=== PATIENT | male | born 1940 | race Caucasian/White ===

== ENCOUNTER 2024-08-04 09:22 | Inpatient (IN) | payer OTHER, MEDICARE, SELFPAY ==
[2024-08-04] VITALS (8 sets, daily range): BP systolic 97–171; BP diastolic 48–106; BMI 22.5; BMI 21.8
[2024-08-04 03:24] LABS: % Basophils 0.7 % (0-2); % Eosinophils 0.3 % (0-6); % Immature Granulocytes 0.3 % (0-0.5); % Monocytes 7.3 % (1.7-9.3); % Neutrophils 73.4 % (42.2-75.2); Absolute Basophils 0.1 10^3/uL (0-0.2); Absolute Lymphocytes 1.3 10^3/uL (1.2-3.4); Absolute Monocytes 0.5 10^3/uL (0.1-0.6); Absolute Neutrophils 5.4 10^3/uL (1.4-6.5); Hematocrit 37.1 % (39.0-52.0); Hemoglobin 12.9 g/dL (13.0-18.0); Mean Corp Hgb Conc. 34.8 g/dL (33.0-37.0); Mean Corpuscular Hgb 31.9 pg (27.0-31.0); Mean Corpuscular Volume 91.6 fL (80.0-94.0); Mean Platelet Volume 11.4 fL (7.4-10.4); Nucleated Red Blood Cells % 0 % (-); Platelet Count 133 10^3/uL (130-400); Red Blood Cell Count 4.05 10^6/uL (4.70-6.10); Red Cell Dist. Width 13.3 % (11.5-14.5); White Blood Cell Count 7.4 10^3/uL (4.8-10.8)
[2024-08-04 03:43] LABS: ALT (SGPT) 26 U/L (0-50); AST (SGOT) 33 U/L (17-59); Albumin 4.5 g/dl (3.5-5.0); Alkaline Phosphatase 100 U/L (38-126); Blood Urea Nitrogen 31 mg/dl (9-20); Calcium 10.2 mg/dl (8.4-10.2); Carbon Dioxide 21 mmol/L (22-30); Chloride 109 mmol/L (98-107); Estimated Creatinine Clearance 66 ml/min; Glucose 162 mg/dl (70-99); Lipase 97 U/L (23-300); Potassium 3.9 mmol/L (3.5-5.1); Sodium 139 mmol/L (135-145); Total Bilirubin 0.9 mg/dl (0.2-1.3); Total Protein 6.8 g/dl (6.3-8.2); eGFR > 60.00
--- NOTE | 2024-08-04 04:22 | ED.GENMED ---
History of Present Illness
General
Chief Complaint: Abdominal Pain
Source: patient
Exam Limitations: none
Time Seen by Provider: 08/04/24 04:22
Nursing documentation reviewed up to this point in time: agreed with
History of Present Illness
History of Present Illness:
83-year-old male with past medical history of COPD, ulcerative colitis, small bowel obstruction presents emergency department today with sudden onset of diffuse abdominal pain, nausea and vomiting after eating dinner this evening. Patient reports
that this feels like exactly when he had a small bowel obstruction in the past. Patient reports that he had a partial colectomy multiple years ago for his ulcerative colitis at [place]. Patient denies any diarrhea. Patient states that he had
a bowel movement few hours ago. He denies any chest pain or shortness of breath. He denies any fevers or chills. He denies any sick contacts.
Past History
Past History
ED Past Medical History: COPD and Other (Ulcerative colitis, arthritis)
ED Past Surgical History: Bowel resection and Orthopedic (Bilateral knee replacements. Left shoulder replacement. Waiting to see [facility] about his right shoulder.)
Social History
Tobacco: Former smoker
Personal:
Living: with family
Employment: Retired
Review of Systems
Review of Systems
All Other Systems: ROS reviewed and negative except as documented in HPI and ROS
Phy Exam
Physical Exam
Physical Exam:
General: Patient is well appearing and in no acute distress; non-toxic
Skin: Warm and dry, no rashes or lesions
Head: Normocephalic, atraumatic
Eyes: Sclera non-icteric. EOMs intact.
Cardiac: Regular rate and rhythm, no murmurs
Pulm: Normal respiratory effort
Abdomen: Abdomen is distended, diffuse abdominal tenderness to palpation, decreased bowel sounds
Neuro: CN II-XII intact, no focal neurologic deficits.
Psychiatric: Appropriate mood and affect.
Course
Orders/Labs/Results
Orders:
Orders
08/04/24 03:08
Complete Blood Count/With Diff Urgent
Comprehensive Metabolic Panel Urgent
Lipase Urgent
08/04/24 04:18
Morphine Sulfate 2 mg IV NOW STA
Ondansetron Injectable [Zofran] 4 mg IV NOW STA
08/04/24 04:19
CT Abd/Pel (IV only)-DH only Urgent
Comment:
Reason For Exam: diffuse abdominal pain, sbo hx
08/04/24 06:01
Morphine Sulfate 4 mg IV NOW STA
Ondansetron Injectable [Zofran] 4 mg IV NOW STA
08/04/24 07:00
Flush (0.9% Sodium Chloride) [Flush (Nss)] See Dose Instructions IV PER PROTOCOL
Abnormal Lab Results
08/04/24
03:08
RBC 4.05 L 10^6/uL
(4.70-6.10)
Hgb 12.9 L g/dL
(13.0-18.0)
Hct 37.1 L %
(39.0-52.0)
MCH 31.9 H pg
(27.0-31.0)
MPV 11.4 H fL
(7.4-10.4)
Lymphocytes % 18.0 L %
(20.5-51.1)
Chloride 109 H mmol/L
(98-107)
Carbon Dioxide 21 L mmol/L
(22-30)
BUN 31 H mg/dl
(9-20)
Glucose 162 H mg/dl
(70-99)
08/04/24 03:08
08/04/24 03:08
Vital Signs
Initial and Last Documented VS:
Initial Vital Signs
Temp Pulse Resp BP Pulse Ox
97.9 F 63 22 151/106 99
08/04/24 02:54 08/04/24 02:54 08/04/24 02:54 08/04/24 02:54 08/04/24 02:54
Last Documented Vital Signs
Temp Pulse Resp BP Pulse Ox
97.9 F 63 22 165/73 97
08/04/24 02:54 08/04/24 02:54 08/04/24 02:54 08/04/24 06:00 08/04/24 06:00
MDM/Problems Addressed
Differential Diagnosis Includes:
SBO, gastritis, LBO, diverticulitis
MDM/Problems Addressed:
83-year-old male presents Emergency Department today with concerns of sudden onset severe abdominal pain, nausea and vomiting. He is found to have small bowel obstruction. No indication for NG tube at this time. General surgery made aware.
Patient referred to hospitalist for admission.
*Critical Care Note
Total Time (30-74mins, 75-104mins- exclusive of procedures): Not Applicable
ED Attending Note
-
Portions of this chart may have been created with voice recognition software.� Occasional wrong word or��sound alike� substitutions may have occurred due to the inherent limitations of voice recognition software.
Discharge Plan
Departure
Patient Disposition: Admit
Date of Disposition: 08/04/24
Time of Disposition: 06:25
Admit to: Med/Surg
Presentation/result/management discussed w/ accepting MD/DO: Hospitalist
Patient with high blood pressure during this ER visit?: Yes
Condition: Fair
Discharge Problem:
Small bowel obstruction
Prescriptions:
No Action
oxycodone-acetaminophen 5 MG/325 MG tablet
1 tab PO .Q4-6HPRN PRN (Reason: pain) Qty: 20 0RF
finasteride 5 MG tablet
5 mg PO DAILY
silodosin [Rapaflo] 8 MG capsule
8 mg PO DAILY
hydroxychloroquine 200 MG tablet
1 tab PO DAILY
pantoprazole 40 MG tablet,delayed release (DR/EC)
40 mg PO DAILY
hydrocodone-acetaminophen 1 TABLET tablet
1 tab PO Q4HPRN PRN (Reason: pain) Qty: 12 0RF
diazepam 5 MG tablet
5 mg PO TIDPRN PRN (Reason: Pain, spasm) Qty: 12 0RF
Referrals:
Bernardo Cazares MD [Family Provider, Internal Medicine]
Interventions
Interventions:
*Risk Screen - Suicide Last Done: 08/04/24 02:54
*General Assessment Last Done: 08/04/24 02:54
*Neglect/Abuse Screening Last Done: 08/04/24 02:54
*ED- Fall Risk Assessment Last Done: 08/04/24 03:16
*ED COVID-19 Vaccine History Last Done: 08/04/24 03:16
KX-Cqkrgt-Vxkyrgvqox Assessment Last Done: 08/04/24 03:16
Discharge Date and Time
Print Language: FRISIAN
[2024-08-04] MEDS: MORPHINE SULFATE 2 MG IV (04:34)
[2024-08-04] MEDS: ZOFRAN 4 MG IV ×4 (04:34→21:25)
[2024-08-04] MEDS: MORPHINE SULFATE 4 MG IV (06:24)
[2024-08-04] MEDS: TORADOL 30 MG IV (08:16)
--- NOTE | 2024-08-04 08:57 | CM ---
Patient seen at bedside in ED 14 with physicians. Patient stated that he lives in a single family home with 3 stories but stays on 2 floors. Patient stated that he has a cane at home but does not use it. 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 Patient PCP is Dr. Eugene and he uses the [facility] in [place]. 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 Patient plan is to return home
with no needs when medically appropriate. CM will continue to follow for discharge planning needs.
Plan; home with no needs.
--- NOTE | 2024-08-04 10:04 | CON.GS ---
Consultation
-
Date/Time Consultation Performed: 08/04/2024 10:04 AM
Reason for Consultation: Small bowel obstruction
Medical History
-
Chief Complaint: Abdominal pain, nausea vomiting
History of Present Illness:
Patient is an 83-year-old male who presented to the emergency department secondary to the acute onset of abdominal pain.
Past medical history pertinent for ulcerative colitis having undergone a total abdominal colectomy with subsequent ileal J-pouch creation in 2009. He has also had prior inguinal herniorrhaphy. Single prior episode of small bowel obstruction about
10 years ago while vacationing in [place] which resolved with conservative management but did require NG tube decompression.
Patient's son is at bedside while he is evaluated in the emergency department. They state that over the past week he began developing headaches, anorexia mild nausea which was attributed to a recent tick bite that occurred last week. After
follow-up with his primary care the plan was for Lyme testing after 1 week of symptoms. He had been tolerating regular diet otherwise with his typical GI function which is 8-10 bowel movements a day. Yesterday he had a boa bun which is not typical
food for him and then in the evening began developing crampy abdominal pain. He tried to walk it off but it did not alleviate his symptoms. The diffuse abdominal pain increased in severity and he had an episode of nausea vomiting at 2 AM prompting
emergency department evaluation. He vomited again shortly after evaluation in the emergency department and prior to CT imaging.
Last bowel movement was yesterday evening. No flatus or bowel movement since. At this time he denies nausea and no further vomiting. He continues with centralized abdominal pain but also rather diffuse. Also abdominal bloating and distention.
Past Medical History
Past Medical History: Other (Ulcerative colitis, COPD, prior history of small bowel obstruction, osteoarthritis)
Past Surgical History: Other (Total abdominal colectomy with ileal pouch anal anastomosis. Inguinal hernia repair. Bilateral knee replacements. Left shoulder replacement.)
Social History
Tobacco: Former Smoker
Living: With Family
Family History
Family History: Reviewed & Not Pertinent
Allergies / Home Medications
Allergy/AdvReac Type Severity Reaction Status Date / Time
lactose Allergy bowel Verified 08/04/24 02:59
issues
lactose
intolerant
polyethylene glycol Allergy Rash Verified 08/04/24 02:59
environmental Allergy nasal Uncoded 08/04/24 02:59
congestion
�Medication �Instructions �Recorded �Confirmed �Type
finasteride 5 mg tablet 5 mg PO DAILY BPH 07/16/13 08/04/24 History
hydroxychloroquine 200 mg tablet 200 mg PO DAILY Autoimmune Disorder 07/16/13 08/04/24 History
silodosin 8 mg capsule (Rapaflo) 8 mg PO DAILY BPH 07/16/13 08/04/24 History
albuterol sulfate 90 mcg/actuation 2 puff inhalation R DAILY 08/04/24 08/04/24 History
aerosol inhaler Lung/Breathing Issues
cholecalciferol (vitamin D3) 25 25 mcg PO DAILY Supplement 08/04/24 08/04/24 History
mcg (1,000 unit) tablet (Vitamin
D3)
cholestyramine 4 gram oral powder 4 g PO QPM 08/04/24 08/04/24 History
coQ10 (ubiquinol) 100 mg capsule 100 mg PO DAILY Supplement 08/04/24 08/04/24 History
cyanocobalamin (vitamin B-12) 1,000 mcg PO DAILY Supplement 08/04/24 08/04/24 History
1,000 mcg tablet
cyclosporine 0.05 % eye drops in a 1 drp BOTH EYES Q12H Eye Condition 08/04/24 08/04/24 History
dropperette (Restasis)
montelukast 10 mg tablet 10 mg PO QPM Allergies 08/04/24 08/04/24 History
(Singulair)
uqyvslra-dcijewez-rls C 250 1 tab PO DAILY Supplement 08/04/24 08/04/24 History
mg-herbal no.124 8.875 mg
chewable tablet (Airborne
(ascorbic acid))
rosuvastatin 20 mg tablet (Crestor) 20 mg PO QPM High Cholesterol 08/04/24 08/04/24 History
vit C 250 mg-vit E 90 mg-zinc 40 1 tab PO DAILY Supplement 08/04/24 08/04/24 History
mg-copper 1 zh-yohqcd-jpvuhi
capsule (PreserVision AREDS-2)
Review of Systems
-
History Source: Patient and Family
All other systems: Negative unless noted
A 10 point review of systems was completed, and was negative except as per HPI.
Physical Exam
Vital Signs
Temp Pulse Resp BP Pulse Ox
97.7 F 46 16 171/48 97
08/04/24 08:30 08/04/24 08:30 08/04/24 08:30 08/04/24 08:30 08/04/24 06:00
08/03/24 08/04/24 08/05/24
06:59 06:59 06:59
Actual Weight 67.1 kg
Body Mass Index (BMI) 22.5
Lab Results
08/04/24 03:08
08/04/24 03:08
WBC 7.4 10^3/uL (4.8-10.8) 08/04/24 03:08
Hgb 12.9 g/dL (13.0-18.0) L 08/04/24 03:08
Hct 37.1 % (39.0-52.0) L 08/04/24 03:08
Plt Count 133 10^3/uL (130-400) 08/04/24 03:08
Abs Immat Gran (auto) 0.0 10^3/uL (0-0.05) 08/04/24 03:08
Neutrophils % 73.4 % (42.2-75.2) 08/04/24 03:08
Physical Exam
General: Well Developed, Well Nourished and No Apparent Distress (But uncomfortable appearing)
HEENT: Normocephalic and Anicteric
Respiratory: Non Labored Respirations
Cardiac: Regular Rhythm
GI: Soft, Tender (Diffuse abdominal tenderness but greatest in the periumbilical region. No rebound or rigidity. Slight guarding.) and Distended (Tympany on percussion throughout. No percussion tenderness.)
Neuro: AO x 3
Psych: Calm
Data Reviewed
-
CT Scan: Image Personally Visualized and interpreted, Report Reviewed by me, Discussed with Patient and Discussed with Family
Labs: Labs Reviewed by me
Assessment / Plan
-
Assessment: 83-year-old male presenting with small bowel obstruction in the setting of previous history of total abdominal colectomy and ileal pouch anal anastomosis.
CT imaging personally reviewed as well as radiologist report. Rather diffusely distended small bowel loops with out clear transition point. Few relatively decompressed small bowel loops in the right lower quadrant. No radiographic evidence
suggestive of internal hernia/volvulus or closed-loop obstruction. No pneumatosis, no free air, no bowel wall thickening or edema. Some residual stool and air within the ileal pouch.
Reviewed with patient and his son at bedside history and imaging studies as outlined above. Given clinical stability and no immediate signs of bowel compromise/threat recommended initial medical management.
Plan: Bowel rest; discussed placement of NG tube if patient's nausea/vomiting returns or if there is worsening abdominal distention and pain. Patient advises that he would be agreeable to placement later on but wishes to hold on NG tube placement
for now.
IV fluid hydration
Supportive care with analgesics and antiemetics as needed
Will follow
[2024-08-04] MEDS: DILAUDID 0.25 MG IV (10:12)
[2024-08-04] MEDS: RESTASIS 0.05% OPHTHALMIC EMULSION 1 DROPS BOTH EYES ×2 (10:15→21:25)
[2024-08-04] MEDS: D5LR 1000 IV ×2 (10:15→20:11)
[2024-08-04 10:35] LABS: Lactic Acid 0.8 mmol/L (0.7-2.0)
--- NOTE | 2024-08-04 10:47 | HPS.HSE ---
Addendum entered and electronically signed by Apolonia Thomson MD 08/04/24 18:46:
I personally performed a history and physical exam of the patient and discussed management with the resident. I reviewed the resident's note and agree with the documented findings and plan of care HPI/CC.
GENERAL: well developed, well nourished, male in no apparent distress
HEENT: NC/AT
HEART: regular rate and rhythm, +S1, +S2
LUNGS : clear to auscultation bilaterally
ABDOM: soft, tender without guarding or rebound, nondistended, + bowel sounds
EXT: no cyanosis, clubbing, or edema
NEUROLOGIC: grossly intact
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
control--surgery eval
Chronic Asthmatic Bronchitis- Continue Home Meds (INH)
UC- Hold PO Meds for now
BPH- Hold PO Meds for now
HLD - Hold PO Meds for now
History of Tick Bite- Lyme Serologies in AM
DVT proph-- lovenox
Code Status---Full Code
Original Note:
Family Physician
-
Family Physician: Bernardo Cazares MD
Chief Complaint
-
Abdominal Pain
History of Present Illness
Mr. Bello is an 83M with past medical history of ulcerative colitis (dx in 1999), chronic asthmatic bronchitis, total abdominal colectomy with subsequent ileal J-pouch creation in 2009, and inguinal herniorrhaphy who presented to the emergency
department with abdominal pain. Patient notes being in his usual state of health until around 8pm the night prior when he began feeling sharp and stabbing diffuse abdominal pain that was constant and progressively worsened. Patient tried to drink
water and sleep it off but awoke around 0200 this morning and called his neighbor to bring him to the emergency room. Patient notes one previous episode of similar abdominal pain approx. 10 years ago that was diagnosed as SBO and managed
conservatively with NG tube decompression and IVF. Patient states that this episode is worse. Associated symptoms include bloating, nausea and vomiting x2 (NBNB). Vomitus is described as digested food and water. Patient also believes that he had not
passed any gas since waking up at 0200. Patient denies fevers, chills, chest pain, SOB, or trouble urinating.
In ED, patient was given morphine which he states only minimally helped the pain.
Additional history includes one week of headache and fatigue which the patient attributes a tick bite that was to be tested for Lyme after 1 week of symptoms (today).
Medical History
Past Medical History
Past Medical History: Reports Other
Additional Past Medical History:
Ulcerative Colitis, Osteoarthritis, Chronic Asthmatic Bronchitis
Past Surgical History: Reports Other
Additional Past Surgical History:
total abdominal colectomy with subsequent ileal J-pouch creation
inguinal herniorrhaphy
bilateral TKR
Social History
Tobacco: Other (occasional cigar use; has never smoked )
Alcohol: Other (Quit drinking in 1999)
Drug: None
Personal:
Living: With Family
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
Family History
Family History: Not pertinent
Allergies / Home Medications
Allergies reflects when Allergies were last updated in [employer].
Home Medications with original date entered in [employer]
Allergy/Medication List:
Polypropylene glycol�rash, GI upset
Review of Systems
-
A 12 point ROS was completed and negative except as noted: Yes
Physical Exam
Vital Signs
Vital Signs
Temp Pulse Resp BP Pulse Ox
97.7 F 46 16 171/48 97
08/04/24 08:30 08/04/24 08:30 08/04/24 08:30 08/04/24 08:30 08/04/24 06:00
Physical Exam
General: Well Developed, Well Nourished and Pain; No Fever or Chills
HEENT: NormoCephalic, Anicteric, Moist mucous membranes and Other (Sclera anicteric)
Respiratory: Clear and Non Labored Respirations; No Wheezes, Rales, Rhonchi or Crackles
Cardiac: S1/S2 and Regular Rhythm
GI: Non Distended, Normal Bowel Sounds, Tender (Diffusely tender, particularly in periumbilical area) and Other (Patient is a little guarded, no rebound tenderness or peritoneal signs)
Musculoskeletal: No Clubbing, No Cyanosis and No Edema
Skin: Warm and Dry
Neuro: Awake, Alert, Oriented and Nonfocal/grossly intact
Psych: Calm
Laboratory Results
-
08/04/24 03:08
08/04/24 03:08
Laboratory Results
Lactic Acid 0.8 mmol/L (0.7-2.0) 08/04/24 10:10
Total Bilirubin 0.9 mg/dl (0.2-1.3) 08/04/24 03:08
AST 33 U/L (17-59) 08/04/24 03:08
ALT 26 U/L (0-50) 08/04/24 03:08
Alkaline Phosphatase 100 U/L (38-126) 08/04/24 03:08
Lipase 97 U/L (23-300) 08/04/24 03:08
CT abdomen pelvis:IMPRESSION:
1. Suspect distal small bowel obstruction.
2. Bilateral enhancing renal masses (two in each kidney), suspicious for neoplasm (either multiple primary renal neoplasms or metastases).
Data Reviewed
-
CT Scan: Image Personally Visualized and interpreted, Report Reviewed by me and Discussed with Patient
Lab Data: Labs Reviewed by me and Discussed with Patient
Impression/Plan
-
1. Small Bowel Obstruction
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
- Previous previous history of abdominal hernia repair
- Bowel rest (NPO);
- IVF D5LR@100 ml/hr
- Ice chip sporadically for dry mouth
- IV Zofran for antiemesis; if patient continues, consider gastric decompression
- IV Dilaudid 0.25mg for moderate pain, 0.5mg for severe pain
- Surgery consultation
- Serum Lactate
2. Chronic Asthmatic Bronchitis
- Continue Home Meds (INH)
3. UC
- Hold PO Meds for now
4. BPH
- Hold PO Meds for now
5. HLD
- Hold PO Meds for now
6. History of Tick Bite
- Lyme Serologies in AM
Code Status: Full Code
Diet: NPO
Dispo:
--- NOTE | 2024-08-04 13:25 | PTCARENOTE ---
pt had one episode of moderate emesis. rigo admin. aware. no new orders.
[2024-08-04] MEDS: DILAUDID 0.5 MG IV ×3 (13:48→21:13)
[2024-08-04] MEDS: LOVENOX 40 MG SC (16:14)
[2024-08-04] MEDS: D5LR IV (16:24)
--- NOTE | 2024-08-04 17:13 | PTCARENOTE ---
Pt NPO cont with no c/o nausea.
[2024-08-05] VITALS (15 sets, daily range): BP systolic 70–164; BP diastolic 49–138
[2024-08-05] MEDS: DILAUDID 0.5 MG IV ×5 (01:23→17:23)
[2024-08-05] MEDS: D5LR 1000 IV ×2 (04:44→13:33)
[2024-08-05] MEDS: ZOFRAN 4 MG IV ×3 (04:48→16:07)
[2024-08-05] MEDS: RESTASIS 0.05% OPHTHALMIC EMULSION 1 DROPS BOTH EYES (07:55)
[2024-08-05] MEDS: ProAIR HFA INHALER 2 PUFF INH (07:56)
[2024-08-05 08:10] LABS: Hematocrit 39.7 % (39.0-52.0); Hemoglobin 13.4 g/dL (13.0-18.0); Mean Corp Hgb Conc. 33.8 g/dL (33.0-37.0); Mean Corpuscular Hgb 31.5 pg (27.0-31.0); Mean Corpuscular Volume 93.2 fL (80.0-94.0); Platelet Count 115 10^3/uL (130-400); Red Blood Cell Count 4.26 10^6/uL (4.70-6.10); Red Cell Dist. Width 14.3 % (11.5-14.5); White Blood Cell Count 3.5 10^3/uL (4.8-10.8)
--- NOTE | 2024-08-05 08:46 | W.PN.GS2 ---
Addendum entered and electronically signed by Jose Rosas MD 08/05/24 15:25:
I saw and examined the patient.
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
Comment: Denies pain. Not passing flatus that he is aware of. Reports emesis this am, small volume. Remains distended but nontender on exam. Will cont current mgmt. Glycerin suppository may help empty the pouch.
Original Note:
Today's Communication / Plan
-
Suppository x1
NPO for bowel rest
NGT if vomiting continues
Assessment / Plan
-
83 yo male with a h/o ulcerative colitis having undergone a total abdominal colectomy with subsequent ileal J-pouch creation in 2009 presenting with SBO
CT imaging demonstrated rather diffusely distended small bowel loops with out clear transition point. Few relatively decompressed small bowel loops in the right lower quadrant. Some residual stool and air within the ileal pouch.
AFVSS
Pain improved but with episode of vomiting this am
Not yet passing flatus/stools, distention persists
--Plan glycerin supp x1 given retained stool in pouch
--If vomiting recurs, would recommend NGT
--Keep NPO for bowel rest
--Analgesics/antiemetics prn
--IVF as per primary team
--On Lovenox sq for VTE ppx
Subjective Data
-
Date of Service: August 05, 2024
Patient seen and examined at bedside with Dr. Rosas. Nasuea earlier this am and then Vomited but denies active nausea currently. Pain improving. Required analgesics overnight which were effective. Not yet passing flatus/stools.
Objective Data
-
Intake and Output
08/04/24 08/05/24 08/06/24
06:59 06:59 06:59
Intake Total 480 / 480
Output Total 240 / 240
Balance 240 / 240
Intake:
IV fluids (Total) 480 / 480
Output:
Urine, Voided 240 / 240
Other:
Number of approximated MODERATE 2
amounts of urine
Vital Signs
Temp Pulse Resp BP Pulse Ox
98.4 F 62 17 111/58 92
08/05/24 08:05 08/05/24 08:05 08/05/24 08:05 08/05/24 08:05 08/05/24 07:59
Lab Results
08/05/24 06:37
Calcium 10.2 mg/dl (8.4-10.2) 08/04/24 03:08
Total Bilirubin 0.9 mg/dl (0.2-1.3) 08/04/24 03:08
AST 33 U/L (17-59) 08/04/24 03:08
ALT 26 U/L (0-50) 08/04/24 03:08
Alkaline Phosphatase 100 U/L (38-126) 08/04/24 03:08
Total Protein 6.8 g/dl (6.3-8.2) 08/04/24 03:08
Albumin 4.5 g/dl (3.5-5.0) 08/04/24 03:08
Physical Exam
-
NAD
ABD soft, distended, mild tenderness, pepper cutter
[2024-08-05 09:02] LABS: ALT (SGPT) 22 U/L (0-50); AST (SGOT) 27 U/L (17-59); Albumin 3.8 g/dl (3.5-5.0); Alkaline Phosphatase 56 U/L (38-126); Blood Urea Nitrogen 52 mg/dl (9-20); Calcium 8.9 mg/dl (8.4-10.2); Carbon Dioxide 27 mmol/L (22-30); Chloride 106 mmol/L (98-107); Estimated Creatinine Clearance 40 ml/min; Glucose 153 mg/dl (70-99); Potassium 4.3 mmol/L (3.5-5.1); Sodium 142 mmol/L (135-145); Total Bilirubin 0.7 mg/dl (0.2-1.3); Total Protein 5.9 g/dl (6.3-8.2); eGFR 54.51
[2024-08-05] MEDS: GLYCERIN SUPPOSITORY ADULT 1 SUPP RECTAL (09:53)
--- NOTE | 2024-08-05 12:21 | PN.CDI ---
CDI
- -
CDI:
Physician Documentation Request
Admit Date: 08/04/24 09:22
Dear QI De Paz,
Please review the following and provide your response in the progress notes.
Clinical Indicators:
PN, 08/05
#...h/o ulcerative colitis having undergone a total abdominal colectomy
#...with subsequent ileal J-pouch creation in 2009 presenting with SBO
#CT imaging demonstrated rather diffusely distended small bowel loops
#...with out clear transition point.
#Few relatively decompressed small bowel loops in the right lower quadrant.
#Not yet passing flatus/stools, distention persists
Based on the above and your clinical assessment, please clarify the specificity of the bowel obstruction, if known:
Partial bowel obstruction with intestinal adhesions
Completer bowel obstruction with intestinal adhesions
Other (please specify)
Use of terms such as suspected, likely, concern for, or probable (associated with a specific diagnosis that is being evaluated, monitored, or treated as if it exists) are acceptable and can be coded in the inpatient setting, when documented at the
time of discharge.
Thank you,
Apolonia Kapadia RN BSN CCDS
CDI Specialist
Please contact via tiger text
Please use your independent medical judgment in providing your response.
--- NOTE | 2024-08-05 13:26 | W.PN.HOSP.TC ---
Addendum entered and electronically signed by Apolonia Thomson MD 08/05/24 18:17:
I personally performed a history and physical exam of the patient and discussed management with the resident. I reviewed the resident's note and agree with the documented findings and plan of care HPI/CC.
GENERAL: well developed, well nourished, male in no apparent distress
HEENT: NC/AT
HEART: regular rate and rhythm, +S1, +S2
LUNGS : clear to auscultation bilaterally
ABDOM: soft, tender without guarding or rebound fredy midepigastric, nondistended, + bowel sounds
EXT: no cyanosis, clubbing, or edema
NEUROLOGIC: grossly intact
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
control--surgery eval--glycerin suppository to empty pouch
Chronic Asthmatic Bronchitis- Continue Home Meds (INH)
UC- Hold PO Meds for now
BPH- Hold PO Meds for now
HLD - Hold PO Meds for now
History of Tick Bite- Lyme Serologies in AM
DVT proph-- lovenox
Code Status---Full Code
Original Note:
Today's Communication/Plan
-
.
Assessment / Plan
Assessment / Plan
- 1. Small Bowel Obstruction
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
- Previous previous history of abdominal hernia repair
- Continue Bowel rest (NPO);
- Continue IVF D5LR@100 ml/hr
- Serum lactate, WBC, WNL
- Ice chip sporadically for dry mouth
- Continue PRN IV Zofran for antiemesis;
- Patient had one episode of vomiting this morning, discussed potential of NG tube but patient would like to avoid that if possible. Patient notes a history of NG tube during previous episode of SBO as well as multiple NG in that past during
non-abdominal surgical procedures
- IV Dilaudid 0.25mg for moderate pain, 0.5mg for severe pain
- Patient did not respond to IV Toradol or IV morphine this admission.
- Appreciate General Surgery Input
- Conservative management for now
- NG if vomiting
- Glycerin rectal suppository 1x (stool in rectal pouch on CT)
2. Chronic Asthmatic Bronchitis
- Continue Home Meds (INH)
3. UC
- Hold PO Meds for now
4. BPH
- Hold PO Meds for now
5. HLD
- Hold PO Meds for now
6. History of Tick Bite
- Follow up Lyme Serologies
Code Status: Full Code
Diet: NPO
Dispo:
Anticipated Discharge: 24 - 48 hours
Subjective/Interval History
-
Date of Service: August 05, 2024
Patient seen and examined this AM, states that he slept well, had residual nausea and belching, but denied vomiting. Stated that his nausea was well controlled on medication, and that pain was well controlled on medication. Patient then proceeded to
vomit approximately 100-150 cc of yellowish liquidy emesis. Patient states he has not yet had a BM, but does endorse having passed flatus over night.
On revisiting patient, patient's friend who is at bedside was asking about nonnarcotic pain medications, however, patient has already been trialed on IV Toradol, and it did not control pain.
Objective Data
-
Labs:
Laboratory Results
08/05/24
06:37
WBC 3.5 L
Hgb 13.4
Hct 39.7
Plt Count 115 L
Sodium 142
Potassium 4.3
Chloride 106
Carbon Dioxide 27
BUN 52 H
Creatinine 1.3
Glucose 153 H
Calcium 8.9
Total Bilirubin 0.7
AST 27
ALT 22
Alkaline Phosphatase 56
Vital Signs:
Vital Signs
Temp Pulse Resp BP Pulse Ox
98.4 F 62 17 111/58 98
08/05/24 08:05 08/05/24 08:05 08/05/24 08:05 08/05/24 08:05 08/05/24 08:00
I&O
08/04/24 08/05/24 08/06/24
06:59 06:59 06:59
Intake Total 480 / 480
Output Total 240 / 240
Balance 240 / 240
Review of Systems
-
History Source: Patient
Constitutional: Denies Fever or Chills
EENT: Reports Other (endorses dry mouth); Denies Sore Throat
Respiratory: Denies Cough or Trouble Breathing
Cardiac: Denies Chest Pain
Abdomen/GI: Reports Abdominal Pain, Nausea and Vomiting; Denies Diarrhea or GERD
Neuro: Reports No Symptoms
Physical Exam
-
General: Well Developed, Well Nourished, No Apparent Distress and Pain (mild, controlled on PRN pain medication)
HEENT: Normocephalic and Atraumatic
Respiratory: Clear to Auscultation; Negative Wheezes, Rales or Rhonchi
Cardiac: Regular Rhythm and S1/S2
GI: Soft, Normal Bowel Sounds and Tender (mildly TTP diffusely, more so in the periumbilical area)
Musculoskeletal: No Clubbing, No Cyanosis and No Edema
Skin: Warm and Dry
Neuro: Awake, Alert, Oriented and Nonfocal/Grossly Intact
Psych: Calm
Data Reviewed
-
CT Scan: Image personally visualized and interpreted, Report Reviewed by me, Discussed with Physician (Dr. Rosas ([facility] and Discussed with Patient
Labs: Labs Reviewed by me and Discussed with Patient
--- NOTE | 2024-08-05 16:03 | CM ---
Patient seen at bedside with friend also present. Patient plan is to return home with family supports when medically appropriate. CM will continue to follow for discharge planning needs.'
PLan; home with no needs vs home with VN pending medical assessment
--- NOTE | 2024-08-05 17:00 | PTCARENOTE ---
Talked with Dr. Thomson about pt not wanting a NG tube. She had stated that his SBO is not getting any better and that we cannot go against his wishes of not having an NG tube.
Pt had vomited two times today into the emesis bag, and still refused the NG tube when explained that it would help him. Pt explained that he had a terrible experience with an NG tube in 2014.
[2024-08-05] MEDS: LOVENOX 40 MG SC (17:18)
--- NOTE | 2024-08-05 19:43 | PTCARENOTE ---
Post shift report, patient rang call saha stating he felt SOB and congested, requesting an inhaler. Upon ausculation, lungs sounds coarse. Patient with frequent, productive cough--per patient, sputum de la torre in color. SpO2 in the 70s, on RA. Patient
placed on 5 L. TRAFFIC I MANAGER notified. IV fluids discontinued. x 1 dose IV lasix ordered. RT notified to come and administer duoneb breathing treatment. Overnight, refrigeration operator TRAFFIC I MANAGER to come to the bedside.
[2024-08-05] MEDS: LASIX 40 MG IV (19:47)
[2024-08-05] MEDS: DUONEB 3 ML INH (19:48)
--- NOTE | 2024-08-05 20:08 | PTCARENOTE ---
NG tube ordered to be placed. BMP and BNP ordered. Patient placed on 12 L midflow. STAT bedside CXR now
[2024-08-05 20:31] LABS: HCO3 30.6 mmol/L (21-28); O2 Saturation % 86.7 % (94-98); PCO2 43 mmHg (35-48); pH 7.46 (7.35-7.45)
[2024-08-05 20:33] LABS: PO2 53 mmHg (83-108)
--- NOTE | 2024-08-05 20:35 | PTCARENOTE ---
Addendum entered by Maricel Levine RN 08/05/24 21:45:
patient transferred to ICU bed 3365. Report given to Davidson, at the bedside.
Original Note:
Patient being transferred to IMU, bed 3349. PO2 resulted at 52. Failed attempt to place NG tube, patient continues to decompensate as evidenced by Sp02, most recent SpO2 82%. on 12 L midflow.
[2024-08-05 20:44] LABS: Blood Urea Nitrogen 74 mg/dl (9-20); Calcium 9.3 mg/dl (8.4-10.2); Carbon Dioxide 33 mmol/L (22-30); Chloride 99 mmol/L (98-107); Estimated Creatinine Clearance 25 ml/min; Glucose 161 mg/dl (70-99); Potassium 4.1 mmol/L (3.5-5.1); Sodium 144 mmol/L (135-145); eGFR 30.66
[2024-08-05 20:53] LABS: NT-proBNP 1360 pg/ml
[2024-08-05 21:34] LABS: Hematocrit 44.1 % (39.0-52.0); Hemoglobin 14.7 g/dL (13.0-18.0); Mean Corp Hgb Conc. 33.3 g/dL (33.0-37.0); Mean Corpuscular Hgb 31.7 pg (27.0-31.0); Red Blood Cell Count 4.64 10^6/uL (4.70-6.10); Red Cell Dist. Width 14.5 % (11.5-14.5); White Blood Cell Count 3.2 10^3/uL (4.8-10.8)
--- NOTE | 2024-08-05 21:40 | PTCARENOTE ---
Pt. transferred from floor for hypotension/desaturation increasing 02 demands.
Placed on HHF w. NRB.
NG tube placed 2.5L output after initial placement.
ICU ROSA bedside.
--- NOTE | 2024-08-05 21:40 | W.PN.UPDATE ---
Update Note
Progress Note Update
~1925 RN reached out stating that pt felt SOB and more congested. Requesting a breathing treatment. SPO2 at this time was in the 70s on RA. RN placed on 5L NC and pt reached 82-88%. On assessment pts lungs were coarse and rhonchorous throughout with
a moist productive cough producing grayish sputum. BP 134/65 HR 91.Temp 98.6F. Denies chills. Orders placed for BMP, BNP, ABG, CXR, 40mg IV Lasix, DuoNeb, and d/c IV fluids till CXR returns.�The respiratory therapist was at bedside and placed the pt
on 12L midflow and he was saturating 90%. Resps in the 20s. RT then suctioned the pt with a yankuer and he began vomiting- up to 4x since change of shift. Orders placed for NGT- RN attempted x1 without success. Plan to transfer to IMU. Upon
assessment of vitals prior to transfer pts bp dropped to 70/49 with the automatic cuff and rechecked with a manual- also reading 70s/40s. HR in the 90s. CXR: read no acute cardiopulmonary disease. Bolus ordered and transfer initiated.�
~2100 Tx to ICU for possible pressor support. Primary contact Jelani Burciaga made aware of transfer- pt states [place] and is unable�to be reached at this time. Dr. Perdomo made aware of transfer.�
[2024-08-05 21:42] LABS: INR 1.14
[2024-08-05 21:43] LABS: APTT 23.7 Sec (23.4-35.0)
[2024-08-05 21:47] LABS: Lactic Acid 4.7 mmol/L (0.7-2.0)
[2024-08-05] MEDS: RESTASIS 0.05% OPHTHALMIC EMULSION BOTH EYES (21:47)
[2024-08-05] MEDS: NSS 250 IV (21:47)
[2024-08-05 21:48] LABS: Mean Platelet Volume 12.3 fL (7.4-10.4); Platelet Count 139 10^3/uL (130-400)
--- NOTE | 2024-08-05 22:00 | W.PN.UPDATE ---
Addendum entered and electronically signed by QI Pennington 08/05/24 23:08:
Empiric Zoysn for Aspiration
Original Note:
Update Note
Progress Note Update
Patient was transferred to the ICU for concern of increased shortness of breath. Admitted for small bowel obstruction. Patient has been vomiting prior to the event so high concern for aspiration. Ng tube placed in ICU. (Currently 2.5 liters of
liquid out). Patient currently on high flow oxygen. Patient improved in oxygenation with ngt and nasal suction.
Plan overnight
1) Maintain NGTube
2) Empiric for Zosyn
3) Continue Hiflow (Intubate with failure)
4) Iv resusitation
--- NOTE | 2024-08-05 22:29 | PTCARENOTE ---
sp02 improving to low 90s.
NRB removed.
[2024-08-05] MEDS: ZOSYN 50 IV (23:23)
[2024-08-05] MEDS: LR 1000 IV (23:24)
--- NOTE | 2024-08-05 23:29 | PTCARENOTE ---
Addendum entered by Davidson Rodriguez RN 08/06/24 00:03:
Repeat LA downtrending however remains elevated, Another 1L bolus ordered. Started of Pip tazo.
Original Note:
1L bolus given. Remains normotensive w.o vasopressor support.
NRB remains off, Repeat ABG completed. Appears more comfortable, no signs of visual resp. distress noted upon assessment.
[2024-08-05 23:30] LABS: B.E. 7.6 mmol/L; HCO3 33.7 mmol/L (21-28); O2 Saturation % 96.8 % (94-98); PCO2 52 mmHg (35-48); PO2 74 mmHg (83-108); pH 7.42 (7.35-7.45)
[2024-08-05 23:48] LABS: Lactic Acid 4.2 mmol/L (0.7-2.0)
[2024-08-05] MEDS: NSS 1000 IV (23:59)
[2024-08-06] VITALS (48 sets, daily range): BP systolic 77–129; BP diastolic 55–85; BMI 22.1
--- NOTE | 2024-08-06 02:58 | PTCARENOTE ---
Addendum entered by Davidson Rodriguez RN 08/06/24 05:25:
ECG completed due to tachycardia suspicion for atach/afib. Bladder scanned again for less than 120.
Lytes rplted per orders.
Addendum entered by Davidson Rodriguez RN 08/06/24 03:29:
ICU ROSA notified of tachycardia, RR in 30s, decreased urine op.
Original Note:
Pt. very restless, attempted to get OOB.
Redirected back to bed, explained situation to patient.
Remains tachypneic, sp02 92 on HHF, NRB remains off, No vasopressor support at this time.
Total NG OP so far 3L.
[2024-08-06] MEDS: DILAUDID 0.5 MG IV (03:17)
[2024-08-06 04:45] LABS: Hematocrit 37.6 % (39.0-52.0); Hemoglobin 12.9 g/dL (13.0-18.0); Lactic Acid 2.6 mmol/L (0.7-2.0); Mean Corp Hgb Conc. 34.3 g/dL (33.0-37.0); Mean Corpuscular Volume 93.3 fL (80.0-94.0); Mean Platelet Volume 12.3 fL (7.4-10.4); Platelet Count 99 10^3/uL (130-400); Red Blood Cell Count 4.03 10^6/uL (4.70-6.10); Red Cell Dist. Width 14.2 % (11.5-14.5); White Blood Cell Count 1.2 10^3/uL (4.8-10.8)
[2024-08-06 05:02] LABS: ALT (SGPT) 21 U/L (0-50); AST (SGOT) 36 U/L (17-59); Albumin 3.2 g/dl (3.5-5.0); Alkaline Phosphatase 48 U/L (38-126); Blood Urea Nitrogen 78 mg/dl (9-20); Calcium 7.8 mg/dl (8.4-10.2); Carbon Dioxide 29 mmol/L (22-30); Chloride 105 mmol/L (98-107); Estimated Creatinine Clearance 25 ml/min; Glucose 115 mg/dl (70-99); Magnesium 1.9 mg/dl (1.6-2.3); Potassium 3.8 mmol/L (3.5-5.1); Sodium 143 mmol/L (135-145); Total Bilirubin 0.9 mg/dl (0.2-1.3); Total Protein 5.2 g/dl (6.3-8.2); eGFR 30.66
[2024-08-06] MEDS: ZOSYN 50 IV ×3 (05:20→18:08)
[2024-08-06] MEDS: MAGNESIUM SULFATE 100 IV (05:20)
[2024-08-06] MEDS: KCL 160 MEQ IV (05:50)
--- NOTE | 2024-08-06 07:10 | CON.INTV ---
Consultation
Consultation Request
Date/Time Consultation Requested: 08/05/2024
Date/Time Consultation Performed: 08/06/2024
Requesting Provider: Aliza Vega
Performing Provider: Ck Meier
Reason for Consultation: Respiratory distress
Medical History
-
Chief Complaint: Abdominal pain
History of Present Illness:
Patient is 83-year-old gentleman with history of ulcerative colitis s/p total abdominal colectomy with subsequent ileal J-pouch creation. Also prior history of inguinal hernia repair. He presented to the hospital with abdominal pain and nausea.
Workup was suggestive of possible small bowel obstruction, he was evaluated by general surgery service and patient was managed conservatively on the floor. Patient was reluctant to have NG placed. Overnight, patient developed increased abdominal
discomfort, shortness of breath after vomiting. He was started on supplemental oxygen quickly uptitrated also given a dose of diuretics and breathing treatment. But is worsening respiratory status prompted transfer to the ICU. Patient was noted
to have significant abdominal distention and was struggling along with elevated lactate. An NG tube was placed with close to 3 L of fecal effluent aspirated. This led to patient's clinical improvement. He was also aggressively hydrated, lactate
started to trend down. However his oxygen requirement has continued to be high and is currently on 100% FiO2 high flow nasal cannula.
Travel Registered Nurse Nicu consultation was requested for further input.
Past Medical History
Past Medical History: Other (Ulcerative colitis, COPD, prior history of small bowel obstruction, osteoarthritis)
Past Surgical History: Other (Total abdominal colectomy with ileal pouch anal anastomosis. Inguinal hernia repair. Bilateral knee replacements. Left shoulder replacement.)
Social History
Tobacco: Former Smoker
Living: With Family
Family History
Family History: Reviewed & Not Pertinent
Allergies / Home Medications
Allergies
Allergy/AdvReac Type Severity Reaction Status Date / Time
lactose Allergy bowel Verified 08/04/24 02:59
issues
lactose
intolerant
polyethylene glycol Allergy Rash Verified 08/04/24 02:59
environmental Allergy nasal Uncoded 08/04/24 02:59
congestion
Home Medications
�Medication �Instructions �Recorded �Confirmed �Last Taken �Type
finasteride 5 mg tablet 5 mg PO DAILY BPH 07/16/13 08/04/24 Unknown History
hydroxychloroquine 200 mg tablet 200 mg PO DAILY Autoimmune Disorder 07/16/13 08/04/24 Unknown History
silodosin 8 mg capsule (Rapaflo) 8 mg PO DAILY BPH 07/16/13 08/04/24 Unknown History
albuterol sulfate 90 mcg/actuation 2 puff inhalation R DAILY 08/04/24 08/04/24 Unknown History
aerosol inhaler Lung/Breathing Issues
cholecalciferol (vitamin D3) 25 25 mcg PO DAILY Supplement 08/04/24 08/04/24 Unknown History
mcg (1,000 unit) tablet (Vitamin
D3)
cholestyramine 4 gram oral powder 4 g PO QPM Gastrointestinal Issue 08/04/24 08/04/24 Unknown History
coQ10 (ubiquinol) 100 mg capsule 100 mg PO DAILY Supplement 08/04/24 08/04/24 Unknown History
cyanocobalamin (vitamin B-12) 1,000 mcg PO DAILY Supplement 08/04/24 08/04/24 Unknown History
1,000 mcg tablet
cyclosporine 0.05 % eye drops in a 1 drp BOTH EYES Q12H Eye Condition 08/04/24 08/04/24 Unknown History
dropperette (Restasis)
montelukast 10 mg tablet 10 mg PO QPM Allergies 08/04/24 08/04/24 Unknown History
(Singulair)
ewlpxhfk-[id number] C 250 1 tab PO DAILY Supplement 08/04/24 08/04/24 Unknown History
mg-herbal no.124 8.875 mg
chewable tablet (Airborne
(ascorbic acid))
rosuvastatin 20 mg tablet (Crestor) 20 mg PO QPM High Cholesterol 08/04/24 08/04/24 Unknown History
vit C 250 mg-vit E 90 mg-zinc 40 1 tab PO DAILY Supplement 08/04/24 08/04/24 Unknown History
mg-copper 1 [id number]
capsule (PreserVision AREDS-2)
Review of Systems
-
Hematologic/Lymphatic: Other (Dry mouth, shortness of breath, abdominal discomfort, nausea.)
Vitals / Labs / Diagnostic Testing
Vital Signs
Temp Pulse Resp BP Pulse Ox
98.7 F 128 28 102/71 89
08/06/24 06:00 08/06/24 06:00 08/06/24 06:00 08/06/24 06:00 08/06/24 06:00
Lab Data
08/06/24 04:14
08/06/24 04:14
Laboratory Results
08/05/24 08/05/24 08/05/24
20:14 21:20 23:16
PT 15.0 H
INR 1.14
APTT 23.7
pH 7.46 H 7.42
pCO2 43 52 H
pO2 53 L* 74 L
HCO3 30.6 H 33.7 H
O2 Delivery Level
Diagnostic Testing:
Physical Exam
-
HEENT: Normocephalic and Other (Dry oral mucosa)
Cardiovascular: Peripheral Edema (No pedal edema) and Other (Tachycardic)
Respiratory: Rales, Rhonchi and Other (Increased work of breathing)
GI: Distended
Neurology: Awake and Alert
Skin: Warm and Dry
Assessment
-
#1. Acute hypoxic respiratory failure with respiratory distress
- Suspect aspiration in the setting of vomiting due to small bowel obstruction
- Patient has diffusely coarse breath sounds, very rhonchorous on exam, currently on high flow nasal cannula on 100% FiO2 and saturations hanging between 89 to 90%
- Continue strict n.p.o., supplemental O2, patient at risk of requiring intubation and mechanical ventilation
- Check nasal MRSA screen. Continue IV Zosyn
- ABG 7.42, 52, 74, on high flow nasal cannula. Wide [place].
- Check nasal MRSA, start IV Zosyn
#2. Small bowel obstruction
- Prior history of abdominal colectomy and ileal pouch anal anastomosis with history of ulcerative colitis. Also prior history of abdominal hernia repair.
- NG tube placed, close to 3 Ltr feculent effluent aspirated, continue low intermittent suction
- Serial lactate improving, continue IV fluid resuscitation, most recent 2.6
- General Surgery service on case
- IV PPI daily
#3. Acute kidney injury
- Suspect prerenal etiology
- Continue aggressive IV fluid resuscitation
- Patient still appears dry on exam, very dry mouth, no pedal edema
- Will give another liter of Ringer lactate bolus followed by continuous infusion at 125 mL/h, serial labs, monitor urine output closely
- No further diuresis for now
#4. History of asthmatic bronchitis
- Start DuoNeb 4 times daily scheduled
- Give Solu-Medrol 40 mg IV daily
- Continue albuterol on an as-needed basis in addition
#5. Enhancing renal mass on CT
- ? Concern for renal neoplasm versus metastasis
DVT prophylaxis: Discontinue Lovenox, initiate subcu heparin in view of acute kidney injury
Other medical diagnoses:
- BPH
- History of ulcerative colitis
- Hyperlipidemia
- History of tick bite
Critical Care time 65 mins -- The patient is admitted for acute critical illness for the treatment of vital organ failure and/or prevention of further life-threatening conditions. Total care includes time spent in review of history, physical exam,
medications, hemodynamic/ventilator parameters, laboratory data, imaging and discussion with house staff, pharmacy, respiratory therapy, fire alarm installer, and nursing.
Data:
CT Abd-Pelvis 07/2024: . Suspect distal small bowel obstruction.
2. Bilateral enhancing renal masses (two in each kidney), suspicious for neoplasm (either multiple primary renal neoplasms or metastases).
CXR 07/2024: No acute change
[2024-08-06] MEDS: DUONEB 3 ML INH ×4 (07:32→19:39)
--- NOTE | 2024-08-06 08:00 | PTCARENOTE ---
Assumed care of pt at 0715 following shift report. Pt awake and resting in bed in High Fowlers position. Respirations mildly distressed w/ audible coarse rhonci. Cough productive of grande sputum. Pt on Hiflow 55L/90%. POx 90-92% RR mid 20's. Pt
remains NPO per order w/ few ice chips and frequent oral care. L nare NGT to LIWS w/ brown drainage. Pt voiding small amounts ajith urine using urinal. Pt denies c/o pain. Physical assessment completed as documented. Call yifan w/in pt reach and safe
environment maintained.
--- NOTE | 2024-08-06 08:36 | W.PN.HOSP.TC ---
Today's Communication/Plan
-
portable CXR
wean O2 if able
cont NPO/IVF
apprec surg/pesticide applicator
cont zosyn
Assessment / Plan
Assessment / Plan
pt is an 83 year old male
sepsis with acute hypoxemic resp failure and leukopenia--from aspiration from SBO and vomiting--transferred to ICU--on HI FARRUKH--apprec pesticide applicator--on zosyn--cont IVF--low threshold for intubation if worsens--check CXR
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
removed--placed after vomiting and aspiration--apprec surg--glycerin suppository to empty pouch was ineffective
Chronic Asthmatic Bronchitis- Continue Home Meds (INH)
UC- Hold PO Meds for now
BPH- Hold PO Meds for now
HLD - Hold PO Meds for now
History of Tick Bite- Lyme Serologies pending
DVT proph-- lovenox
Code Status---Full Code
spoke with friend at bedside
Total Critical Care Time 35 minutes. I was immediately available to the patient and staff. I personally examined, reviewed labs, diagnostic images/reports, interpretations, treatment plans, discussed patient care with other providers and family
or caregivers (if patient is unable to make decisions), entered orders as appropriate and documented the medical record.
Anticipated Discharge: > 48 hours
Subjective/Interval History
-
Date of Service: August 06, 2024
pt events of last night noted--presumed aspiration, hypoxic, NGT placed
Objective Data
-
Labs:
Laboratory Results
08/05/24 08/05/24 08/05/24
20:10 21:20 23:16
WBC 3.2 L
Hgb 14.7
Hct 44.1
Plt Count 139 D
PT 15.0 H
INR 1.14
APTT 23.7
HCO3 33.7 H
Sodium 144
Potassium 4.1
Chloride 99
Carbon Dioxide 33 H
BUN 74 H
Creatinine 2.1 H
Glucose 161 H
Calcium 9.3
Total Bilirubin
AST
ALT
Alkaline Phosphatase
08/06/24
04:14
WBC 1.2 L*
Hgb 12.9 L
Hct 37.6 L
Plt Count 99 L D
PT
INR
APTT
HCO3
Sodium 143
Potassium 3.8
Chloride 105
Carbon Dioxide 29
BUN 78 H
Creatinine 2.1 H
Glucose 115 H
Calcium 7.8 L D
Total Bilirubin 0.9
AST 36
ALT 21
Alkaline Phosphatase 48
Vital Signs:
max temp for 24 hours
08/06/24
04:00
Temp 99 F
Vital Signs
Temp Pulse Resp BP Pulse Ox
98.7 F 105 24 102/71 92
08/06/24 06:00 08/06/24 07:39 08/06/24 07:39 08/06/24 06:00 08/06/24 07:39
I&O
08/05/24 08/06/24 08/07/24
06:59 06:59 06:59
Intake Total 480 / 480 2150 / 2150
Output Total 240 / 240 2975 / 2975
Balance 240 / 240 -825 / -825
Review of Systems
-
All other systems: Reviewed and negative
Respiratory: Reports Trouble Breathing
Abdomen/GI: Denies Abdominal Pain, Nausea or Vomiting
Physical Exam
-
General: Well Developed, Well Nourished and No Apparent Distress
HEENT: Normocephalic, Atraumatic, Oxygen (HI FARRUKH) and Other (NGT)
Respiratory: Rhonchi
Cardiac: Regular Rhythm, S1/S2 and Tachycardic
GI: Soft, Nontender and Nondistended; Negative Normal Bowel Sounds (hypoactive)
Musculoskeletal: No Clubbing, No Cyanosis and No Edema
Skin: Warm
Neuro: Awake and Alert
[2024-08-06] MEDS: LR 1000 IV ×2 (09:14→18:04)
[2024-08-06] MEDS: NSS (PRESERVATIVE FREE) 10 ML IV (09:17)
[2024-08-06] MEDS: SOLU-MEDROL PF 40 MG IV (09:17)
[2024-08-06] MEDS: PROTONIX IV 40 MG IV (09:17)
[2024-08-06] MEDS: RESTASIS 0.05% OPHTHALMIC EMULSION 1 DROPS BOTH EYES ×2 (09:18→20:40)
[2024-08-06] MEDS: HEPARIN 5000 UNITS SC ×2 (09:18→20:39)
[2024-08-06] MEDS: OMNIPAQUE 50 ML PO (12:30)
--- NOTE | 2024-08-06 12:30 | PTCARENOTE ---
Pt remains on Hiflow- per Dr Orta, pt trialed lying w/ HOB flat to see if able to tolerate for ordered CT scan. Pt tolerated well w/ POx remaining >90%. Per Dr Orta. Pt's friend 'Gael' at bedside- updated as requested on pt's condition/plan of
care. Oral contrast administered via NGT and clamped. No additional changes from previous assessment findings.
--- NOTE | 2024-08-06 12:56 | W.PN.GS2 ---
Today's Communication / Plan
-
--Rpt CT with PO contrast when pulm status allows
--NPO/NGT
Assessment / Plan
-
83 yo male with a h/o ulcerative colitis having undergone a total abdominal colectomy with subsequent ileal J-pouch creation in 2009 presenting with [address]BO
CT imaging demonstrated rather diffusely distended small bowel loops with out clear transition point. Few relatively decompressed small bowel loops in the right lower quadrant. Some residual stool and air within the ileal pouch.
AFVSS
Emesis multiple bouts 6/ evening, desat, step-up to ICU and HFNC
Reports passing small flatus
--NPO/NGT/IVF
--Plan for rpt CT with PO contrast when pulm status allows, would delay until O2 support can be weaned and he can tolerate laying flat
--Consider empiric abx given concern for possible aspiration
--Analgesics/antiemetics prn
--IVF as per primary team
--On Lovenox sq for VTE ppx
Subjective Data
-
Date of Service: August 06, 2024
Emesis last night with desat leading to escalation to ICU care, now on HFNC. Denies abd pain. Reports small flatus. NGT now to suction, denies nausea
Objective Data
-
Intake and Output
08/05/24 08/06/24 08/07/24
06:59 06:59 06:59
Intake Total 480 / 480 2149 / 2149
Output Total 240 / 240 2975 / 2975 400 / 400
Balance 240 / 240 -825 / -825 -400 / -400
Intake:
Oral fluids 0 / 0
IV fluids (Total) 480 / 480
IV piggybacks 2149 / 2149
Output:
Gastrointestinal tube output ( 2800 / 2800
Total)
[employer] Sump 2800 / 2800
Urine, Voided 240 / 240 175 / 175 400 / 400
Other:
Number of approximated MODERATE 2
amounts of urine
Number of immeasurable emeses? 2
Vital Signs
Temp Pulse Resp BP Pulse Ox
98.5 F 131 28 102/71 94
08/06/24 11:55 08/06/24 11:22 08/06/24 11:22 08/06/24 06:00 08/06/24 11:22
Lab Results
08/06/24 04:14
08/06/24 04:14
Calcium 7.8 mg/dl (8.4-10.2) L D 08/06/24 04:14
Magnesium 1.9 mg/dl (1.6-2.3) 08/06/24 04:14
Total Bilirubin 0.9 mg/dl (0.2-1.3) 08/06/24 04:14
AST 36 U/L (17-59) 08/06/24 04:14
ALT 21 U/L (0-50) 08/06/24 04:14
Alkaline Phosphatase 48 U/L (38-126) 08/06/24 04:14
Total Protein 5.2 g/dl (6.3-8.2) L 08/06/24 04:14
Albumin 3.2 g/dl (3.5-5.0) L 08/06/24 04:14
Physical Exam
-
Gen: NAD
Abd: softly distended, nt, NGT feculent thin fluid
--- NOTE | 2024-08-06 16:00 | PTCARENOTE ---
Pt transported w/ this RN for ordered CT scan at 1445 w/ midflow O2 @ 15 l/min and 100% NRB. POx remained >90% during transport and test. Pt returned to room w/o complication or complaint. Comfort care provided. NGT returned to [place] w/ carroll/sivan
drainage. Pt remains NPO. Continues to use urinal to void small amounts ajith urine. Pt's friend going home for the evening, states he is working on getting pt's home, [place] was [place].
[2024-08-06 18:03] LABS: Blood Urea Nitrogen 72 mg/dl (9-20); Calcium 8.1 mg/dl (8.4-10.2); Carbon Dioxide 28 mmol/L (22-30); Chloride 104 mmol/L (98-107); Estimated Creatinine Clearance 31 ml/min; Glucose 106 mg/dl (70-99); Potassium 3.7 mmol/L (3.5-5.1); Sodium 143 mmol/L (135-145); eGFR 39.51
--- NOTE | 2024-08-06 21:13 | PTCARENOTE ---
assumed care of pt. approx 1900.
Remains on HHF, tolerating well. RT down titrating.
NG in place adequate op.
All questions answered.
[2024-08-06 22:37] LABS: Lactic Acid 3.2 mmol/L (0.7-2.0)
[2024-08-07] VITALS (49 sets, daily range): BP systolic 78–146; BP diastolic 54–83; BMI 22.2
[2024-08-07] MEDS: ZOSYN 50 IV ×5 (00:55→23:36)
[2024-08-07] MEDS: LR 1000 IV ×3 (00:56→17:01)
--- NOTE | 2024-08-07 01:14 | PTCARENOTE ---
No change in assessment.
--- NOTE | 2024-08-07 03:43 | PTCARENOTE ---
Pt. requested to use the bathroom, has sensation to have BM. Upon turning to place on bedpan pt. desaturated to low 80s, NRB briefly placed on patient, pt. recovered NRB removed. pt. unable to have BM.
--- NOTE | 2024-08-07 03:56 | PTCARENOTE ---
Addendum entered by Davidson Rodriguez RN 08/07/24 05:16:
Serum LA uptrending, STAT ABG ordered.
Original Note:
Desaturation in mid to high 80s.
RT notified HFNC already maxxed. NRB placed on pt. ICU ROSA notified.
[2024-08-07 04:41] LABS: Hematocrit 33.4 % (39.0-52.0); Hemoglobin 11.3 g/dL (13.0-18.0); Mean Corp Hgb Conc. 33.8 g/dL (33.0-37.0); Mean Corpuscular Hgb 31.6 pg (27.0-31.0); Mean Corpuscular Volume 93.3 fL (80.0-94.0); Mean Platelet Volume 12.4 fL (7.4-10.4); Platelet Count 86 10^3/uL (130-400); Red Blood Cell Count 3.58 10^6/uL (4.70-6.10); Red Cell Dist. Width 14.4 % (11.5-14.5); White Blood Cell Count 5.1 10^3/uL (4.8-10.8)
[2024-08-07 04:48] LABS: Lactic Acid 5.6 mmol/L (0.7-2.0)
[2024-08-07 04:57] LABS: ALT (SGPT) 20 U/L (0-50); AST (SGOT) 33 U/L (17-59); Albumin 2.4 g/dl (3.5-5.0); Alkaline Phosphatase 44 U/L (38-126); Blood Urea Nitrogen 61 mg/dl (9-20); Calcium 7.6 mg/dl (8.4-10.2); Carbon Dioxide 27 mmol/L (22-30); Chloride 105 mmol/L (98-107); Estimated Creatinine Clearance 44 ml/min; Glucose 86 mg/dl (70-99); Magnesium 1.9 mg/dl (1.6-2.3); Potassium 3.8 mmol/L (3.5-5.1); Sodium 141 mmol/L (135-145); Total Bilirubin 1.2 mg/dl (0.2-1.3); Total Protein 4.3 g/dl (6.3-8.2); eGFR > 60.00
[2024-08-07 05:15] LABS: B.E. 15.8 mmol/L; O2 Saturation % 96.2 % (94-98); PCO2 46 mmHg (35-48); PO2 69 mmHg (83-108); pH 7.55 (7.35-7.45)
[2024-08-07 05:16] LABS: HCO3 40.2 mmol/L (21-28)
[2024-08-07] MEDS: LR 500 IV (07:29)
[2024-08-07] MEDS: DUONEB 3 ML INH ×3 (07:38→19:32)
[2024-08-07] MEDS: LEVOPHED 250 IV (07:38)
--- NOTE | 2024-08-07 07:55 | OR.RPT ---
Operative Report
Operative Report
Rapid Sequence Intubation
Indication: Worsening hypoxic respiratory failure, on both high flow nasal cannula as well as nonrebreather
Consent: Obtained from the patient. Also discussed with patient's friend who talked to his who also approved to proceed with intubation.
Preoxygenation: High flow nasal cannula and nonrebreather continued. Bag valve mask ventilation utilized prior to intubating
Premedication: None
Procedure: Patient was placed in supine position. High flow nasal cannula and nonrebreather were continued. Preintubation saturation was around 93%. Induction agent etomidate 20 mg IV push was given, followed by 60 mg of paralytic agent
rocuronium. Once patient became apneic, BVM was utilized and patient was bagged to achieve a saturation around 95%. Blade size #3, was utilized and glide scope was used to get grade 1 view of vocal cords. ET tube, size 8.0, was inserted without
difficulty and stylette was removed. Colorimetric testing was performed to confirm color change and subsequently ET tube was connected to ventilator. Lowest oxygen saturation encountered during intubation was 89%. Patient stayed hemodynamically
stable throughout the procedure.
Complications: None, chest x-ray showed appropriate positioning
Time spent: 25 minutes
Date of procedure: 08/07/2024
--- NOTE | 2024-08-07 08:01 | W.PN.INTV ---
Today's Communication / Plan
Recommendations
- Patient intubated, mechanically ventilated now
- Continue volume assist-control
- Serial ABG and lactate, continue volume resuscitation
- KUB stat, await general surgery recommendations
Assessment
-
08/07 over review. Patient saturating 91% on maxed out high flow nasal cannula as well as nonrebreather, respiratory rate low to mid 30s. Unable to complete sentence and get short of breath talking. MAP around 79, heart rate 99.
Rapid sequence intubation performed, patient started on mechanical ventilation.
#1. Acute hypoxic respiratory failure with respiratory distress, bilateral lower lobe aspiration pneumonia
- Suspect aspiration in the setting of vomiting due to small bowel obstruction
- Patient has diffusely coarse breath sounds, very rhonchorous on exam, had been on high flow nasal cannula on 08/06, overnight required nonrebreather in addition. Intubated on 08/07
- Check nasal MRSA screen. Continue IV Zosyn
- Continue IV Solu-Medrol in view of severity of pneumonia
- Follow-up chest x-ray and ABG postintubation and will make changes accordingly
#2. Small bowel obstruction
- Prior history of abdominal colectomy and ileal pouch anal anastomosis with history of ulcerative colitis. Also prior history of abdominal hernia repair.
- NG tube placed 08/06, close to 3 Ltr feculent effluent aspirated, continue low intermittent suction
- Follow-up CT scan on 08/06 also showed persistent obstruction. After initial drop in level of lactate, started to rise again. 08/07, we contacted general surgery for further recommendations.
- General Surgery service on case
- IV PPI daily
#3. Acute kidney injury
- Suspect prerenal etiology, responding to IVF
- Continue aggressive IV fluid resuscitation
- No further diuresis for now
#4. History of asthmatic bronchitis
- Continue DuoNeb 4 times daily scheduled
- Give Solu-Medrol 40 mg IV daily
- Continue albuterol on an as-needed basis in addition
#5. Enhancing renal mass on CT
- ? Concern for renal neoplasm versus metastasis
DVT prophylaxis: Subcu heparin in view of acute kidney injury
Other medical diagnoses:
- BPH
- History of ulcerative colitis
- Hyperlipidemia
- History of tick bite
Critical Care time 65 mins -- The patient is admitted for acute critical illness for the treatment of vital organ failure and/or prevention of further life-threatening conditions. Total care includes time spent in review of history, physical exam,
medications, hemodynamic/ventilator parameters, laboratory data, imaging and discussion with house staff, pharmacy, respiratory therapy, room clerk, and nursing.
Data:
CT Abd-Pelvis 07/2024: . Suspect distal small bowel obstruction.
2. Bilateral enhancing renal masses (two in each kidney), suspicious for neoplasm (either multiple primary renal neoplasms or metastases).
CXR 07/2024: No acute change
Subjective Dataa
Subjective Data
Date of Service:
Date of Service: August 07, 2024
Subjective:
Increase shortness of breath, increasing oxygen requirement through the night, rising lactate
Review of Systems
Genitourinary: Other (Increase shortness of breath denies abdominal pain)
Objective Data
Data Reviewed
Vital Signs / I&O / Oxygen:
Vital Signs
Temp Pulse Resp BP Pulse Ox
98 F 96 28 126/67 93
08/07/24 00:00 08/07/24 05:00 08/07/24 05:00 08/07/24 05:00 08/07/24 05:00
Intake and Output
08/05/24 08/06/24 08/07/24
06:59 06:59 06:59
Intake Total 480 / 480 2150 / 3150 4900 / 4900
Output Total 240 / 240 2975 / 2975 2950 / 2950
Balance 240 / 240 -825 / 175 1950 / 1950
SaO2 93
Nasal Cannula flow liters per 50
minute
Physical Exam
General: Respiratory Distress
HEENT: Normocephalic and Moist Mucous Membranes
Cardiovascular: S1-S2
Respiratory: Rhonchi and Accessory Resp Muscle Use
GI: Soft
Neurology: Awake, Alert and Oriented
Skin: Warm
Labs/Micro/Reports
Lab Data
08/07/24 04:14
08/07/24 04:14
Laboratory Results
08/07/24
05:06
pH 7.55 H
pCO2 46
pO2 69 L
HCO3 40.2 H*
O2 Delivery Level
[2024-08-07] MEDS: HEPARIN 5000 UNITS SC ×2 (08:05→20:45)
[2024-08-07] MEDS: SOLU-MEDROL PF 40 MG IV (08:05)
[2024-08-07] MEDS: PROTONIX IV 40 MG IV (08:05)
[2024-08-07] MEDS: NSS (PRESERVATIVE FREE) 10 ML IV (08:05)
[2024-08-07] MEDS: RESTASIS 0.05% OPHTHALMIC EMULSION 1 DROPS BOTH EYES ×2 (08:06→20:46)
[2024-08-07 08:14] LABS: B.E. 14.4 mmol/L; HCO3 37.4 mmol/L (21-28); O2 Saturation % 96.9 % (94-98); PCO2 39 mmHg (35-48); PO2 68 mmHg (83-108); pH 7.59 (7.35-7.45)
--- NOTE | 2024-08-07 08:51 | W.PN.HOSP.TC ---
Today's Communication/Plan
-
intubation
IVF
OR now
cont abx
Assessment / Plan
Assessment / Plan
pt is an 83 year old male
septic shock with acute hypoxemic resp failure/leukopenia and now lactic acidosis--from aspiration from SBO and vomiting--failed HI FARRUKH and now intubated, lactates rising (suspect from abdominal source rather than pulmonary)--apprec
insurance assistant/surgery--going to OR now----cont zosyn--cont IVF/pressors (levophed started)
Small Bowel Obstruction--likely adhesions-- Previous history of total abdominal colectomy and ileal pouch anal anastomosis from UC/Previous previous history of abdominal hernia repair--NPO/IVF--cont NGT (placed with 3-4L of feculent material
removed--placed after vomiting and aspiration)--apprec surg--going to OR
Chronic Asthmatic Bronchitis- Continue Home Meds (INH)
UC- Hold PO Meds for now
BPH- Hold PO Meds for now
HLD - Hold PO Meds for now
History of Tick Bite- Lyme Serologies pending
DVT proph-- lovenox
Code Status---Full Code
Total Critical Care Time 32 minutes. I was immediately available to the patient and staff. I personally examined, reviewed labs, diagnostic images/reports, interpretations, treatment plans, discussed patient care with other providers and family
or caregivers (if patient is unable to make decisions), entered orders as appropriate and documented the medical record.
Anticipated Discharge: > 48 hours
Subjective/Interval History
-
Date of Service: August 07, 2024
pt worsened overnight, required intubation at change of shift--lactates rising
likely going to surgery
Objective Data
-
Labs:
Laboratory Results
08/07/24 08/07/24 08/07/24
04:14 05:06 08:04
WBC 5.1
Hgb 11.3 L
Hct 33.4 L
Plt Count 86 L
HCO3 40.2 H* 37.4 H
Sodium 141
Potassium 3.8
Chloride 105
Carbon Dioxide 27
BUN 61 H
Creatinine 1.2
Glucose 86
Calcium 7.6 L
Total Bilirubin 1.2
AST 33
ALT 20
Alkaline Phosphatase 44
Vital Signs:
max temp for 24 hours
08/06/24
22:00
Temp 98.8 F
Vital Signs
Temp Pulse Resp BP Pulse Ox
98.4 F 92 27 133/67 94
08/07/24 07:56 08/07/24 08:30 08/07/24 08:30 08/07/24 08:30 08/07/24 08:46
I&O
08/06/24 08/07/24 08/08/24
06:59 06:59 06:59
Intake Total 2150 / 3150 4900 / 5025 263.4 / 263.4
Output Total 2975 / 2975 2950 / 2950 250 / 250
Balance -825 / 175 1949 / 2074 13.4 / 13.4
Review of Systems
-
Unable to obtain full review of systems at this time due to: Patient Intubation
Physical Exam
-
General: Well Developed, Well Nourished, No Apparent Distress and Intubated
HEENT: Normocephalic, Atraumatic and Other (NGT draining feculant material)
Respiratory: Rhonchi (minimal, much improved from yesterday)
Cardiac: Regular Rhythm and S1/S2; Negative Murmur or Tachycardic
GI: Soft, Nontender and Nondistended; Negative Normal Bowel Sounds (hypoactive)
Genito-urinary: Laura
Musculoskeletal: No Clubbing, No Cyanosis and No Edema
Skin: Warm
Neuro: Sedated
Psych: Calm
[2024-08-07 09:18] LABS: Lactic Acid 2.9 mmol/L (0.7-2.0)
[2024-08-07 09:27] LABS: Triglycerides 112 mg/dl (10-149)
[2024-08-07 10:07] LABS: B.E. 14.4 mmol/L; HCO3 38.5 mmol/L (21-28); O2 Saturation % 96.6 % (94-98); PCO2 44 mmHg (35-48); PO2 69 mmHg (83-108); pH 7.55 (7.35-7.45)
[2024-08-07] MEDS: SUBLIMAZE 50 MCG IV ×5 (10:14→21:15)
--- NOTE | 2024-08-07 10:16 | W.PN.UPDATE ---
Update Note
Progress Note Update
Pt seen and evaluated at bedside. Pulmonary insufficiency o/n and now intubated and sedated. 2mcg levo infusing. Belly soft, more distended than yesterday. CT and f/u KUB unfortunately are inconclusive as to the presence of a true bowel obstruction.
Given the clinical uncertainty and patient decline, recommend exploratory laparotomy to rule out surgical intra-abdominal source. Discussed with by phone, she is out of the country but on her way back. We discussed risks, benefits,
complications and alternatives. Continued expectant mgmt, in the event there is a surgical intra-abdominal event, will likely lead to further decline. Surgery entails risks including but not limited to pain, bleeding, infection, need for further
operations, bowel resection and associated anastomotic complications, need for ostomy, stroke, IL, . We also discussed the possibility that no intra-abdominal source can be found. His plts are <100K, we will transfuse plts to reduce risk of
bleeding.
--- NOTE | 2024-08-07 10:44 | PTCARENOTE ---
Updated status notes. Patient was intubated this am. Updates with critical care team at bedside. Clinic Nurse intubated patient this am. Follow up post abg, post intubation protocols, chest xrays, kub as per surgery, quintero, and medication titration.
Bedside update with Hospitalist team. Surgery also return to bedside. Updates with OR team. Platelets up prior to transport/[place] follow up transfusion sheets with OR team. Respiratory cares team n and out form bedside for abg trends, ventilator
changes and trends in assessment ongoing. Update with family (, niece and friend). Family in route form out of town. Continue to coordinate care with critical cares team, updates with family ongoing. Patient presently to OR. Await follow up
recovery plan of cares.
[2024-08-07] MEDS: DUONEB INH (11:15)
[2024-08-07] MEDS: ZOSYN IV (11:50)
--- NOTE | 2024-08-07 12:50 | W.IMMPOSTOP ---
Surgical Immed Post Op Note
-
Primary Surgeon: Ralph
Assisting: Rose FERNANDEZ
Pre-op Diagnosis: Small bowel obstruction
Post-op Diagnosis: Same
Procedure Performed: Exploratory laparotomy, lysis of adhesions (60 min), small bowel resection
Anesthesia Type: GETA
Specimen / Cultures: Small bowel
Estimated Blood Loss: 10cc
Complications: None immediate
Operative Findings: Dense adhesions everywhere: small bowel to abdominal wall, interloop, and small bowel to mesentery. Painstaking lysis in areas of concern but total lysis not attempted. Dilated proximal small bowel and right upper and lower
quadrant decompressed small bowel. All bowel viable. Transition point identified in right upper quadrant. Segment liberated and area looked viable with small patch of dark purple ([id number]) at the transition point. This area did not appear it would
do well and was resected (approx 5cm segment). Side-side stapled anastomosis, mesentery taken with clamps and ties, corners dunked, crotch stitch placed. Ng palpated in stomach. Sepra film placed.
[2024-08-07] MEDS: DIPRIVAN 100 IV ×2 (13:00→21:18)
--- NOTE | 2024-08-07 14:00 | PTCARENOTE ---
Rec'd pt at 1310 as a direct back from the OR-Report received from Anesthesia. Rec'd pt on Diprivan at 25 mcg with a RASS of -5. Unresponsive to verbal or tactile stimuli. No cough or gag. Pupils sluggish at 2mm. Currently weaned diprivan to 15 mcg
and will continue to wean to assess neuro status. Pt did receive Rocuronium earlier for surgery around 1030. Skin is pale pink wm and dry. Temp 97.3 core temp. Respirs are intact on the vent. Settings Fio2 100%, Ac 22, tv 450,/peep 5. Currently not
adding rate or volume. #8 ETT at the 25 cm hermann R side of the mouth. BS are sl decreased and coarse throughout with some posterior exp wheezing. No secretions. Monitor SR. + pulses. No edema. VS as documented. L radial a line in place- site wnl.
Good CMS check. Zeroed and recalibrated- running about 15 mm/hg higher than cuff BP. Waveform as documented. Abd is soft with rare hypoactive BS. L nare Omro NG to low intermittent suction- draining greenish/brown secretions. Midline abd incision
is D+I. Thermistor quintero intact for ajith/yellow urine. Pt now with RIJ TLC that Diprivan and LR infusing. LR infusing at 125 ml/hr. Capped ints intact L forearm and R AC. Turned and repositioned. Skin and mouth care given. Wrist restraints on for
pt safety.
--- NOTE | 2024-08-07 14:10 | PTCARENOTE ---
Assessment is unchanged. Labs sent as ordered including an ABG. Diprivan currently at 15 mcg. Weaning down to try to better assess neuro status. Pts property investor in to see pt and updated as he is in contact with the family
[2024-08-07 14:26] LABS: B.E. 9.7 mmol/L; HCO3 35.3 mmol/L (21-28); O2 Saturation % 93.6 % (94-98); PCO2 52 mmHg (35-48); PO2 61 mmHg (83-108); pH 7.44 (7.35-7.45)
[2024-08-07 14:41] LABS: Hematocrit 35.3 % (39.0-52.0); Hemoglobin 11.9 g/dL (13.0-18.0); Mean Corp Hgb Conc. 33.7 g/dL (33.0-37.0); Mean Corpuscular Hgb 31.6 pg (27.0-31.0); Mean Corpuscular Volume 93.6 fL (80.0-94.0); Mean Platelet Volume 11.7 fL (7.4-10.4); Platelet Count 98 10^3/uL (130-400); Red Blood Cell Count 3.77 10^6/uL (4.70-6.10); Red Cell Dist. Width 14.3 % (11.5-14.5); White Blood Cell Count 5.2 10^3/uL (4.8-10.8)
[2024-08-07 15:01] LABS: Carbon Dioxide 30 mmol/L (22-30)
--- NOTE | 2024-08-07 15:15 | PTCARENOTE ---
Dr. Meier in and peep increased on Vent to 12. Pt still unresponsive. Diprivan turned off to see if pt becomes more wakeful. Very minimally moved his mouth but following no other commands.
[2024-08-07 15:22] LABS: ALT (SGPT) 22 U/L (0-50); AST (SGOT) 32 U/L (17-59); Albumin 2.6 g/dl (3.5-5.0); Alkaline Phosphatase 60 U/L (38-126); Blood Urea Nitrogen 67 mg/dl (9-20); Calcium 7.7 mg/dl (8.4-10.2); Chloride 104 mmol/L (98-107); Estimated Creatinine Clearance 35 ml/min; Glucose 117 mg/dl (70-99); Magnesium 2.5 mg/dl (1.6-2.3); Potassium 3.4 mmol/L (3.5-5.1); Sodium 144 mmol/L (135-145); Total Bilirubin 1.9 mg/dl (0.2-1.3); Total Protein 4.6 g/dl (6.3-8.2); eGFR 45.91
[2024-08-07 15:23] LABS: % Immature Granulocytes 0.4 % (0-0.5); % Lymphocytes 2.9 % (20.5-51.1); % Neutrophils 86.7 % (42.2-75.2); Absolute Lymphocytes 0.2 10^3/uL (1.2-3.4); Absolute Monocytes 0.5 10^3/uL (0.1-0.6); Absolute Neutrophils 4.5 10^3/uL (1.4-6.5); Nucleated Red Blood Cells % 0 % (-)
--- NOTE | 2024-08-07 16:30 | SUR.OPER ---
Pt starting to wake up. Was able to open his eyes and nod his head for me. Did nod that he had pain. Medcated at 1625 with Fentanyl 50 mcg. Tolerating the Peep increase to 12. Sats have been 97%. ETT repositioned in the center of the mouth - ETT
more at the 24 cm hermann. RR controlled at 22. VS as documented. HR which had been in the 70-80's once stimulated has been up in the 115-119 range. Bp's as documented. Abd dressing is D+I. Urine output 20-30 ml/hr. Surgery in to see pt and updated.
Dr. Meier in and wants to keep pt sedated as O2 on ABG has been in the 60's. As such Diprivan restarted at 10 mcg and will titrate as needed. Turned and repositioned. Mouth care given. Updates given to visitor at bedside. Awaiting niece from
[place] who is POA. Soft wrist restraints are intact
[2024-08-07 18:30] LABS: HCO3 35.5 mmol/L (21-28); O2 Saturation % 99.1 % (94-98); PCO2 56 mmHg (35-48); PO2 98 mmHg (83-108); pH 7.41 (7.35-7.45)
--- NOTE | 2024-08-07 18:30 | PTCARENOTE ---
Lightly dozing. RASS is a -1. Denies pain but BP when awakened is elevated into the 150's . Medicated with Fentanyl 50 mcg IV. Nodding and following basic commands. HR for about 45 min earlier was in the 118-125 range but has been back in the 90-105
range since 1729. VS as documented. Mostly staying controlled at 22 on the vent. With stimulation will occasionally go to 23 or 24 respirs. NG and UO as documented. ABG sent as ordered. Pts andra and ARGENTINA Connelly in to see pt and updated.
--- NOTE | 2024-08-07 23:28 | PTCARENOTE ---
Pt received at 19:00. Pt restless and follows simple commands and nods y/n appropriately. Propofol increased d/t RASS = + 2, PRN fentanyl bolus doses given as ordered--see APR. SR with 1st degree AVB, sinus tach at times, up to 120. Temp 100.5, PRN
ofirmev ordered and given. L radial minnie, zeroed/transduced, and correlating with cuff pressure. #8 ETT, 24cm at the lip. AC 22/450/90%/+12, RT titrated FiO2 from 100% to 90%, tolerating--sat 94-95%. Breath sounds coarse t/o. L nare NGT w/
brown/green output. Bowel sounds absent. Laura in place, approx 20ml/hr of ajith urine. Midline abdominal incision with dressing CDI. Safe environment maintained, repositioned q2h, niece at bedside.
[2024-08-07] MEDS: OFIRMEV 100 IV (23:35)
[2024-08-08] MEDS: LEVOPHED 250 IV (00:15)
[2024-08-08] MEDS: LR 1000 IV ×3 (01:08→17:20)
[2024-08-08] MEDS: SUBLIMAZE 50 MCG IV ×4 (02:15→11:18)
[2024-08-08 04:00] VITALS: BP 94/61
[2024-08-08 04:01] LABS: B.E. 9.3 mmol/L; HCO3 35.2 mmol/L (21-28); O2 Saturation % 98.8 % (94-98); PCO2 53 mmHg (35-48); PO2 105 mmHg (83-108); pH 7.43 (7.35-7.45)
[2024-08-08 04:16] LABS: Lactic Acid 1.6 mmol/L (0.7-2.0)
[2024-08-08 04:32] LABS: Hematocrit 34.9 % (39.0-52.0); Hemoglobin 11.4 g/dL (13.0-18.0); Mean Corp Hgb Conc. 32.7 g/dL (33.0-37.0); Mean Corpuscular Hgb 30.7 pg (27.0-31.0); Mean Corpuscular Volume 94.1 fL (80.0-94.0); Mean Platelet Volume 12.3 fL (7.4-10.4); Platelet Count 90 10^3/uL (130-400); Red Blood Cell Count 3.71 10^6/uL (4.70-6.10); Red Cell Dist. Width 14.6 % (11.5-14.5); White Blood Cell Count 11.2 10^3/uL (4.8-10.8)
[2024-08-08 04:33] LABS: ALT (SGPT) 20 U/L (0-50); AST (SGOT) 24 U/L (17-59); Albumin 2.5 g/dl (3.5-5.0); Alkaline Phosphatase 64 U/L (38-126); Blood Urea Nitrogen 73 mg/dl (9-20); Calcium 7.6 mg/dl (8.4-10.2); Carbon Dioxide 30 mmol/L (22-30); Chloride 104 mmol/L (98-107); Estimated Creatinine Clearance 22 ml/min; Glucose 131 mg/dl (70-99); Magnesium 2.7 mg/dl (1.6-2.3); Potassium 3.6 mmol/L (3.5-5.1); Sodium 143 mmol/L (135-145); Total Bilirubin 2.1 mg/dl (0.2-1.3); Total Protein 4.6 g/dl (6.3-8.2); eGFR 26.12
[2024-08-08] MEDS: ZOSYN 50 IV ×4 (05:03→23:53)
[2024-08-08 05:06] LABS: Absolute Neutrophils -Man Diff 9.7 10^3/uL (1.4-6.5); Band Neutrophils 5 % (0-3); Lymphocytes 2 % (20-51); Segmented Neutrophils 82 % (42-75)
[2024-08-08 05:07] LABS: Anisocytosis 1+; Metamyelocytes 4 % (-); Myelocytes 7 % (-); Normal RBC Morphology No; Platelets Checked Yes; Total Cells Counted 100
[2024-08-08 06:00] VITALS: BMI 23.2
--- NOTE | 2024-08-08 06:46 | PTCARENOTE ---
Pt restless when care provided, PRN IVP fentanyl and propofol gtt as ordered--see MAR/titration flowsheet. FiO2 titrated to 80%, AC 22/450/80%/+12. Safe environment maintained. Niece at bedside.
[2024-08-08] MEDS: DIPRIVAN 100 IV (07:02)
[2024-08-08] MEDS: DUONEB 3 ML INH ×4 (07:22→20:17)
--- NOTE | 2024-08-08 07:45 | PTCARENOTE ---
Received pt @ change of shift. Pt. drowsy, awakens to verbal stimuli; nods head 'yes' and 'no' approp; follows simple commands approp; NORMAN, generalized weakness. RASS (-1/-2) and CPOT 0. Pupils 2mm sluggish b/l. SR w 1st degree AVB on monitor.
Trace hand edema; +1 L FA around old infiltrate; arm elevated. SpO2 96% on vent settings AC22/450/.80/+12. Scant amt of secretions from ett; mod amt of oral secretions; mouth care per protocol. Auscultated dim breath sounds @ bases. L nare NGT
secured @ 75cm to LIS w scant brown output. Thermistor quintero in place draining adequate amt of yellow urine. Midline abd incision c/d/i. R TL w LR @ 125mL/hr; levo gtt; prop gtt- see flow sheets. L rad A-line transduced, calibrated, and
monitored; all ports patent and secured. Pt. repositioned per protocol. Family @ bedside. Safe environment maintained.
[2024-08-08] MEDS: PROTONIX IV 40 MG IV (07:47)
[2024-08-08] MEDS: HEPARIN 5000 UNITS SC ×3 (07:47→23:49)
[2024-08-08] MEDS: NSS (PRESERVATIVE FREE) 10 ML IV (07:47)
[2024-08-08] MEDS: RESTASIS 0.05% OPHTHALMIC EMULSION 1 DROPS BOTH EYES ×2 (07:48→20:41)
[2024-08-08] MEDS: SOLU-MEDROL PF 40 MG IV (07:48)
--- NOTE | 2024-08-08 08:17 | W.PN.INTV ---
Today's Communication / Plan
Recommendations
Continue volume-cycled mechanical ventilation
Plan for SAT/SBT tomorrow morning
Keep NGT to LIWS
Pain control
Cautiously continue volume resuscitation but given his worsening KYLAH, lower IVF rate from 125cc/hr to 100 cc/hr
Continue antibiotics
Renally adjust all medications/antibiotics
Follow up infectious workup
General surgery recommendations appreciated -no plans to being patient back to the OR
Continue ICU level of care for this critically ill
Assessment
-
#1. Acute hypoxic respiratory failure with respiratory distress, bilateral lower lobe aspiration pneumonia
- Suspect aspiration in the setting of vomiting due to small bowel obstruction
- Patient has diffusely coarse breath sounds, very rhonchorous on exam, had been on high flow nasal cannula on 08/06, overnight required nonrebreather in addition. Intubated on 08/07
- MRSA screen negative, respiratory culture (collected 08/07) growing E. coli --> follow-up sensitivities and continue IV Zosyn
- Continue IV Solu-Medrol in view of severity of pneumonia
- Continue with mechanical ventilation with daily SAT/SBT if clinically appropriate
- Maintain plateau pressure <30 and titrate FiO2 + PEEP to keep SpO2 >90-94%
- Continue aspiration precautions; keep HOB >30-45�
- prn nebulized bronchodilators - not currently bronchospastic
- Oropharyngeal + deep ETT suctioning with subglottic as needed
- Daily CXR + blood gas
- Daily vent adjustments as needed based on blood gas and SaO2
- Low level of sedation with goal RASS as 0 to -2
#2. Small bowel obstruction
- Prior history of abdominal colectomy and ileal pouch anal anastomosis with history of ulcerative colitis. Also prior history of abdominal hernia repair.
- NG tube placed 08/06, close to 3 Ltr feculent effluent aspirated, continue low intermittent suction
- Follow-up CT scan on 08/06 also showed persistent obstruction. After initial drop in level of lactate, started to rise again. 08/07, we contacted general surgery for further recommendations. Of note, lactate has now been <2 since 08/08
- General Surgery service on case
- IV PPI daily
#3. Acute kidney injury
- Suspect prerenal etiology in setting of sepsis from pneumonia and possibly transient bacteremia in setting of recent intra-abdominal OR - -> responded to IVF
- Continue aggressive IV fluid resuscitation
- No further diuresis for now, however need to closely monitor for development of volume overload; lower IV fluids from 125 cc/hr to 100 cc/h
#4. History of asthmatic bronchitis
- Continue DuoNeb 4 times daily scheduled
- Continue Solu-Medrol 40 mg IV daily
- Continue albuterol on an as-needed basis in addition
#5. Enhancing renal mass on CT A/P from 08/04/2024
- ? Concern for renal neoplasm versus metastasis --> should be further evaluated as an outpatient. Recommend him to see nephrology vs his PCP
DVT prophylaxis: HSQ
Other medical diagnoses:
- BPH
- History of ulcerative colitis
- Hyperlipidemia
- History of tick bite
Critical care statement: A total of 38 minutes of critical care time was provided for this patient today. This includes management of unstable vital signs, evaluation of the patient at bedside, reviewing the patient's pertinent medical records
including radiographs, microbiology, laboratory evaluations, and discussion with primary team, consultants, pharmacy, nutrition, physical therapy, case management, charge nurse, critical care nursing, and respiratory therapy.
Data:
CT Abd-Pelvis 07/2024: . Suspect distal small bowel obstruction.
2. Bilateral enhancing renal masses (two in each kidney), suspicious for neoplasm (either multiple primary renal neoplasms or metastases).
CXR 07/2024: No acute change
Subjective Dataa
Subjective Data
Date of Service:
Date of Service: August 08, 2024
Chief Complaint: Gold Charmer Follow Up
Subjective:
Patient was seen and evaluated this morning. Remains intubated on AC/CMV at 450/22/40%/5, VTe 499mL, PIP [id number] and breathing at 21 breaths/min. No events reported overnight. NG tube output 0 overnight, remains on LIWS. Patient is awake,
following commands. Heart rate 87, BP via A-line 124/52 and saturating 94%. Respiratory culture from yesterday growing E. coli. Minimal ETT secretions. Remains on LR at 125 cc/hr. Creatinine worse today. UOP is 20/30 cc/h via Laura catheter.
Review of Systems
General: Other (Unobtainable due to patient's intubated status)
Objective Data
Data Reviewed
Vital Signs / I&O / Oxygen:
Vital Signs
Temp Pulse Resp BP Pulse Ox
99.7 F 94 23 94/61 93
08/08/24 08:21 08/08/24 08:00 08/08/24 08:00 08/08/24 04:00 08/08/24 08:21
Intake and Output
08/07/24 08/08/24 08/09/24
06:59 06:59 06:59
Intake Total 4900 / 5025 3556.2 / 3728.6 304.9 / 304.9
Output Total 2950 / 2950 1450 / 1470 60 / 60
Balance 1949 / 2074 2106.2 / 2258.6 244.9 / 244.9
SaO2 [A/C] 93
SaO2 93
Nasal Cannula flow liters per 50
minute
Physical Exam
General: Respiratory Distress (negative), Comfortable, Chills (negative) and Sweats (negative)
HEENT: Normocephalic, Anicteric, Moist Mucous Membranes and Other (ETT in place)
Cardiovascular: S1-S2 and Peripheral Edema (negative)
Respiratory: Wheeze (negative), Crackles (negative), Rhonchi (negative), Accessory Resp Muscle Use (negative) and ET Tube (Mechanical breath sounds heard bilaterally)
GI: Soft, Non Distended, Non Tender and Normal Bowel Sounds
Neurology: Awake, Alert, Tremors (negative) and Other (Following all commands; moving all 4 extremities to command)
Skin: Warm, Dry, Cyanosis (negative) and Jaundice (negative)
Labs/Micro/Reports
Lab Data
08/08/24 03:52
08/08/24 03:52
Laboratory Results
08/07/24 08/07/24 08/07/24
09:59 14:09 18:23
pH 7.55 H 7.44 7.41
pCO2 44 52 H 56 H
pO2 69 L 61 L 98
HCO3 38.5 H 35.3 H 35.5 H
O2 Delivery Level Not Reportable
08/08/24
03:52
pH 7.43
pCO2 53 H
pO2 105
HCO3 35.2 H
O2 Delivery Level
Microbiology
08/07/24 09:21 Tracheal Aspirate Gram Stain - Preliminary
08/06/24 14:28 Nose MRSA Screen - Final
No Methicillin Resistant Staphylococcus aureus isolated.
--- NOTE | 2024-08-08 10:09 | W.PN.ANS.POP ---
Anesthesia Post Operative
- Anesthesia Post Op Note
Vital Signs Stable-See Nursing Note: Yes
Unplanned Admission: No
Post Op Hydration Adequate: Yes
- -
Pt remains intubated and sedated at time of post op visit. VSS, resting with family at bedside.
--- NOTE | 2024-08-08 10:22 | W.PN.HOSP.TC ---
Addendum entered and electronically signed by Rick Jiménez MD 08/08/24 15:24:
I saw and evaluated the patient. I reviewed the resident�s note and agree with findings and plan as documented in the resident�s note.
septic shock with acute hypoxemic resp failure/vent dependent respiratory failure--from aspiration from SBO and vomiting--failed HI FARRUKH and inubated (suspect from abdominal source rather than pulmonary)--apprec rn ambulatory/surgery---cont zosyn--cont
IVF/pressors (levophed started) --patient still being weaned off of PEEP/FiO2 and rn ambulatory managing
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 There was 2 mm
segment of small bowel which looked necrotic and was resected with a total 5 cm of small bowel segment. A [id number] into anastomosis made --no bowel function recovery yet --maintain n.p.o. and IV fluid.
KYLAH -- UA clear/no eosinophil . Had contrast exposure for CT scan. Patient initiated shock which is actually resolved at this stage. Laura catheter in place as well. No other nephrotoxic medication besides Zosyn. Check repeat creatinine and
will involve nephrology if renal function continued to get worsening
Acute thrombocytopenia -from sepsis presumably, stable around 100 K. monitor.
Chronic Asthmatic Bronchitis- Continue Home Meds (INH)
UC- Hold PO Meds for now
BPH- Hold PO Meds for now
HLD - Hold PO Meds for now
History of Tick Bite- Lyme Serologies pending
DVT proph-- lovenox
Code Status---Full Code
Care plan discussed with rn ambulatory
Total Critical Care Time 39 minutes. I was immediately available to the patient and staff. I personally examined, reviewed labs, diagnostic images/reports, interpretations, treatment plans, discussed patient care with other providers and family
or caregivers (if patient is unable to make decisions), entered orders as appropriate and documented the medical record.
Original Note:
Today's Communication/Plan
-
.
Assessment / Plan
Assessment / Plan
83M PMHx s/p total abdominal colectomy w/ J-pouch creation and hernia repairs. Admitted for SBO.
- 1. Small Bowel Obstruction
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
- Previous previous history of abdominal hernia repair
- Appreciate General Surgery Input
- s/p Ex-lap (08/08) for extensive lysis of adhesions (total lysis not attempted) and SB resection with anastomosis of transition point. POD #1
- Per surgery, expect prolonged post-op ileus. Start TPN today.
- Continue NG tube to low intermittent suction; output improving
- initial removal of 3-4 L feculent material, placed after vomiting and aspiration
- PPI Prophylaxis
2. Ventilator Dependent Respiratory Failure 2/2 bilateral lower lobe aspiration pneumonia
- Ventilator Management as per rn ambulatory
- Continue IV Zosyn
- Continue IV steroid
3. Septic Shock 2/2 bilateral lower lobe aspiration pneumonia
- Continue IV Zosyn
- Pressors off this morning
- Lactate downtrending
4. Acute Kidney Injury
- Pre-renal vs. CONCHIS vs. AIN 2/2 Zosyn
- Cr 2.4, 0.8 baseline
- Urinalysis, Urine Eosinophils, Repeat BMP at 1600
5. . UC
- Hold PO Meds for now
6 BPH
- Hold PO Meds for now
7. HLD
- Hold PO Meds for now
8. History of Tick Bite
- Follow up Lyme Serologies
9. Renal Mass on CT
- ?? Concern for renal neoplasm versus metastasis
Anticipated Discharge: > 48 hours
Subjective/Interval History
-
Date of Service: August 08, 2024
Patient seen and examined while resting in bed, currently on sedation holiday. When asked how he is doing, gives a thumbs up. Answers yes no questions, and writes Q/As on paper. Per nursing, NG output is slowing.
Objective Data
-
Labs:
Laboratory Results
08/08/24 08/08/24
03:52 16:00
WBC 11.2 H
Hgb 11.4 L
Hct 34.9 L
Plt Count 90 L
HCO3 35.2 H
Sodium 143 Pending
Potassium 3.6 Pending
Chloride 104 Pending
Carbon Dioxide 30 Pending
BUN 73 H Pending
Creatinine 2.4 H Pending
Glucose 131 H Pending
Calcium 7.6 L Pending
Total Bilirubin 2.1 H
AST 24
ALT 20
Alkaline Phosphatase 64
Vital Signs:
Vital Signs
Temp Pulse Resp BP Pulse Ox
99.7 F 94 23 94/61 93
08/08/24 08:21 08/08/24 08:00 08/08/24 08:00 08/08/24 04:00 08/08/24 08:21
I&O
08/07/24 08/08/24 08/09/24
06:59 06:59 06:59
Intake Total 4900 / 5025 3556.2 / 3728.6 429.9 / 429.9
Output Total 2950 / 2950 1450 / 1470 60 / 60
Balance 1949 / 2074 2106.2 / 2258.6 369.9 / 369.9
Review of Systems
-
Unable to obtain full review of systems at this time due to: Patient Intubation
Physical Exam
-
General: No Apparent Distress, Intubated and Other (answering yes/no questions and following commands)
HEENT: Normocephalic and Atraumatic
Respiratory: Non Labored Respirations (on vent)
Cardiac: Regular Rhythm and S1/S2
GI: Soft and Other (hypoactive bowel sounds; midline incision with dressing c/d/i)
Musculoskeletal: No Clubbing, No Cyanosis and No Edema
Skin: Warm
Neuro: Awake
Psych: Calm
--- NOTE | 2024-08-08 10:34 | W.PN.GS2 ---
Addendum entered and electronically signed by Chuck Martins MD 08/08/24 12:27:
I saw and examined the patient independently.
The Farm Consultant's note was reviewed and I agree with the note, assessment and plan except where noted below.
Comment: This is an 83-year-old male with a history of ulcerative colitis status post TAC/J-pouch in 2009 presenting with a complete small bowel obstruction, and then developed aspiration pneumonia with clinical decompensation now postoperative day
1 status post exploratory laparotomy, lysis of adhesions and small bowel resection. Critically ill but slowly improving in the ICU.
Wean off vent
Expect prolonged postoperative ileus, as his last p.o. intake was last Thursday will start TPN now.
Continue NG tube to low intermittent wall suction.
Maintain Quintero for now.
DVT prophylaxis, PPI prophylaxis.
General surgery will continue to follow.
Original Note:
Today's Communication / Plan
-
NPO/NGT/TPN
Assessment / Plan
-
83 yo male with a h/o ulcerative colitis having undergone a total abdominal colectomy with subsequent ileal J-pouch creation in 2009 presenting with SBO
AFVSS
Emesis multiple bouts 6/6 evening, desat, step-up to ICU and HFNC then subsequently intubated
POD #1 ex lap for LETY and SBR
VDRF
Pressor weaned off, VSS, low grade temp of 100.5
KYLAH present
Mild leukocytosis, previously with leukopenia
Thrombocytopenia present s/p PLT transfusion in OR
Plan:
--NPO/NGT
--Anticipate prolonged NPO, will initiate TPN, d/w brand communications manager
--IV ABX as per primary team for Asp PNA
--Analgesics/antiemetics prn
--IVF as per primary team
--On Lovenox sq/SCD's for VTE ppx
Subjective Data
-
Date of Service: August 08, 2024
Patient seen and examined at bedside. On sedation holiday and answering yes and no questions appropriately by nodding. Denies pain. Not yet passing gas. Denies nausea.
Objective Data
-
Intake and Output
08/07/24 08/08/24 08/09/24
06:59 06:59 06:59
Intake Total 4900 / 5025 3556.2 / 3728.6 429.9 / 429.9
Output Total 2950 / 2950 1450 / 1470 60 / 60
Balance 1949 / 2074 2106.2 / 2258.6 369.9 / 369.9
Intake:
Oral fluids 0 / 0 0 / 0
IV fluids (Total) 2750 / 2875 2976.2 / 3118.6 399.9 / 399.9
Diprivan 162.4 / 172.3 9.9 / 9.9
Levophed 63.8 / 71.3 15.0 / 15.0
Lr 1,000 ml @ 125 mls/hr IV . 2750 / 2875 2750 / 2875 375 / 375
Q8H ERI Rx#:[id number]
IV piggybacks 1150 / 1150 550 / 550
Amount instilled into GI Tube ( 1000 / 1000 30 / 60 30 / 30
Total)
[place] Sump 1000 / 1000 30 / 60 30 / 30
Output:
Gastrointestinal tube output ( 925 / 925 400 / 400
Total)
[place] Sump 925 / 925 400 / 400
Urine, Quintero 1050 / 1070 60 / 60
Urine, Voided 2024
Other:
How many times incontinent 1
MODERATE amount urine
Vital Signs
Temp Pulse Resp BP Pulse Ox
99.7 F 94 23 94/61 93
08/08/24 08:21 08/08/24 08:00 08/08/24 08:00 08/08/24 04:00 08/08/24 08:21
Lab Results
08/08/24 03:52
Calcium 7.6 mg/dl (8.4-10.2) L 08/08/24 03:52
Magnesium 2.7 mg/dl (1.6-2.3) H 08/08/24 03:52
Total Bilirubin 2.1 mg/dl (0.2-1.3) H 08/08/24 03:52
AST 24 U/L (17-59) 08/08/24 03:52
ALT 20 U/L (0-50) 08/08/24 03:52
Alkaline Phosphatase 64 U/L (38-126) 08/08/24 03:52
Total Protein 4.6 g/dl (6.3-8.2) L 08/08/24 03:52
Albumin 2.5 g/dl (3.5-5.0) L 08/08/24 03:52
Physical Exam
-
NAD
VDRF
ABD softly distended, mild tenderness, infection control manager
Midline incision with intact dressing
Patient has a quintero catheter: Yes
Patient has a central line: Yes
[2024-08-08] MEDS: THIAMINE INJECTION 100 MG IV (11:18)
[2024-08-08 11:25] LABS: Phosphorus 5.4 mg/dl (2.5-4.5)
[2024-08-08 11:28] LABS: Urine Albumin 2+ (Neg - Trace); Urine Bilirubin Negative (Negative); Urine Character Cloudy (Clear); Urine Color Yellow; Urine Glucose Negative (Negative); Urine Ketone Negative (Negative); Urine Leukocyte Negative (Negative); Urine Nitrite Negative (Negative); Urine Occult Blood 4+ (Negative); Urine Specific Gravity 1.015 (<1.030); Urine Urobilinogen Negative (Neg - 1+)
--- NOTE | 2024-08-08 12:00 | PTCARENOTE ---
SAT initiated @ 0815- propofol gtt off- see flow sheet. RASS- 0 s/p SAT; CPOT 0; pt. remains able to follow simple commands/ nod head 'yes'/ 'no' approp. RT weaned vent settings per orders AC22/450/.40/+8; tolerating wean. Plan to keep pt
intubated today w/ minimal sedation and attempt wean off vent tomorrow. Pt. and family @ bedside updated on plan of care.
[2024-08-08 12:02] LABS: Glucose - Point of Care 116 mg/dl (70-99)
[2024-08-08 12:06] LABS: Urine Squamous Cell 0-2 /LPF (Few)
[2024-08-08 12:07] LABS: Urine Amorphous Seen
[2024-08-08 12:09] LABS: Urine Granular Cast >15 /LPF (0)
[2024-08-08 12:14] LABS: Urine Bacteria Few (Negative)
[2024-08-08 12:22] LABS: Body Fluid for Eosinophils No Eosinophils seen
[2024-08-08 13:57] LABS: Lyme Antibody Screen, EIA Negative (Negative)
[2024-08-08] MEDS: THORAZINE 51 MG IV (14:53)
--- NOTE | 2024-08-08 15:50 | CM ---
IV/Fentanyl, IV/Steroids, IV/Levophed, IV/ Zosyn, IV/Propofol. Wean off vent. TPN. NGT. Discharge POC: TBD based on medical progression.
[2024-08-08 16:52] LABS: Blood Urea Nitrogen 75 mg/dl (9-20); Calcium 7.9 mg/dl (8.4-10.2); Carbon Dioxide 33 mmol/L (22-30); Chloride 106 mmol/L (98-107); Estimated Creatinine Clearance 27 ml/min; Glucose 124 mg/dl (70-99); Potassium 3.1 mmol/L (3.5-5.1); Sodium 144 mmol/L (135-145); eGFR 32.51
[2024-08-08] MEDS: NOVOLOG FLEXPEN-LOW RESISTANCE SC ×2 (17:20→23:51)
[2024-08-08] MEDS: KCL 100 IV (17:20)
[2024-08-08 17:27] LABS: Glucose - Point of Care 131 mg/dl (70-99)
[2024-08-08] MEDS: OFIRMEV 100 IV ×2 (17:39→23:50)
[2024-08-08] MEDS: Parenteral Nutrition, Central 970 IV (20:41)
[2024-08-08 23:33] LABS: Glucose - Point of Care 147 mg/dl (70-99)
--- NOTE | 2024-08-09 03:09 | PTCARENOTE ---
Pt received at 19:00, intubated, calm and cooperative on the vent, niece at bedside. Ox3, nods y/n, writes, able to make needs known. Tmax 101.0, PRN ofirmev given. SR, weak but palpable DP pulses. L radial a-line, zeroed and transduced. #8 ETT 24cm
@ the lip, ETT gomes changed and tube repositioned from L to R. AC 22/450/40%/+8. Breath sounds coarse, diminished at the bases. L nare NGT to LIWS, minimal green/brown output. Laura in place, yellow urine, 50-75ml/hr. Midline abdomen incision,
mepolix remains CDI. TPN infusing as ordered. Safe environment maintained,
[2024-08-09 04:28] LABS: HCO3 33.3 mmol/L (21-28); Ionized Calcium 1.18 mMOL/L (1.15-1.33); O2 Saturation % 96.9 % (94-98); PCO2 39 mmHg (35-48); PO2 75 mmHg (83-108); Potassium 3.7 mMOL/L (3.5-5.1); Sodium 144 mMOL/L (136-145); pH 7.54 (7.35-7.45)
[2024-08-09 04:44] LABS: Blood Urea Nitrogen 75 mg/dl (9-20); Calcium 8.3 mg/dl (8.4-10.2); Carbon Dioxide 34 mmol/L (22-30); Chloride 110 mmol/L (98-107); Estimated Creatinine Clearance 30 ml/min; Glucose 186 mg/dl (70-99); Phosphorus 2.9 mg/dl (2.5-4.5); Potassium 3.4 mmol/L (3.5-5.1); Sodium 147 mmol/L (135-145); eGFR 36.89
[2024-08-09 04:55] LABS: Hematocrit 28.4 % (39.0-52.0); Mean Corp Hgb Conc. 35.2 g/dL (33.0-37.0); Mean Corpuscular Hgb 31.8 pg (27.0-31.0); Mean Corpuscular Volume 90.4 fL (80.0-94.0); Mean Platelet Volume 12.8 fL (7.4-10.4); Platelet Count 61 10^3/uL (130-400); Red Blood Cell Count 3.14 10^6/uL (4.70-6.10); Red Cell Dist. Width 14.3 % (11.5-14.5); White Blood Cell Count 9.2 10^3/uL (4.8-10.8)
[2024-08-09 05:30] LABS: Glucose - Point of Care 178 mg/dl (70-99)
[2024-08-09] MEDS: SUBLIMAZE 50 MCG IV (05:31)
[2024-08-09] MEDS: ZOSYN 50 IV ×4 (05:49→23:30)
[2024-08-09] MEDS: KCL 50 IV (05:50)
[2024-08-09 05:57] VITALS: BMI 23.7
--- NOTE | 2024-08-09 07:13 | W.PN.GS2 ---
Addendum entered and electronically signed by Jose Rosas MD 08/09/24 10:22:
I saw and examined the patient.
The resident's note was reviewed and I agree with the note.
Comment: Awake and alert, responsive to questions, belly soft, approp ttp, dressing cdi, remains vented, off pressors. Cont TPN, abx. Consider adding antifungal coverage.
Original Note:
Today's Communication / Plan
-
Trend platelet count
Trend BMPs
Continue IV antibiotics
Trend temperatures
Optimize pain management
Continue TPN
Assessment / Plan
-
Patient is an 83 yo male with a h/o ulcerative colitis with history of total abdominal colectomy with subsequent ileal J-pouch creation in 2009, who presented with complete small bowel obstruction, complicated by aspiration pneumonia with
decompensation, s/p exploratory laparotomy, lysis of adhesions and small bowel resection. Postop day 2. Critically ill with low blood pressure, fevers, on mechanical ventilation in ICU
Continue NG tube with low intermittent wall suction
Maintain Quintero's for now
POD # 2 lysis of adhesions and small bowel resection
Running fevers
Tracheal aspirate consistent with E. coli
Blood cultures showing no growth in last 24 hours
KYLAH present-creatinine trending down, now 1.8
Leukocytosis resolved
Thrombocytopenia present s/p PLT transfusion in OR-trending down
Hypokalemia
Mild hypernatremia
Plan:
--NPO/NGT
-- Started TPN
--On IV Zosyn
--Analgesics/antiemetics prn
--IVF as per primary team
--On Lovenox sq/SCD's for VTE ppx
-- Continue to trend BMPs and manage electrolyte derangements as needed
--Monitor platelet count and transfuse as needed
--Wean off trial from ventilator as per the spring tester
--Surgery will continue to follow
Subjective Data
-
Date of Service: August 09, 2024
Febrile last night with a temperature of 101 �F, febrile today morning at 3 AM
Experiencing pain, rates it 6/10 after pain meds
Objective Data
-
Intake and Output
08/08/24 08/09/24 08/10/24
06:59 06:59 06:59
Intake Total 3556.2 / 3728.6 2944.9 / 2944.9
Output Total 1450 / 1470 1565 / 1565
Balance 2106.2 / 2258.6 1379.9 / 1379.9
Intake:
Oral fluids 0 / 0
IV fluids (Total) 2976.2 / 3118.6 2024.9 / 2023.9
Diprivan 162.4 / 172.3 9.9 / 9.9
Levophed 63.8 / 71.3 45.0 / 45.0
Lr 1,000 ml @ 40 mls/hr IV . 2750 / 2875 1970 / 1970
Q24H ERI Rx#:[id number]
IV piggybacks 550 / 550 450 / 450
TPN/PPN 320 / 320
Amount instilled into GI Tube ( 30 / 60 150 / 150
Total)
[place] Sump 30 / 60 150 / 150
Output:
Gastrointestinal tube output ( 400 / 400
Total)
[place] Sump 400 / 400
Urine, Quintero 1050 / 1070 1565 / 1565
Vital Signs
Temp Pulse Resp BP Pulse Ox
100.5 F H 85 22 94/61 95
08/09/24 03:03 08/08/24 23:30 08/08/24 23:30 08/08/24 04:00 08/09/24 04:53
Lab Results
08/09/24 04:20
08/09/24 04:20
Calcium 8.3 mg/dl (8.4-10.2) L 08/09/24 04:20
Phosphorus 2.9 mg/dl (2.5-4.5) 08/09/24 04:20
Magnesium 3.0 mg/dl (1.6-2.3) H 08/09/24 04:20
Total Bilirubin 2.1 mg/dl (0.2-1.3) H 08/08/24 03:52
AST 24 U/L (17-59) 08/08/24 03:52
ALT 20 U/L (0-50) 08/08/24 03:52
Alkaline Phosphatase 64 U/L (38-126) 08/08/24 03:52
Total Protein 4.6 g/dl (6.3-8.2) L 08/08/24 03:52
Albumin 2.5 g/dl (3.5-5.0) L 08/08/24 03:52
Physical Exam
-
No apparent distress, ET tube in place, NG tube with low intermittent suction in place
On mechanical ventilation, vent settings AC 22/450/40%/+8
Tidal volume 450 midline incision with intact dry dressing
Appears chronically ill
Patient has a quintero catheter: Yes
Patient has a central line: Yes
[2024-08-09] MEDS: DUONEB 3 ML INH ×5 (07:30→20:19)
--- NOTE | 2024-08-09 08:00 | PTCARENOTE ---
Received pt @ change of shift. Pt. drowsy, awakens to verbal stimuli; nods head 'yes' and 'no' approp; follows simple commands approp; NORMAN, generalized weakness. RASS -1 and CPOT 0. Remains off sedation. PERRLA 3mm/brisk. SR w 1st degree AVB on
monitor. Trace hand edema; +1 L FA around old infiltrate; arm elevated. SpO2 96% on vent settings AC22/450/.40/+5. Scant amt of secretions from ett; mod/alrge amt of oral secretions; mouth care per protocol. Auscultated dim/crackles breath
sounds @ bases. L nare NGT secured @ 75cm to LIS w scant green output. Thermistor quintero in place draining adequate amt of yellow urine. Midline abd incision c/d/i. R TL w LR @ 40mL/hr and 40mL/hr. L rad A-line transduced, calibrated, and
monitored; all ports patent and secured. Pt. repositioned per protocol. Family @ bedside. Safe environment maintained.
--- NOTE | 2024-08-09 08:11 | W.PN.INTV ---
Today's Communication / Plan
Recommendations
Plan to extubate today
Keep NGT to LIWS
Bowel rest until instructed otherwise by surgery
Pain control
CXR shows signs of volume overload � stop IVF now and give dose of Lasix; recheck CXR again tomorrow and BNP
Continue antibiotics
Renally adjust all medications/antibiotics
Follow up infectious workup (E. coli and blood + respiratory culture from 08/07); check a set of surveillance blood cultures today
General surgery recommendations appreciated -no plans to being patient back to the OR
Continue ICU level of care for this critically ill
Assessment
-
#1. Acute hypoxic respiratory failure with respiratory distress, bilateral lower lobe aspiration pneumonia
- Suspect aspiration in the setting of vomiting due to small bowel obstruction
- Patient has diffusely coarse breath sounds, very rhonchorous on exam, had been on high flow nasal cannula on 08/06, overnight required nonrebreather in addition. Intubated on 08/07
- MRSA screen negative, respiratory culture (collected 08/07) growing E. coli --> follow-up sensitivities and continue IV Zosyn
- Continue IV Solu-Medrol in view of severity of pneumonia
- Continue with antibiotics (Zosyn - started 08/05); blood cultures + respiratory cultures growing E. coli (pansensitive); check a set of surveillance blood cultures today
- Continue with mechanical ventilation with daily SAT/SBT if clinically appropriate --> plan to extubate today; he is tolerating PS 5 and PEEP of 0, and he was given a dose of lasix this AM
- Maintain plateau pressure <30 and titrate FiO2 + PEEP to keep SpO2 >90-94%
- Continue aspiration precautions; keep HOB >30-45�
- prn nebulized bronchodilators - not currently bronchospastic
- Oropharyngeal + deep ETT suctioning with subglottic as needed
- Daily CXR + blood gas
- Daily vent adjustments as needed based on blood gas and SaO2
- Low level of sedation with goal RASS as 0 to -2
#2. Small bowel obstruction
- Prior history of abdominal colectomy and ileal pouch anal anastomosis with history of ulcerative colitis. Also prior history of abdominal hernia repair.
- NG tube placed 08/06, close to 3 Ltr feculent effluent aspirated, continue low intermittent suction
- Follow-up CT scan on 08/06 also showed persistent obstruction. After initial drop in level of lactate, started to rise again. 08/07, we contacted general surgery for further recommendations. Of note, lactate has now been <2 since 08/08
- General Surgery service on case
- IV PPI daily
- Bowel rest per surgery
#3. Acute kidney injury
- Suspect prerenal etiology in setting of sepsis from pneumonia and possibly transient bacteremia in setting of recent intra-abdominal OR - -> responded to IVF
- CXR shows signs of developing pulmonary edema no stop fluids and give a dose of IV Lasix today. Continue trending serum creatinine with strict I/O going forward
#4. History of asthmatic bronchitis
- Continue DuoNeb 4 times daily scheduled
- Continue Solu-Medrol 40 mg IV daily
- Continue albuterol on an as-needed basis in addition
#5. Enhancing renal mass on CT A/P from 08/04/2024
- ? Concern for renal neoplasm versus metastasis --> should be further evaluated as an outpatient. Recommend him to see nephrology vs his PCP
Maintain BG 140�180; continue with sliding scale and will consider starting scheduled aspart q6hr if blood sugars continue to rise today
DVT prophylaxis: HSQ
Other medical diagnoses:
- BPH
- History of ulcerative colitis
- Hyperlipidemia
- History of tick bite
Critical care statement: A total of 42 minutes of critical care time was provided for this patient today. This includes management of unstable vital signs, evaluation of the patient at bedside, reviewing the patient's pertinent medical records
including radiographs, microbiology, laboratory evaluations, and discussion with primary team, consultants, pharmacy, nutrition, physical therapy, case management, charge nurse, critical care nursing, and respiratory therapy.
Data:
CT Abd-Pelvis 07/2024: . Suspect distal small bowel obstruction.
2. Bilateral enhancing renal masses (two in each kidney), suspicious for neoplasm (either multiple primary renal neoplasms or metastases).
CXR 07/2024: No acute change
Subjective Dataa
Subjective Data
Date of Service:
Date of Service: August 09, 2024
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
Subjective:
Patient seen and evaluated this morning. Tolerating pressure support trial on 07/04 at 40% FiO2 with PIP 11 cmH2O, VTe 420 cc and breathing at 25 breaths/min. Current heart rate 55 bpm, saturating 94% and BP via A-line 139/53. He is awake and
alert, following all commands. Has some secretions noticed by the RN at the back of the throat. Been off pressors since yesterday afternoon at 4 PM.
Review of Systems
General: Other (Unobtainable as patient is intubated)
Objective Data
Data Reviewed
Vital Signs / I&O / Oxygen:
Vital Signs
Temp Pulse Resp BP Pulse Ox
99.7 F 67 22 94/61 94
08/09/24 08:05 08/09/24 07:35 08/09/24 07:35 08/08/24 04:00 08/09/24 09:34
Intake and Output
08/08/24 08/09/24 08/10/24
06:59 06:59 06:59
Intake Total 3556.2 / 3728.6 2944.9 / 3024.9 270 / 270
Output Total 1450 / 1470 1565 / 1665 400 / 400
Balance 2106.2 / 2258.6 1379.9 / 1359.9 -130 / -130
SaO2 [A/C] 94
SaO2 94
Nasal Cannula flow liters per 50
minute
Physical Exam
General: Respiratory Distress (negative), Comfortable, Chills (negative) and Sweats (negative)
HEENT: Normocephalic, Anicteric, Moist Mucous Membranes and Other (ETT in place)
Cardiovascular: S1-S2 and Peripheral Edema (negative)
Respiratory: Wheeze (negative), Crackles (Right anterior hemithorax), Rhonchi (negative), Accessory Resp Muscle Use (negative) and ET Tube (Mechanical breath sounds heard bilaterally)
GI: Soft, Non Distended, Non Tender and Normal Bowel Sounds
Neurology: Awake, Alert, Tremors (negative) and Other (Following all commands; moving all 4 extremities to command)
Skin: Warm, Dry, Cyanosis (negative) and Jaundice (negative)
Labs/Micro/Reports
Lab Data
08/09/24 04:20
08/09/24 04:20
Laboratory Results
08/09/24
04:20
pH 7.54 H
pCO2 39
pO2 75 L
HCO3 33.3 H
O2 Delivery Level
Microbiology
08/07/24 09:21 Blood/Venous Blood Culture - Preliminary
Positive culture in progress
08/07/24 09:21 Blood/Venous Gram Stain - Preliminary
08/07/24 09:21 Tracheal Aspirate Respiratory Culture - Final
Escherichia coli
08/07/24 09:21 Tracheal Aspirate Gram Stain - Final
08/06/24 14:28 Nose MRSA Screen - Final
No Methicillin Resistant Staphylococcus aureus isolated.
[2024-08-09] MEDS: NSS (PRESERVATIVE FREE) 10 ML IV (08:45)
[2024-08-09] MEDS: THIAMINE INJECTION 100 MG IV (08:45)
[2024-08-09] MEDS: SOLU-MEDROL PF 40 MG IV (08:45)
[2024-08-09] MEDS: PROTONIX IV 40 MG IV (08:45)
[2024-08-09] MEDS: RESTASIS 0.05% OPHTHALMIC EMULSION 1 DROPS BOTH EYES ×2 (08:46→19:43)
[2024-08-09] MEDS: HEPARIN 5000 UNITS SC ×2 (08:46→15:52)
[2024-08-09 08:47] LABS: Glycohemoglobin (HgbA1c) 5.7 % (4.0-5.6)
[2024-08-09 09:00] VITALS: BP_SYST 139
[2024-08-09] MEDS: NOVOLOG FLEXPEN-LOW RESISTANCE 1 UNITS SC (09:01)
--- NOTE | 2024-08-09 10:29 | W.PN.HOSP.TC ---
Addendum entered and electronically signed by Rick Jiménez MD 08/09/24 14:37:
I saw and evaluated the patient. I reviewed the resident�s note and agree with findings and plan as documented in the resident�s note.
septic shock with acute hypoxemic resp failure/vent dependent respiratory failure--from aspiration from SBO and vomiting--failed HI FARRUKH and inubated (suspect from abdominal source rather than pulmonary)--apprec manager cosmetics/surgery---cont
zosyn--vasopressors has been removed--patient still being weaned off of PEEP/FiO2 and manager cosmetics managing
Septic shock -patient is off the pressors. Continued spiking fever despite being on Zosyn. Discussed with surgeon and less concern of intra-abdominal infection source. Possible pneumonia versus other source. Respiratory culture growing E. coli
which is pansensitive antibiotic. Patient A-line and central line and should be removed if continue to spike fever. Basye Will be more feasible to be discontinued as patient out of shock. Central line is needed for patient TPN requirement.
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 There was 2 mm
segment of small bowel which looked necrotic and was resected with a total 5 cm of small bowel segment. A [id number] into anastomosis made --no bowel function recovery yet --patient started on TPN
KYLAH -- improving -- UA clear/no eosinophil . Had contrast exposure for CT scan. Patient initiated shock which is actually resolved at this stage. Laura catheter in place as well. No other nephrotoxic medication besides Zosyn. Cr is improving.
Acute thrombocytopenia -from sepsis presumably, fluctuating between 50-100 K at this range. No bleeding diathesis. Continue monitor
Chronic Asthmatic Bronchitis- Continue Home Meds (INH)
UC- Hold PO Meds for now
BPH- Hold PO Meds for now
HLD - Hold PO Meds for now
History of Tick Bite- Lyme Serologies pending
DVT proph-- lovenox
Code Status---Full Code
Care plan discussed with manager cosmetics
Total Critical Care Time 43 minutes. I was immediately available to the patient and staff. I personally examined, reviewed labs, diagnostic images/reports, interpretations, treatment plans, discussed patient care with other providers and family
or caregivers (if patient is unable to make decisions), entered orders as appropriate and documented the medical record.
Original Note:
Today's Communication/Plan
-
.
Assessment / Plan
Assessment / Plan
83M PMHx UC s/p total abdominal colectomy w/ J-pouch creation and hernia repairs. Admitted for SBO.
- 1. Small Bowel Obstruction
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
- Appreciate General Surgery Input
- s/p Ex-lap (08/08) for extensive lysis of adhesions (total lysis not attempted) and SB resection with anastomosis of transition point. POD #2
- Per surgery, expect prolonged post-op ileus. TPN started (08/09)
- Continue to monitor serum electrolytes, TPN modifications per surgery
- Continue NG tube to low intermittent suction; output improving
- initial removal of 3-4 L feculent material, placed after vomiting and aspiration
- PPI Prophylaxis
2. Ventilator Dependent Respiratory Failure 2/2 bilateral lower lobe aspiration pneumonia
- Ventilator Management as per manager cosmetics
- SBT Trial today
- Continue IV Zosyn
- Spiked a fever last night, now resolved.
- Consider ESBL vs fungal etiologies of pneumonia
- Pansensitive E. Coli on cultures
- Consider anti-fungals/ID if fevers return
- Continue IV steroid
- Daily CBC
3. Septic Shock 2/2 bilateral lower lobe aspiration pneumonia (resolved)
- Continue IV Zosyn
- Pressors off this morning
- Lactate downtrended
4. Acute Kidney Injury
- BMP downtrending, continue to monitor
- UA unremarkable, eosinophils negative; rules out AIN 2/2 abx
- Consider pre-renal 2/2 sepsis vs. CONCHIS
- Cr 1.8, 0.8 baseline
5. . UC
- Hold PO Meds for now
6 BPH
- Hold PO Meds for now
7. HLD
- Hold PO Meds for now
8. History of Tick Bite
- Follow up Lyme Serologies
9. Renal Mass on CT
- ?? Concern for renal neoplasm versus metastasis
Anticipated Discharge: > 48 hours
Subjective/Interval History
-
Date of Service: August 09, 2024
Patient seen and examined while in ICU bed, continues to be ventilated. Patient currently on sedation holiday and able to answer simple yes and no questions with nods/shakes of heads. Patient with fever overnight to Tmax 101. Otherwise pressors have
been off, and manager cosmetics team will trial SBT today.
Objective Data
-
Labs:
Laboratory Results
08/09/24
04:20
WBC 9.2
Hgb 10.0 L
Hct 28.4 L
Plt Count 61 L D
HCO3 33.3 H
Sodium 147 H
Potassium 3.4 L
Chloride 110 H
Carbon Dioxide 34 H
BUN 75 H
Creatinine 1.8 H
Glucose 186 H
Calcium 8.3 L
Vital Signs:
Vital Signs
Temp Pulse Resp BP Pulse Ox
99.7 F 67 22 94/61 94
08/09/24 08:05 08/09/24 07:35 08/09/24 07:35 08/08/24 04:00 08/09/24 09:34
I&O
08/08/24 08/09/24 08/10/24
06:59 06:59 06:59
Intake Total 3556.2 / 3728.6 2944.9 / 3024.9 270 / 270
Output Total 1450 / 1470 1565 / 1665 400 / 400
Balance 2106.2 / 2258.6 1379.9 / 1359.9 -130 / -130
Review of Systems
-
Unable to obtain full review of systems at this time due to: Patient Intubation
Physical Exam
-
General: Intubated and Other (responsive to questions)
HEENT: Normocephalic, Atraumatic and Oxygen (ET tube in place)
Respiratory: Non Labored Respirations
Cardiac: Regular Rhythm and S1/S2
GI: Soft and Other (mildly tender ttp)
Musculoskeletal: No Clubbing, No Cyanosis and No Edema
Skin: Warm
Neuro: Awake and Alert
Psych: Calm
Data Reviewed
-
Diagnostic Radiology: Image personally visualized and interpreted, Report Reviewed by me and Discussed with Patient
Labs: Labs Reviewed by me and Discussed with Patient
[2024-08-09 11:45] LABS: Glucose - Point of Care 174 mg/dl (70-99)
[2024-08-09 11:45] LABS: B.E. 7.8 mmol/L; HCO3 30.9 mmol/L (21-28); O2 Saturation % 95.1 % (94-98); PCO2 37 mmHg (35-48); PO2 63 mmHg (83-108); pH 7.53 (7.35-7.45)
[2024-08-09] MEDS: LASIX 40 MG IV (11:45)
[2024-08-09] MEDS: KCL 100 IV (11:45)
[2024-08-09] MEDS: NOVOLOG FLEXPEN-MODERATE RESISTANCE 1 UNITS SC (11:46)
--- NOTE | 2024-08-09 13:26 | PTCARENOTE ---
Pt. placed on CPAP wean 07/04/.40 @ approx 0900; tolerated wean/VSS. S/P 2H into wean ABG drawn and sent to lab. Results reviewed and pt. assessed @ bedside by Dr. Hendrix. Pt. extubated @ 1300 per orders to 10LMF, SpO2 94%. Pt. assisted into
chair position. Educated on coughing/deep breathing exercises/incentive spirometer; demonstrates understanding. Instructed on how to report care concerns and call saha placed w/in reach. Family remains @ bedside.
[2024-08-09] MEDS: DILAUDID 0.5 MG IV ×2 (14:51→22:32)
--- NOTE | 2024-08-09 15:12 | CM ---
POD #2 s/p exploratory laparotomy, lysis of adhesions and small bowel resection. intubated. Discharge Plan of Care: TBD based on medical progression.
[2024-08-09 16:27] LABS: Blood Urea Nitrogen 76 mg/dl (9-20); Calcium 8.5 mg/dl (8.4-10.2); Carbon Dioxide 31 mmol/L (22-30); Chloride 112 mmol/L (98-107); Estimated Creatinine Clearance 34 ml/min; Glucose 213 mg/dl (70-99); Magnesium 2.7 mg/dl (1.6-2.3); Sodium 146 mmol/L (135-145); eGFR 42.49
[2024-08-09] MEDS: OFIRMEV 100 IV (17:13)
[2024-08-09] MEDS: NOVOLOG FLEXPEN-MODERATE RESISTANCE 3 UNITS SC (17:19)
[2024-08-09 17:29] LABS: Glucose - Point of Care 218 mg/dl (70-99)
[2024-08-09] MEDS: SODIUM PHOSPHATE 255 MEQ IV (18:05)
[2024-08-09] MEDS: NOVOLOG FLEXPEN 3 UNITS SC (18:05)
[2024-08-09 18:27] LABS: NT-proBNP 2070 pg/ml
--- NOTE | 2024-08-09 18:39 | PTCARENOTE ---
O2 weaned to 4LNC, pt. tolerating and SpO2 maintaining 94%. Pt. actively repositioning self in bed. Sitting upright encouraged. Pt. frequently performing coughing/deep breathing exercises. Assisted w frequent oral care. Uses anchor for oral
secretions. TPN remains infusing @ 40mL/hr; Phos repletion via R TL IJ- see MAR. remains @ bedside. Call yifan w in reach.
[2024-08-09 19:35] VITALS: BP 111/64
[2024-08-09 20:00] VITALS: BP 111/64; BP 119/67
--- NOTE | 2024-08-09 20:00 | PTCARENOTE ---
Rec'd pt resting in bed, cooperative, follows commands, sinus mariia, Left rad minnie dc'd,(dampened freq, inaccurate to cuff), bp stable, weak distal pulses, skin warm/dry, O2 4 liters nc, sat 91, to keep sat > 90, lungs w/ fine I/E wheezes, crackles
in bases, resp rx given by therapist, + cough for yellow secretions, enc to use IS- reaches 750ml, hypo bowel sounds, no bm, abd soft, tender at incis, incis dsg intact, left nares [place] to low inter suction draining green liquid- irrigated q4h w/
30ml tap h20, thermister quintero draining yellow urine; RIJ dsg changed- biopatch applied
[2024-08-09] MEDS: Parenteral Nutrition, Central 960 IV (20:28)
[2024-08-09 22:23] VITALS: BP 115/57
--- NOTE | 2024-08-09 22:33 | PTCARENOTE ---
dilaudid 0.5mg iv given for pain
[2024-08-09 23:00] VITALS: BP 131/56
[2024-08-09 23:37] LABS: Glucose - Point of Care 167 mg/dl (70-99)
[2024-08-10] VITALS (28 sets, daily range): BP systolic 114–160; BP diastolic 53–98; PULSE 60; O2SAT 94; BMI 23.1
[2024-08-10] MEDS: HEPARIN 5000 UNITS SC ×4 (00:02→23:09)
[2024-08-10] MEDS: OFIRMEV 100 IV ×4 (00:03→18:58)
[2024-08-10] MEDS: NOVOLOG FLEXPEN-MODERATE RESISTANCE 1 UNITS SC ×4 (00:04→23:13)
[2024-08-10] MEDS: NOVOLOG FLEXPEN 3 UNITS SC ×5 (00:04→23:13)
--- NOTE | 2024-08-10 00:10 | PTCARENOTE ---
sys reviewed, changes noted, ofirmev 1 gm iv given for back pain, CHG bath done, linens changed, lungs w/ few insp wheezes, crackles in bases
--- NOTE | 2024-08-10 01:10 | PTCARENOTE ---
run of slow Vtach, BP 142/57, Pt states his breathing is more labored, O2 incr to 6 liters,, resp rx given, Rose Cruz NP in to see, labs sent, cxr to be obtained, pt instructed on using acapella by resp therapist
[2024-08-10] MEDS: VENTOLIN NEBULES 2.5 MG INH (01:25)
[2024-08-10 01:38] LABS: Hemoglobin 10.7 g/dL (13.0-18.0); Mean Corp Hgb Conc. 33.4 g/dL (33.0-37.0); Mean Corpuscular Hgb 31.3 pg (27.0-31.0); Mean Corpuscular Volume 93.6 fL (80.0-94.0); Platelet Count 62 10^3/uL (130-400); Red Blood Cell Count 3.42 10^6/uL (4.70-6.10); Red Cell Dist. Width 14.9 % (11.5-14.5); White Blood Cell Count 13.2 10^3/uL (4.8-10.8)
[2024-08-10 01:50] LABS: Blood Urea Nitrogen 77 mg/dl (9-20); Calcium 8.8 mg/dl (8.4-10.2); Carbon Dioxide 34 mmol/L (22-30); Chloride 112 mmol/L (98-107); Estimated Creatinine Clearance 36 ml/min; Glucose 160 mg/dl (70-99); Magnesium 2.6 mg/dl (1.6-2.3); Phosphorus 3.2 mg/dl (2.5-4.5); Potassium 3.9 mmol/L (3.5-5.1); Sodium 152 mmol/L (135-145); Triglycerides 170 mg/dl (10-149); eGFR 45.91
--- NOTE | 2024-08-10 02:04 | PTCARENOTE ---
CXR done, changed to Hi flow 55 liters/ 60% fio2
--- NOTE | 2024-08-10 02:17 | W.PN.UPDATE ---
Update Note
Progress Note Update
08/10/2024
0130- Patient felt like he had some difficulty clearing his airway, cough, and phelgm stuck in the back of his throat. Noted on telemetry slow rate wide complex rhythm, appeared multiple PVCs vs wide slow complex multiple beats together. Patient
had large output of urine after lasix, will check electrolytes urgently. Nebulizer treatment given, acapella and incentive spirometry ordered. Patient transitioned to high flow nasal cannula for humidification and small amount of peep to help with
tachypnea and shortness of breath. Chest xray obtained. Patient felt improvement after interventions and work of breathing slowed and he was able to rest.
--- NOTE | 2024-08-10 04:00 | PTCARENOTE ---
sys reviewed, breathing much easier, cont to cough up thick secretions, lungs coarse, decr in bases,unable to sleep-' I sleep in a chair at home', PT to see pt in am
[2024-08-10] MEDS: ZOSYN 50 IV ×2 (05:24→12:20)
[2024-08-10 05:46] LABS: Glucose - Point of Care 151 mg/dl (70-99)
--- NOTE | 2024-08-10 06:14 | PTCARENOTE ---
ofirmev 1gm iv given for back ache
--- NOTE | 2024-08-10 08:00 | PTCARENOTE ---
Received patient A&Ox4, on HFNC 55L 60%, strong productive cough, thick secretions, SB between high 40s to low 50s, BP stable, RIJ central line infusing TPN @40mL/hr, NGT in left nare @77cm to LIS draining dark green color, NPO, FC in place draining
ajith urine.
[2024-08-10] MEDS: DUONEB 3 ML INH ×2 (08:07→19:14)
--- NOTE | 2024-08-10 08:18 | W.PN.INTV ---
Today's Communication / Plan
Recommendations
Extubated yesterday, now on midflow nasal cannula and breathing comfortably
Continue weaning down supplemental O2 flow rate while keeping SpO2 >90-94%
Start budesonide + continue DuoNebs BID
Keep NGT to LIWS
Bowel rest until instructed otherwise by surgery
Pain control
Given a dose of lasix yesterday due to volume overload; CXR today (08/10) shows improved aeration at left costophrenic angle - - hold off on additional lasix for now
Trend BNP
Continue antibiotics - narrow today from Zosyn to Unasyn
Renally adjust all medications/antibiotics
Follow up set of surveillance blood cultures (drawn 08/09)
General surgery recommendations appreciated -no plans to being patient back to the OR
Patient is stable for downgrade out of ICU to telemetry. Given that he is wheezing today and had difficulty expectorating phlegm overnight and remains on 10 L/min via midflow nasal cannula, Pulmonary service will continue to follow along.
Assessment
-
#1. Acute hypoxic respiratory failure with respiratory distress, bilateral lower lobe aspiration pneumonia
- Suspect aspiration in the setting of vomiting due to small bowel obstruction
- Patient has diffusely coarse breath sounds, very rhonchorous on exam, had been on high flow nasal cannula on 08/06, overnight required nonrebreather in addition. Intubated on 08/07
- MRSA screen negative, respiratory culture (collected 08/07) growing E. coli --> follow-up sensitivities and continue IV Zosyn
- Continue IV Solu-Medrol in view of severity of pneumonia --> wean down to 20mg IV daily x another 3 days then stop
- Continue with antibiotics (Zosyn - started 08/05) --> ok to change to Unasyn today (08/10) given that the E. coli seen on blood + respiratory cultures are both pansensitive; set of surveillance blood cultures checked on 08/09
- Patient was extubated yesterday and is currently saturating well on 10 L/min mid flow nasal cannula
-Keep SpO2 >90-94%
- Continue aspiration precautions; keep HOB >30-45�
- prn nebulized bronchodilators + DuoNebs BID
#2. Small bowel obstruction
- Prior history of abdominal colectomy and ileal pouch anal anastomosis with history of ulcerative colitis. Also prior history of abdominal hernia repair.
- NG tube placed 08/06, close to 3 Ltr feculent effluent aspirated, continue low intermittent suction
- Follow-up CT scan on 08/06 also showed persistent obstruction. After initial drop in level of lactate, started to rise again. 08/07, we contacted general surgery for further recommendations. Of note, lactate has now been <2 since 08/08
- General Surgery service on case
- IV PPI daily
- Bowel rest per surgery
#3. Acute kidney injury
- Suspect prerenal etiology in setting of sepsis from pneumonia and possibly transient bacteremia in setting of recent intra-abdominal OR - -> responded to IVF
- CXR from 08/09 showed signs of developing pulmonary edema, so IVF stopped and was given a dose of Lasix. Hold additional dose of Lasix today as he has thick phlegm at times and CXR shows improvement in aeration of left base on 08/10
- Trend serum creatinine with strict I/O
#4. History of asthmatic bronchitis
- Continue DuoNebs and lower to BID today (08/10)
- Continue Solu-Medrol 40 mg IV daily --> lower to 20mg IV daily for another 3 days then stop
- Continue prn DuoNebs as well
#5. Enhancing renal mass on CT A/P from 08/04/2024
- ? Concern for renal neoplasm versus metastasis --> should be further evaluated as an outpatient. Recommend him to see nephrology vs his PCP
Maintain BG 140�180; continue with sliding scale with 3 units aspart q6hr
DVT prophylaxis: HSQ
Other medical diagnoses:
- BPH
- History of ulcerative colitis
- Hyperlipidemia
- History of tick bite
Patient is stable for downgrade out of ICU to telemetry. Given that he is wheezing today and had difficulty expectorating overnight and remains on 10 L/min via midflow nasal cannula, Pulmonary service will continue to follow along.
Data:
CT Abd-Pelvis 07/2024: . Suspect distal small bowel obstruction.
2. Bilateral enhancing renal masses (two in each kidney), suspicious for neoplasm (either multiple primary renal neoplasms or metastases).
CXR 07/2024: No acute change
Total time spent today was 58 minutes for this encounter. Time includes reviewing laboratory test/imaging results, reviewing pertinent medical records, obtaining and reviewing medical history, performing an appropriate exam, ordering medications,
tests and procedures. Time also includes documentation of this encounter, coordinating patient care and communicating with other healthcare professionals. Total time does not include separately billed tests performed on this date of service.
Subjective Dataa
Subjective Data
Date of Service:
Date of Service: August 10, 2024
Chief Complaint: [employer] Manager Follow Up
Subjective:
Patient seen and evaluated this morning. Extubated yesterday. He did require high flow nasal cannula overnight 50% FiO2, now on midflow nasal cannula. Has a productive cough with issues overnight with getting out his phlegm. Patient's heart rate
currently is 55, saturating 93% on 10L/min he says he had a tough time sleeping as he normally sleeps in recliner at home. He currently denies shortness of breath or having any issues currently getting out his phlegm.
Review of Systems
General: Other (Negative unless mentioned above)
Objective Data
Data Reviewed
Vital Signs / I&O / Oxygen:
Vital Signs
Temp Pulse Resp BP Pulse Ox
98.2 F 63 16 133/66 94
08/10/24 08:00 08/10/24 09:00 08/10/24 09:00 08/10/24 09:00 08/10/24 09:00
Intake and Output
08/09/24 08/10/24 08/11/24
06:59 06:59 06:59
Intake Total 2944.9 / 3024.9 1780 / 1820 120 / 120
Output Total 1565 / 1665 3545 / 3645 250 / 250
Balance 1379.9 / 1359.9 -1765 / -1825 -130 / -130
SaO2 [A/C] 95
SaO2 94
Nasal Cannula flow liters per 15
minute
Physical Exam
General: Respiratory Distress (negative), Comfortable, Chills (negative) and Sweats (negative)
HEENT: Normocephalic, Anicteric and Moist Mucous Membranes
Cardiovascular: S1-S2 and Peripheral Edema (negative)
Respiratory: Wheeze (Rapides upon expiration bilateral), Crackles (Bilaterally (R >L)), Rhonchi (negative) and Accessory Resp Muscle Use (negative)
GI: Soft, Non Distended, Non Tender and Normal Bowel Sounds
Neurology: Awake, Alert, AO x 3 and Tremors (negative)
Skin: Warm, Dry, Cyanosis (negative) and Jaundice (negative)
Labs/Micro/Reports
Lab Data
08/10/24 01:19
08/10/24 01:19
Laboratory Results
08/09/24
11:25
pH 7.53 H
pCO2 37
pO2 63 L
HCO3 30.9 H
O2 Delivery Level
Microbiology
08/07/24 09:21 Blood/Venous Blood Culture - Preliminary
Escherichia coli
08/07/24 09:21 Blood/Venous Gram Stain - Preliminary
08/07/24 09:21 Tracheal Aspirate Respiratory Culture - Final
Escherichia coli
08/07/24 09:21 Tracheal Aspirate Gram Stain - Final
08/06/24 14:28 Nose MRSA Screen - Final
No Methicillin Resistant Staphylococcus aureus isolated.
[2024-08-10] MEDS: THIAMINE INJECTION 100 MG IV (08:34)
[2024-08-10] MEDS: PROTONIX IV 40 MG IV (08:34)
[2024-08-10] MEDS: NSS (PRESERVATIVE FREE) 10 ML IV (08:34)
[2024-08-10] MEDS: SOLU-MEDROL PF 40 MG IV (08:35)
[2024-08-10] MEDS: RESTASIS 0.05% OPHTHALMIC EMULSION 1 DROPS BOTH EYES (08:37)
--- NOTE | 2024-08-10 09:13 | W.PN.GS2 ---
Today's Communication / Plan
-
TPN
NGT
IV abx
IS / nebs
PT/OT
Assessment / Plan
-
Patient is an 83 yo male with a h/o ulcerative colitis with history of total abdominal colectomy with subsequent ileal J-pouch creation in 2009, who presented with complete small bowel obstruction, complicated by aspiration pneumonia with
decompensation, s/p exploratory laparotomy, lysis of adhesions and small bowel resection. Postop day 2. Critically ill with low blood pressure, fevers, on mechanical ventilation in ICU
Continue NG tube with low intermittent wall suction
Maintain Quintero's for now
POD # 3 lysis of adhesions and small bowel resection
Running fevers - suspect pulmonary source
Tracheal aspirate consistent with E. coli rachel sensitive
Blood cultures also e. coli
KYLAH present-creatinine trending down steadily for past 2 days
Leukocytosis, recurrent
Thrombocytopenia present s/p PLT transfusion in OR-trending up today
Hypokalemia
Hyper Na, Hyper Cl, Hyper Mg, high TGs
Plan:
--NPO/NGT
--Cont TPN - nutrition consult for adjustments today now that he is off vent
--On IV Zosyn, consider adding antifungal coverage in light of fevers
--Analgesics/antiemetics prn
--IVF as per primary team
--On Lovenox sq/SCD's for VTE ppx
--Continue to trend BMPs and manage electrolyte derangements as needed
--Monitor platelet count and transfuse as needed
--Aggressive pulm toileting and nebs
-- PT/OT
--Surgery will continue to follow
Subjective Data
-
Date of Service: August 10, 2024
HFNC req overnight, now back to [facility], endorses abd pain, controlled, denies n/v with ngt to suction
Objective Data
-
Intake and Output
08/09/24 08/10/24 08/11/24
06:59 06:59 06:59
Intake Total 2944.9 / 3024.9 1780 / 1780
Output Total 1565 / 1665 3545 / 3545
Balance 1379.9 / 1359.9 -1765 / -1765
Intake:
IV fluids (Total) 2024.9 / 2064.9 410 / 410
Diprivan 9.9 / 9.9
Levophed 45.0 / 45.0
Lr 1,000 ml @ 40 mls/hr IV . 1969 160 / 160
Q24H ERI Rx#:[id number]
na phos 250 / 250
IV piggybacks 450 / 450 300 / 300
TPN/PPN 320 / 360 920 / 920
Amount instilled into GI Tube ( 150 / 150 150 / 150
Total)
Speed Sump 150 / 150 150 / 150
Output:
Gastrointestinal tube output ( 200 / 200
Total)
Speed Sump 200 / 200
Urine, Quintero 1565 / 1665 3345 / 3345
Vital Signs
Temp Pulse Resp BP Pulse Ox
99.7 F 56 16 141/64 93
08/10/24 03:36 08/10/24 08:30 08/10/24 08:30 08/10/24 07:00 08/10/24 08:38
Lab Results
08/10/24 01:19
08/10/24 01:19
Calcium 8.8 mg/dl (8.4-10.2) 08/10/24 01:19
Phosphorus 3.2 mg/dl (2.5-4.5) 08/10/24 01:19
Magnesium 2.6 mg/dl (1.6-2.3) H 08/10/24 01:19
Total Bilirubin 2.1 mg/dl (0.2-1.3) H 08/08/24 03:52
AST 24 U/L (17-59) 08/08/24 03:52
ALT 20 U/L (0-50) 08/08/24 03:52
Alkaline Phosphatase 64 U/L (38-126) 08/08/24 03:52
Total Protein 4.6 g/dl (6.3-8.2) L 08/08/24 03:52
Albumin 2.5 g/dl (3.5-5.0) L 08/08/24 03:52
Physical Exam
-
Gen: NAD
Abd: soft, minimal ttp, minimal distention, incision cdi with cindy, ngt clear green
Patient has a quintero catheter: Yes
Patient has a central line: Yes
[2024-08-10] MEDS: D5W 1000 IV ×2 (10:09→23:07)
--- NOTE | 2024-08-10 10:10 | W.PN.HOSP.TC ---
Today's Communication/Plan
-
.
Assessment / Plan
Assessment / Plan
83M PMHx UC s/p total abdominal colectomy w/ J-pouch creation and hernia repairs. Admitted for SBO.
- 1. Small Bowel Obstruction
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
- Appreciate General Surgery Input
- s/p Ex-lap (08/08) for extensive lysis of adhesions (total lysis not attempted) and SB resection with anastomosis of transition point. POD #3
- Per surgery, expect prolonged post-op ileus. TPN started (08/09)
- Continue to monitor serum electrolytes, TPN modifications per surgery
- Sodium 152; free water flush discussed with pharmacist
- Continue NG tube to low intermittent suction; output improving, clear green today
- initial removal of 3-4 L feculent material, placed after vomiting and aspiration
- PPI Prophylaxis
- Maintain Laura for now
2. Ventilator Dependent Respiratory Failure 2/2 bilateral lower lobe aspiration pneumonia (extubated 08/09)
- Continue IV Zosyn
- Temps stable, white counts wavering around ULN
- Pansensitive E. Coli on cultures
- Consider anti-fungals/ID if fevers return
- Consolidate abx to Unasyn today
- Daily CBC
- Currently on 15 L mid flow, wean O2 as tolerated
3. Septic Shock 2/2 bilateral lower lobe aspiration pneumonia (resolved)
- Antibiotics transitioned to Unasyn
- Pressors off since 08/08
- Lactate downtrended
4. Acute Kidney Injury
- BMP downtrending, continue to monitor
- UA unremarkable, eosinophils negative; rules out AIN 2/2 abx
- Consider pre-renal 2/2 sepsis vs. CONCHIS
- Cr 1.5, 0.8 baseline
5. . UC
- Hold PO Meds for now
6 BPH
- Hold PO Meds for now
7. HLD
- Hold PO Meds for now
8. History of Tick Bite
- Follow up Lyme Serologies
9. Renal Mass on CT
- ?? Concern for renal neoplasm versus metastasis
Anticipated Discharge: > 48 hours
Subjective/Interval History
-
Date of Service: August 10, 2024
Patient seen and examined, resting in bed. Patient's and niece at the bedside. Patient with overnight event of difficulty clearing secretion and cough. Wide complex rhythm noted on telemetry at that time. Patient was treated on nebs, incentive
spirometry, and Hi-Duglas with low PEEP, which improved his symptoms.
Patient states that he is feeling better this morning. Patient is off of vent, extubated, and off of pressors. Patient endorses some crampy abdominal pain but this is residual and an improvement. Notes that he is not passing flatus yet, but feels as
if he can. Thinks that if gets up and out of bed he would be able to have a BM. His main current concern today is wanting to get out of bed since he has been sleeping in a chair for many years secondary to back pain.
Objective Data
-
Labs:
Laboratory Results
08/10/24
01:19
WBC 13.2 H
Hgb 10.7 L
Hct 32.0 L
Plt Count 62 L
Sodium 152 H
Potassium 3.9
Chloride 112 H
Carbon Dioxide 34 H
BUN 77 H
Creatinine 1.5 H
Glucose 160 H
Calcium 8.8
Vital Signs:
Vital Signs
Temp Pulse Resp BP Pulse Ox
98.2 F 63 16 133/66 94
08/10/24 08:00 08/10/24 09:00 08/10/24 09:00 08/10/24 09:00 08/10/24 09:52
I&O
08/09/24 08/10/24 08/11/24
06:59 06:59 06:59
Intake Total 2944.9 / 3024.9 1780 / 1820 120 / 120
Output Total 1565 / 1665 3545 / 3645 250 / 250
Balance 1379.9 / 1359.9 -1765 / -1825 -130 / -130
Review of Systems
-
History Source: Patient
Constitutional: Reports No Symptoms
Respiratory: Reports Trouble Breathing
Abdomen/GI: Reports Abdominal Pain; Denies Nausea or Vomiting
Neuro: Reports No Symptoms
Physical Exam
-
General: No Apparent Distress and Other (extubated, NGT in place with small amount of clear green liquid collected)
HEENT: Normocephalic and Atraumatic
Respiratory: Non Labored Respirations
GI: Soft, Nontender and Other (midline dressing in place, some bowel sounds appreciated)
Musculoskeletal: No Clubbing, No Cyanosis and No Edema
Skin: Warm and Dry
Neuro: Awake, Alert and Oriented
Psych: Calm
Data Reviewed
-
Diagnostic Radiology: Image personally visualized and interpreted, Report Reviewed by me and Discussed with Patient
Labs: Labs Reviewed by me and Discussed with Patient
[2024-08-10 11:54] LABS: Glucose - Point of Care 138 mg/dl (70-99)
--- NOTE | 2024-08-10 12:00 | PTCARENOTE ---
Reassessed the patient, OOB to chair, pain was intervened, on [id number], no other changes.
[2024-08-10] MEDS: NOVOLOG FLEXPEN-MODERATE RESISTANCE SC (12:02)
[2024-08-10] MEDS: DILAUDID 0.25 MG IV ×2 (13:03→20:03)
--- NOTE | 2024-08-10 14:27 | CM ---
Extubated, TPN, NGT, IV/AB, IV/Steroids. Therapy recommendation for SNF. Spoke with patient and . prefers HH and patient prefers Outpatient. This CM explained that patient will have additional evaluations and the recommendation may change
but at this juncture therapy feels patient is better suited for SNF. We have agreed to not forward any referrals at this time until patient is closer to discharging.
[2024-08-10] MEDS: UNASYN IV ×2 (14:29→19:37)
--- NOTE | 2024-08-10 16:00 | PTCARENOTE ---
Reassessed the patient, A&Ox4, ambulated in the room w/ walker, back to recliner, weaned Midflow to 6L, discontinued Laura, applied condom cath.
[2024-08-10 17:53] LABS: Glucose - Point of Care 177 mg/dl (70-99)
[2024-08-10] MEDS: PULMICORT 0.5 MG INH (19:14)
--- NOTE | 2024-08-10 19:20 | PTCARENOTE ---
1920 Pt is aaox4, he is OOB in chair self suctioning. pt is on midlfow 6L at 95%. RIJ central line infusing TPN @40mL/hr, NGT in left nare to low intermittent suction w/ green drainage. pt remains npo, condom cath in place. Abdominal dressing
c/d/i. see MAR regarding pain management and nausea.
2099 TPN replaced and rate adjusted.
[2024-08-10] MEDS: RESTASIS 0.05% OPHTHALMIC EMULSION 2 DROPS BOTH EYES (19:38)
[2024-08-10] MEDS: ZOFRAN 4 MG IV (19:38)
[2024-08-10] MEDS: Parenteral Nutrition, Central 1730 IV (20:53)
[2024-08-10 21:48] LABS: Blood Urea Nitrogen 68 mg/dl (9-20); Calcium 8.9 mg/dl (8.4-10.2); Carbon Dioxide 31 mmol/L (22-30); Chloride 113 mmol/L (98-107); Estimated Creatinine Clearance 45 ml/min; Glucose 185 mg/dl (70-99); Sodium 147 mmol/L (135-145); eGFR > 60.00
[2024-08-10 23:23] LABS: Glucose - Point of Care 192 mg/dl (70-99)
[2024-08-11] VITALS (22 sets, daily range): BP systolic 125–169; BP diastolic 57–86; PULSE 51; O2SAT 84–96; BMI 23.0
[2024-08-11] MEDS: UNASYN IV ×4 (01:37→20:33)
--- NOTE | 2024-08-11 03:53 | PTCARENOTE ---
walked a few feet forward then back to bed -pt has multiple lines. Pt destated to 84% on 6L midflow in bed SpO2=94-96%. pt stated he felt fine.
[2024-08-11] MEDS: DILAUDID 0.25 MG IV ×2 (03:59→06:41)
[2024-08-11 04:53] LABS: Mean Corp Hgb Conc. 34.4 g/dL (33.0-37.0); Mean Corpuscular Hgb 32.4 pg (27.0-31.0); Mean Corpuscular Volume 94.1 fL (80.0-94.0); Mean Platelet Volume 13.4 fL (7.4-10.4); Platelet Count 65 10^3/uL (130-400); Red Cell Dist. Width 15.1 % (11.5-14.5); White Blood Cell Count 13.1 10^3/uL (4.8-10.8)
[2024-08-11 04:59] LABS: ALT (SGPT) 25 U/L (0-50); AST (SGOT) 29 U/L (17-59); Albumin 2.5 g/dl (3.5-5.0); Alkaline Phosphatase 82 U/L (38-126); Blood Urea Nitrogen 62 mg/dl (9-20); Calcium 8.9 mg/dl (8.4-10.2); Carbon Dioxide 36 mmol/L (22-30); Chloride 113 mmol/L (98-107); Estimated Creatinine Clearance 54 ml/min; Glucose 164 mg/dl (70-99); Magnesium 2.1 mg/dl (1.6-2.3); Phosphorus 2.8 mg/dl (2.5-4.5); Potassium 3.9 mmol/L (3.5-5.1); Sodium 151 mmol/L (135-145); Total Bilirubin 1.6 mg/dl (0.2-1.3); Total Protein 4.9 g/dl (6.3-8.2); eGFR > 60.00
[2024-08-11 05:03] LABS: NT-proBNP 2730 pg/ml
[2024-08-11] MEDS: NOVOLOG FLEXPEN-MODERATE RESISTANCE 1 UNITS SC ×2 (05:18→18:04)
[2024-08-11] MEDS: NOVOLOG FLEXPEN 3 UNITS SC ×3 (05:19→18:04)
[2024-08-11 05:28] LABS: Glucose - Point of Care 160 mg/dl (70-99)
[2024-08-11] MEDS: RESTASIS 0.05% OPHTHALMIC EMULSION 2 DROPS BOTH EYES ×2 (06:46→20:32)
[2024-08-11] MEDS: PROTONIX IV 40 MG IV (07:26)
[2024-08-11] MEDS: NSS (PRESERVATIVE FREE) 10 ML IV (07:27)
--- NOTE | 2024-08-11 07:27 | W.PN.GS2 ---
Addendum entered and electronically signed by Carmine Dumont MD 08/11/24 11:07:
Patient seen and examined with surgery resident. Family at bedside.
Patient sitting up out of bed in chair finishing nebulizer treatment.
States that abdominal pain was experiencing earlier this a.m. significantly improved.
Attributes previous abdominal pain to being gas cramps.
Incisional pain mild.
Feels urge to pass flatus and had bowel movement but has not yet
Tolerating NG tube, no nausea or vomiting.
AFVSS
NAD AAO x [address] with some bilious output in canister but output modest
Abdomen: Softly protuberant but not tense or overly distended. Minimal incisional tenderness. No rebound rigidity or guarding. Midline incision with cindy. No erythema, no drainage, no open wounds.
Assessment/plan: 83-year-old male POD #4 status post ex lap LETY SBR
Hypernatremia�Free water deficit calculated 2.2 L
Overall clinical improvement with postoperative recovery; okay for transfer to IMU level care.
Renew TPN with similar electrolyte composition as yesterday; discussed with hospitalist, reduce D5W IVF down to 50 mL an hour
Maintain NG tube for now until more robust signs of GI recovery
Okay for some ice chips around the NG tube
Unasyn for E. coli pneumonia
Original Note:
Today's Communication / Plan
-
Correct fluid deficit by adjusting TPN and free fluid
Monitor BMPs for hourly
Downgrade to IMU
Assessment / Plan
-
Impression
Patient is an 83 yo male with a h/o ulcerative colitis s/p total abdominal colectomy with subsequent ileal J-pouch creation in 2009, who presented with complete small bowel obstruction, complicated by aspiration pneumonia with decompensation, s/p
exploratory laparotomy, lysis of adhesions and small bowel resection. Postop day 4.
Reports abdominal cramping
Urge to pass flatus/stool
Abdomen mildly tender with decreased bowel sounds
POD #4 lysis of adhesions and small bowel resection
Afebrile over last 24 hours
Off vasopressors
Fluid deficit 2.2 L, on maintenance fluid dextrose 5 at 50 mL/h
Continue TPN with adjustments as noted
On lab review
Leukocytosis
Hemoglobin stable around 11
Platelet count stable at 65
No acidosis on ABGs/BMP
Mild hypernatremia
Mild hyperchloremia
KYLAH resolved
Liver enzymes improving
Plan:
--Keep n.p.o., continue to monitor NGT output
--Continue TPN with adjustments for hypernatremia
--Zosyn held, continue Unasyn
--Analgesics/antiemetics prn
--IVF as per primary team
--On Lovenox sq/SCD's for VTE ppx
--Continue to trend BMPs and manage electrolyte derangements as needed
--Monitor platelet count and transfuse as needed
--Aggressive pulm toileting and nebs
-- PT/OT
--Surgery will continue to follow
-- Will hold off for any further imaging for now based on clinical assessment
Subjective Data
-
Date of Service: August 11, 2024
Patient seen at bedside, sitting on chair
Niece at bedside
Patient is off vent, off vasopressor, feels that if he gets to a toilet seat he may be able to pass flatus/stool
Complaining of abdominal cramping, rates the pain 10/10, urged to go to the bathroom but not passing flatus or stool
Afebrile over last 24 hours
Objective Data
-
Intake and Output
08/10/24 08/11/24 08/12/24
06:59 06:59 06:59
Intake Total 1780 / 1820 3325 / 3325
Output Total 3545 / 3645 2355 / 2355
Balance -1765 / -1825 970 / 970
Intake:
IV fluids (Total) 410 / 410 1285 / 1285
D5w 1,000 ml @ 75 mls/hr IV . 1285 / 1285
[id number] ERI Rx#:[id number]
Lr 1,000 ml @ 40 mls/hr IV . 160 / 160
Q24H ERI Rx#:[id number]
na phos 250 / 250
IV piggybacks 300 / 300 660 / 660
TPN/PPN 920 / 960 1200 / 1200
Amount instilled into GI Tube ( 150 / 150 180 / 180
Total)
[place] Sump 150 / 150 180 / 180
Output:
Gastrointestinal tube output ( 200 / 200 240 / 240
Total)
[place] Sump 200 / 200 240 / 240
Urine, Quintero 3345 / 3445 890 / 890
Urine, Voided 1225 / 1225
Other:
How many times incontinent 1
SATURATED amount urine
Vital Signs
Temp Pulse Resp BP Pulse Ox
98.6 F 70 22 148/86 93
08/11/24 03:02 08/11/24 06:00 08/11/24 06:00 08/11/24 06:00 08/11/24 06:00
Lab Results
08/11/24 04:05
Calcium 8.9 mg/dl (8.4-10.2) 08/11/24 04:05
Phosphorus 2.8 mg/dl (2.5-4.5) 08/11/24 04:05
Magnesium 2.1 mg/dl (1.6-2.3) 08/11/24 04:05
Total Bilirubin 1.6 mg/dl (0.2-1.3) H 08/11/24 04:05
Direct Bilirubin 1.0 mg/dl (0.0-0.4) H 08/11/24 04:05
AST 29 U/L (17-59) 08/11/24 04:05
ALT 25 U/L (0-50) 08/11/24 04:05
Alkaline Phosphatase 82 U/L (38-126) 08/11/24 04:05
Total Protein 4.9 g/dl (6.3-8.2) L 08/11/24 04:05
Albumin 2.5 g/dl (3.5-5.0) L 08/11/24 04:05
Physical Exam
-
No apparent distress, NG tube in place with 240 mL of bilious output
Abdomen soft, mildly tender, midline dry intact dressing, stitches fine with no leakage, decreased bowel sounds
Chest bilaterally clear to auscultation
Skin warm and dry
No pedal edema
Patient has a quintero catheter: No
Patient has a central line: Yes
[2024-08-11] MEDS: SOLU-MEDROL PF 20 MG IV (07:28)
[2024-08-11] MEDS: THIAMINE INJECTION 100 MG IV (07:29)
[2024-08-11] MEDS: HEPARIN 5000 UNITS SC ×2 (07:31→15:10)
[2024-08-11] MEDS: PULMICORT 0.5 MG INH ×2 (08:11→20:41)
[2024-08-11] MEDS: DUONEB 3 ML INH ×2 (08:11→20:41)
--- NOTE | 2024-08-11 09:39 | W.PN.HOSP.TC ---
Today's Communication/Plan
-
.
Assessment / Plan
Assessment / Plan
83M PMHx UC s/p total abdominal colectomy w/ J-pouch creation and hernia repairs. Admitted for SBO.
- 1. Small Bowel Obstruction
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
- Appreciate General Surgery Input
- s/p Ex-lap (08/08) for extensive lysis of adhesions (total lysis not attempted) and SB resection with anastomosis of transition point. POD #3
- Per surgery, expect prolonged post-op ileus. TPN started (08/09)
- Continue to monitor serum electrolytes, TPN modifications per surgery
- Sodium 149; free water deficit 2.2 L
- 12: patient with BM in the afternoon, NG tube removed
- initial removal of 3-4 L feculent material, placed after vomiting and aspiration
- PPI Prophylaxis
- Maintain Laura for now
2. Ventilator Dependent Respiratory Failure 2/2 bilateral lower lobe aspiration pneumonia (extubated 08/09)
- Zosyn transitioned to Unasyn
- Temps stable, white counts wavering around ULN
- Pansensitive E. Coli on cultures
- Consider anti-fungals/ID if fevers return
- Daily CBC
- Currently on 6 L mid flow, wean O2 as tolerated. PT/OT.
3. Septic Shock 2/2 bilateral lower lobe aspiration pneumonia (resolved)
- Antibiotics transitioned to Unasyn
- Pressors off since 08/08
- Lactate downtrended
4. Acute Kidney Injury
- BMP downtrending, continue to monitor
- UA unremarkable, eosinophils negative; rules out AIN 2/2 abx
- Consider pre-renal 2/2 sepsis vs. CONCHIS
- Cr 0.9, 0.8 baseline
5. . UC
- Hold PO Meds for now
6 BPH
- Hold PO Meds for now
7. HLD
- Hold PO Meds for now
8. History of Tick Bite
- Follow up Lyme Serologies
9. Renal Mass on CT
- ?? Concern for renal neoplasm versus metastasis
10. Trouble Sleeping
- Melatonin
- family brining chair from home that he sleeps in
Transfer to Med/Surg
Anticipated Discharge: > 48 hours
Subjective/Interval History
-
Date of Service: August 11, 2024
Patient seen and examined, out of bed and into chair this morning. Notes improved abdominal pain; no flatus yet but states that he feels that he can. No BM as of this morning. Tolerating NG, without nausea or vomiting. Denies SOB, currently on 6L
NC. In middle of night was moving in between chair and bed, and decided to walk a little further to test himself, and desat to 80s, but immediate return to 90s once he got back into bed.
Update 3:00pm: patient had small BM, NG tube removed.
Objective Data
-
Labs:
Laboratory Results
08/10/24 08/11/24 08/11/24
21:05 04:05 08:49
WBC 13.1 H
Hgb 11.0 L
Hct 32.0 L
Plt Count 65 L
Sodium 147 H 151 H Pending
Potassium 4.0 3.9 Pending
Chloride 113 H 113 H Pending
Carbon Dioxide 31 H 36 H Pending
BUN 68 H 62 H Pending
Creatinine 1.2 1.0 Pending
Glucose 185 H 164 H Pending
Calcium 8.9 8.9 Pending
Total Bilirubin 1.6 H
AST 29
ALT 25
Alkaline Phosphatase 82
Vital Signs:
Vital Signs
Temp Pulse Resp BP Pulse Ox
98.1 F 63 13 148/86 93
08/11/24 07:00 08/11/24 08:15 06/12/25 08:15 08/11/24 06:00 08/11/24 08:15
I&O
08/10/24 08/11/24 08/12/24
06:59 06:59 06:59
Intake Total 1780 / 1820 3325 / 3472 471 / 471
Output Total 3545 / 3645 2355 / 2355 155 / 155
Balance -1765 / -1825 970 / 1117 316 / 316
Review of Systems
-
Constitutional: Reports No Symptoms
Respiratory: Reports Other (on 6L midflow)
Cardiac: Reports No Symptoms
Abdomen/GI: Reports Abdominal Pain (mild; mild incisional pain); Denies Nausea, Vomiting or Diarrhea
Neuro: Reports No Symptoms
Physical Exam
-
General: No Apparent Distress and Conversant; Negative Respiratory Distress
HEENT: Normocephalic, Atraumatic and Anicteric
Respiratory: Non Labored Respirations and Other (on 6L midflow)
Cardiac: Regular Rhythm and S1/S2
GI: Soft and Other (occasional bowel sound auscultated, mildly TTP; midline incision dressing intact)
Musculoskeletal: No Clubbing, No Cyanosis and No Edema
Skin: Warm and Dry
Neuro: Awake and Alert
Psych: Calm
Data Reviewed
-
Labs: Labs Reviewed by me and Discussed with Patient
[2024-08-11 09:40] LABS: Blood Urea Nitrogen 57 mg/dl (9-20); Calcium 9.1 mg/dl (8.4-10.2); Carbon Dioxide 33 mmol/L (22-30); Chloride 111 mmol/L (98-107); Estimated Creatinine Clearance 60 ml/min; Glucose 169 mg/dl (70-99); Sodium 149 mmol/L (135-145); eGFR > 60.00
--- NOTE | 2024-08-11 10:50 | W.PN.PUL3 ---
Today's Communication / Plan
-
Up OOB as tolerated
Encourage IS use 10x per hour for at least 4 hours a day
Family brought in the patient's recliner from home and now he is much more comfortable
Pain control
Defer diet to general surgery - now allowed ice chips, which has made the pt happy
Patient still not passing gas
Maintain SaO2 >90-94%, weaning down supplemental O2 flow rate via midflow nasal cannula as tolerated
Check home O2 assessment prior to discharge unless resting SaO2 is 96% or greater on room air
Continue DuoNebs + budesonide
Patient was downgraded to IMU yesterday. No additional wheezing heard today. Oxygen requirements also improving. I will arrange for outpatient pulmonary office follow-up. No additional recommendations at this time. Pulmonary service will now
sign off. Please reconsult if there are any additional questions/concerns, or if patient's respiratory status deteriorates.
Assessment
-
#1. Acute hypoxic respiratory failure with respiratory distress, bilateral lower lobe aspiration pneumonia
- Suspect aspiration in the setting of vomiting due to small bowel obstruction
- Patient has diffusely coarse breath sounds, very rhonchorous on exam, had been on high flow nasal cannula on 08/06,overnight required NRB in addition. Intubated on 08/07-extubated 08/09
- MRSA screen negative, respiratory culture (collected 08/07) growing E. coli --> follow-up sensitivities and continue IV Zosyn
- Continue IV Solu-Medrol in view of severity of pneumonia --> wean down to 20mg IV daily x another 3 days then stop
- Continue with antibiotics (Zosyn - started 08/05) --> narrowed to Unasyn on 08/10 given that the E. coli seen on blood + respiratory cultures are both pansensitive; set of surveillance blood cultures checked on 08/09
- Patient was extubated on 08/09 and is currently saturating 92% on 6L/min (was on 10 L/min on 08/10); continue midflow nasal cannula and wean down flow rate as tolerated
- Keep SpO2 >90-94%
- Continue aspiration precautions; keep HOB >30-45�
- prn nebulized bronchodilators + DuoNebs BID
#2. Small bowel obstruction
- Prior history of abdominal colectomy and ileal pouch anal anastomosis with history of ulcerative colitis. Also prior history of abdominal hernia repair.
- NG tube placed 08/06, close to 3 Ltr feculent effluent aspirated, continue low continuous wall suction
- Follow-up CT scan on 08/06 also showed persistent obstruction. After initial drop in level of lactate, started to rise again. 08/07, we contacted general surgery for further recommendations. Of note, lactate has now been <2 since 08/08
- General Surgery service on case
- IV PPI daily
- Bowel rest per surgery; okay for some ice chips per surgery from today
#3. Acute kidney injury
- Suspect prerenal etiology in setting of sepsis from pneumonia and possibly transient bacteremia in setting of recent intra-abdominal OR - -> responded to IVF
- CXR from 08/09 showed signs of developing pulmonary edema, so IVF stopped and was given a dose of Lasix. Hold additional dose of Lasix today as he has thick phlegm at times and CXR shows improvement in aeration of left base on 08/10
- Trend serum creatinine with strict I/O
#4. History of asthmatic bronchitis
- Prior PFT in 09/20/2009 personally reviewed, showing a complete reversal of a mild prebronchodilator obstructive lung defect with no evidence of air trapping, hyperinflation, and no restriction, with normal gas exchange capacity which increased by
32% predicted when accounting for alveolar volume involving gas exchange, typical for asthmatics.
- Continue DuoNebs + budesonide BID
- Continue Solu-Medrol 40 mg IV daily --> on 08/10 I lowered to 20mg IV daily for another 3 days then stop
- Continue prn DuoNebs as well
#5. Enhancing renal mass on CT A/P from 08/04/2024
- ? Concern for renal neoplasm versus metastasis --> should be further evaluated as an outpatient. Recommend him to see nephrology vs his PCP
Maintain BG 140�180; continue with sliding scale with 3 units aspart q6hr
Continue D5W in addition to TPN and continue to monitor serum Na which is 146 today (peaked at 152 on 08/10/2024)
DVT prophylaxis: HSQ
Other medical diagnoses:
- BPH
- History of ulcerative colitis
- Hyperlipidemia
- History of tick bite
Patient was downgraded to IMU yesterday. No additional wheezing heard today. Oxygen requirements also improving. Perform a home O2 assessment prior to discharge. Continue with DuoNebs + budesonide as stated above. I will arrange for outpatient
pulmonary office follow-up. No additional recommendations at this time. Pulmonary service will now sign off. Thank you for allowing us to be involved in the care of this patient. Please reconsult if there are any additional questions/concerns,
or if patient's respiratory status deteriorates.
Data:
CT Abd-Pelvis 07/2024: . Suspect distal small bowel obstruction.
2. Bilateral enhancing renal masses (two in each kidney), suspicious for neoplasm (either multiple primary renal neoplasms or metastases).
CXR 07/2024: No acute change
Total time spent today was 58 minutes for this encounter. Time includes reviewing laboratory test/imaging results, reviewing pertinent medical records, obtaining and reviewing medical history, performing an appropriate exam, ordering medications,
tests and procedures. Time also includes documentation of this encounter, coordinating patient care and communicating with other healthcare professionals. Total time does not include separately billed tests performed on this date of service.t
Subjective Data
-
Date of Service:
Date of Service: August 11, 2024
Chief Complaint: Pulmonary Follow Up
Subjective:
Patient was seen this morning. Family brought in his recliner from home and he is feeling much better and is able to finally get some rest. Currently on 6 L/min nasal cannula, saturating 92% with heart rate 60 and BP 154/83. Has some cramping in
his abdomen surrounding his bellybutton. Still not passing gas. He currently denies chest pain, SOB, nausea, fevers or chills. He really just wants to have something to drink although he is tolerating ice chips.
Review of Systems
General: Other (Negative unless mentioned above)
Objective Data
Data Reviewed
Vital Signs / I&O / Oxygen:
Vital Signs
Temp Pulse Resp BP Pulse Ox
98.1 F 63 13 148/86 93
08/11/24 07:00 08/11/24 08:15 08/11/24 08:15 08/11/24 06:00 08/11/24 08:15
Intake and Output
08/10/24 08/11/24 08/12/24
06:59 06:59 06:59
Intake Total 1780 / 1820 3325 / 3472 471 / 471
Output Total 3545 / 3645 2355 / 2355 155 / 155
Balance -1765 / -1825 970 / 1117 316 / 316
SaO2 [A/C] 95
SaO2 93
Nasal Cannula flow liters per 6
minute
Physical Exam
General: Respiratory Distress (negative), Comfortable, Chills (negative) and Sweats (negative)
HEENT: Normocephalic and Anicteric
Cardiovascular: S1-S2, Rub (negative) and Other (Bradycardic)
Respiratory: Wheeze (negative), Crackles (Bibasilar (L >R)), Rhonchi (negative), Non-Labored Respirations and Stridor (negative)
GI: Soft, Non Distended, Tender (Periumbilical region where recent incision was made), NG Tube (on low continuous wall suction) and Other (hypoactive bowel sounds)
Neurology: AO x 3 and Tremors (negative)
Skin: Warm, Dry, Cyanosis (negative) and Jaundice (negative)
Labs/Micro/Reports
Lab Data
08/11/24 04:05
08/11/24 08:49
Microbiology
08/07/24 09:21 Blood/Venous Blood Culture - Preliminary
Escherichia coli
08/07/24 09:21 Blood/Venous Gram Stain - Preliminary
08/09/24 18:18 Blood/Venous Blood Culture - Preliminary
No Growth in 24 hours- Final report to follow
08/07/24 09:21 Tracheal Aspirate Respiratory Culture - Final
Escherichia coli
08/07/24 09:21 Tracheal Aspirate Gram Stain - Final
[2024-08-11 11:22] LABS: Glucose - Point of Care 209 mg/dl (70-99)
[2024-08-11] MEDS: NOVOLOG FLEXPEN-MODERATE RESISTANCE 3 UNITS SC (11:50)
[2024-08-11] MEDS: TORADOL 15 MG IV (12:13)
--- NOTE | 2024-08-11 13:51 | PTCARENOTE ---
Pt assisted OOB to chair. Family brought in own chair from home for comfort. SaO2 94% on 6L NC. Incentive spirometer witnessed for 500ml. Deep breathing and continued use of incentive spirometer encouraged. Intermittent 5/10 cramping pain. New order
for PRN Toradol 15mg IV X1 administered. NGT with minimal clear green output. 20ml over instillation. PT assisted to bedside commode. (+) small loose brown stool. Dr. Dumont notified. Order to remove NGT. Diet advanced to allow ice chips and sips
of clears.
--- NOTE | 2024-08-11 13:54 | CM ---
Continues with NGT, TPN, IV/AB and Steroids. Discharge POC: Therapy recommendation for SNF. Patient and prefer HH or outpatient. Will await further therapy evals and medical progression.
[2024-08-11 14:47] LABS: Blood Urea Nitrogen 54 mg/dl (9-20); Carbon Dioxide 33 mmol/L (22-30); Chloride 109 mmol/L (98-107); Estimated Creatinine Clearance 68 ml/min; Glucose 180 mg/dl (70-99); Potassium 3.9 mmol/L (3.5-5.1); Sodium 146 mmol/L (135-145); eGFR > 60.00
[2024-08-11] MEDS: D5W 1000 IV (17:52)
[2024-08-11 18:13] LABS: Glucose - Point of Care 154 mg/dl (70-99)
[2024-08-11] MEDS: Parenteral Nutrition, Central 1730 IV (20:33)
[2024-08-11] MEDS: VENTOLIN NEBULES 2.5 MG INH (23:06)
[2024-08-12] VITALS (16 sets, daily range): BP systolic 131–172; BP diastolic 57–76; PULSE 63; O2SAT 92; BMI 24.1
--- NOTE | 2024-08-12 00:30 | PTCARENOTE ---
Pt OOB to chair with at bedside, no c/o pain. NORMAN. Afebrile. NSR/SB on monitor. BP stable. Right IJ TLC. TPN as ordered. Pulses palpable, no edema. 93% on 6L nasal cannula. Pt with junky productive cough. Using yankeur independently. Breathing
treatments as requested. Robitussin added to regimen. NPO with sips of clears, only currently wanting ice chips. Abdomen incision [employer] approximated. Voiding in urinal.
[2024-08-12] MEDS: NOVOLOG FLEXPEN-MODERATE RESISTANCE 3 UNITS SC ×2 (00:57→06:10)
[2024-08-12] MEDS: NOVOLOG FLEXPEN 3 UNITS SC ×3 (00:57→13:14)
[2024-08-12 01:06] LABS: Glucose - Point of Care 215 mg/dl (70-99)
[2024-08-12] MEDS: HEPARIN 5000 UNITS SC ×4 (01:29→23:58)
[2024-08-12] MEDS: UNASYN IV ×4 (01:29→21:33)
[2024-08-12] MEDS: ROBITUSSIN 100 MG PO ×2 (01:29→06:08)
[2024-08-12] MEDS: D5W 1000 IV (02:45)
[2024-08-12] MEDS: TORADOL 10 MG IV ×2 (02:45→19:28)
[2024-08-12 06:20] LABS: Glucose - Point of Care 210 mg/dl (70-99)
--- NOTE | 2024-08-12 07:43 | W.PN.GS2 ---
Addendum entered and electronically signed by Carmine Dumont MD 08/12/24 16:42:
Patient seen and examined this afternoon in follow-up with surgery resident. Agree with progress note as documented below with additions noted here.
Patient sitting up in chair at bedside. Family at bedside as well.
From a abdominal standpoint states that cramping is improving.
Has passed occasional flatus. Small loose bowel movement yesterday. None today.
No worsening abdominal distention, no nausea.
He appears a bit more dyspneic today and short of breath while speaking.
AFVSS
NAD AAO x 3
ABD: Softly protuberant but not tensely distended. Some tympany on percussion. No significant tenderness on palpation. Midline incision healing well with cindy.
A/P: 83-year-old male POD #5 status post ex lap LETY/SBR
Hold on ice chips until improving signs of GI function
Reached out to hospitalist regarding patient's dyspnea
TPN renewed with electrolyte adjustment
Original Note:
Today's Communication / Plan
-
Follow BMP
Downgrade to IMU
Remove NGT
Assessment / Plan
-
Impression
Patient is an 83 yo male with a h/o ulcerative colitis s/p total abdominal colectomy with subsequent ileal J-pouch creation in 2009, who presented with complete small bowel obstruction, complicated by aspiration pneumonia with decompensation, s/p
exploratory laparotomy, lysis of adhesions and small bowel resection. Postop day5.
Had a bowel movement yesterday
Decreased intensity of pain/abdominal cramping, rates 6/10
Eating ice chips
Sodium level improving
POD #5 lysis of adhesions and small bowel resection
Afebrile over last 24 hours
Off vasopressors
on TPN at 50 mL/h
On lab review
Leukocytosis
Hemoglobin stable around 11
Platelet count improved to 102
No acidosis on ABGs/BMP
Sodium and chloride levels pending
KYLAH resolved
Liver enzymes improving
Plan:
--Keep n.p.o., can remove the NG tube
--Continue TPN with adjustments for hypernatremia
-- Continue Unasyn for E. coli aspiration pneumonia
--Analgesics/antiemetics prn
--IVF as per primary team
--On Lovenox sq/SCD's for VTE ppx
--Continue to trend BMPs and manage electrolyte derangements as needed
--Monitor platelet count and transfuse as needed
--Aggressive pulm toileting and nebs
-- PT/OT
--Surgery will continue to follow
-- Will hold off for any further imaging for now based on clinical assessment
Subjective Data
-
Date of Service: August 12, 2024
Patient seen on bedside, lying comfortably on his home recliner which is making him feel more comfortable
Patient did not sleep well overnight, feels like the hospital atmosphere is interfering with his sleep
Had a bowel movement yesterday
On ice chips since yesterday
Reports abdominal cramping, pain is much improved with intensity of pain 08/09 as compared to 12/09 yesterday
Objective Data
-
Intake and Output
08/11/24 08/12/24 08/13/24
06:59 06:59 06:59
Intake Total 3325 / 3472 3088 / 3088
Output Total 2355 / 2355 1405 / 1405
Balance 970 / 1117 1683 / 1683
Intake:
IV fluids (Total) 1285 / 1360 1300 / 1300
D5w 1,000 ml @ 50 mls/hr IV . 1000 / 1000
Q20H ERI Rx#:[id number]
D5w 1,000 ml @ 75 mls/hr IV . 1285 / 1360 300 / 300
[id number] ERI Rx#:[id number]
IV piggybacks 660 / 732 648 / 648
TPN/PPN 1200 / 1200 1080 / 1080
Amount instilled into GI Tube ( 180 / 180 60 / 60
Total)
[place] Sump 180 / 180 60 / 60
Output:
Gastrointestinal tube output ( 240 / 240 80 / 80
Total)
[place] Sump 240 / 240 80 / 80
Urine, Quintero 890 / 890
Urine, Voided 1225 / 1225 1325 / 1325
Other:
Number of approximated MODERATE 1
amounts of urine
How many times incontinent 1
SATURATED amount urine
Vital Signs
Temp Pulse Resp BP Pulse Ox
98.6 F 75 19 172/66 93
08/12/24 04:02 08/12/24 07:00 08/12/24 07:00 08/12/24 07:00 08/12/24 07:00
Calcium 9.0 mg/dl (8.4-10.2) 08/11/24 14:14
Phosphorus 2.8 mg/dl (2.5-4.5) 08/11/24 04:05
Magnesium 2.1 mg/dl (1.6-2.3) 08/11/24 04:05
Total Bilirubin 1.6 mg/dl (0.2-1.3) H 08/11/24 04:05
Direct Bilirubin 1.0 mg/dl (0.0-0.4) H 08/11/24 04:05
AST 29 U/L (17-59) 08/11/24 04:05
ALT 25 U/L (0-50) 08/11/24 04:05
Alkaline Phosphatase 82 U/L (38-126) 08/11/24 04:05
Total Protein 4.9 g/dl (6.3-8.2) L 08/11/24 04:05
Albumin 2.5 g/dl (3.5-5.0) L 08/11/24 04:05
Physical Exam
-
No apparent distress
Breathing on 6 L of oxygen, chest bilaterally clear to auscultation
Abdomen soft, incision looks dry with no erythema, induration or discharge, mildly tender, tympanic percussion note
NG tube in place, 80 mL output over last 24 hours
Patient has a quintero catheter: No
Patient has a central line: No
[2024-08-12] MEDS: PULMICORT 0.5 MG INH ×2 (07:51→17:37)
[2024-08-12] MEDS: DUONEB 3 ML INH ×2 (07:51→17:37)
[2024-08-12] MEDS: PROTONIX IV 40 MG IV (08:06)
[2024-08-12] MEDS: NSS (PRESERVATIVE FREE) 10 ML IV (08:06)
[2024-08-12] MEDS: SOLU-MEDROL PF 20 MG IV (08:06)
[2024-08-12] MEDS: RESTASIS 0.05% OPHTHALMIC EMULSION 2 DROPS BOTH EYES ×2 (08:07→21:19)
--- NOTE | 2024-08-12 08:48 | OR.RPT ---
Operative Report
Operative Report
Primary Surgeon: Ralph
Assisting: Rose FERNANDEZ
Pre-op Diagnosis: Small bowel obstruction
Post-op Diagnosis: Same
Procedure Performed: Exploratory laparotomy, lysis of adhesions (60 min), small bowel resection
Anesthesia Type: GETA
Specimen / Cultures: Small bowel
Estimated Blood Loss: 10cc
Complications: None immediate
Operative Findings: Dense adhesions everywhere: small bowel to abdominal wall, interloop, and small bowel to mesentery. Painstaking lysis in areas of concern but total lysis not attempted. Dilated proximal small bowel and right upper and lower
quadrant decompressed small bowel. All bowel viable. Transition point identified in right upper quadrant. Segment liberated and area looked viable with small patch of dark purple ([id number]) at the transition point. This area did not appear it would
do well and was resected (approx 5cm segment). Side-side stapled anastomosis, mesentery taken with clamps and ties, corners dunked, crotch stitch placed. Ng palpated in stomach. Sepra film placed.
Date of Surgery: 08/07/24
Indications: This 83M developed a suspected small bowel obstruction. Imaging was not definitive however he developed aspiration pneumonia and pulmonary insufficiency and was intubated. Exploratory laparotomy was planned to rule out obstruction.
Description of procedure: The patient was placed on the operating table in the supine position. General anesthesia was induced. A time-out was completed verifying correct patient, procedure, site, positioning, and special equipment prior to
beginning this procedure. A midline incision was made with cut cautery using the existing scar. This was carried down to the linea alba with coag cautery. The linea alba was divided and the abdomen entered. Extensive adhesions were identified as
described above. Careful adhesiolysis commenced and the bowel was freed from the abdominal wall without serosal tears or enterotomies. Adhesiolysis continued until an area of tethered, pinched small bowel was identified in the right upper quadrant.
The bowel in this limited area did not appear healthy as described above. All other bowel was viable. The area of the obstruction was then resected with a purple load ARTHUR stapler and a side-side anastomosis was created with 80mm loads with the same
stapler. The segment was liberated from the mesentery with clamps and tied. The corners were dunked with lembert sutures with 2-0 vicryl. A crotch stich was placed with the same suture. The nasogastric tube was palpated in the stomach. The abdomen
was irrigated with two liters warm saline. Sepra film was placed over the bowl and the fascia was closed with #1 PDS stratafix suture. The subcutaneous tissue was irrigated with sterile saline and the skin was closed with cindy. A silver dressing
was applied.
The patient tolerated the procedure well and was taken back to the ICU intubated.
The assistance of Rose FERNANDEZ was required due to the complexity of the procedure. During the procedure she assisted with retraction, resection, and closure of the wound.
[2024-08-12 08:54] LABS: Platelet Count 102 10^3/uL (130-400)
[2024-08-12 08:55] LABS: Hematocrit 32.7 % (39.0-52.0); Hemoglobin 10.9 g/dL (13.0-18.0); Mean Corp Hgb Conc. 33.3 g/dL (33.0-37.0); Mean Corpuscular Hgb 31.2 pg (27.0-31.0); Mean Corpuscular Volume 93.7 fL (80.0-94.0); Mean Platelet Volume 12.9 fL (7.4-10.4); Red Blood Cell Count 3.49 10^6/uL (4.70-6.10); Red Cell Dist. Width 14.8 % (11.5-14.5); White Blood Cell Count 10.8 10^3/uL (4.8-10.8)
--- NOTE | 2024-08-12 09:39 | W.PN.HOSP.TC ---
Addendum entered and electronically signed by Rick Jiménez MD 08/12/24 13:01:
I saw and evaluated the patient. I reviewed the resident�s note and agree with findings and plan as documented in the resident�s note.
septic shock with acute hypoxic resp failure/vent dependent respiratory failure (resolved)--from aspiration from SBO and vomiting--failed HI FARRUKH and intubated (suspect from abdominal source rather than pulmonary)-patient has been extubated this
stage --A-line has been removed --monitor off vasopressors --wean off oxygen as possible
Right-sided pneumonia -from E. coli which is rachel-sensitive --Zosyn changed to Unasyn --repeat chest x-ray reviewed y, some improvement in the left lung, right upper lobe showing some evolving infiltrate -- finish short course of abx
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 There was 2 mm
segment of small bowel which looked necrotic and was resected with a total 5 cm of small bowel segment. A fqog-if-[id number] into anastomosis made --no bowel function recovery yet -- remains on TPN --have small bowel movement, bowel sounds minimally
present today. --NG tube has been removed. --Diet initiation per general surgery
Hypernatremia - corrected, hold on further D5w for now
KYLAH -- resolved -- UA clear/no eosinophil . Had contrast exposure for CT scan. Patient initiated shock which is actually resolved at this stage. Laura catheter in place as well. Renal function recovering slowly.
Acute thrombocytopenia -from sepsis presumably, continue monitoring.
Chronic Asthmatic Bronchitis- Continue Home Meds (INH)
UC- Hold PO Meds for now
BPH- Hold PO Meds for now
HLD - Hold PO Meds for now
History of Tick Bite- Lyme Serologies pending
DVT proph-- lovenox
Code Status---Full Code
Downgrade to telemetry
Original Note:
Today's Communication/Plan
-
.
Assessment / Plan
Assessment / Plan
83M PMHx UC s/p total abdominal colectomy w/ J-pouch creation and hernia repairs. Admitted for SBO.
- 1. Small Bowel Obstruction
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
- Appreciate General Surgery Input
- s/p Ex-lap (08/08) for extensive lysis of adhesions (total lysis not attempted) and SB resection with anastomosis of transition point. POD #4
- Per surgery, expect prolonged post-op ileus. TPN started (08/09)
- Continue to monitor serum electrolytes
- 08/11: patient with BM in the afternoon, NG tube removed
- initial removal of 3-4 L feculent material, placed after vomiting and aspiration
- patient currently tolerating ice chips; advance diet per surgery reccomendations
- PPI Prophylaxis
2. Ventilator Dependent Respiratory Failure 2/2 bilateral lower lobe aspiration pneumonia (extubated 08/09)
- Zosyn transitioned to Unasyn
- Temps stable, white counts wavering around ULN
- Pansensitive E. Coli on cultures
- Consider anti-fungals/ID if fevers return
- Daily CBC
- Currently on 6 L mid flow, wean O2 as tolerated. PT/OT.
- Trial wean to 4L this morning.
3. Septic Shock 2/2 bilateral lower lobe aspiration pneumonia (resolved)
- Antibiotics transitioned to Unasyn
- Pressors off since 08/08
- Lactate downtrended
4. Acute Kidney Injury (resolved)
- UA unremarkable, eosinophils negative; rules out AIN 2/2 abx
- Consider pre-renal 2/2 sepsis vs. CONCHIS
- 0.8 baseline
5. . UC
- Hold PO Meds for now
6 BPH
- Hold PO Meds for now
7. HLD
- Hold PO Meds for now
8. History of Tick Bite
- Follow up Lyme Serologies
9. Renal Mass on CT
- ?? Concern for renal neoplasm versus metastasis
10. Trouble Sleeping (resolved)
- Melatonin
- family bringing chair from home that he sleeps in
11. Sore Throat 2/2 hx of intubation
- Start PRN Cepocol
Transfer to Med/Surg
Dispo Planning: Home O2 Assessment, Patient and Family prefer home to acute rehab
Anticipated Discharge: > 48 hours
Subjective/Interval History
-
Date of Service: August 12, 2024
Patient seend and examined while sitting up comfortably in the chair he brought from home. Patient's neice and are at bedside. Patient states that he is feeling better today, better rest in chair, happy about being able to have ice chips.
Currently on 6L midflow. Endorses sore throat. Patient had one bowel movement yesterday, NG tube removed.
Objective Data
-
Labs:
Laboratory Results
08/12/24
08:26
WBC 10.8
Hgb 10.9 L
Hct 32.7 L
Plt Count 102 L D
Sodium Pending
Potassium Pending
Chloride Pending
Carbon Dioxide Pending
BUN Pending
Creatinine Pending
Glucose Pending
Calcium Pending
Total Bilirubin Pending
AST Pending
ALT Pending
Alkaline Phosphatase Pending
Vital Signs:
Vital Signs
Temp Pulse Resp BP Pulse Ox
99.1 F 61 25 167/63 94
08/12/24 07:51 08/12/24 09:00 08/12/24 09:00 08/12/24 09:00 08/12/24 09:00
I&O
08/11/24 08/12/24 08/13/24
06:59 06:59 06:59
Intake Total 3325 / 3472 3088 / 3088 244 / 244
Output Total 2355 / 2355 1405 / 1405 300 / 300
Balance 970 / 1117 1683 / 1683 -56 / -56
Review of Systems
-
History Source: Patient
Constitutional: Reports No Symptoms
EENT: Reports Sore Throat
Respiratory: Reports No Symptoms
Cardiac: Reports No Symptoms
Abdomen/GI: Reports Abdominal Pain (improving discomfort, mild)
Physical Exam
-
General: No Apparent Distress, Comfortable and Conversant
HEENT: Moist Mucous Membranes and Other (hoarse voice)
Respiratory: Non Labored Respirations
Cardiac: Regular Rhythm and S1/S2
GI: Soft, Nontender and Other (bowel sounds)
Musculoskeletal: No Clubbing, No Cyanosis and No Edema
Skin: Warm and Dry
Neuro: Awake and Alert
Psych: Calm
Data Reviewed
-
Labs: Labs Reviewed by me and Discussed with Patient
[2024-08-12 09:42] LABS: ALT (SGPT) 24 U/L (0-50); AST (SGOT) 23 U/L (17-59); Albumin 2.5 g/dl (3.5-5.0); Alkaline Phosphatase 84 U/L (38-126); Blood Urea Nitrogen 43 mg/dl (9-20); Calcium 9.1 mg/dl (8.4-10.2); Carbon Dioxide 31 mmol/L (22-30); Chloride 108 mmol/L (98-107); Estimated Creatinine Clearance 77 ml/min; Glucose 142 mg/dl (70-99); Magnesium 1.7 mg/dl (1.6-2.3); Potassium 3.4 mmol/L (3.5-5.1); Sodium 142 mmol/L (135-145); Total Bilirubin 1.6 mg/dl (0.2-1.3); eGFR > 60.00
[2024-08-12] MEDS: THIAMINE INJECTION 100 MG IV (10:19)
--- NOTE | 2024-08-12 11:00 | PTCARENOTE ---
Pt received from the ICU via wheelchair. Transport was w/o incident. Pt is AAOx3, HRR, lungs are coarse, left lung smith decreased w/ few scatt. rhonchi, resp. are easy at rest, pulse ox 94%4Lvia nc. Pt's abd with midline incision ASHLEE, Kranthi
intact, well approximated, no drainage noted. VSS, Pt is afebrile. Pt and Pt's family instructed on plan of care, Pt and family verbalized understanding of instructions. Call saha is within reach.
--- NOTE | 2024-08-12 11:03 | PTCARENOTE ---
pt received this am aox4, sb with bbb on monitor. titrated down to 4LNC, pt with productive cough, completing IS and acapella at bedside. pt midline incision parvin cindy intact. pt 1assist oob to chair and wheelchair. report given to Addie NOVA on
2S, with patient for transfer. belongings sent.
--- NOTE | 2024-08-12 11:23 | CM ---
Patient transferred to Room 2112.
[2024-08-12 12:20] LABS: Glucose - Point of Care 198 mg/dl (70-99)
[2024-08-12] MEDS: KCL 160 MEQ IV (13:13)
[2024-08-12] MEDS: NOVOLOG FLEXPEN-MODERATE RESISTANCE 1 UNITS SC (13:13)
--- NOTE | 2024-08-12 13:50 | PTCARENOTE ---
Pt c/o SOB, Lungs are coarse and decreased, not new finding. Pulse ox is 93-94% on 4L 02 via nc. Resp. team notified and breathing tx given as ordered. Pt now resting quietly in chair. Will monitor closely for changes in resp. status. Call saha
within reach, family at bedside.
[2024-08-12] MEDS: ProAIR HFA INHALER 2 PUFF INH (13:56)
[2024-08-12 14:16] LABS: Phosphorus 1.9 mg/dl (2.5-4.5)
[2024-08-12] MEDS: POTASSIUM PHOSPHATE 254.5455 MEQ IV (15:18)
[2024-08-12 16:26] LABS: Glucose - Point of Care 259 mg/dl (70-99)
[2024-08-12] MEDS: NOVOLOG FLEXPEN 5 UNITS SC ×2 (18:37→23:59)
[2024-08-12] MEDS: NOVOLOG FLEXPEN-MODERATE RESISTANCE 5 UNITS SC (18:38)
[2024-08-12] MEDS: Parenteral Nutrition, Central 1730 IV (21:28)
[2024-08-12 23:50] LABS: Glucose - Point of Care 163 mg/dl (70-99)
[2024-08-13] VITALS (7 sets, daily range): BP systolic 128–147; BP diastolic 59–74; PULSE 70; O2SAT 94; BMI 24.1
[2024-08-13] MEDS: VENTOLIN NEBULES 2.5 MG INH (00:14)
[2024-08-13] MEDS: UNASYN IV ×3 (01:49→14:46)
[2024-08-13] MEDS: TORADOL 10 MG IV (03:25)
[2024-08-13 05:04] LABS: Hematocrit 29.7 % (39.0-52.0); Hemoglobin 9.9 g/dL (13.0-18.0); Mean Corp Hgb Conc. 33.3 g/dL (33.0-37.0); Mean Corpuscular Hgb 30.9 pg (27.0-31.0); Mean Corpuscular Volume 92.8 fL (80.0-94.0); Mean Platelet Volume 12.1 fL (7.4-10.4); Platelet Count 132 10^3/uL (130-400); Red Cell Dist. Width 14.6 % (11.5-14.5); White Blood Cell Count 10.1 10^3/uL (4.8-10.8)
[2024-08-13 05:17] LABS: Blood Urea Nitrogen 39 mg/dl (9-20); Calcium 8.6 mg/dl (8.4-10.2); Carbon Dioxide 28 mmol/L (22-30); Chloride 108 mmol/L (98-107); Estimated Creatinine Clearance 77 ml/min; Glucose 179 mg/dl (70-99); Magnesium 1.7 mg/dl (1.6-2.3); Phosphorus 2.6 mg/dl (2.5-4.5); Potassium 3.5 mmol/L (3.5-5.1); Sodium 140 mmol/L (135-145); Triglycerides 126 mg/dl (10-149); eGFR > 60.00
[2024-08-13 06:17] LABS: Glucose - Point of Care 194 mg/dl (70-99)
[2024-08-13] MEDS: NOVOLOG FLEXPEN 5 UNITS SC ×3 (06:22→18:21)
[2024-08-13] MEDS: NOVOLOG FLEXPEN-MODERATE RESISTANCE 1 UNITS SC ×2 (06:23)
[2024-08-13] MEDS: DUONEB 3 ML INH ×2 (08:07→20:32)
[2024-08-13] MEDS: PULMICORT 0.5 MG INH ×2 (08:07→20:32)
[2024-08-13] MEDS: HEPARIN 5000 UNITS SC (08:42)
[2024-08-13] MEDS: NSS (PRESERVATIVE FREE) 10 ML IV (08:42)
[2024-08-13] MEDS: SOLU-MEDROL PF 20 MG IV (08:43)
[2024-08-13] MEDS: PROTONIX IV 40 MG IV (08:43)
[2024-08-13] MEDS: RESTASIS 0.05% OPHTHALMIC EMULSION 2 DROPS BOTH EYES ×2 (08:43→19:33)
--- NOTE | 2024-08-13 09:01 | W.PN.GS2 ---
Addendum entered and electronically signed by Carmine Dumont MD 08/13/24 09:27:
Patient seen and examined. Daughter at bedside.
He is currently getting a nebulizer treatment but breathing certainly appears more comfortable than yesterday when evaluated in the afternoon
Bowel movement this a.m.
No nausea and denies any worsening distention or abdominal tightness
AFVSS
NAD AAO x 3, sitting in chair at bedside
ABD: Softly protuberant but not tensely distended. Midline incision healing well with cindy. No erythema, no drainage. Minimal tenderness on palpation.
A/P: POD #6 status post ex lap LETY/SBR
Start clear liquid diet
Continue TPN but given resolution of hypernatremia will max concentrate again
Original Note:
Today's Communication / Plan
-
TPN
Trial of clears
Assessment / Plan
-
Patient is an 83 yo male with a h/o ulcerative colitis s/p total abdominal colectomy with subsequent ileal J-pouch creation in 2009, who presented with complete small bowel obstruction, complicated by aspiration pneumonia with decompensation
POD #6 ex lap for LETY and SBR
AFVSS
No leukocytosis. Mild acute anemia secondary to expected intraop losses and hemodilution
KYLAH resolved
Transferred out of ICU on 08/12
Remains on 4L O2
Bowel function beginning to return: passed bm/flatus this am
Plan:
--Trial of clears
--C/W TPN until tolerating good PO intake
--CHAIN SAW DRIVER/PT/OT consults placed
--Analgesics with tylenol, toradol, dilaudid prn
--Follow labs
--PPI for GI ppx
--C/W IV abx as per primary team for coverage of asp. PNA
--Lovenox and SCDs for VTE ppx
--Medical management as per primary team
Subjective Data
-
Date of Service: August 13, 2024
Patient seen and examined at bedside with Dr Dumont. Denies n/v. OOB to chair. Less SOB today. Minimal discomfort to abd. Reports his appetite is returning. Passed a formed BM today and some flatus.
Objective Data
-
Intake and Output
08/12/24 08/13/24 08/14/24
06:59 06:59 06:59
Intake Total 3088 / 3088 1972 / 1972
Output Total 1405 / 1405 1750 / 1750
Balance 1683 / 1683 223 / 223
Intake:
IV fluids (Total) 1300 / 1300 100 / 100
D5w 1,000 ml @ 50 mls/hr IV . 1000 / 1000 100 / 100
Q20H ERI Rx#:[id number]
D5w 1,000 ml @ 75 mls/hr IV . 300 / 300
[id number] ERI Rx#:[id number]
IV piggybacks 648 / 648 865 / 865
TPN/PPN 1080 / 1080 1008 / 1008
Amount instilled into GI Tube ( 60 / 60
Total)
[place] Sump 60 / 60
Output:
Gastrointestinal tube output ( 80 / 80
Total)
[place] Sump 80 / 80
Urine, Voided 1325 / 1325 1750 / 1750
Other:
Number of approximated MODERATE 1
amounts of urine
Vital Signs
Temp Pulse Resp BP Pulse Ox
98.3 F 91 18 137/66 97
08/13/24 07:00 08/13/24 08:10 08/13/24 08:10 08/13/24 07:00 08/13/24 08:10
Lab Results
08/13/24 04:39
08/13/24 04:39
Calcium 8.6 mg/dl (8.4-10.2) 08/13/24 04:39
Phosphorus 2.6 mg/dl (2.5-4.5) 08/13/24 04:39
Magnesium 1.7 mg/dl (1.6-2.3) 08/13/24 04:39
Total Bilirubin 1.6 mg/dl (0.2-1.3) H 08/12/24 08:26
Direct Bilirubin 1.0 mg/dl (0.0-0.4) H 08/11/24 04:05
AST 23 U/L (17-59) 08/12/24 08:26
ALT 24 U/L (0-50) 08/12/24 08:26
Alkaline Phosphatase 84 U/L (38-126) 08/12/24 08:26
Total Protein 5.0 g/dl (6.3-8.2) L 08/12/24 08:26
Albumin 2.5 g/dl (3.5-5.0) L 08/12/24 08:26
Physical Exam
-
NAD
Raspy voice, on Neb
Abdomen soft, ND, mild tenderness to incision
Midline incision with intact staple line, blood on gown from heparin injection site
Patient has a quintero catheter: No
Patient has a central line: Yes
[2024-08-13 09:35] LABS: Glucose - Point of Care 144 mg/dl (70-99)
--- NOTE | 2024-08-13 10:17 | PTOTSP ---
Speech therapy
Presentation: Patient was fully oriented and followed commands. Patient's voice was harsh and breathy at baseline. Patient stated this is 'new' ~several days. Patient complained of dry mouth and throat, AIR DIRECTOR reviewed oral care and importance of
liquid washes to improve discomfort.
Swallowing Function: Patient was observed with several presentations of a moistened swab, ice chips, thin via tsp, and thin via cup in which patient appeared to tolerate all trials as he did not exhibit any overt clinical s/sx of aspiration or
difficulty with mastication/ manipulation. Patient denied any difficulty with swallowing. Given patient's recent operation (08/12) and clinical presentation, recommend continuation of clear liquids at this time with advancement as clinically
indicated. Patient and family were in agreement with plan; especially since patient has not eaten anything yet (per RN).
Recommendations:
1) Continuation of clear liquid diet at this time
2) Standard aspiration precautions
3) Medications as tolerated
4) PO only when Sp02> 90% and RR<30
Plan: AIR DIRECTOR will continue to follow to advance diet as clinically indicated; pending hospitalization.
--- NOTE | 2024-08-13 11:44 | CM ---
CM following re: discharge planning.
Reviewed pt's chart, met with pt. pt's spouse nadege and niece Maricel [phone] at bedside. Pt is requested to add his niece Maricel to contact list and niece Maricel stated she has PHD in Neurology and she would like to coordinate pt's discharge plan.
Pt is POD #6 status post ex lap LETY/SBR, continue TPN, continue supportive care.
PT and POT evaluations noted - home PT vs SNF level of care recommended. both pt and his family are aware and they made a strong request to get the pt home at discharge with VN services. A list of VN vendors provided, [facility] is chosen. A referral to
[facility] made.
D/C plan: home with [facility] and family support.
CM will follow with discharge plan updates as hospitalization progresses
[2024-08-13] MEDS: KCL 160 MEQ IV (11:59)
[2024-08-13 12:07] LABS: Glucose - Point of Care 226 mg/dl (70-99)
[2024-08-13] MEDS: NOVOLOG FLEXPEN-MODERATE RESISTANCE 3 UNITS SC ×2 (12:08→18:21)
[2024-08-13] MEDS: LASIX 20 MG IV (13:03)
--- NOTE | 2024-08-13 13:53 | W.PN.HOSP.TC ---
Today's Communication/Plan
-
diet per GS
hold PO home meds one more day
stop abx
pt/ot
Assessment / Plan
Assessment / Plan
Septic shock with acute hypoxic respiratory failure/vent dependent respiratory failure (resolved)-- from aspiration from SBO and vomiting--failed HI FARRUKH and intubated (suspect from abdominal source rather than pulmonary) -- patient has been
extubated this stage on NC -- wean off as possible
Right-sided pneumonia - from E. coli which is rachel-sensitive --Zosyn changed to Unasyn --f/u xrays showing slow improvement -- finished 8 days course of abx at this point,
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 There was 2 mm
segment of small bowel which looked necrotic and was resected with a total 5 cm of small bowel segment. A [id number]-ghns into anastomosis made --no bowel function recovery yet -- remains on TPN -- NGT removed -- started on CL diet trial by GS
Hypernatremia - corrected, hold on further D5w for now
KYLAH -- resolved -- UA clear/no eosinophil . Had contrast exposure for CT scan. Patient initiated shock which is actually resolved at this stage. Laura catheter in place as well. Renal function recovering slowly.
Acute thrombocytopenia -from sepsis presumably, continue monitoring.
Chronic Asthmatic Bronchitis- Continue Home Meds (INH)
UC- Hold PO Meds for now
BPH- Hold PO Meds for now
HLD - Hold PO Meds for now
History of Tick Bite- Lyme Serologies neg
DVT proph-- lovenox
Code Status---Full Code
Malfunction slowly recovering. Continue holding home oral medication for 24 hours more.
Anticipated Discharge: > 48 hours
Subjective/Interval History
-
Date of Service: August 13, 2024
Able to pass some gas
No significant abdominal pain/nausea/vomiting
No other reported problems
Objective Data
-
Labs:
Laboratory Results
08/13/24
04:39
WBC 10.1
Hgb 9.9 L
Hct 29.7 L
Plt Count 132 D
Sodium 140
Potassium 3.5
Chloride 108 H
Carbon Dioxide 28
BUN 39 H
Creatinine 0.7
Glucose 179 H
Calcium 8.6
Vital Signs:
Vital Signs
Temp Pulse Resp BP Pulse Ox
98.5 F 59 16 150/67 96
08/13/24 11:00 08/13/24 13:03 08/13/24 11:00 08/13/24 13:03 08/13/24 11:00
I&O
08/12/24 08/13/24 08/14/24
06:59 06:59 06:59
Intake Total 3088 / 3088 1972 / 1972
Output Total 1405 / 1405 1750 / 1750
Balance 1683 / 1683 223 / 223
Review of Systems
-
Respiratory: Reports No Symptoms
Cardiac: Reports No Symptoms
Abdomen/GI: Denies Abdominal Pain, Nausea or Vomiting
Physical Exam
-
General: No Apparent Distress, Comfortable and Conversant
HEENT: Moist Mucous Membranes and Other (hoarse voice)
Respiratory: Non Labored Respirations
Cardiac: Regular Rhythm and S1/S2
GI: Soft, Nontender and Other (bowel sounds); Negative Normal Bowel Sounds
Neuro: Awake, Alert, Oriented and No Motor Deficits
Psych: Calm
[2024-08-13 18:20] LABS: Glucose - Point of Care 245 mg/dl (70-99)
[2024-08-13] MEDS: LOVENOX 40 MG SC (18:20)
[2024-08-13] MEDS: TYLENOL 1000 MG PO (19:33)
[2024-08-13] MEDS: Parenteral Nutrition, Central 1200 IV (20:57)
[2024-08-13] MEDS: ROBITUSSIN 100 MG PO (22:36)
[2024-08-13 23:28] LABS: Glucose - Point of Care 194 mg/dl (70-99)
[2024-08-14] VITALS (7 sets, daily range): BP systolic 105–145; BP diastolic 52–69; BMI 23.7
[2024-08-14] MEDS: NOVOLOG FLEXPEN 5 UNITS SC ×2 (00:01→06:09)
[2024-08-14] MEDS: NOVOLOG FLEXPEN-MODERATE RESISTANCE 1 UNITS SC ×2 (00:02→06:10)
[2024-08-14 05:45] LABS: Glucose - Point of Care 195 mg/dl (70-99)
[2024-08-14 06:33] LABS: Blood Urea Nitrogen 40 mg/dl (9-20); Calcium 8.5 mg/dl (8.4-10.2); Carbon Dioxide 27 mmol/L (22-30); Chloride 107 mmol/L (98-107); Estimated Creatinine Clearance 68 ml/min; Glucose 189 mg/dl (70-99); Phosphorus 3.4 mg/dl (2.5-4.5); Potassium 3.9 mmol/L (3.5-5.1); Sodium 138 mmol/L (135-145); eGFR > 60.00
[2024-08-14 06:46] LABS: Hematocrit 30.7 % (39.0-52.0); Hemoglobin 10.2 g/dL (13.0-18.0); Mean Corp Hgb Conc. 33.2 g/dL (33.0-37.0); Mean Corpuscular Hgb 30.6 pg (27.0-31.0); Mean Corpuscular Volume 92.2 fL (80.0-94.0); Mean Platelet Volume 12.4 fL (7.4-10.4); Platelet Count 226 10^3/uL (130-400); Red Blood Cell Count 3.33 10^6/uL (4.70-6.10); Red Cell Dist. Width 14.6 % (11.5-14.5); White Blood Cell Count 10.1 10^3/uL (4.8-10.8)
[2024-08-14 07:29] LABS: Glucose - Point of Care 185 mg/dl (70-99)
--- NOTE | 2024-08-14 08:16 | W.PN.GS2 ---
Addendum entered and electronically signed by Carmine Dumont MD 08/14/24 17:06:
Patient seen and examined this a.m. with surgical BRUSH AND BROOM CLIPPER. Agree with documented progress note. This is a delayed entry.
Patient feeling a bit better each day.
Passing more flatus and loose stools.
Tolerating clear liquids without worsening abdominal distention or discomfort. Breathing more comfortably this a.m.
AFVSS
NAD AAO x 3 sitting in chair at hospital bedside
ABD: Soft and slightly protuberant but not tensely distended. Minimal tenderness. Incision open to air with cindy
A/P: POD #7 status post ex lap LETY and SBR
Improving GI function each day
Advance to full liquid diet today with Ensure clear supplements
TPN will be discontinued after this bag as anticipating being able to further advance diet tomorrow
Original Note:
Today's Communication / Plan
-
ADAT, d/c tpn after today's bag completed
Assessment / Plan
-
Patient is an 83 yo male with a h/o ulcerative colitis s/p total abdominal colectomy with subsequent ileal J-pouch creation in 2009, who presented with complete small bowel obstruction, complicated by aspiration pneumonia with decompensation
POD #7 ex lap for LETY and SBR
Transferred out of ICU on 08/12
AFVSS, Remains on 4L O2
Labs stable
Bowel function returning: passed bm/flatus
Plan:
--Advance to FLD with supplements
--Complete current bag of TPN then discontinue
--RADAR SIGNAL PROCESSING ENGINEER/PT/OT following
--Analgesics with tylenol, toradol, oxycodone, dilaudid prn
--Follow labs
--PPI for GI ppx
--ABX as per primary team, currently following off all abx
--Lovenox and SCDs for VTE ppx
--Medical management as per primary team
Subjective Data
-
Date of Service: August 14, 2024
Patient seen and examined at bedside with Dr. Dumont. Denies n/v. OOB to chair. Tolerating clears. Continues to pass flatus and some loose stools. Minimal abd pain.
Objective Data
-
Intake and Output
08/13/24 08/14/24 08/15/24
06:59 06:59 06:59
Intake Total 1972
Output Total 1750 / 1750 2024
Balance 223 / 223 83 / 83
Intake:
Oral fluids 480 / 480
IV fluids (Total) 100 / 100
D5w 1,000 ml @ 50 mls/hr IV . 100 / 100
Q20H ERI Rx#:[id number]
IV piggybacks 865 / 865 120 / 120
TPN/PPN 1008 / 1008 1508 / 1508
Output:
Urine, Voided 1750 / 1750 2024
Other:
Number of unmeasured liquid
stools
Rectum 1
Vital Signs
Temp Pulse Resp BP Pulse Ox
98.6 F 63 18 145/68 95
08/14/24 03:30 08/14/24 03:30 08/14/24 03:30 08/14/24 03:30 08/14/24 03:30
Lab Results
08/14/24 04:18
08/14/24 04:18
Calcium 8.5 mg/dl (8.4-10.2) 08/14/24 04:18
Phosphorus 3.4 mg/dl (2.5-4.5) 08/14/24 04:18
Magnesium 2.0 mg/dl (1.6-2.3) 08/14/24 04:18
Total Bilirubin 1.6 mg/dl (0.2-1.3) H 08/12/24 08:26
Direct Bilirubin 1.0 mg/dl (0.0-0.4) H 08/11/24 04:05
AST 23 U/L (17-59) 08/12/24 08:26
ALT 24 U/L (0-50) 08/12/24 08:26
Alkaline Phosphatase 84 U/L (38-126) 08/12/24 08:26
Total Protein 5.0 g/dl (6.3-8.2) L 08/12/24 08:
Albumin 2.5 g/dl (3.5-5.0) L 08/12/24 08:26
Physical Exam
-
NAD
Raspy voice, dry cough
Abdomen soft, ND, mild tenderness to incision
Midline incision with intact staple line
Patient has a quintero catheter: No
Patient has a central line: Yes
[2024-08-14] MEDS: PULMICORT 0.5 MG INH (08:58)
[2024-08-14] MEDS: DUONEB 3 ML INH ×2 (08:58→17:46)
[2024-08-14] MEDS: NSS (PRESERVATIVE FREE) 10 ML IV (09:21)
[2024-08-14] MEDS: PROTONIX IV 40 MG IV (09:21)
[2024-08-14] MEDS: RESTASIS 0.05% OPHTHALMIC EMULSION 2 DROPS BOTH EYES ×2 (09:21→20:47)
[2024-08-14 11:46] LABS: Glucose - Point of Care 201 mg/dl (70-99)
--- NOTE | 2024-08-14 12:34 | W.PN.HOSP.TC ---
Today's Communication/Plan
-
Last day TPN according to surgery
Diet advancement per surgery
Restart home medication
Assessment / Plan
Assessment / Plan
Septic shock with acute hypoxic respiratory failure/vent dependent respiratory failure (resolved)-- from aspiration from SBO and vomiting--failed HI FARRUKH and intubated (suspect from abdominal source rather than pulmonary) -- patient has been
extubated this stage on NC -- wean off as possible
Right-sided pneumonia - from E. coli which is rachel-sensitive --Zosyn changed to Unasyn earlier in the week - now off abx --f/u xrays showing slow improvement -- finished 8 days course of abx at this point,
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 There was 2 mm
segment of small bowel which looked necrotic and was resected with a total 5 cm of small bowel segment. A [id number] into anastomosis made --no bowel function recovery yet -- remains on TPN -- NGT removed -- started on CL diet trial by GS
Hypernatremia - corrected, hold on further D5w for now
KYLAH -- resolved -- UA clear/no eosinophil . Had contrast exposure for CT scan. Patient initiated shock which is actually resolved at this stage. Laura catheter is out, Gave Lasix 20 mg on Thursday and giving IV 40 today for volume optimization
and help hypoxia. monitor cr.
Acute thrombocytopenia -resolved -- from sepsis presumably
Chronic Asthmatic Bronchitis- Continue Home Meds (INH)
UC- not on meds
BPH-resume finasteride
HLD -resume Crestor
History of Tick Bite- Lyme Serologies neg
DVT proph-- lovenox
Code Status---Full Code
Anticipated Discharge: 24 - 48 hours
Subjective/Interval History
-
Date of Service: August 14, 2024
Complaining of some abdominal pain
No nausea or vomiting
Remains on TPN
afebrile overnight
Objective Data
-
Labs:
Laboratory Results
08/14/24
04:18
WBC 10.1
Hgb 10.2 L
Hct 30.7 L
Plt Count 226 D
Sodium 138
Potassium 3.9
Chloride 107
Carbon Dioxide 27
BUN 40 H
Creatinine 0.8
Glucose 189 H
Calcium 8.5
Vital Signs:
Vital Signs
Temp Pulse Resp BP Pulse Ox
98.5 F 66 18 145/69 95
08/14/24 07:35 08/14/24 09:02 08/14/24 09:02 08/14/24 07:35 08/14/24 09:02
I&O
08/13/24 08/14/24 08/15/24
06:59 06:59 06:59
Intake Total 1972 / 1972 2108 / 2108 420 / 420
Output Total 1750 / 1750 2024
Balance 223 / 223 83 / 83 420 / 420
Review of Systems
-
Respiratory: Reports No Symptoms
Cardiac: Reports No Symptoms
Abdomen/GI: Reports No Symptoms
Physical Exam
-
General: Conversant
HEENT: Other (hoarse voice)
Respiratory: Other
Cardiac: Regular Rhythm and S1/S2; Negative Murmur
GI: Soft, Nontender and Other (bowel sounds); Negative Normal Bowel Sounds
Neuro: Awake, Alert, Oriented and No Motor Deficits
Psych: Calm
[2024-08-14] MEDS: NOVOLOG FLEXPEN-MODERATE RESISTANCE 3 UNITS SC (13:37)
[2024-08-14] MEDS: NOVOLOG FLEXPEN 7 UNITS SC ×2 (13:37→17:57)
[2024-08-14] MEDS: LASIX 40 MG IV (13:42)
[2024-08-14] MEDS: ROBITUSSIN 100 MG PO ×2 (13:42→20:50)
[2024-08-14] MEDS: FLUSH (NSS) 2 FLUSH IV (13:43)
[2024-08-14] MEDS: VENTOLIN NEBULES 2.5 MG INH (14:51)
[2024-08-14 16:38] LABS: Glucose - Point of Care 119 mg/dl (70-99)
[2024-08-14] MEDS: SINGULAIR 10 MG PO (17:56)
[2024-08-14] MEDS: CRESTOR 20 MG PO (17:56)
[2024-08-14] MEDS: LOVENOX 40 MG SC (17:57)
[2024-08-14] MEDS: NOVOLOG FLEXPEN-MODERATE RESISTANCE SC (17:58)
[2024-08-14] MEDS: TYLENOL 1000 MG PO (21:48)
[2024-08-15] VITALS (8 sets, daily range): BP systolic 102–119; BP diastolic 49–57; O2SAT 91; BMI 23.1
[2024-08-15 00:23] LABS: Glucose - Point of Care 115 mg/dl (70-99)
[2024-08-15] MEDS: NOVOLOG FLEXPEN-MODERATE RESISTANCE SC (00:24)
[2024-08-15] MEDS: NOVOLOG FLEXPEN SC ×2 (00:44→08:46)
[2024-08-15 05:44] LABS: ALT (SGPT) 25 U/L (0-50); AST (SGOT) 22 U/L (17-59); Albumin 2.4 g/dl (3.5-5.0); Alkaline Phosphatase 135 U/L (38-126); Blood Urea Nitrogen 40 mg/dl (9-20); Calcium 8.5 mg/dl (8.4-10.2); Carbon Dioxide 29 mmol/L (22-30); Chloride 107 mmol/L (98-107); Estimated Creatinine Clearance 68 ml/min; Glucose 121 mg/dl (70-99); Phosphorus 3.8 mg/dl (2.5-4.5); Sodium 140 mmol/L (135-145); Total Bilirubin 1.3 mg/dl (0.2-1.3); Total Protein 5.1 g/dl (6.3-8.2); Triglycerides 114 mg/dl (10-149); eGFR > 60.00
[2024-08-15 06:37] LABS: Glucose - Point of Care 123 mg/dl (70-99)
--- NOTE | 2024-08-15 07:38 | W.PN.GS2 ---
Addendum entered and electronically signed by Chuck Martins MD 08/15/24 12:07:
I saw and examined the patient independently.
The resident's documentation was reviewed and I agree with the note, assessment and plan except where noted below.
Comment: Will continue with a full liquid diet for now and await more robust return of bowel function.
I-S, work on getting off oxygen.
Out of bed and ambulate.
Original Note:
Today's Communication / Plan
-
Continue full liquid diet for now
PT/OT
Assessment / Plan
-
Impression
Patient is an 83 yo male with a h/o ulcerative colitis s/p total abdominal colectomy with subsequent ileal J-pouch creation in 2009, who presented with complete small bowel obstruction, complicated by aspiration pneumonia with decompensation
prompting exploratory laparotomy, lysis of adhesions and small bowel resection.
POD # 8
S/p exploratory laparotomy, lysis of adhesion and small bowel resection
Alert, oriented, feeling better
Remains on 4 L of oxygen via nasal cannula
Multiple loose stools, passing flatus
Tolerating full liquid diet
TPN discontinued yesterday
Patient not feeling hungry, mildly distended abdomen, feels full-hold off on low residue diet for now
On labs review
No leukocytosis
Hemoglobin stable
Platelet counts normal
Serum electrolytes within normal limits
Plan:
-- Continue full liquid diet
-- PT/OT
--Monitor electrolytes and replete as needed, keep potassium greater than 4 and magnesium greater than 2
-- Optimize pain management
--PPI for GI ppx
--Lovenox and SCDs for VTE ppx
--Medical management as per primary team
Subjective Data
-
Date of Service: August 15, 2024
Patient seen at bedside
Lying comfortably in his recliner chair, overnight had multiple loose stools, had loose stool this morning as well, reports rumbling sounds in his abdomen
Tolerating full liquid diet well
Breathing on 4 L of oxygen via nasal cannula
Reports some mild tenderness but mostly discomfort only
Objective Data
-
Intake and Output
08/14/24 08/15/24 08/16/24
06:59 06:59 06:59
Intake Total 2107 1800 / 1800
Output Total 2024
Balance 83 / 83 -120 / -120
Intake:
Oral fluids 480 / 480 1200 / 1200
IV piggybacks 120 / 120
TPN/PPN 1508 / 1508 600 / 600
Output:
Urine, Voided 2024
Other:
Number of unmeasured liquid
stools
Rectum 1 1
Vital Signs
Temp Pulse Resp BP Pulse Ox
97.7 F 64 20 115/55 96
08/15/24 03:48 08/15/24 03:48 08/15/24 03:48 08/15/24 03:48 08/15/24 03:48
Lab Results
08/14/24 04:18
08/15/24 04:29
Calcium 8.5 mg/dl (8.4-10.2) 08/15/24 04:29
Phosphorus 3.8 mg/dl (2.5-4.5) 08/15/24 04:29
Magnesium 2.0 mg/dl (1.6-2.3) 08/15/24 04:29
Total Bilirubin 1.3 mg/dl (0.2-1.3) 08/15/24 04:29
Direct Bilirubin 1.0 mg/dl (0.0-0.4) H 08/11/24 04:05
AST 22 U/L (17-59) 08/15/24 04:29
ALT 25 U/L (0-50) 08/15/24 04:29
Alkaline Phosphatase 135 U/L (38-126) H 08/15/24 04:29
Total Protein 5.1 g/dl (6.3-8.2) L 08/15/24 04:
Albumin 2.4 g/dl (3.5-5.0) L 08/15/24 04:
Physical Exam
-
Very weak and fragile, breathing on 4 L of oxygen, lying in recliner
Abdomen soft, slightly protuberant, mild tenderness, midline incision healing well without any induration, pus or redness
Chest bilaterally clear to auscultation
Patient has a quintero catheter: No
Patient has a central line: No
[2024-08-15] MEDS: DUONEB 3 ML INH ×2 (07:43→20:29)
[2024-08-15] MEDS: RESTASIS 0.05% OPHTHALMIC EMULSION 2 DROPS BOTH EYES ×2 (08:16→20:56)
[2024-08-15] MEDS: VITAMIN D3 (cholecalciferol) 25 MCG PO (08:16)
[2024-08-15] MEDS: PROSCAR 5 MG PO (08:16)
[2024-08-15] MEDS: FLOMAX 0.4 MG PO (08:16)
[2024-08-15] MEDS: VITAMIN B-12 1000 MCG PO (08:16)
[2024-08-15] MEDS: NSS (PRESERVATIVE FREE) 10 ML IV (08:17)
[2024-08-15] MEDS: PROTONIX IV 40 MG IV (08:17)
[2024-08-15] MEDS: ROBITUSSIN 100 MG PO (12:06)
[2024-08-15 12:16] LABS: Glucose - Point of Care 162 mg/dl (70-99)
--- NOTE | 2024-08-15 14:59 | CM ---
Patient seen at bedside with physicians on . Patient family member present in room. Patient does not want to go to SNF which is recommendation of PT/OT. Patient plan is home with [facility] to follow. Patient currently on full liquid. CM will
continue to follow for discharge planning needs.
Plan; home with [facility]
--- NOTE | 2024-08-15 15:00 | W.PN.HOSP.TC ---
Addendum entered and electronically signed by Apolonia Thomson MD 08/15/24 17:42:
I saw and evaluated the patient independently. I reviewed the resident�s note and agree with findings and plan as documented by Dr. Lackey.
GENERAL: well developed, well nourished, male in no apparent distress
HEENT: NC/AT O2 NC in place
HEART: regular rate and rhythm, +S1, +S2
LUNGS : rhonchi bilaterally
ABDOM: soft, nontender, nondistended, + bowel sounds
EXT: no cyanosis, clubbing, or edema
NEUROLOGIC: grossly intact
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
lysis of adhesions (total lysis not attempted) and SB resection with anastomosis of transition point--apprec gen surgery--slowly advancing diet--meanwhile on TPN which stopped 08/14/24-- PPI Prophylaxis- Start PRN Balmex for rectal pain from diarrhea
Ventilator Dependent Respiratory Failure due to bilateral lower lobe aspiration pneumonia (extubated 08/09)--unasyn--blood cultures/resp cultures positive for E. coli--zosyn downgraded to unasyn--wean O2--rechecking CXR--cont incentive spirometry
Septic Shock due to bilateral lower lobe aspiration pneumonia (resolved)- Antibiotics transitioned to Unasyn- Pressors off since 08/08
Acute Kidney Injury (resolved)- UA unremarkable, eosinophils negative; rules out AIN 2/2 abx- Consider pre-renal 2/2 sepsis vs. CONCHIS- 0.8 baseline
Ulcerative colitis-- oral home meds continued
BPH- oral home meds continued
HLD - oral home meds continued
History of Tick Bite - Lyme screen negative
Renal Mass on CT - ?? Concern for renal neoplasm versus metastasis
Trouble Sleeping (resolved)- Melatonin- family bringing chair from home that he sleeps in
Sore Throat due to hx of intubation- Continue PRN Cepocol
Elevated Alk-Phos- Isolated reading
DVT proph
Code Status-- Full code
Original Note:
Today's Communication/Plan
-
.
Assessment / Plan
Assessment / Plan
83M PMHx UC s/p total abdominal colectomy w/ J-pouch creation and hernia repairs. Admitted for SBO.
- 1. Small Bowel Obstruction
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
- Appreciate General Surgery Input
- s/p Ex-lap (08/08) for extensive lysis of adhesions (total lysis not attempted) and SB resection with anastomosis of transition point. POD #8
- Per surgery, expect prolonged post-op ileus. TPN started (08/09), d/sofy (08/14).
- Continue to monitor serum electrolytes
- 12: NG tube removed
- initial removal of 3-4 L feculent material, placed after vomiting and aspiration
- Continue full liquid diet, advance as tolerated
- Per surgery, hold low-fiber diet for one more day, await more robust return of bowel fcn
- PPI Prophylaxis
- Start PRN Balmex
2. Ventilator Dependent Respiratory Failure 2/2 bilateral lower lobe aspiration pneumonia (extubated 08/09)
- Zosyn transitioned to Unasyn
- Temps stable, white counts wavering around ULN
- Pansensitive E. Coli on cultures
- Consider anti-fungals/ID if fevers return
- Daily CBC
- Currently on 4L NC, wean O2 as tolerated. PT/OT. Incentive Spirometry.
- Trial wean to 3L this morning.
- Repeat CXR (08/15):
3. Septic Shock 2/2 bilateral lower lobe aspiration pneumonia (resolved)
- Antibiotics transitioned to Unasyn
- Pressors off since 08/08
- Lactate downtrended
4. Acute Kidney Injury (resolved)
- UA unremarkable, eosinophils negative; rules out AIN 2/2 abx
- Consider pre-renal 2/2 sepsis vs. CONCHIS
- 0.8 baseline
5. . UC
- oral home meds continued
6 BPH
- oral home meds continued
7. HLD
- oral home meds continued
8. History of Tick Bite
- Lyme screen negative
9. Renal Mass on CT
- ?? Concern for renal neoplasm versus metastasis
10. Trouble Sleeping (resolved)
- Melatonin
- family bringing chair from home that he sleeps in
11. Sore Throat 2/2 hx of intubation
- Continue PRN Cepocol
12. Elevated Alk-Phos
- Isolated reading, possibly 2/2 refeeding. Continue to monitor CMP.
Med/Surg
Dispo Planning: Home O2 Assessment, Patient and Family prefer home to acute rehab
Diet: Full Liquid
Code Status: Full
Anticipated Discharge: > 48 hours
Subjective/Interval History
-
Date of Service: August 15, 2024
Patient seen and examined while resting comfortably in chair. Patient notes frequent bowel movements with flatus. Describes the stools as soft, but not overly watery. States that he feels crampy just prior to having a bowel movement but these cramps
subside after defecation and he has no overt abdominal pain, nausea, or vomiting. Is subjectively worried about his breathing.
Objective Data
-
Labs:
Laboratory Results
08/15/24
04:29
Sodium 140
Potassium 4.0
Chloride 107
Carbon Dioxide 29
BUN 40 H
Creatinine 0.8
Glucose 121 H
Calcium 8.5
Total Bilirubin 1.3
AST 22
ALT 25
Alkaline Phosphatase 135 H
Vital Signs:
Vital Signs
Temp Pulse Resp BP Pulse Ox
98.6 F 74 18 113/52 95
08/15/24 11:15 08/15/24 11:15 08/15/24 11:15 08/15/24 11:15 08/15/24 11:15
I&O
08/14/24 08/15/24 08/16/24
06:59 06:59 06:59
Intake Total 2107 / 2107 1800 / 1800 480 / 480
Output Total 2024 1920 / 192 100 / 100
Balance 83 / 83 -120 / -120 380 / 380
Review of Systems
-
History Source: Patient
Constitutional: Reports No Symptoms
Respiratory: Reports Cough
Cardiac: Reports No Symptoms
Abdomen/GI: Reports Diarrhea; Denies Abdominal Pain, Nausea or Vomiting
Neuro: Reports No Symptoms
Physical Exam
-
General: No Apparent Distress and Conversant
HEENT: Normocephalic, Atraumatic and Anicteric
Respiratory: Other (Coarse)
Cardiac: Regular Rhythm and S1/S2; Negative Murmur or Rub
GI: Soft, Nondistended, Tender (Mild) and Other (Dressing intact)
Musculoskeletal: No Clubbing, No Cyanosis and No Edema
Skin: Warm
Neuro: Awake, Alert and Oriented
Psych: Calm
Data Reviewed
-
Labs: Labs Reviewed by me and Discussed with Patient
[2024-08-15] MEDS: LOVENOX 40 MG SC (17:22)
[2024-08-15] MEDS: CRESTOR 20 MG PO (17:22)
[2024-08-15] MEDS: SINGULAIR 10 MG PO (17:22)
[2024-08-15 17:39] LABS: Glucose - Point of Care 165 mg/dl (70-99)
[2024-08-15 22:42] LABS: Glucose - Point of Care 134 mg/dl (70-99)
[2024-08-16 03:10] VITALS: BP 116/54
[2024-08-16 05:25] LABS: Hematocrit 24.7 % (39.0-52.0); Hemoglobin 8.4 g/dL (13.0-18.0); Mean Corpuscular Hgb 31.3 pg (27.0-31.0); Mean Corpuscular Volume 92.2 fL (80.0-94.0); Mean Platelet Volume 11.5 fL (7.4-10.4); Platelet Count 288 10^3/uL (130-400); Red Blood Cell Count 2.68 10^6/uL (4.70-6.10); Red Cell Dist. Width 14.6 % (11.5-14.5); White Blood Cell Count 10.7 10^3/uL (4.8-10.8)
[2024-08-16 05:27] LABS: Creatine Phosphokinase 43 U/L (55-170); Triglycerides 104 mg/dl (10-149)
[2024-08-16 06:03] VITALS: BMI 22.5
[2024-08-16 07:15] VITALS: BP 109/64
[2024-08-16] MEDS: DUONEB 3 ML INH ×2 (07:21→20:05)
[2024-08-16 07:48] LABS: Glucose - Point of Care 101 mg/dl (70-99)
--- NOTE | 2024-08-16 08:01 | W.PN.GS2 ---
Addendum entered and electronically signed by Uli Fitch MD 08/16/24 11:11:
Patient seen and examined.
No major complaints. Does have some intermittent crampy abdominal pain with eating. Passing flatus and nonbloody stools. No nausea or vomiting. No increased abdominal distention. Voiding. Ambulating. Denies any SOB - has worked well with IS
and ambulation yesterday and is down to 3 L nasal cannula.
Gen: NAD
Abd: soft, minimal tenderness, mild distension, non-peritoneal, midline incision c/d/i - no erythema, ecchymosis or drainage
Patient is an 83 yo male with a PMH of UC s/p TAC with subsequent J-pouch creation in 2009, who presented with complete small bowel obstruction, complicated by aspiration pneumonia with decompensation prompting exploratory laparotomy, lysis of
adhesions and small bowel resection.
POD # 9 s/p exploratory laparotomy, lysis of adhesion and small bowel resection
AVSS, weaning down on supplemental O2 with pulm work
Labs notable for normal WBC, drift in Hb, normal lytes and renal function
Multiple loose stools, passing flatus. Tolerating full liquid diet. TPN discontinued. Plan to advance diet
Plan:
-- LRD
-- Pain control: Tylenol, Toradol, Oxycodone
-- PT/OT, IS and pulm toilet
-- GI: PPI
-- DVT: Lovenox and SCDs
-- Medical management as per primary team
Original Note:
Today's Communication / Plan
-
Low residue diet
Repeat cbc
Assessment / Plan
-
Impression
Patient is an 83 yo male with a h/o ulcerative colitis s/p total abdominal colectomy with subsequent ileal J-pouch creation in 2009, who presented with complete small bowel obstruction, complicated by aspiration pneumonia with decompensation
prompting exploratory laparotomy, lysis of adhesions and small bowel resection.
POD # 9
S/p exploratory laparotomy, lysis of adhesion and small bowel resection
Alert, oriented, feeling better
Now on 3 L of oxygen via nasal cannula
Multiple loose stools, passing flatus
Tolerating full liquid diet
TPN discontinued
Feeling ready to eat food
On labs review
No leukocytosis
Drop in hemoglobin from 10.2 to 8.4-repeat cbc
Platelet counts normal
Serum electrolytes within normal limits
Plan:
-- Start Low residue diet
-- PT/OT
--Monitor electrolytes and replete as needed, keep potassium greater than 4 and magnesium greater than 2
-- Optimize pain management
--PPI for GI ppx
--Lovenox and SCDs for VTE ppx
--Medical management as per primary team
Subjective Data
-
Date of Service: August 16, 2024
Patient seen and examined at bedside
Has some abdominal cramping here and there but overall feels fine
Is tolerating full liquid diet, lactose intolerant, Ensure from outside
Passing gas and loose watery stools
Objective Data
-
Intake and Output
08/15/24 08/16/24 08/17/24
06:59 06:59 06:59
Intake Total 1800 / 1800 480 / 480
Output Total 1920 / 1920 600 / 600
Balance -120 / -120 -120 / -120
Intake:
Oral fluids 1200 / 1200 480 / 480
TPN/PPN 600 / 600
Output:
Urine, Voided 0 / 1920 600 / 600
Other:
Number of approximated SMALL 1
amounts of urine
Number of approximated MODERATE 1
amounts of urine
Number of unmeasured liquid
stools
Rectum 1
Vital Signs
Temp Pulse Resp BP Pulse Ox
98.6 F 72 16 116/54 92
08/16/24 03:10 08/16/24 07:24 08/16/24 07:24 08/16/24 03:10 08/16/24 07:24
Lab Results
08/16/24 04:50
Calcium 8.5 mg/dl (8.4-10.2) 08/15/24 04:29
Phosphorus 3.8 mg/dl (2.5-4.5) 08/15/24 04:29
Magnesium 2.0 mg/dl (1.6-2.3) 08/15/24 04:29
Total Bilirubin 1.3 mg/dl (0.2-1.3) 08/15/24 04:29
Direct Bilirubin 1.0 mg/dl (0.0-0.4) H 08/11/24 04:05
AST 22 U/L (17-59) 08/15/24 04:29
ALT 25 U/L (0-50) 08/15/24 04:29
Alkaline Phosphatase 135 U/L (38-126) H 08/15/24 04:29
Total Protein 5.1 g/dl (6.3-8.2) L 08/15/24 04:29
Albumin 2.4 g/dl (3.5-5.0) L 08/15/24 04:29
Physical Exam
-
Appearing very weak and fragile, breathing on 3 L of oxygen, lying in recliner
Abdomen soft, mild tenderness, midline incision healing well with no signs of infection, normal bowel sounds
Chest bilaterally clear to auscultation without any wheezes rales or rhonchi
Patient has a quintero catheter: No
Patient has a central line: No
[2024-08-16] MEDS: PROSCAR 5 MG PO (08:17)
[2024-08-16] MEDS: PROTONIX 40 MG PO (08:17)
[2024-08-16] MEDS: RESTASIS 0.05% OPHTHALMIC EMULSION 2 DROPS BOTH EYES ×2 (08:17→20:06)
[2024-08-16] MEDS: VITAMIN B-12 1000 MCG PO (08:18)
[2024-08-16] MEDS: VITAMIN D3 (cholecalciferol) 25 MCG PO (08:18)
[2024-08-16] MEDS: FLOMAX 0.4 MG PO (08:18)
--- NOTE | 2024-08-16 08:26 | W.PN.HOSP.TC ---
Addendum entered and electronically signed by Apolonia Thomson MD 08/16/24 15:49:
I saw and evaluated the patient independently. I reviewed the resident�s note and agree with findings and plan as documented by Dr. Lackey.
GENERAL: well developed, well nourished, male in no apparent distress
HEENT: NC/AT O2 NC in place
HEART: regular rate and rhythm, +S1, +S2
LUNGS : rhonchi bilaterally
ABDOM: soft, nontender, nondistended, + bowel sounds
EXT: no cyanosis, clubbing, or edema
NEUROLOGIC: grossly intact
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
lysis of adhesions (total lysis not attempted) and SB resection with anastomosis of transition point--apprec gen surgery--slowly advancing diet--meanwhile on TPN which stopped 08/14/24-- PPI Prophylaxis- PRN Balmex for rectal pain from diarrhea
Ventilator Dependent Respiratory Failure due to bilateral lower lobe aspiration pneumonia (extubated 08/09)--unasyn--blood cultures/resp cultures positive for E. coli--zosyn downgraded to unasyn--wean O2--recheck CXR shows either developing pna vs
loculated effusion--cont incentive spirometry--reviewed updated surgical note 'coughing with eating'--will make NPO and do VSE in AM
Septic Shock due to bilateral lower lobe aspiration pneumonia (resolved)- Antibiotics transitioned to Unasyn- Pressors off since 08/08
Acute Kidney Injury (resolved)- UA unremarkable, eosinophils negative; rules out AIN due to abx- Consider pre-renal due to sepsis vs. CONCHIS- 0.8 baseline
Ulcerative colitis-- oral home meds continued
BPH- oral home meds continued
HLD - oral home meds continued
History of Tick Bite - Lyme screen negative
Renal Mass on CT - ?? Concern for renal neoplasm versus metastasis
Trouble Sleeping (resolved)- Melatonin- family bringing chair from home that he sleeps in
Sore Throat due to hx of intubation- Continue PRN Cepocol
Elevated Alk-Phos- Isolated reading
DVT proph
Code Status-- Full code
Original Note:
Today's Communication/Plan
-
.
Assessment / Plan
Assessment / Plan
83M PMHx UC s/p total abdominal colectomy w/ J-pouch creation and hernia repairs. Admitted for SBO.
- 1. Small Bowel Obstruction s/p Lysis of Adhesions
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
- Appreciate General Surgery Input
- s/p Ex-lap (08/08) for extensive lysis of adhesions (total lysis not attempted) and SB resection with anastomosis of transition point. POD #9
- Per surgery, expect prolonged post-op ileus. TPN started (08/09), d/sofy (08/14).
- Continue to monitor serum electrolytes, refeeding labs
- 12: NG tube removed
- initial removal of 3-4 L feculent material, placed after vomiting and aspiration
- Continue full liquid diet, advance as tolerated
- Diet advanced to LRD by surgery
- Lactose Free
- PPI Prophylaxis
- Continue PRN Balmex
2. Ventilator Dependent Respiratory Failure 2/2 bilateral lower lobe aspiration pneumonia (extubated 08/09)
- Zosyn transitioned to Unasyn
- Temps stable, white counts wavering around ULN
- Pansensitive E. Coli on cultures
- Consider anti-fungals/ID if fevers return
- Daily CBC
- Currently on 4L NC, wean O2 as tolerated. PT/OT. Incentive Spirometry.
- Repeat CXR (08/15): small loculated pleural effusion versus developing lower lobe pneumonia
- Vital Signs, Physical Exam, Labs, ambulatory status improving. Continue to monitor.
3. Septic Shock 2/2 bilateral lower lobe aspiration pneumonia (resolved)
- Antibiotics completed
- Pressors off since 08/08
- Lactate downtrended
4. Acute Kidney Injury (resolved)
- UA unremarkable, eosinophils negative; rules out AIN 2/2 abx
- Consider pre-renal 2/2 sepsis vs. CONCHIS
- 0.8 baseline
5. . UC
- oral home meds continued
6 BPH
- oral home meds continued
7. HLD
- oral home meds continued
8. History of Tick Bite
- Lyme screen negative
9. Renal Mass on CT
- ?? Concern for renal neoplasm versus metastasis
10. Trouble Sleeping (resolved)
- Melatonin
- family bringing chair from home that he sleeps in
11. Sore Throat 2/2 hx of intubation
- Continue PRN Cepocol
12. Elevated Alk-Phos
- Isolated reading, possibly 2/2 refeeding. Continue to monitor CMP.
Med/Surg
Dispo Planning: Home O2 Assessment, Patient and Family prefer home to acute rehab
Diet: LRD
Code Status: Full
Anticipated Discharge: 24 - 48 hours
Subjective/Interval History
-
Date of Service: August 16, 2024
Patient seen and examined while resting in chair. States that he is feeling a little bit better today. States he is able to walk down the riddle and back with PT yesterday. Notes continued diarrhea. States that he has gas pains that resolve with
passing of flatus. Otherwise tolerating diet.
Objective Data
-
Labs:
Laboratory Results
08/16/24 08/16/24
04:50 07:40
WBC 10.7
Hgb 8.4 L
Hct 24.7 L
Plt Count 288 D
Sodium Pending
Potassium Pending
Chloride Pending
Carbon Dioxide Pending
BUN Pending
Creatinine Pending
Glucose Pending
Calcium Pending
Total Bilirubin Pending
AST Pending
ALT Pending
Alkaline Phosphatase Pending
Vital Signs:
Vital Signs
Temp Pulse Resp BP Pulse Ox
97.8 F 72 16 109/64 92
08/16/24 07:15 08/16/24 07:24 08/16/24 07:24 08/16/24 07:15 08/16/24 07:24
I&O
08/15/24 08/16/24 08/17/24
06:59 06:59 06:59
Intake Total 1800 / 1800 480 / 480
Output Total 1920 / 1920 600 / 600
Balance -120 / -120 -120 / -120
Review of Systems
-
History Source: Patient
Abdomen/GI: Reports Abdominal Pain (gas pains) and Diarrhea (brown, nonbloody, nonmucoid); Denies Nausea or Vomiting
Musculoskeletal: Reports No Symptoms
Neuro: Reports No Symptoms
Physical Exam
-
General: No Apparent Distress and Conversant
HEENT: Normocephalic, Atraumatic and Moist Mucous Membranes
Respiratory: Rhonchi (improving) and Non Labored Respirations
Cardiac: Regular Rhythm and S1/S2
GI: Soft, Nontender and Nondistended
Musculoskeletal: No Clubbing, No Cyanosis and No Edema
Skin: Warm
Neuro: Awake and Alert
Psych: Calm
Data Reviewed
-
Diagnostic Radiology: Image personally visualized and interpreted, Report Reviewed by me and Discussed with Patient
Labs: Labs Reviewed by me and Discussed with Patient
[2024-08-16 09:22] LABS: ALT (SGPT) 23 U/L (0-50); AST (SGOT) 19 U/L (17-59); Albumin 2.5 g/dl (3.5-5.0); Alkaline Phosphatase 129 U/L (38-126); Blood Urea Nitrogen 44 mg/dl (9-20); Calcium 8.4 mg/dl (8.4-10.2); Carbon Dioxide 28 mmol/L (22-30); Chloride 108 mmol/L (98-107); Estimated Creatinine Clearance 59 ml/min; Glucose 146 mg/dl (70-99); Phosphorus 3.2 mg/dl (2.5-4.5); Potassium 4.1 mmol/L (3.5-5.1); Sodium 140 mmol/L (135-145); Total Protein 5.2 g/dl (6.3-8.2); eGFR > 60.00
--- NOTE | 2024-08-16 10:55 | VNURNOTE ---
Home Health Liaison met with patient and spouse at bedside to discuss [facility] nurse/therapy, visits, schedule and homebound status. He is familiar with [facility], per pt, he had us in 2009. Patient is agreeable and understands that visits at home will be
2-3 x per week to assess and teach medical management. Patient and spouse are aware that [facility] will contact them for start of care in 1-2 days after discharge from .
[facility] referral completed in [facility].
[2024-08-16 11:00] VITALS: BP 113/55
[2024-08-16 11:05] LABS: Glucose - Point of Care 149 mg/dl (70-99)
[2024-08-16 13:27] VITALS: BP 101/52; PULSE 76; O2SAT 97
--- NOTE | 2024-08-16 15:05 | W.PN.SURGUPD ---
Surgical Update
Surgical Update
Speech reports issues with coughing and potential aspiration with bolus and solid foods. Patient made NPO. Plan for video-assisted swallow tomorrow.
[2024-08-16 15:15] VITALS: BP 109/60
--- NOTE | 2024-08-16 16:14 | VATNOTE ---
order to remove RIJ triple lumen central line. Peripheral IV site established in right arm. Central line removed intact following hospital procedure with bed in trendelenberg position. Direct pressure applied for 10 minutes. Sterile occlusive
dressing applied. Instructed to remain in bed for 1 hour. Primary care RN aware. Dressing dry and intact at time of leaving room.
[2024-08-16 16:50] LABS: Glucose - Point of Care 123 mg/dl (70-99)
--- NOTE | 2024-08-16 17:12 | CM ---
Patient seen at bedside with physicians. Plan continues to be home with VN; [facility] to follow. CM will continue to follow for discharge planning needs.
Plan; home with [facility]
[2024-08-16] MEDS: LOVENOX 40 MG SC (17:36)
[2024-08-16] MEDS: CRESTOR 20 MG PO (17:36)
[2024-08-16] MEDS: SINGULAIR 10 MG PO (17:57)
[2024-08-16 23:25] VITALS: BP 108/53
[2024-08-16 23:25] LABS: Glucose - Point of Care 108 mg/dl (70-99)
[2024-08-17] VITALS (7 sets, daily range): BP systolic 98–132; BP diastolic 53–58; PULSE 71; O2SAT 94; BMI 22.1
--- NOTE | 2024-08-17 04:21 | DOWNTIME ---
Addendum entered by Roshan Sloan RN 08/17/24 14:07:
Correction to downtime 08/17/2024 from 0100 to 08/17/24 at 0415.
Original Note:
There was a [facility] [employer] Downtime on 08/16/2024 from 0100 to 08/17/2024 at 0415. Downtime documentation of patient's care, including medication administrations, has been reconciled in the electronic record per guidelines. Refer to the
patient's paper chart under the miscellaneous tab to see printed paper medication records and downtime forms.
[2024-08-17 05:27] LABS: Glucose - Point of Care 93 mg/dl (70-99)
[2024-08-17 06:30] LABS: Hematocrit 26.7 % (39.0-52.0); Mean Corp Hgb Conc. 33.7 g/dL (33.0-37.0); Mean Corpuscular Hgb 31.5 pg (27.0-31.0); Mean Corpuscular Volume 93.4 fL (80.0-94.0); Mean Platelet Volume 11.5 fL (7.4-10.4); Platelet Count 403 10^3/uL (130-400); Red Blood Cell Count 2.86 10^6/uL (4.70-6.10); Red Cell Dist. Width 14.6 % (11.5-14.5); White Blood Cell Count 8.3 10^3/uL (4.8-10.8)
[2024-08-17 06:49] LABS: Blood Urea Nitrogen 36 mg/dl (9-20); Calcium 8.7 mg/dl (8.4-10.2); Carbon Dioxide 28 mmol/L (22-30); Chloride 110 mmol/L (98-107); Estimated Creatinine Clearance 58 ml/min; Glucose 95 mg/dl (70-99); Potassium 4.3 mmol/L (3.5-5.1); Sodium 142 mmol/L (135-145); eGFR > 60.00
[2024-08-17] MEDS: DUONEB 3 ML INH (07:31)
--- NOTE | 2024-08-17 08:09 | W.PN.HOSP.TC ---
Addendum entered and electronically signed by Apolonia Thomson MD 08/17/24 20:04:
I saw and evaluated the patient independently. I reviewed the resident�s note and agree with findings and plan as documented by Dr. Lackey.
GENERAL: well developed, well nourished, male in no apparent distress
HEENT: NC/AT O2 NC in place
HEART: regular rate and rhythm, +S1, +S2
LUNGS : rhonchi bilaterally
ABDOM: soft, nontender, nondistended, + bowel sounds
EXT: no cyanosis, clubbing, or edema
NEUROLOGIC: grossly intact
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
lysis of adhesions (total lysis not attempted) and SB resection with anastomosis of transition point--apprec gen surgery--slowly advancing diet--meanwhile on TPN which stopped 08/14/24-- PPI Prophylaxis- PRN Balmex for rectal pain from diarrhea
Ventilator Dependent Respiratory Failure due to bilateral lower lobe aspiration pneumonia (intubated on 08/07 and extubated 08/09)--finished unasyn--blood cultures/resp cultures positive for E. coli---unable to wean O2--recheck CXR shows either
developing pna vs loculated effusion--cont incentive spirometry--reviewed updated surgical note 'coughing with eating'--will make NPO and do VSE in AM
failed swallow exam--aspiration of all consistencies--agree with surgery that hope is transient from intubation--hold on TPN, ENT consult and speech re-eval in AM--given this and CXR findings, restarting IVF and ABX
Septic Shock due to bilateral lower lobe aspiration pneumonia (resolved)-- Pressors off since 08/08
Acute Kidney Injury (resolved)- UA unremarkable, eosinophils negative; rules out AIN due to abx- Consider pre-renal due to sepsis vs. CONCHIS- 0.8 baseline
Ulcerative colitis-- oral home meds continued
BPH- oral home meds continued
HLD - oral home meds continued
History of Tick Bite - Lyme screen negative
Renal Mass on CT - ?? Concern for renal neoplasm versus metastasis
Trouble Sleeping (resolved)- Melatonin- family bringing chair from home that he sleeps in
Sore Throat due to hx of intubation- Continue PRN Cepocol
Elevated Alk-Phos- Isolated reading
DVT proph
Code Status-- Full code
Original Note:
Today's Communication/Plan
-
.
Assessment / Plan
Assessment / Plan
83M PMHx UC s/p total abdominal colectomy w/ J-pouch creation and hernia repairs. Admitted for SBO.
- 1. Small Bowel Obstruction s/p Lysis of Adhesions
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
- Appreciate General Surgery Input
- s/p Ex-lap (08/08) for extensive lysis of adhesions (total lysis not attempted) and SB resection with anastomosis of transition point. POD #10
- Per surgery, expect prolonged post-op ileus. TPN started (08/09), d/sofy (08/14).
- Continue to monitor serum electrolytes, refeeding labs
- 12: NG tube removed
- initial removal of 3-4 L feculent material, placed after vomiting and aspiration
- N.p.o.; light hydration today 1 L NS at 75 ml/h
- Diet advanced to LRD by surgery; s/s of aspiration noted, VSE scheduled for today
- See Impaired Swallowing Below
- Lactose Free
- PPI Prophylaxis
- Continue PRN Balmex
- ICS, PT/OT continue to be recommended.
- Home O2 assessment <48 hours prior to discharge.
1a. Impaired swallowing
- VSE (08/16): severe pharyngeal dysphagia and silent aspiration across all consistencies
- Suspect this is secondary to recent intubation, patient also with hoarse voice
- In the setting of failed VSE, low threshold for suspicion of aspiration pneumonia. Started on empiric Zosyn.
- ENT consult in morning
- Speech reeval in morning
2. Ventilator Dependent Respiratory Failure 2/2 bilateral lower lobe aspiration pneumonia (extubated 08/09)
- Zosyn transitioned to Unasyn
- Temps stable, white counts wavering around ULN
- Pansensitive E. Coli on cultures
- Consider anti-fungals/ID if fevers return
- Daily CBC
- Currently on 4L NC, wean O2 as tolerated. PT/OT. Incentive Spirometry.
- Repeat CXR (08/15): small loculated pleural effusion versus developing lower lobe pneumonia
- Vital Signs, Physical Exam, Labs, ambulatory status improving.
- (08/16): Trialed weaned to 3 L by nasal cannula, patient did not tolerate as well saturating around 93%. In the setting of failed VSE, low threshold for suspicion of aspiration pneumonia. Started on empiric Zosyn.
- Consider repeat CXR in a.m.
3. Septic Shock 2/2 bilateral lower lobe aspiration pneumonia (resolved)
- Antibiotics completed
- Pressors off since 08/08
- Lactate downtrended
4. Acute Kidney Injury (resolved)
- UA unremarkable, eosinophils negative; rules out AIN 2/2 abx
- Consider pre-renal 2/2 sepsis vs. CONCHIS
- 0.8 baseline
5. . UC
- oral home meds continued
6 BPH
- oral home meds continued
7. HLD
- oral home meds continued
8. History of Tick Bite
- Lyme screen negative
9. Renal Mass on CT
- ?? Concern for renal neoplasm versus metastasis
10. Trouble Sleeping (resolved)
- Melatonin
- family bringing chair from home that he sleeps in
11. Sore Throat 2/2 hx of intubation
- Continue PRN Cepocol
12. Elevated Alk-Phos
- Isolated reading, possibly 2/2 refeeding. Continue to monitor CMP.
Med/Surg
Dispo Planning: Home O2 Assessment, Patient and Family prefer home to acute rehab
Diet: LRD
Code Status: Full
Anticipated Discharge: 24 - 48 hours
Subjective/Interval History
-
Date of Service: August 17, 2024
Patient seen and examined while sitting up comfortably in chair, reading the newspaper. Feeling well overall, frustrated by setback. Yesterday when advance to low residue diet and eating solid food, patient noticed cough with liquids but not with
solids. After starting solid diet, patient noticed an improvement in diarrhea. Also notes that breathing is a little bit worse today.
Notes residual cough productive of whitish mucus, denies dysphagia, globus sensation, abdominal pain, nausea, vomiting, blood in stool.
Update (p.m.): VSE shows patient with severe pharyngeal dysphagia and silent aspiration across all consistencies. Patient transition to n.p.o.
Objective Data
-
Labs:
Laboratory Results
08/17/24
05:34
WBC 8.3
Hgb 9.0 L
Hct 26.7 L
Plt Count 403 H D
Sodium 142
Potassium 4.3
Chloride 110 H
Carbon Dioxide 28
BUN 36 H
Creatinine 0.9
Glucose 95
Calcium 8.7
Vital Signs:
Vital Signs
Temp Pulse Resp BP Pulse Ox
98.7 F 78 16 108/53 93
08/16/24 23:25 08/17/24 07:34 08/17/24 07:34 08/16/24 23:25 08/17/24 07:34
I&O
08/16/24 08/17/24 08/18/24
06:59 06:59 06:59
Intake Total 480 / 480 960 / 960
Output Total 600 / 600 400 / 400
Balance -120 / -120 560 / 560
Review of Systems
-
History Source: Patient
Constitutional: Reports No Symptoms
Respiratory: Reports Cough and Trouble Breathing (While on 3 L, improved on 4 L by nasal cannula.)
Cardiac: Reports No Symptoms
Abdomen/GI: Reports No Symptoms
Neuro: Reports No Symptoms
Physical Exam
-
General: No Apparent Distress and Conversant
HEENT: Normocephalic, Atraumatic, Moist Mucous Membranes and Anicteric
Respiratory: Crackles (Improvement from past examinations) and Other (Appears slightly short of breath on 3 L of nasal cannula, improved on 4 L nasal cannula.)
Cardiac: Regular Rhythm and S1/S2
GI: Soft, Nontender, Nondistended and Normal Bowel Sounds
Musculoskeletal: No Clubbing, No Cyanosis and No Edema
Skin: Warm
Neuro: Awake, Alert and Nonfocal/Grossly Intact
Psych: Calm
Data Reviewed
-
Medical Tests (Nuc Med, Echo etc): Report Reviewed by me and Discussed with Patient
Labs: Labs Reviewed by me and Discussed with Patient
[2024-08-17] MEDS: VITAMIN D3 (cholecalciferol) 25 MCG PO (08:45)
[2024-08-17] MEDS: RESTASIS 0.05% OPHTHALMIC EMULSION 2 DROPS BOTH EYES ×2 (08:45→21:17)
[2024-08-17] MEDS: PROTONIX 40 MG PO (08:45)
[2024-08-17] MEDS: VITAMIN B-12 1000 MCG PO (08:45)
[2024-08-17] MEDS: FLOMAX 0.4 MG PO (08:45)
[2024-08-17] MEDS: PROSCAR 5 MG PO (08:46)
--- NOTE | 2024-08-17 08:55 | W.PN.GS2 ---
Addendum entered and electronically signed by Chuck Martins MD 08/17/24 16:45:
Patient failed swallow eval but okay for meds and ice chips.
If the thought that his poor swallowing is transient and will resolve shortly reasonable to restart TPN to temporize otherwise if this is thought to be a more prolonged disability recommend PEG placement.
Original Note:
Today's Communication / Plan
-
- Swallow eval today, may need to restart TPN. Please update us with eval results as soon as possible if patient will need to be kept NPO.
Assessment / Plan
-
Impression
Patient is an 83 yo male with a h/o ulcerative colitis s/p total abdominal colectomy with subsequent ileal J-pouch creation in 2009, who presented with complete small bowel obstruction, complicated by aspiration pneumonia with decompensation
prompting exploratory laparotomy, lysis of adhesions and small bowel resection.
POD # 10
S/p exploratory laparotomy, lysis of adhesion and small bowel resection
Alert, oriented, feeling better
Now on 3 L of oxygen via nasal cannula
Multiple loose stools, passing flatus
Plan:
-- Swallow eval today, may need to restart TPN. Please update us with eval results as soon as possible if patient will need to be kept NPO.
-- Wean O2
-- PT/OT
--Monitor electrolytes and replete as needed, keep potassium greater than 4 and magnesium greater than 2
-- Optimize pain management
--PPI for GI ppx
--Lovenox and SCDs for VTE ppx
--Medical management as per primary team
Time Spent
Total Time Spent with Patient (in minutes): 20
Subjective Data
-
Date of Service: August 17, 2024
Interval Events:
No acute events overnight. Slept well. Pain Controlled. Denies Nausea/Vomiting, +bowel function. N.p.o. for swallow study today.
Objective Data
-
Intake and Output
08/16/24 08/17/24 08/18/24
06:59 06:59 06:59
Intake Total 480 / 480 960 / 960
Output Total 600 / 600 400 / 400 200 / 200
Balance -120 / -120 560 / 560 -200 / -200
Intake:
Oral fluids 480 / 480 960 / 960
Output:
Urine, Voided 600 / 600 300 / 300 200 / 200
Urostomy output 100 / 100
Other:
Number of approximated SMALL 1
amounts of urine
Number of approximated MODERATE 1 1
amounts of urine
Vital Signs
Temp Pulse Resp BP Pulse Ox
98.5 F 78 16 128/57 93
08/17/24 07:30 08/17/24 07:34 08/17/24 07:34 08/17/24 07:30 08/17/24 07:34
Lab Results
08/17/24 05:34
08/17/24 05:34
Calcium 8.7 mg/dl (8.4-10.2) 08/17/24 05:34
Phosphorus 3.2 mg/dl (2.5-4.5) 08/16/24 08:26
Magnesium 2.0 mg/dl (1.6-2.3) 08/16/24 08:26
Total Bilirubin 1.0 mg/dl (0.2-1.3) 08/16/24 08:26
Direct Bilirubin 1.0 mg/dl (0.0-0.4) H 08/11/24 04:05
AST 19 U/L (17-59) 08/16/24 08:26
ALT 23 U/L (0-50) 08/16/24 08:26
Alkaline Phosphatase 129 U/L (38-126) H 08/16/24 08:26
Total Protein 5.2 g/dl (6.3-8.2) L 08/16/24 08:26
Albumin 2.5 g/dl (3.5-5.0) L 08/16/24 08:26
Physical Exam
-
GENERAL/NEURO: Awake, Alert, no distress
CHEST: Unlabored breathing on RA
ABDOMEN: Soft, Non-Tender, Non-Distended, incision clean dry intact. Kranthi in place.
Patient has a quintero catheter: No
Patient has a central line: No
[2024-08-17 11:59] LABS: Glucose - Point of Care 105 mg/dl (70-99)
--- NOTE | 2024-08-17 12:15 | PTOTSP ---
Speech Therapy VSE:
Patient presents with mild oral and severe pharyngeal dysphagia. Patient demonstrated silent aspiration with thin liquids, mildly thick liquids, moderately thick liquids, and puree. Etiology of swallowing is felt to be due to recent intubation.
Given ongoing hoarse vocal quality, sore throat, and severe pharyngeal dysphagia, recommend consideration of ENT consult. Please see patient care note for full details of penetration/aspiration and swallowing physiology.
Recommend:
1. Safest diet recommendation would be NPO given absent sensory response to airway invasion, poor airway clearance, increasing pharyngeal residuals, and unsuccessful compensatory strategies.
2. If patient/family opting for oral diet despite risks of aspiration, recommend puree and thin liquids given known negative pulmonary complications with aspiration of thickened liquids and increased pharyngeal residue with thicker viscosities
3. Continue ARHP via sparing ice chips following oral care and with supervision
4. Modifiable risk factors for aspiration pneumonia including encouraging frequent and thorough oral care, pulmonary hygiene measures, and increasing physical mobility as medically feasible
5. BUSINESS SEGMENT MANAGER to follow for education regarding VSE findings and recommendations and training in pharyngeal strengthening exercises. Patient would benefit from repeat instrumental prior to diet initiation due to silent aspiration.
[2024-08-17] MEDS: VENTOLIN NEBULES 2.5 MG INH ×2 (13:40→20:35)
--- NOTE | 2024-08-17 14:36 | PTCARENOTE ---
Pt c/o dizziness upon standing to walk to the bathroom. Pt assisted back to sitting position and admitted to immediate resolution of symptoms. BP sitting 98/55 HR 84. Approx 10 mins later pt re-stood with no c/o of dizziness and ambulated to the
bathroom and back to chair. Repeat BP 132/[address] Thomson notified, care ongoing.
--- NOTE | 2024-08-17 14:56 | PTCARENOTE ---
Per BUNGHOLE BORER pt ok for ice chips intermittently per the aspiration risk hydration protocol. RN clarified and per Dr Martins pt ok for ice chips per protocol. Pt to remain sitting upright while consuming. Care remains ongoing.
--- NOTE | 2024-08-17 17:21 | CM ---
Addendum entered by Kiarra Valerio 08/17/24 17:41:
currently holding on TPN at this time per physicians, will provide script for TPN and discuss provider with patient and family.
Original Note:
Patient seen at bedside with physician and patient on . Patient plan is for discharge home with [facility] and watch for Home O2 needs. Patient is currently on 4 liters of O2, Patient and discussed options and requested referral to
[facility]. CM will continue to follow for discharge planning needs.
Plan; home with VN and watch for home O2
[2024-08-17] MEDS: NSS 1000 IV (17:44)
[2024-08-17] MEDS: ZOSYN 50 IV ×2 (17:46→23:19)
[2024-08-17] MEDS: SINGULAIR 10 MG PO (17:46)
[2024-08-17] MEDS: CRESTOR 20 MG PO (17:46)
[2024-08-17] MEDS: LOVENOX 40 MG SC (17:47)
[2024-08-17 18:02] LABS: Glucose - Point of Care 106 mg/dl (70-99)
[2024-08-17] MEDS: OCEAN, SALINE MIST 2 SPRAYS NASAL (22:06)
[2024-08-17] MEDS: ROXICODONE 5 MG PO (23:24)
[2024-08-17] MEDS: MELATONIN 3 MG PO (23:25)
[2024-08-17 23:50] LABS: Glucose - Point of Care 88 mg/dl (70-99)
[2024-08-18] VITALS (7 sets, daily range): BP systolic 81–153; BP diastolic 52–66; BMI 22.1
[2024-08-18] MEDS: DILAUDID 0.5 MG IV (00:42)
[2024-08-18 03:04] LABS: Glucose - Point of Care 95 mg/dl (70-99)
[2024-08-18] MEDS: ZOSYN 50 IV ×3 (05:32→17:13)
[2024-08-18 06:34] LABS: Glucose - Point of Care 97 mg/dl (70-99)
[2024-08-18 07:15] LABS: Hematocrit 23.7 % (39.0-52.0); Mean Corp Hgb Conc. 33.8 g/dL (33.0-37.0); Mean Corpuscular Hgb 31.6 pg (27.0-31.0); Mean Corpuscular Volume 93.7 fL (80.0-94.0); Mean Platelet Volume 10.8 fL (7.4-10.4); Platelet Count 402 10^3/uL (130-400); Red Blood Cell Count 2.53 10^6/uL (4.70-6.10); Red Cell Dist. Width 14.6 % (11.5-14.5); White Blood Cell Count 10.7 10^3/uL (4.8-10.8)
[2024-08-18 07:47] LABS: ALT (SGPT) 20 U/L (0-50); AST (SGOT) 21 U/L (17-59); Albumin 2.5 g/dl (3.5-5.0); Alkaline Phosphatase 116 U/L (38-126); Blood Urea Nitrogen 32 mg/dl (9-20); Calcium 8.3 mg/dl (8.4-10.2); Carbon Dioxide 25 mmol/L (22-30); Chloride 113 mmol/L (98-107); Estimated Creatinine Clearance 52 ml/min; Glucose 94 mg/dl (70-99); Potassium 4.2 mmol/L (3.5-5.1); Sodium 143 mmol/L (135-145); Total Bilirubin 1.2 mg/dl (0.2-1.3); Total Protein 5.1 g/dl (6.3-8.2); eGFR > 60.00
--- NOTE | 2024-08-18 08:06 | CON.MD ---
Consultation - Medical
-
Consultation performed on 08/18/2024 at 8 AM.
Chief complaint: Dysphagia, aspiration
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 He underwent abdominal surgery to address the
small bowel obstruction. He was intubated for that surgery as well as for his pneumonia. He is now on his 6 postoperative day. A swallow study showed aspiration with all consistencies. The patient has a history of hoarseness and occasional sore
throat for years. I was asked to see the patient and to evaluate him with regard to whether he could take p.o. food or liquids. The patient is otherwise healthy. I have seen him for various issues in the office for years. Although he has had
hoarseness which has been chronic and some throat irritation, difficulty swallowing was not a major complaint.
Past medical history:
Medical problems: Ulcerative colitis, small bowel obstruction, small intestinal gangrene, hypernatremia, postoperative paralytic ileus, intestinal adhesions with complete obstruction, septic shock, lactic acidosis, aspiration pneumonia, leukopenia,
sepsis, thrombocytopenia, leukocytosis, acute kidney injury, benign prostatic hypertrophy, chronic asthmatic bronchitis,
Allergies: Lactose intolerance, polyethylene glycol causes rash, he has seasonal allergies which cause nasal congestion
Home medications, albuterol sulfate 2 puffs as needed 4 times a day., Cholecalciferol 25 mcg p.o. daily, cholestyramine 4 mg p.o. every afternoon, coenzyme every 10 100 mg p.o. daily, cyanocobalamin 1000 mg p.o. daily, cyclosporine 2 drops in both
eyes every 12 hours, finasteride 5 mg p.o. daily, hydroxychloroquine 200 mg p.o. daily, montelukast 10 mg p.o. every afternoon, ascorbic acid 1 tablet p.o. daily, rosuvastatin 20 mg p.o. every afternoon, silodosin 8 mg p.o. daily, PreserVision AREDS
two 1 tablet p.o. daily,
Past surgical history: The patient has had colectomy in the past and, during this admission, underwent exploratory laparotomy for small bowel obstruction,
Hospitalizations: The patient has been hospitalized for the small bowel obstruction and also for total colectomy in the past. He had a U pouch reconstruction.
Family history: Asked and is noncontributory for this problem
Review of systems: Positive for dysphagia, throat irritation, abdominal tenderness, negative for respiratory distress
Physical examination:
Head: Atraumatic and normocephalic
Eyes: Extraocular movements are intact and pupils are equal and reactive to light and accommodation
Ears: Normal
Nose: Some dry mucus but otherwise normal, nasal cannula oxygen in place,
Oral cavity/oropharynx: Some dry mucus posteriorly
Neck: Supple without adenopathy
Cranial nerves: 2 through 12 are intact
Thyroid: Normal
Salivary glands: Normal
Voice: The patient has mild hoarseness and a breathy voice but it is relatively strong.
Procedure: Flexible laryngoscopy, performed at bedside
After viscous lidocaine was applied inside the patient's nose using cotton swabs the nose was noted to contain fairly normal mucosa with some dry mucus probably from his oxygen. No infection or polyps were seen. Nasal airway looks okay although
there is some mucosal swelling consistent with allergies. Vocal cord motion is pretty good but excursion of the vocal cords is a little bit limited. He has mucosal inflammation and swelling with ecchymosis of his posterior vocal cords/arytenoid
area from intubation/endotracheal tube trauma. Airway looks adequate and there is no evidence of pooling of secretions.
Assessment/plan: The patient has evidence of intubation/endotracheal tube trauma and this may be inhibiting his swallowing to a certain extent. 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
indicate more chronic problems. I think it is worth a trial of keeping him n.p.o. until early next week and repeating the swallow study. I spoke with the patient that if at that point he is not improved, he might do best with a feeding tube. That
would help prevent aspiration in the future. If the swallowing studies improved, speech therapy consultation might be dang to determine what sort of diet is safe. I will plan on seeing the patient back as needed.
Consultation
-
Date/Time Consultation Requested: 08/18/24
Date/Time Consultation Performed: 8am
Requesting Provider: Hospitalist service
Performing Provider: Jordy
Reason for Consultation: dysphagia
--- NOTE | 2024-08-18 08:54 | W.PN.HOSP.TC ---
Addendum entered and electronically signed by Apolonia Thomson MD 08/18/24 18:48:
I saw and evaluated the patient independently. I reviewed the resident�s note and agree with findings and plan as documented by Dr. Lackey.
GENERAL: well developed, well nourished, male in no apparent distress
HEENT: NC/AT O2 NC in place
HEART: regular rate and rhythm, +S1, +S2
LUNGS : rhonchi bilaterally
ABDOM: soft, nontender, nondistended, + bowel sounds
EXT: no cyanosis, clubbing, or edema
NEUROLOGIC: grossly intact
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
lysis of adhesions (total lysis not attempted) and SB resection with anastomosis of transition point--apprec gen surgery--was slowly advancing diet, now NPO--meanwhile was on TPN which stopped 08/14/24 and now restarting-- PPI Prophylaxis- PRN
Balmex for rectal pain from diarrhea
Ventilator Dependent Respiratory Failure due to bilateral lower lobe aspiration pneumonia (intubated on 08/07 and extubated 08/09)--finished unasyn--blood cultures/resp cultures positive for E. coli---unable to wean O2--recheck CXR shows either
developing pna vs loculated effusion--cont incentive spirometry--reviewed updated surgical note 'coughing with eating'-failed VSE in AM--restarted ABX given failed VSE--recheck CXR Thursday
failed swallow exam--aspiration of all consistencies--agree with surgery that hope is transient from intubation--apprec ENT--1 week TPN and re-evaluate swallowing--if passes, speech for diet, if not then choice between PEG vs hospice--had discussion
regarding this plan with pt, , friend, and niece (by phone)
Septic Shock due to bilateral lower lobe aspiration pneumonia (resolved)-- Pressors off since 08/08
Acute Kidney Injury (resolved)- UA unremarkable, eosinophils negative; rules out AIN due to abx- Consider pre-renal due to sepsis vs. CONCHIS- 0.8 baseline
Ulcerative colitis-- oral home meds continued
BPH- oral home meds continued
HLD - oral home meds continued
History of Tick Bite - Lyme screen negative
Renal Mass on CT - ?? Concern for renal neoplasm versus metastasis
Trouble Sleeping (resolved)- Melatonin- family bringing chair from home that he sleeps in
Sore Throat due to hx of intubation- Continue PRN Cepocol
Elevated Alk-Phos- Isolated reading
DVT proph
Code Status-- Full code
Original Note:
Today's Communication/Plan
-
.
Assessment / Plan
Assessment / Plan
83M PMHx UC s/p total abdominal colectomy w/ J-pouch creation and hernia repairs. Admitted for SBO.
- 1. Small Bowel Obstruction s/p Lysis of Adhesions
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
- Appreciate General Surgery Input
- s/p Ex-lap (08/08) for extensive lysis of adhesions (total lysis not attempted) and SB resection with anastomosis of transition point. POD #10
- Per surgery, expect prolonged post-op ileus. TPN started (08/09), d/sofy (08/14).
- Continue to monitor serum electrolytes, refeeding labs
- 08/11: NG tube removed
- initial removal of 3-4 L feculent material, placed after vomiting and aspiration
- N.p.o.; light hydration today 1 L NS at 75 ml/h
- Diet initially advanced to LRD by surgery; s/s of aspiration noted, failed VSE (08/17)
- See Impaired Swallowing Below
- Lactose Free
- PPI Prophylaxis
- Continue PRN Balmex
- ICS, PT/OT continue to be recommended.
- Home O2 assessment <48 hours prior to discharge.
1a. Impaired swallowing
- VSE (08/16): severe pharyngeal dysphagia and silent aspiration across all consistencies
- Suspect this is secondary to recent intubation, patient also with hoarse voice
- In the setting of failed VSE, low threshold for suspicion of aspiration pneumonia. Started on empiric Zosyn. Continue for now.
- ENT (08/18): 'The patient has evidence of intubation/endotracheal tube trauma and this may be inhibiting his swallowing to a certain extent. 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
indicate more chronic problems. I think it is worth a trial of keeping him n.p.o. until early next week and repeating the swallow study. I spoke with the patient that if at that point he is not improved, he might do best with a feeding tube. That
would help prevent aspiration in the future. If the swallowing studies improved, speech therapy consultation might be dang to determine what sort of diet is safe.'
- Speech reeval this AM
- PICC Line today, start TPN, repeat swallow eval in one week
2. Ventilator Dependent Respiratory Failure 2/2 bilateral lower lobe aspiration pneumonia (extubated 08/09)
- Zosyn transitioned to Unasyn
- Temps stable, white counts wavering around ULN
- Pansensitive E. Coli on cultures
- Consider anti-fungals/ID if fevers return
- Daily CBC
- Currently on 4L NC, wean O2 as tolerated. PT/OT. Incentive Spirometry.
- Repeat CXR (08/15): small loculated pleural effusion versus developing lower lobe pneumonia
- Vital Signs, Physical Exam, Labs, ambulatory status improving.
- (08/16): Trialed weaned to 3 L by nasal cannula, patient did not tolerate as well saturating around 93%. In the setting of failed VSE, low threshold for suspicion of aspiration pneumonia. Started on empiric Zosyn.
- (08/17): Patient stable and feeling much better on 4L NC. This may be his plateau and marginal improvements will be slower. Discussed possible need for home O2 to be weaned over the course of weeks.
3. Septic Shock 2/2 bilateral lower lobe aspiration pneumonia (resolved)
- Antibiotics completed
- Pressors off since 08/08
- Lactate downtrended
4. Acute Kidney Injury (resolved)
- UA unremarkable, eosinophils negative; rules out AIN 2/2 abx
- Consider pre-renal 2/2 sepsis vs. CONCHIS
- 0.8 baseline
5. . UC
- oral home meds continued
6 BPH
- oral home meds continued
7. HLD
- oral home meds continued
8. History of Tick Bite (resolved)
- Lyme screen negative
9. Renal Mass on CT
- ?? Concern for renal neoplasm versus metastasis
10. Trouble Sleeping (resolved)
- Melatonin
- family bringing chair from home that he sleeps in
11. Sore Throat 2/2 hx of intubation
- Continue PRN Cepocol
12. Elevated Alk-Phos (resolved)
- Isolated reading, possibly 2/2 refeeding.
Med/Surg
Dispo Planning: Home O2 Assessment, Patient and Family prefer home to acute rehab
Diet: LRD
Code Status: Full
Anticipated Discharge: > 48 hours
Subjective/Interval History
-
Date of Service: August 18, 2024
Patient seen and examined while resting comfortably in chair. Patient notes his back pain was acting up yesterday required 1 dose of Dilaudid. This helped his pain. Otherwise no acute complaints. States his breathing is doing better today.
Endorses bowel movements are unchanged, loose stools, nonbloody. Complains of nasal dryness and congestion.
Objective Data
-
Labs:
Laboratory Results
08/18/24
07:04
WBC 10.7
Hgb 8.0 L
Hct 23.7 L
Plt Count 402 H
Sodium 143
Potassium 4.2
Chloride 113 H
Carbon Dioxide 25
BUN 32 H
Creatinine 1.0
Glucose 94
Calcium 8.3 L
Total Bilirubin 1.2
AST 21
ALT 20
Alkaline Phosphatase 116
Vital Signs:
Vital Signs
Temp Pulse Resp BP Pulse Ox
98.7 F 72 20 119/52 98
08/18/24 07:30 08/18/24 07:30 08/18/24 07:30 08/18/24 07:30 08/18/24 07:30
I&O
08/17/24 08/18/24 08/19/24
06:59 06:59 06:59
Intake Total 960 / 960 1000 / 1000
Output Total 400 / 400 775 / 775
Balance 560 / 560 225 / 225
Review of Systems
-
History Source: Patient
Constitutional: Reports No Symptoms
EENT: Reports Other (nasal dryness)
Respiratory: Reports Cough and Other (Improvement in breathing on 4 L)
Cardiac: Reports No Symptoms
Abdomen/GI: Reports No Symptoms and Diarrhea; Denies Abdominal Pain, Nausea or Vomiting
Neuro: Reports No Symptoms
Physical Exam
-
General: No Apparent Distress, Comfortable, Conversant and Other (Hoarse voice)
HEENT: Normocephalic and Atraumatic
Respiratory: Clear to Auscultation, Non Labored Respirations and Other (Patient continues to be able to take deeper breaths); Negative Wheezes, Rales or Rhonchi
Cardiac: Regular Rhythm and S1/S2
GI: Soft and Nontender
Musculoskeletal: No Clubbing, No Cyanosis and No Edema
Skin: Warm
Neuro: Awake and Alert
Psych: Calm
Data Reviewed
-
Labs: Labs Reviewed by me
[2024-08-18] MEDS: NSS 1000 IV (09:37)
[2024-08-18] MEDS: PROTONIX 40 MG PO (09:38)
[2024-08-18] MEDS: PROSCAR 5 MG PO (09:38)
[2024-08-18] MEDS: RESTASIS 0.05% OPHTHALMIC EMULSION 2 DROPS BOTH EYES ×2 (09:38→20:56)
[2024-08-18] MEDS: FLOMAX 0.4 MG PO (09:38)
[2024-08-18] MEDS: VITAMIN D3 (cholecalciferol) 25 MCG PO (09:38)
[2024-08-18] MEDS: VITAMIN B-12 1000 MCG PO (09:38)
[2024-08-18] MEDS: OCEAN, SALINE MIST 2 SPRAYS NASAL ×2 (09:41→21:03)
--- NOTE | 2024-08-18 09:57 | W.PN.GS2 ---
Addendum entered and electronically signed by Carmine Dumont MD 08/18/24 13:16:
Patient seen and examined in follow-up with surgical aides teacher. Agree with documented progress note.
Overall feeling well from a postoperative GI recovery
Bowels are moving on a fairly regular basis, loose as expected given limited dietary intake and history of colectomy with ileal J-pouch
Improving abdominal distention, no pain
Failed video swallow due to aspiration risk now n.p.o.
ENT evaluation reviewed and assistance with care appreciated.
AFVSS
NAD AAO x 3
ABD: Soft, minimally distended, nontender on palpation, incision with cindy healing well.
A/P: Agree with continue supportive care and nutritional support via TPN/PICC and reassessment next week with swallow evaluation.
Original Note:
Today's Communication / Plan
-
PICC line
TPN
Assessment / Plan
-
Impression
Patient is an 83 yo male with a h/o ulcerative colitis s/p total abdominal colectomy with subsequent ileal J-pouch creation in 2009, who presented with complete small bowel obstruction, complicated by aspiration pneumonia with decompensation
prompting exploratory laparotomy, lysis of adhesions and small bowel resection.
POD # 11
S/p exploratory laparotomy, lysis of adhesion and small bowel resection
Incision is healing well, patient is having bowel movements
Recovering well
Patient n.p.o. since yesterday, as he failed his swallowing test
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
Plan:
Keep n.p.o.
PICC line, start TPN
Repeat swallowing study earlier next week-if not able to pass-consider feeding tube
Continue PT/OT
Wean off oxygen as able
Monitor electrolytes and replete as needed, keep potassium greater than 4 and magnesium greater than 2
-- Optimize pain management
--PPI for GI ppx
--Lovenox and SCDs for VTE ppx
--Medical management as per primary team
Subjective Data
-
Date of Service: August 18, 2024
Patient seen and examined at bedside
Overnight, had back pain and had trouble sleeping
Loose stools
Currently n.p.o.
Objective Data
-
Intake and Output
08/17/24 08/18/24 08/19/24
06:59 06:59 06:59
Intake Total 960 / 960 1000 / 1000
Output Total 400 / 400 775 / 775
Balance 560 / 560 225 / 225
Intake:
Oral fluids 960 / 960
IV fluids (Total) 900 / 900
IV piggybacks 100 / 100
Output:
Urine, Voided 300 / 300 775 / 775
Urostomy output 100 / 100
Other:
Number of approximated SMALL 1
amounts of urine
Number of approximated MODERATE 1 1
amounts of urine
Vital Signs
Temp Pulse Resp BP Pulse Ox
98.7 F 72 20 119/52 99
08/18/24 07:30 08/18/24 07:30 08/18/24 07:30 08/18/24 07:30 08/18/24 09:50
Lab Results
08/18/24 07:04
08/18/24 07:04
Calcium 8.3 mg/dl (8.4-10.2) L 08/18/24 07:04
Phosphorus 3.2 mg/dl (2.5-4.5) 08/16/24 08:26
Magnesium 2.0 mg/dl (1.6-2.3) 08/16/24 08:26
Total Bilirubin 1.2 mg/dl (0.2-1.3) 08/18/24 07:04
Direct Bilirubin 1.0 mg/dl (0.0-0.4) H 08/11/24 04:05
AST 21 U/L (17-59) 08/18/24 07:04
ALT 20 U/L (0-50) 08/18/24 07:04
Alkaline Phosphatase 116 U/L (38-126) 08/18/24 07:04
Total Protein 5.1 g/dl (6.3-8.2) L 08/18/24 07:04
Albumin 2.5 g/dl (3.5-5.0) L 08/18/24 07:04
Physical Exam
-
Alert, oriented, no apparent distress
On 4 L of oxygen via nasal cannula
Dry mucous membranes
Abdomen soft, mildly distended, midline incision healing well with no pus induration, erythema or any signs of infection
Chest bilaterally clear to auscultation
Patient has a quintero catheter: No
Patient has a central line: No
[2024-08-18] MEDS: VENTOLIN NEBULES 2.5 MG INH ×2 (10:25→20:15)
[2024-08-18 12:19] LABS: Glucose - Point of Care 98 mg/dl (70-99)
[2024-08-18] MEDS: NOVOLOG FLEXPEN-MODERATE RESISTANCE SC ×2 (12:36→17:55)
--- NOTE | 2024-08-18 12:40 | VATNOTE ---
PICC line ordered for pt to start TPN tonight. This VAT RN started PICC procedure at the bedside. Brachial vein was accessed and wire was advanced 10-15 cm. Upon advancing the guidewire further it felt like the wire was bouncing back. Wire was
retracted, then attempted to take wire out of needle. Unable to remove wire from needle, so the needle was completely removed; however, the wire still was unable to be removed completely from pt's arm. It seemed like the vein was in vasospasm. IR
consulted.
--- NOTE | 2024-08-18 13:49 | CM ---
Addendum entered by Kiarra Valerio 08/18/24 16:30:
Patient niece; Maricel Brito [phone]. Patient requested niece be consulted as someone that gets updates from physician and CM. CM called with physician to niece and updates provided.
Original Note:
Patient seen at bedside with physician on 2 south. Patient also present. Patient requested his niece Veronica be updated. Discussion about POA, patient indicated that patient was his primary decision maker if he was unable to verbalize his
needs. HE also confirmed that he would want his niece to be updated and kept aware as a 'lean process deployment consultant' Patient confirmed that the POA that niece was referring to was a part of his last will and testament and that he would want to speak for him if
he was unable to do so and the niece was to be the spokesperson if both he and were unable to speak. CM and physician to call patient niece with update. Patient for 1 week of TPN per physician discussion and then pending speech
assessment/surgery assessment patient and family with make decisions about next steps. CM will continue to follow for discharge planning needs.
Plan; home with VN pending next speach assessment/video swallow assessment.
--- NOTE | 2024-08-18 16:19 | VATNOTE ---
PICC attempted on the L arm. Brachial vein and basilic vein visualized, brachial vein was larger and less shallow. Brachial vein accessed with no issues, wire advanced with no issues. Introducer that came with the PICC kit was unable to be inserted
all the way. Smaller introducer was used and able to be placed. PICC cut to 44 cm and attempted to advance through introducer. PICC unable to be advanced past 24 cm. Arm manipulated and pt's head turned more, but no success. Other VAT RN attempted
w/ no success. PICC procedure aborted and hospitalist notified.
[2024-08-18] MEDS: CRESTOR 20 MG PO (17:11)
[2024-08-18] MEDS: SINGULAIR 10 MG PO (17:11)
[2024-08-18] MEDS: LOVENOX 40 MG SC (17:12)
[2024-08-18 17:51] LABS: Glucose - Point of Care 96 mg/dl (70-99)
[2024-08-18] MEDS: Parenteral Nutrition, Central 980 IV (20:54)
[2024-08-18] MEDS: NSS IV (20:56)
[2024-08-19 00:21] LABS: Glucose - Point of Care 137 mg/dl (70-99)
[2024-08-19] MEDS: NOVOLOG FLEXPEN-MODERATE RESISTANCE SC ×3 (00:21→17:38)
[2024-08-19] MEDS: ZOSYN 50 IV ×5 (00:21→23:25)
[2024-08-19] MEDS: NOVOLOG FLEXPEN 3 UNITS SC ×4 (00:22→17:39)
[2024-08-19 05:32] LABS: Hemoglobin 7.5 g/dL (13.0-18.0); Mean Corp Hgb Conc. 34.1 g/dL (33.0-37.0); Mean Corpuscular Hgb 31.6 pg (27.0-31.0); Mean Corpuscular Volume 92.8 fL (80.0-94.0); Platelet Count 435 10^3/uL (130-400); Red Blood Cell Count 2.37 10^6/uL (4.70-6.10); Red Cell Dist. Width 14.5 % (11.5-14.5)
[2024-08-19 05:52] LABS: Blood Urea Nitrogen 28 mg/dl (9-20); Calcium 8.4 mg/dl (8.4-10.2); Carbon Dioxide 23 mmol/L (22-30); Chloride 114 mmol/L (98-107); Estimated Creatinine Clearance 58 ml/min; Glucose 140 mg/dl (70-99); Magnesium 2.3 mg/dl (1.6-2.3); Phosphorus 2.7 mg/dl (2.5-4.5); Potassium 3.6 mmol/L (3.5-5.1); Sodium 144 mmol/L (135-145); eGFR > 60.00
[2024-08-19 05:52] LABS: Glucose - Point of Care 141 mg/dl (70-99)
[2024-08-19 06:00] VITALS: BMI 21.7
--- NOTE | 2024-08-19 07:31 | W.PN.GS2 ---
Addendum entered and electronically signed by Uli Fitch MD 08/19/24 08:39:
Patient seen and examined.
Continues to work with swallowing exercises. No reports of aspiration events. Reports some abdominal distention, but continues to pass flatus. No nausea or vomiting. Afebrile.
Gen: NAD
Abd: soft, NT, mild distension (stable), non-peritoneal, incision c/d/i - no erythema, ecchymosis or drainage, cindy in place
Patient is an 83 yo male with a h/o ulcerative colitis s/p total abdominal colectomy with subsequent ileal J-pouch creation in 2009, who presented with complete small bowel obstruction, complicated by aspiration pneumonia with decompensation
prompting exploratory laparotomy, lysis of adhesions and small bowel resection.
POD # 12
S/p exploratory laparotomy, lysis of adhesion and small bowel resection
Recovering well from a surgical perspective, continues to pass flatus, last BM yesterday (decreased BMs not surprising with lack of PO intake), abdomen stable
Issues with aspiration pre- and post-operatively. Currently NPO on TPN. Doing swallowing exercises. 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
of his vocal cords secondary to intubation trauma.
Tentative plan for repeat swallow study next week (1 week since last). If he fails again will need to consider enteral feeding access.
Plan:
-- NPO
-- TPN renewed
-- Repeat swallowing study earlier next week, if not able to pass-consider feeding tube
-- Continue PT/OT
-- Wean off oxygen as able
-- Monitor electrolytes and replete as needed, keep potassium greater than 4 and magnesium greater than 2
-- GI: PPI
-- DVT: Lovenox and SCDs
-- Medical management as per primary team
Original Note:
Today's Communication / Plan
-
Continue TPN
Continue swallowing exercises and incentive spirometry
Assessment / Plan
-
Impression
Patient is an 83 yo male with a h/o ulcerative colitis s/p total abdominal colectomy with subsequent ileal J-pouch creation in 2009, who presented with complete small bowel obstruction, complicated by aspiration pneumonia with decompensation
prompting exploratory laparotomy, lysis of adhesions and small bowel resection.
POD # 12
S/p exploratory laparotomy, lysis of adhesion and small bowel resection
Incision is healing well, patient has normal bowel sounds, passed stool yesterday, passing gas
Recovering well
Patient currently n.p.o., as he failed his swallowing test
Doing swallowing exercises
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
On lab review
No leukocytosis
Hemoglobin stable-received 1 transfusion during his stay
Normal sodium, potassium, renal function, calcium magnesium and phosphorus levels
Normal LFTs
Plan:
Keep n.p.o.
Continue TPN
Repeat swallowing study earlier next week-if not able to pass-consider feeding tube
Continue PT/OT
Wean off oxygen as able
Monitor electrolytes and replete as needed, keep potassium greater than 4 and magnesium greater than 2
-- Optimize pain management
--PPI for GI ppx
--Lovenox and SCDs for VTE ppx
--Medical management as per primary team
Subjective Data
-
Date of Service: August 19, 2024
Patient seen and examined at bedside
Doing swallowing exercises
Patient feels bloated and has had fever bowel movements yesterday
A little bit cramping in the abdomen
Moving around
Objective Data
-
Intake and Output
08/18/24 08/19/24 08/20/24
06:59 06:59 06:59
Intake Total 1000 / 1000 1480 / 1480
Output Total 775 / 775 900 / 900
Balance 225 / 225 580 / 580
Intake:
Oral fluids 120 / 120
IV fluids (Total) 900 / 900 750 / 750
IV piggybacks 100 / 100 200 / 200
TPN/PPN 410 / 410
Output:
Urine, Voided 775 / 775 900 / 900
Other:
Number of approximated SMALL 1
amounts of urine
Number of approximated MODERATE 1 1
amounts of urine
Vital Signs
Temp Pulse Resp BP Pulse Ox
98.6 F 82 18 118/53 96
08/18/24 23:00 08/18/24 23:00 08/18/24 23:00 08/18/24 23:00 08/18/24 23:00
Lab Results
08/19/24 04:55
08/19/24 04:55
Calcium 8.4 mg/dl (8.4-10.2) 08/19/24 04:55
Phosphorus 2.7 mg/dl (2.5-4.5) 08/19/24 04:55
Magnesium 2.3 mg/dl (1.6-2.3) 08/19/24 04:55
Total Bilirubin 1.2 mg/dl (0.2-1.3) 08/18/24 07:04
Direct Bilirubin 1.0 mg/dl (0.0-0.4) H 08/11/24 04:05
AST 21 U/L (17-59) 08/18/24 07:04
ALT 20 U/L (0-50) 08/18/24 07:04
Alkaline Phosphatase 116 U/L (38-126) 08/18/24 07:04
Total Protein 5.1 g/dl (6.3-8.2) L 08/18/24 07:04
Albumin 2.5 g/dl (3.5-5.0) L 08/18/24 07:04
Physical Exam
-
Patient sitting comfortably in his recliner, appears very weak and fragile, chronically ill, hoarse voice, coughing
Abdomen soft, mildly distended, nontender, incisions look clean with no signs of infection, bowel sounds normal
Chest bilaterally clear to auscultation
Patient has a quintero catheter: No
Patient has a central line: No
[2024-08-19 08:23] VITALS: BP 124/63
--- NOTE | 2024-08-19 08:42 | CM ---
patient chart reviewed
PICC placed-started TPN
cont on oxygen
Per previous CM note-patient for 1 week of TPN and then pending speech assessment/surgery assessment patient and family with make decisions about next steps
PLAN: home with VN pending next speach assessment/video swallow assessment
--- NOTE | 2024-08-19 09:12 | W.PN.HOSP.TC ---
Today's Communication/Plan
-
.
Assessment / Plan
Assessment / Plan
83M PMHx UC s/p total abdominal colectomy w/ J-pouch creation and hernia repairs. Admitted for SBO.
- 1. Small Bowel Obstruction s/p Lysis of Adhesions
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
- Appreciate General Surgery Input
- s/p Ex-lap (08/08) for extensive lysis of adhesions (total lysis not attempted) and SB resection with anastomosis of transition point. POD #11
- Per surgery, expect prolonged post-op ileus. TPN started (08/09), d/sofy (08/14).
- Continue to monitor serum electrolytes, refeeding labs
- 08/11: NG tube removed
- initial removal of 3-4 L feculent material, placed after vomiting and aspiration
- N.p.o.;
- Diet initially advanced to LRD by surgery; s/s of aspiration noted, failed VSE (08/17)
- See Impaired Swallowing Below
- Lactose Free
- TPN restarted 08/19
- PPI Prophylaxis
- Continue PRN Balmex
- ICS, PT/OT continue to be recommended.
- Home O2 assessment <48 hours prior to discharge.
1a. Impaired swallowing
- VSE (08/16): severe pharyngeal dysphagia and silent aspiration across all consistencies
- Suspect this is secondary to recent intubation, patient also with hoarse voice
- In the setting of failed VSE, low threshold for suspicion of aspiration pneumonia. Started on empiric Zosyn. Continue for now.
- ENT (08/18): 'The patient has evidence of intubation/endotracheal tube trauma and this may be inhibiting his swallowing to a certain extent. 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
indicate more chronic problems. I think it is worth a trial of keeping him n.p.o. until early next week and repeating the swallow study. I spoke with the patient that if at that point he is not improved, he might do best with a feeding tube. That
would help prevent aspiration in the future. If the swallowing studies improved, speech therapy consultation might be dang to determine what sort of diet is safe.'
- PICC Line RUE (after LUE failure to place), TPN started;
- Will reach out to speech to see if nighttime PO meds are recommended with small sips
2. Ventilator Dependent Respiratory Failure 2/2 bilateral lower lobe aspiration pneumonia (extubated 08/09)
- Zosyn transitioned to Unasyn
- Temps stable, white counts wavering around ULN
- Pansensitive E. Coli on cultures
- Consider anti-fungals/ID if fevers return
- Daily CBC
- Currently on 4L NC, wean O2 as tolerated. PT/OT. Incentive Spirometry.
- Repeat CXR (08/15): small loculated pleural effusion versus developing lower lobe pneumonia
- Vital Signs, Physical Exam, Labs, ambulatory status improving.
- (08/16): Trialed weaned to 3 L by nasal cannula, patient did not tolerate as well saturating around 93%. In the setting of failed VSE, low threshold for suspicion of aspiration pneumonia. Started on empiric Zosyn.
- (08/17): Patient stable and feeling much better on 4L NC. This may be his plateau and marginal improvements will be slower. Discussed possible need for home O2 to be weaned over the course of weeks.
- (08/18): Patient stable and feeling well from respiratory standpoint. Now on 2L NC representing and improvement. Will check to see his oxygen status while with PT/OT/Respiratory.
3. Septic Shock 2/2 bilateral lower lobe aspiration pneumonia (resolved)
- Antibiotics completed
- Pressors off since 08/08
- Lactate downtrended
4. Acute Kidney Injury (resolved)
- UA unremarkable, eosinophils negative; rules out AIN 2/2 abx
- Consider pre-renal 2/2 sepsis vs. CONCHIS
- 0.8 baseline
5. . UC
- oral home meds continued
6 BPH
- oral home meds continued
7. HLD
- oral home meds continued
8. History of Tick Bite (resolved)
- Lyme screen negative
9. Renal Mass on CT
- ?? Concern for renal neoplasm versus metastasis
10. Trouble Sleeping (resolved)
- Melatonin
- family bringing chair from home that he sleeps in
11. Sore Throat 2/2 hx of intubation
- Continue PRN Cepocol
12. Elevated Alk-Phos (resolved)
- Isolated reading, possibly 2/2 refeeding.
13. Anemia
- Hb on admission ~13
- Since extubation, has been below 10 and hovering between 8 and 10.
- 7.5 this AM, however is status/post failed PICC insertion followed by subsequent successful insertion
- Patient is asymptomatic so will hold off on another stick for a PM recheck, but suggest checking CBC in AM
- In light of steadily increasing thrombocytosis will check iron studies in AM as well
- Type/Cross and Transfuse for Hb < 7
Med/Surg
Dispo Planning: Home O2 Assessment, Patient and Family prefer home to acute rehab
Diet: TPN
Code Status: Full
Anticipated Discharge: > 48 hours
Subjective/Interval History
-
Date of Service: August 19, 2024
Patient seen and examined while sitting comfortably in chair. Patient notes that his nose is dry but saline nasal spray has been helping, and would like ice chips. Otherwise patient with no acute complaints, particularly from a respiratory or
gastrointestinal standpoint. Inquired about bleeding given Hb 7.5, denies a history of bleeding, hemoptysis or blood in stool.
Objective Data
-
Labs:
Laboratory Results
08/19/24
04:55
WBC 10.0
Hgb 7.5 L
Hct 22.0 L
Plt Count 435 H
Sodium 144
Potassium 3.6
Chloride 114 H
Carbon Dioxide 23
BUN 28 H
Creatinine 0.9
Glucose 140 H
Calcium 8.4
Vital Signs:
Vital Signs
Temp Pulse Resp BP Pulse Ox
98.5 F 81 20 124/63 96
08/19/24 08:23 08/19/24 08:23 08/19/24 08:23 08/19/24 08:23 08/19/24 08:23
I&O
08/18/24 08/19/24 08/20/24
06:59 06:59 06:59
Intake Total 1000 / 1000 1480 / 1480
Output Total 775 / 775 900 / 900
Balance 225 / 225 580 / 580
Review of Systems
-
History Source: Patient
Constitutional: Reports No Symptoms
Respiratory: Reports No Symptoms; Denies Trouble Breathing (on 2L NC)
Abdomen/GI: Reports No Symptoms
Neuro: Reports No Symptoms
Physical Exam
-
General: No Apparent Distress, Comfortable and Conversant
HEENT: Normocephalic, Atraumatic and Moist Mucous Membranes
Respiratory: Clear to Auscultation and Non Labored Respirations
Cardiac: Regular Rhythm and S1/S2
GI: Soft and Nontender
Musculoskeletal: No Clubbing, No Cyanosis, No Edema and Other (PICC line in LUE; no tenderness to site, no signs of infection at PICC line site or site of failed insertion)
Skin: Warm and Dry
Neuro: Awake and Alert
Psych: Calm
Data Reviewed
-
Labs: Labs Reviewed by me and Discussed with Patient
--- NOTE | 2024-08-19 09:57 | CM ---
Patient seen at bedside with Whitney
S/p exploratory laparotomy, lysis of adhesion and small bowel resection
PICC, NPO, TPN, cont on oxygen
per notes Repeat swallowing study earlier next week, if not able to pass-consider feeding tube
referral in [facility] for [facility] (accepted)
PLAN: home with [facility] pending next speech assessment/video swallow assessment.
[2024-08-19] MEDS: RESTASIS 0.05% OPHTHALMIC EMULSION 2 DROPS BOTH EYES ×2 (10:17→19:52)
[2024-08-19] MEDS: VITAMIN D3 (cholecalciferol) 25 MCG PO (10:18)
[2024-08-19] MEDS: FLOMAX 0.4 MG PO (10:18)
[2024-08-19] MEDS: PROSCAR 5 MG PO (10:18)
[2024-08-19] MEDS: VITAMIN B-12 1000 MCG PO (10:18)
[2024-08-19] MEDS: PROTONIX 40 MG PO (10:18)
[2024-08-19 10:30] VITALS: BP 94/45; PULSE 73; O2SAT 92
[2024-08-19] MEDS: VENTOLIN NEBULES 2.5 MG INH ×2 (11:00→19:59)
[2024-08-19 11:51] LABS: Glucose - Point of Care 161 mg/dl (70-99)
[2024-08-19] MEDS: NOVOLOG FLEXPEN-MODERATE RESISTANCE 1 UNITS SC (13:18)
[2024-08-19 15:58] VITALS: BP 122/58
[2024-08-19 16:03] LABS: Vitamin B1, Whole Blood 180 nmol/L (70-180)
[2024-08-19 16:19] VITALS: BP 122/58; PULSE 76; O2SAT 97
--- NOTE | 2024-08-19 16:41 | PTCARENOTE ---
SOB today with walking. Is taking in a lot of ice chips, at one time also. ST to eval. Chip consumption decreased d/t to increased SOB/TAMAYO. increased O2 to 2l for comfort
[2024-08-19 17:26] LABS: Glucose - Point of Care 126 mg/dl (70-99)
[2024-08-19] MEDS: CRESTOR 20 MG PO (17:39)
[2024-08-19] MEDS: SINGULAIR 10 MG PO (17:39)
[2024-08-19] MEDS: LOVENOX 40 MG SC (17:41)
--- NOTE | 2024-08-19 18:27 | PTCARENOTE ---
TT wit Dr. Lackey regarding use of straws increase need of O2 today and decreasaed ice intake. doctor will stop non essential meds
[2024-08-19] MEDS: Parenteral Nutrition, Central 1180 IV (21:30)
[2024-08-19 23:45] VITALS: BP 105/47
[2024-08-20 00:22] LABS: Glucose - Point of Care 187 mg/dl (70-99)
[2024-08-20] MEDS: NOVOLOG FLEXPEN-MODERATE RESISTANCE 1 UNITS SC ×2 (00:40→06:35)
[2024-08-20] MEDS: NOVOLOG vial 6 UNITS SC ×2 (00:55→06:35)
[2024-08-20 05:16] LABS: Hematocrit 21.8 % (39.0-52.0); Hemoglobin 7.2 g/dL (13.0-18.0); Mean Corpuscular Hgb 31.4 pg (27.0-31.0); Mean Corpuscular Volume 95.2 fL (80.0-94.0); Mean Platelet Volume 10.8 fL (7.4-10.4); Platelet Count 411 10^3/uL (130-400); Red Blood Cell Count 2.29 10^6/uL (4.70-6.10); Red Cell Dist. Width 14.6 % (11.5-14.5); White Blood Cell Count 9.1 10^3/uL (4.8-10.8)
[2024-08-20 05:41] LABS: Blood Urea Nitrogen 30 mg/dl (9-20); Calcium 8.7 mg/dl (8.4-10.2); Carbon Dioxide 27 mmol/L (22-30); Chloride 113 mmol/L (98-107); Estimated Creatinine Clearance 57 ml/min; Glucose 156 mg/dl (70-99); Magnesium 2.4 mg/dl (1.6-2.3); Phosphorus 3.1 mg/dl (2.5-4.5); Potassium 3.3 mmol/L (3.5-5.1); Sodium 144 mmol/L (135-145); eGFR > 60.00
[2024-08-20 05:43] LABS: Iron < 20 ug/dl (49-181)
[2024-08-20 05:50] LABS: Total Iron Binding Capacity 196 ug/dl (261-462)
[2024-08-20 06:22] LABS: Glucose - Point of Care 160 mg/dl (70-99)
[2024-08-20] MEDS: ZOSYN 50 IV ×4 (06:35→23:08)
[2024-08-20 07:13] VITALS: BMI 21.8
[2024-08-20 07:40] VITALS: BP 132/54
[2024-08-20] MEDS: VENTOLIN NEBULES 2.5 MG INH (07:58)
[2024-08-20] MEDS: KCL 160 MEQ IV (08:23)
[2024-08-20] MEDS: RESTASIS 0.05% OPHTHALMIC EMULSION 2 DROPS BOTH EYES ×2 (08:23→19:17)
--- NOTE | 2024-08-20 09:25 | W.PN.GS2 ---
Today's Communication / Plan
-
Out of bed and ambulate, PT OT.
Throat lozenge.
TPN reordered
Assessment / Plan
-
Impression
Patient is an 83 yo male with a h/o ulcerative colitis s/p total abdominal colectomy with subsequent ileal J-pouch creation in 2009, who presented with complete small bowel obstruction, complicated by aspiration pneumonia with decompensation
prompting exploratory laparotomy, lysis of adhesions and small bowel resection.
POD # 13
S/p exploratory laparotomy, lysis of adhesion and small bowel resection
Incision is healing well, patient has normal bowel sounds, passed stool yesterday, passing gas
Recovering well
Patient currently n.p.o., as he failed his swallowing test
Doing swallowing exercises
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
On lab review
No leukocytosis
Hemoglobin stable-received 1 transfusion during his stay
Normal sodium, potassium, renal function, calcium magnesium and phosphorus levels
Normal LFTs
Plan:
Keep n.p.o.
Continue TPN
Repeat swallowing study earlier next week-if not able to pass-consider feeding tube
Continue PT/OT
Wean off oxygen as able
Monitor electrolytes and replete as needed, keep potassium greater than 4 and magnesium greater than 2
--Okay for throat lozenge, can bring from outside.
-- Optimize pain management
--PPI for GI ppx
--Lovenox and SCDs for VTE ppx
--Medical management as per primary team
Time Spent
Total Time Spent with Patient (in minutes): 20
Subjective Data
-
Date of Service: August 20, 2024
Interval Events:
No acute events overnight. Slept well. Pain Controlled. Denies Nausea/Vomiting, -bowel function. Voice is hoarse.
Objective Data
-
Intake and Output
08/19/24 08/20/24 08/21/24
06:59 06:59 06:59
Intake Total 1480 / 1480 642 / 642 622 / 622
Output Total 900 / 900 350 / 350
Balance 580 / 580 292 / 292 622 / 622
Intake:
Oral fluids 120 / 120
IV fluids (Total) 750 / 750 50 / 50
IV piggybacks 200 / 200 100 / 100 50 / 50
TPN/PPN 410 / 410 492 / 492 572 / 572
Output:
Urine, Voided 900 / 900 350 / 350
Other:
Number of approximated MODERATE 1 2
amounts of urine
Vital Signs
Temp Pulse Resp BP Pulse Ox
100.1 F 77 18 132/54 95
08/20/24 07:40 08/20/24 08:00 08/20/24 08:00 08/20/24 07:40 08/20/24 08:00
Lab Results
08/20/24 04:47
08/20/24 04:47
Calcium 8.7 mg/dl (8.4-10.2) 08/20/24 04:47
Phosphorus 3.1 mg/dl (2.5-4.5) 08/20/24 04:47
Magnesium 2.4 mg/dl (1.6-2.3) H 08/20/24 04:47
Total Bilirubin 1.2 mg/dl (0.2-1.3) 08/18/24 07:04
Direct Bilirubin 1.0 mg/dl (0.0-0.4) H 08/11/24 04:05
AST 21 U/L (17-59) 08/18/24 07:04
ALT 20 U/L (0-50) 08/18/24 07:04
Alkaline Phosphatase 116 U/L (38-126) 08/18/24 07:04
Total Protein 5.1 g/dl (6.3-8.2) L 08/18/24 07:04
Albumin 2.5 g/dl (3.5-5.0) L 08/18/24 07:04
Physical Exam
-
GENERAL/NEURO: Awake, Alert, no distress
CHEST: Unlabored breathing on nasal cannula
ABDOMEN: Soft, Non-Tender, Non-Distended, incisions clean dry and intact.
Patient has a quintero catheter: No
Patient has a central line: Yes (Peripherally inserted)
--- NOTE | 2024-08-20 09:45 | W.PN.HOSP.TC ---
Today's Communication/Plan
-
continuing TPN through next week and re check swallow at that time
Assessment / Plan
Assessment / Plan
pt is an 83 year old male
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
lysis of adhesions (total lysis not attempted) and SB resection with anastomotic of transition point--apprec gen surgery--was slowly advancing diet, now NPO--meanwhile was on TPN which stopped 08/14/24 and now restarted due to dysphagia issues
Ventilator Dependent Respiratory Failure due to bilateral lower lobe aspiration pneumonia (intubated on 08/07 and extubated 08/09)--finished unasyn--blood cultures/resp cultures positive for E. coli---unable to wean O2--recheck CXR shows either
developing pna vs loculated effusion--cont incentive spirometry--reviewed updated surgical note 'coughing with eating'-failed VSE in AM--restarted ABX given failed VSE--recheck CXR Thursday
Acute anemia with thrombocytosis--no reported luminal blood loss. Suspected combination of blood loss from surgery plus requiring daily labs-- transfuse for hbg < 7--iron studies low-- ferritin high but is acute phase reactant
failed swallow exam--aspiration of all consistencies--agree with surgery that hope is transient from intubation--appreciate ENT--1 week TPN and re-evaluate swallowing--if passes, speech for diet, if not then choice between PEG vs hospice
Septic Shock due to bilateral lower lobe aspiration pneumonia (resolved)-- Pressor off since 08/08
Acute Kidney Injury (resolved)- UA unremarkable, eosinophils negative; rules out AIN due to abx- Consider pre-renal due to sepsis vs. CONCHIS- 0.8 baseline
Ulcerative colitis-- oral home meds continued
BPH- oral home meds continued
HLD - oral home meds continued
History of Tick Bite - Lyme screen negative
Renal Mass on CT - ?? Concern for renal neoplasm versus metastasis. will need outpatient urology follow up .
Trouble Sleeping (resolved)- Melatonin- family bringing chair from home that he sleeps in
Sore Throat due to hx of intubation- Continue PRN Cepocol
Elevated Alk-Phos- Isolated reading
DVT proph
Code Status-- Full code
Anticipated Discharge: > 48 hours
Subjective/Interval History
-
Date of Service: August 20, 2024
pt without c/o
Objective Data
-
Labs:
Laboratory Results
08/20/24
04:47
WBC 9.1
Hgb 7.2 L
Hct 21.8 L
Plt Count 411 H
Sodium 144
Potassium 3.3 L
Chloride 113 H
Carbon Dioxide 27
BUN 30 H
Creatinine 0.9
Glucose 156 H
Calcium 8.7
Vital Signs:
max temp for 24 hours
08/20/24
07:40
Temp 100.1 F
Vital Signs
Temp Pulse Resp BP Pulse Ox
100.1 F 77 18 132/54 95
08/20/24 07:40 08/20/24 08:00 08/20/24 08:00 08/20/24 07:40 08/20/24 08:00
I&O
08/19/24 08/20/24 08/21/24
06:59 06:59 06:59
Intake Total 1480 / 1480 642 / 642 622 / 622
Output Total 900 / 900 350 / 350
Balance 580 / 580 292 / 292 622 / 622
Review of Systems
-
All other systems: Reviewed and negative
Physical Exam
-
General: Well Developed, Well Nourished and No Apparent Distress
HEENT: Normocephalic, Atraumatic and Oxygen (1.5L)
Respiratory: Clear to Auscultation; Negative Wheezes or Rhonchi
Cardiac: Regular Rhythm and S1/S2; Negative Murmur
GI: Soft, Nontender, Nondistended and Normal Bowel Sounds
Musculoskeletal: No Clubbing, No Cyanosis, No Edema and Other (PICC line--TPN)
Skin: Warm
Neuro: Awake
Psych: Calm
[2024-08-20] MEDS: ANESTHETIC LOZENGE 1 LOZENGE PO (09:57)
[2024-08-20 12:16] LABS: Glucose - Point of Care 139 mg/dl (70-99)
[2024-08-20] MEDS: NOVOLOG FLEXPEN-MODERATE RESISTANCE SC ×2 (12:33→18:16)
[2024-08-20] MEDS: NOVOLOG FLEXPEN 6 UNITS SC ×2 (12:45→18:16)
[2024-08-20] MEDS: NOVOLOG vial SC (12:48)
[2024-08-20 15:45] VITALS: BP 141/62
[2024-08-20] MEDS: LOVENOX 40 MG SC (17:15)
[2024-08-20 18:13] LABS: Glucose - Point of Care 144 mg/dl (70-99)
[2024-08-20] MEDS: Parenteral Nutrition, Central 1180 IV (21:30)
[2024-08-20 23:20] VITALS: BP 150/60
[2024-08-21 00:20] LABS: Glucose - Point of Care 145 mg/dl (70-99)
[2024-08-21] MEDS: NOVOLOG FLEXPEN-MODERATE RESISTANCE SC ×5 (00:28→23:57)
[2024-08-21] MEDS: NOVOLOG FLEXPEN 6 UNITS SC ×4 (00:33→18:16)
[2024-08-21] MEDS: ZOSYN 50 IV ×4 (05:06→23:56)
[2024-08-21 06:08] LABS: Glucose - Point of Care 143 mg/dl (70-99)
[2024-08-21 06:10] LABS: Hemoglobin 7.1 g/dL (13.0-18.0); Mean Corp Hgb Conc. 33.8 g/dL (33.0-37.0); Mean Corpuscular Hgb 31.1 pg (27.0-31.0); Mean Corpuscular Volume 92.1 fL (80.0-94.0); Mean Platelet Volume 10.8 fL (7.4-10.4); Platelet Count 400 10^3/uL (130-400); Red Blood Cell Count 2.28 10^6/uL (4.70-6.10); Red Cell Dist. Width 14.5 % (11.5-14.5); White Blood Cell Count 7.6 10^3/uL (4.8-10.8)
[2024-08-21 06:32] LABS: Blood Urea Nitrogen 27 mg/dl (9-20); Calcium 8.5 mg/dl (8.4-10.2); Carbon Dioxide 24 mmol/L (22-30); Chloride 117 mmol/L (98-107); Estimated Creatinine Clearance 64 ml/min; Glucose 129 mg/dl (70-99); Magnesium 2.3 mg/dl (1.6-2.3); Phosphorus 2.9 mg/dl (2.5-4.5); Potassium 3.5 mmol/L (3.5-5.1); Sodium 145 mmol/L (135-145); eGFR > 60.00
[2024-08-21 07:00] VITALS: BP 150/64
[2024-08-21] MEDS: RESTASIS 0.05% OPHTHALMIC EMULSION 2 DROPS BOTH EYES ×2 (07:39→20:03)
--- NOTE | 2024-08-21 08:54 | W.PN.HOSP.TC ---
Today's Communication/Plan
-
transfuse 1 unit pRBC
cont TPN
no lozenges or Plaquenil oral at this time per speech
Assessment / Plan
Assessment / Plan
pt is an 83 year old male
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
lysis of adhesions (total lysis not attempted) and SB resection with anastomotic of transition point--apprec gen surgery--was slowly advancing diet, now NPO--meanwhile was on TPN which stopped 08/14/24 and now restarted due to dysphagia issues
failed swallow exam/dysphagia--aspiration of all consistencies--agree with surgery that hope is transient from intubation--appreciate ENT--1 week TPN and re-evaluate swallowing--if passes, speech for diet, if not then choice between PEG vs
hospice--spoke with speech 08/21, NOT cleared for lozenges--speech recommending VSE Thursday to see if can take pills BUT waiting until later in the week after TPN trial would give more time for nutrition and exercises
Acute anemia with thrombocytosis--no reported luminal blood loss. Suspected combination of blood loss from surgery plus requiring daily labs-- transfuse for HGB < 7--iron studies low-- ferritin high but is acute phase reactant--transfuse 1 unit
pRBC today (total would be 2 for this admission)
Ventilator Dependent Respiratory Failure due to bilateral lower lobe aspiration pneumonia (intubated on 08/07 and extubated 08/09)--finished unasyn--blood cultures/resp cultures positive for E. coli---unable to wean O2--recheck CXR shows either
developing pna vs loculated effusion--cont incentive spirometry--reviewed updated surgical note 'coughing with eating'-failed VSE in AM--restarted ABX given failed VSE--recheck CXR Thursday
Septic Shock due to bilateral lower lobe aspiration pneumonia (resolved)-- Pressor off since 08/08
Acute Kidney Injury (resolved)- UA unremarkable, eosinophils negative; rules out AIN due to abx- Consider pre-renal due to sepsis vs. CONCHIS- 0.8 baseline
Ulcerative colitis-- oral home meds continued
BPH- oral home meds continued
HLD - oral home meds continued
History of Tick Bite - Lyme screen negative
Renal Mass on CT - ?? Concern for renal neoplasm versus metastasis. will need outpatient urology follow up .
Trouble Sleeping (resolved)- Melatonin- family bringing chair from home that he sleeps in
Sore Throat due to hx of intubation- Continue PRN Cepocol
Elevated Alk-Phos- Isolated reading
DVT proph
Code Status-- Full code
Anticipated Discharge: > 48 hours
Subjective/Interval History
-
Date of Service: August 21, 2024
pt wants to take Plaquenil IF possible
wants speech to clear regarding lozenges (they did not clear)
Objective Data
-
Labs:
Laboratory Results
08/21/24
05:36
WBC 7.6
Hgb 7.1 L
Hct 21.0 L
Plt Count 400
Sodium 145
Potassium 3.5
Chloride 117 H
Carbon Dioxide 24
BUN 27 H
Creatinine 0.8
Glucose 129 H
Calcium 8.5
Vital Signs:
max temp for 24 hours
08/20/24
07:40
Temp 100.1 F
Vital Signs
Temp Pulse Resp BP Pulse Ox
98.8 F 71 22 150/64 94
08/21/24 07:00 08/21/24 07:00 08/21/24 07:00 08/21/24 07:00 08/21/24 07:00
I&O
08/20/24 08/21/24 08/22/24
06:59 06:59 06:59
Intake Total 642 / 642 622 / 622
Output Total 350 / 350 2 / 2
Balance 292 / 292 620 / 620
Review of Systems
-
All other systems: Reviewed and negative
Physical Exam
-
General: Well Developed, Well Nourished, No Apparent Distress and Other (speech/voice seems stronger today)
HEENT: Normocephalic and Atraumatic; Negative Oxygen
Respiratory: Clear to Auscultation; Negative Wheezes or Rhonchi
Cardiac: Regular Rhythm and S1/S2; Negative Murmur
GI: Soft, Nontender, Nondistended and Normal Bowel Sounds
Musculoskeletal: No Clubbing, No Cyanosis and No Edema
Neuro: Awake and Alert
[2024-08-21 09:23] VITALS: BP 148/59
--- NOTE | 2024-08-21 09:42 | W.PN.GS2 ---
Today's Communication / Plan
-
TPN reordered.
Assessment / Plan
-
Impression
Patient is an 83 yo male with a h/o ulcerative colitis s/p total abdominal colectomy with subsequent ileal J-pouch creation in 2009, who presented with complete small bowel obstruction, complicated by aspiration pneumonia with decompensation
prompting exploratory laparotomy, lysis of adhesions and small bowel resection.
POD # 14
S/p exploratory laparotomy, lysis of adhesion and small bowel resection
Incision is healing well, patient has normal bowel sounds, passed stool yesterday, passing gas
Recovering well
Patient currently n.p.o., as he failed his swallowing test
Doing swallowing exercises
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
Hemoglobin continues to drift, 1 unit of blood ordered per primary.
Plan:
Keep n.p.o.
Continue TPN
Repeat swallowing study earlier next week-if not able to pass-consider feeding tube
Continue PT/OT
Wean off oxygen as able
Monitor electrolytes and replete as needed, keep potassium greater than 4 and magnesium greater than 2
Patient to interested in potentially resuming Plaquenil for his osteoarthritis, will defer to primary/ENT.
--Okay for throat lozenge, can bring from outside. Patient would like a speech to weigh in on this
--Optimize pain management
--PPI for GI ppx
--Lovenox and SCDs for VTE ppx
--Medical management as per primary team
Time Spent
Total Time Spent with Patient (in minutes): 20
Subjective Data
-
Date of Service: August 21, 2024
Interval Events:
No acute events overnight. Slept well. Pain Controlled. Denies Nausea/Vomiting, +bowel function. Tolerating diet.
Objective Data
-
Intake and Output
08/20/24 08/21/24 08/22/24
06:59 06:59 06:59
Intake Total 642 / 642 622 / 622 0 / 0
Output Total 350 / 350 2 / 2
Balance 292 / 292 620 / 620 0 / 0
Intake:
IV fluids (Total) 50 / 50
IV piggybacks 100 / 100 50 / 50
TPN/PPN 492 / 492 572 / 572
Blood Product Amount Infused ( 0 / 0
mL)
Packed Rbc Leukoreduced Unit 0 / 0
[id number]
Output:
Liquid stool amount 2 / 2
Rectum 2 / 2
Urine, Voided 350 / 350
Other:
Number of approximated MODERATE 2
amounts of urine
Number of unmeasured liquid
stools
Rectum 5
Vital Signs
Temp Pulse Resp BP Pulse Ox
99.1 F 71 18 148/59 94
08/21/24 09:23 08/21/24 09:23 08/21/24 09:23 08/21/24 09:23 08/21/24 09:23
Lab Results
08/21/24 05:36
08/21/24 05:36
Calcium 8.5 mg/dl (8.4-10.2) 08/21/24 05:36
Phosphorus 2.9 mg/dl (2.5-4.5) 08/21/24 05:36
Magnesium 2.3 mg/dl (1.6-2.3) 08/21/24 05:36
Total Bilirubin 1.2 mg/dl (0.2-1.3) 08/18/24 07:04
Direct Bilirubin 1.0 mg/dl (0.0-0.4) H 08/11/24 04:05
AST 21 U/L (17-59) 08/18/24 07:04
ALT 20 U/L (0-50) 08/18/24 07:04
Alkaline Phosphatase 116 U/L (38-126) 08/18/24 07:04
Total Protein 5.1 g/dl (6.3-8.2) L 08/18/24 07:04
Albumin 2.5 g/dl (3.5-5.0) L 08/18/24 07:04
Physical Exam
-
GENERAL/NEURO: Awake, Alert, no distress
CHEST: Unlabored breathing on RA
ABDOMEN: Soft, Non-Tender, Non-Distended, incisions clean dry and intact. Kranthi in place.
Patient has a quintero catheter: No
Patient has a central line: Yes (PICC)
[2024-08-21 09:46] VITALS: BP 151/64
[2024-08-21 11:21] VITALS: BP 134/59
[2024-08-21 12:08] LABS: Glucose - Point of Care 142 mg/dl (70-99)
[2024-08-21 15:00] VITALS: BP 155/64
[2024-08-21] MEDS: LOVENOX 40 MG SC (17:37)
[2024-08-21 18:09] LABS: Glucose - Point of Care 128 mg/dl (70-99)
[2024-08-21] MEDS: Parenteral Nutrition, Central 1180 IV (21:53)
[2024-08-21 23:15] VITALS: BP 159/58
[2024-08-21 23:51] LABS: Glucose - Point of Care 135 mg/dl (70-99)
[2024-08-22] MEDS: NOVOLOG FLEXPEN 6 UNITS SC ×4 (00:01→18:02)
[2024-08-22] MEDS: ZOSYN 50 IV ×3 (05:05→18:04)
[2024-08-22 05:06] LABS: Glucose - Point of Care 138 mg/dl (70-99)
[2024-08-22] MEDS: NOVOLOG FLEXPEN-MODERATE RESISTANCE SC ×2 (05:10→18:01)
[2024-08-22 05:26] LABS: Hematocrit 23.1 % (39.0-52.0); Hemoglobin 7.8 g/dL (13.0-18.0); Mean Corp Hgb Conc. 33.8 g/dL (33.0-37.0); Mean Corpuscular Volume 91.7 fL (80.0-94.0); Mean Platelet Volume 10.5 fL (7.4-10.4); Platelet Count 354 10^3/uL (130-400); Red Blood Cell Count 2.52 10^6/uL (4.70-6.10); Red Cell Dist. Width 14.6 % (11.5-14.5); White Blood Cell Count 7.2 10^3/uL (4.8-10.8)
[2024-08-22 05:49] LABS: ALT (SGPT) 14 U/L (0-50); AST (SGOT) 17 U/L (17-59); Albumin 2.3 g/dl (3.5-5.0); Alkaline Phosphatase 113 U/L (38-126); Blood Urea Nitrogen 25 mg/dl (9-20); Calcium 8.4 mg/dl (8.4-10.2); Carbon Dioxide 25 mmol/L (22-30); Chloride 116 mmol/L (98-107); Estimated Creatinine Clearance 64 ml/min; Glucose 137 mg/dl (70-99); Magnesium 2.2 mg/dl (1.6-2.3); Phosphorus 3.2 mg/dl (2.5-4.5); Potassium 3.7 mmol/L (3.5-5.1); Sodium 145 mmol/L (135-145); Total Bilirubin 0.8 mg/dl (0.2-1.3); Triglycerides 65 mg/dl (10-149); eGFR > 60.00
[2024-08-22 06:00] VITALS: BMI 21.5
[2024-08-22 07:20] VITALS: BP 143/64
[2024-08-22] MEDS: RESTASIS 0.05% OPHTHALMIC EMULSION 2 DROPS BOTH EYES ×2 (07:53→20:25)
--- NOTE | 2024-08-22 08:53 | PTCARENOTE ---
pt aaox3. anxious at times. oob in chair that he brought from home. states having chronic back pain refused any pain meds at this time. abd lap sites glued parvin c/d/i. tpn running via left picc as ordered.
--- NOTE | 2024-08-22 10:30 | CM ---
Patient seen at bedside with present in room on . Patient with questions about next steps; await speach and physicians for clarification. Patient continues to plan to go home with [facility] and watching for any Feedings at home if patient
physician recommending peg tube. Patient continues to state he will stay in hospital as long as possible to be able to go home eating food. CM will continue to follow for discharge planning needs.
Plan;home with [facility]; watch for diet orders/tube feeding per medical treatment plan
--- NOTE | 2024-08-22 10:34 | W.PN.GS2 ---
Addendum entered and electronically signed by Chuck Martins MD 08/22/24 11:29:
I saw and examined the patient independently.
The resident's documentation was reviewed and I agree with the note, assessment and plan except where noted below.
Comment: 83-year-old male postoperative day 15 status post exploratory laparotomy, lysis of adhesions, small bowel resection with prolonged ileus now with return of bowel function but poor swallow reflex currently n.p.o. on TPN.
Appreciate ENT and swallow eval, recs and management.
Continue n.p.o. with meds and limited ice chips until repeat swallow.
TPN reordered.
We will remove his cindy over the next few days, and certainly prior to discharge.
All questions answered, patient agreeable to plan of care above.
Original Note:
Today's Communication / Plan
-
Renewed TPN
Continue swallowing exercises
Assessment / Plan
-
Impression
Patient is an 83 yo male with a h/o ulcerative colitis s/p total abdominal colectomy with subsequent ileal J-pouch creation in 2009, who presented with complete small bowel obstruction, complicated by aspiration pneumonia with decompensation
prompting exploratory laparotomy, lysis of adhesions and small bowel resection.
POD # 15
S/p exploratory laparotomy, lysis of adhesion and small bowel resection
Incision is healing well, patient has normal bowel sounds, passed stool yesterday, passing gas
Recovering well
Patient currently n.p.o., as he failed his swallowing test
Doing swallowing exercises
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
Received 1 pent of blood on 08/21-hemoglobin increased appropriately
Mild hyperchloremia
On TPN
Plan:
Keep n.p.o.
Continue TPN
Repeat swallowing study earlier next week-if not able to pass-consider feeding tube
Continue PT/OT, speech therapy and swallowing exercises
Wean off oxygen as able
Monitor electrolytes and replete as needed, keep potassium greater than 4 and magnesium greater than 2
Patient to interested in potentially resuming Plaquenil for his osteoarthritis, will defer to primary/ENT.
--Optimize pain management
--PPI for GI ppx
--Lovenox and SCDs for VTE ppx
--Medical management as per primary team
Subjective Data
-
Date of Service: August 22, 2024
Patient seen and examined at bedside
Currently n.p.o. due to swallowing issues
Passing gas and stool
Currently breathing on room air
Objective Data
-
Intake and Output
08/21/24 08/22/24 08/23/24
06:59 06:59 06:59
Intake Total 622 / 622 898 / 898
Output Total 2 / 2 725 / 725
Balance 620 / 620 173 / 173
Intake:
IV fluids (Total) 100 / 100
IV piggybacks 50 / 50
TPN/PPN 572 / 572 548 / 548
Blood Product Amount Infused ( 250 / 250
mL)
Packed Rbc Leukoreduced Unit 250 / 250
[id number]
Output:
Liquid stool amount 2 / 2
Rectum 2 / 2
Urine, Voided 725 / 725
Other:
Number of approximated MODERATE 2
amounts of urine
Number of unmeasured liquid
stools
Rectum 5
Vital Signs
Temp Pulse Resp BP Pulse Ox
99.2 F 65 20 143/64 92
08/22/24 07:20 08/22/24 07:20 08/22/24 07:20 08/22/24 07:20 08/22/24 07:20
Lab Results
08/22/24 05:05
08/22/24 05:05
Calcium 8.4 mg/dl (8.4-10.2) 08/22/24 05:05
Phosphorus 3.2 mg/dl (2.5-4.5) 08/22/24 05:05
Magnesium 2.2 mg/dl (1.6-2.3) 08/22/24 05:05
Total Bilirubin 0.8 mg/dl (0.2-1.3) 08/22/24 05:05
Direct Bilirubin 1.0 mg/dl (0.0-0.4) H 08/11/24 04:05
AST 17 U/L (17-59) 08/22/24 05:05
ALT 14 U/L (0-50) 08/22/24 05:05
Alkaline Phosphatase 113 U/L (38-126) 08/22/24 05:05
Total Protein 5.0 g/dl (6.3-8.2) L 08/22/24 05:05
Albumin 2.3 g/dl (3.5-5.0) L 08/22/24 05:05
Physical Exam
-
No apparent distress, breathing on room air
Abdomen soft, mildly distended, nontender, incision looks clean, no signs of infection, normal bowel sounds
Chest bilaterally clear to auscultation
Judgment/Insight good
Patient has a quintero catheter: No
Patient has a central line: No
[2024-08-22 12:03] LABS: Glucose - Point of Care 160 mg/dl (70-99)
[2024-08-22] MEDS: NOVOLOG FLEXPEN-MODERATE RESISTANCE 1 UNITS SC (12:13)
--- NOTE | 2024-08-22 12:34 | W.PN.HOSP.TC ---
Today's Communication/Plan
-
VSE ordered
repeat ST eval pending
maintain on TPN
CXR reviewed, last dose abx today
Assessment / Plan
Assessment / Plan
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
lysis of adhesions (total lysis not attempted) and SB resection with anastomotic of transition point--apprec gen surgery--was slowly advancing diet, now NPO--meanwhile was on TPN which stopped 08/14/24 and now restarted due to dysphagia issues
failed swallow exam/dysphagia--aspiration of all consistencies--agree with surgery that hope is transient from intubation--appreciate ENT--1 week TPN and re-evaluate swallowing--if passes, speech for diet, if not then choice between PEG vs
hospice--spoke with speech 08/21, NOT cleared for lozenges--repeat speech evaluation pending today, ordered VSE.
Acute anemia with thrombocytosis--no reported luminal blood loss. Suspected combination of blood loss from surgery plus requiring daily labs-- transfuse for HGB < 7--iron studies low-- ferritin high but is acute phase reactant--transfuse 1 unit
pRBC today (total would be 2 for this admission)
Ventilator Dependent Respiratory Failure due to bilateral lower lobe aspiration pneumonia (intubated on 08/07 and extubated 08/09)--finished unasyn--blood cultures/resp cultures positive for E. coli---unable to wean O2--recheck CXR shows either
developing pna vs loculated effusion--cont incentive spirometry--reviewed updated surgical note 'coughing with eating'--restarted ABX given failed VSE--repeat chest x-ray showing nonspecific interstitial markings bilaterally. Minuscule right-sided
pleural effusion. Patient getting day 5 of repeat antibiotic course, will discontinue from tomorrow morning
Septic Shock due to bilateral lower lobe aspiration pneumonia (resolved)-- Pressor off since 08/08
Acute Kidney Injury (resolved)- UA unremarkable, eosinophils negative; rules out AIN due to abx- Consider pre-renal due to sepsis vs. CONCHIS- 0.8 baseline
Ulcerative colitis-- oral home meds continued
BPH- oral home meds continued
HLD - oral home meds continued
History of Tick Bite - Lyme screen negative
Renal Mass on CT - ?? Concern for renal neoplasm versus metastasis. will need outpatient urology follow up .
Trouble Sleeping (resolved)- Melatonin- family bringing chair from home that he sleeps in
Sore Throat due to hx of intubation- Continue PRN Cepocol
Elevated Alk-Phos- Isolated reading
DVT proph
Code Status-- Full code
Anticipated Discharge: > 48 hours
Subjective/Interval History
-
Date of Service: August 22, 2024
Patient anxious to have speech therapy evaluation today
Voice remains hoarse
No reported abdominal issues
Objective Data
-
Labs:
Laboratory Results
08/22/24
05:05
WBC 7.2
Hgb 7.8 L
Hct 23.1 L
Plt Count 354
Sodium 145
Potassium 3.7
Chloride 116 H
Carbon Dioxide 25
BUN 25 H
Creatinine 0.8
Glucose 137 H
Calcium 8.4
Total Bilirubin 0.8
AST 17
ALT 14
Alkaline Phosphatase 113
Vital Signs:
Vital Signs
Temp Pulse Resp BP Pulse Ox
99.2 F 65 20 143/64 92
08/22/24 07:20 08/22/24 07:20 08/22/24 07:20 08/22/24 07:20 08/22/24 07:20
I&O
08/21/24 08/22/24 08/23/24
06:59 06:59 06:59
Intake Total 622 / 622 898 / 898
Output Total 725 / 725
Balance 620 / 620 173 / 173
Review of Systems
-
Respiratory: Reports No Symptoms
Cardiac: Reports No Symptoms
Abdomen/GI: Reports No Symptoms
Physical Exam
-
General: Other (speech/voice seems stronger today)
HEENT: Negative Oxygen
GI: Soft, Nontender and Nondistended
Neuro: Awake and Alert
--- NOTE | 2024-08-22 12:41 | W.PN.UPDATE ---
Update Note
Progress Note Update
Kranthi removed from midline abdominal incision at bedside. Pt tolerated well. Incision healing well, edges well approximated. Steri strips applied. Ok to leave [employer]. Ok to shower
--- NOTE | 2024-08-22 13:25 | PTOTSP ---
Speech Language Pathology
Pt seen for dysphagia tx. Discussed importance of oral care in decreasing risk of PNA. Swallowing exercises completed.
Discussed severity of dysphagia on VSE completed 08/17 and ENT report. Hopeful that dysphagia is acute and related to post intubation trauma, but unable to rule out chronic component, especially given fact that aspiration was silent on VSE. Pt now
on room air. Will allow increased ice chips with monitoring at this time.
Recommend:
1. NPO
2. ARHP following oral care and with supervision. Allow ice chips for completion of exercises. Approximately 1/4 cup each hour at a maximum
3. Modifiable risk factors for aspiration pneumonia including encouraging frequent and thorough oral care, pulmonary hygiene measures, and increasing physical mobility as medically feasible
4. [employer]ING [employer]ENT to follow for training in pharyngeal strengthening exercises
5. Plan repeat instrumental prior to diet initiation due to silent aspiration on 08/24
[2024-08-22 15:30] VITALS: BP 140/66
[2024-08-22] MEDS: LOVENOX 40 MG SC (17:59)
[2024-08-22 18:01] LABS: Glucose - Point of Care 133 mg/dl (70-99)
[2024-08-22] MEDS: VENTOLIN NEBULES 2.5 MG INH (20:35)
[2024-08-22] MEDS: Parenteral Nutrition, Central 1180 IV (21:15)
[2024-08-22 23:15] VITALS: BP 132/51
[2024-08-23 00:10] LABS: Glucose - Point of Care 166 mg/dl (70-99)
[2024-08-23] MEDS: NOVOLOG FLEXPEN 6 UNITS SC ×4 (00:40→18:05)
[2024-08-23] MEDS: NOVOLOG FLEXPEN-MODERATE RESISTANCE 1 UNITS SC ×2 (00:40→06:25)
[2024-08-23 06:00] VITALS: BMI 21.3
[2024-08-23 06:13] LABS: Glucose - Point of Care 169 mg/dl (70-99)
--- NOTE | 2024-08-23 07:03 | W.PN.GS2 ---
Addendum entered and electronically signed by Uli Fitch MD 08/23/24 10:24:
Patient seen and examined.
No new complaints. Denies any abdominal pain or discomfort. Continues to pass flatus.
Abdomen benign
Patient is an 83 yo male with a h/o ulcerative colitis s/p total abdominal colectomy with subsequent ileal J-pouch creation in 2009, who presented with complete small bowel obstruction, complicated by aspiration pneumonia with decompensation
POD # 15 s/p exploratory laparotomy, lysis of adhesion and small bowel resection
Current issues with dysphagia likely multifactorial related to chronic aspiration issues, normal postoperative irritation from ETT and chronic laryngeal dysfunction possibly secondary to arthritis in the neck. ENT following. Previously failed VSE.
Currently undergoing swallowing exercises and PT. Plan for repeat VSE at some point this week.
No issues from a postoperative general surgery standpoint. TPN renewed.
Plan:
-- TPN renewed
-- Swallowing exercises and PT per [employer]
-- Appreciate ENT assistance
-- GI: PPI
-- DVT: Lovenox and SCDs
Original Note:
Today's Communication / Plan
-
Continue incentive spirometry
Continue swallowing exercises
Swallowing study this week
Assessment / Plan
-
Impression
Patient is an 83 yo male with a h/o ulcerative colitis s/p total abdominal colectomy with subsequent ileal J-pouch creation in 2009, who presented with complete small bowel obstruction, complicated by aspiration pneumonia with decompensation
prompting exploratory laparotomy, lysis of adhesions and small bowel resection.
POD # 15
S/p exploratory laparotomy, lysis of adhesion and small bowel resection
Incision is healing well, patient has normal bowel sounds, passed stool yesterday, passing gas
Recovering well
Patient currently n.p.o., as he failed his swallowing test
Doing swallowing exercises
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
Received 1 pent of blood on 08/21-hemoglobin increased appropriately
Mild hyperchloremia
On TPN
Plan:
Keep n.p.o.
Continue TPN
Plan to repeat swallowing study on Thursday?-pending feeding tube decision
Continue PT/OT, speech therapy and swallowing exercises
Continue incentive spirometry
Monitor electrolytes and replete as needed, keep potassium greater than 4 and magnesium greater than 2
Patient to interested in potentially resuming Plaquenil for his osteoarthritis, will defer to primary/ENT.
--Optimize pain management
--PPI for GI ppx
--Lovenox and SCDs for VTE ppx
--Medical management as per primary team
Subjective Data
-
Date of Service: August 23, 2024
Patient seen and examined at bedside
No active issues, overall feels fine
Sitting in his recliner comfortable
Objective Data
-
Intake and Output
08/22/24 08/23/24 08/24/24
06:59 06:59 06:59
Intake Total 898 / 898 1276 / 1276
Output Total 725 / 725 700 / 700
Balance 173 / 173 576 / 576
Intake:
IV fluids (Total) 100 / 100
IV piggybacks 100 / 100
TPN/PPN 548 / 548 1176 / 1176
Blood Product Amount Infused ( 250 / 250
mL)
Packed Rbc Leukoreduced Unit 250 / 250
[id number]
Output:
Urine, Voided 725 / 725 700 / 700
Other:
Number of approximated MODERATE 3
amounts of urine
Vital Signs
Temp Pulse Resp BP Pulse Ox
98.1 F 70 16 132/51 94
08/22/24 23:15 08/22/24 23:15 08/22/24 23:15 08/22/24 23:15 08/22/24 23:15
Lab Results
08/22/24 05:05
08/22/24 05:05
Calcium 8.4 mg/dl (8.4-10.2) 08/22/24 05:05
Phosphorus 3.2 mg/dl (2.5-4.5) 08/22/24 05:05
Magnesium 2.2 mg/dl (1.6-2.3) 08/22/24 05:05
Total Bilirubin 0.8 mg/dl (0.2-1.3) 08/22/24 05:05
Direct Bilirubin 1.0 mg/dl (0.0-0.4) H 08/11/24 04:05
AST 17 U/L (17-59) 08/22/24 05:05
ALT 14 U/L (0-50) 08/22/24 05:05
Alkaline Phosphatase 113 U/L (38-126) 08/22/24 05:05
Total Protein 5.0 g/dl (6.3-8.2) L 08/22/24 05:05
Albumin 2.3 g/dl (3.5-5.0) L 08/22/24 05:05
Physical Exam
-
No apparent distress
Breathing on room air, few scattered wheezes
Abdomen soft, nontender, incision looks clean, cindy removed
Awake and oriented
Patient has a quintero catheter: No
Patient has a central line: No
[2024-08-23 07:20] VITALS: BP 137/59
[2024-08-23] MEDS: RESTASIS 0.05% OPHTHALMIC EMULSION 2 DROPS BOTH EYES ×2 (08:51→21:17)
[2024-08-23 12:08] LABS: Glucose - Point of Care 123 mg/dl (70-99)
[2024-08-23] MEDS: NOVOLOG FLEXPEN-MODERATE RESISTANCE SC ×2 (12:18→18:04)
--- NOTE | 2024-08-23 12:50 | W.PN.HOSP.TC ---
Today's Communication/Plan
-
stopped abx
maintain on TPN
VSE on thursday
Assessment / Plan
Assessment / Plan
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
lysis of adhesions (total lysis not attempted) and SB resection with anastomotic of transition point--apprec gen surgery--was slowly advancing diet, now NPO--meanwhile was on TPN which stopped 08/14/24 and now restarted due to dysphagia issues
failed swallow exam/dysphagia--aspiration of all consistencies--agree with surgery that hope is transient from intubation--appreciate ENT--1 week TPN and re-evaluate swallowing--if passes, speech for diet, if not then choice between PEG vs
hospice--spoke with speech 08/21, NOT cleared for lozenges--patient concerned that he would not pass the swallow evaluation, appropriate to wait few more days. VSE is planned for Thursday at this point
Acute anemia with thrombocytosis--no reported luminal blood loss. Suspected combination of blood loss from surgery plus requiring daily labs-- transfuse for HGB < 7--iron studies low-- ferritin high but is acute phase reactant--transfuse 1 unit
pRBC today (total would be 2 for this admission)
Ventilator Dependent Respiratory Failure due to bilateral lower lobe aspiration pneumonia (intubated on 08/07 and extubated 08/09)--finished unasyn--blood cultures/resp cultures positive for E. coli---unable to wean O2--recheck CXR shows either
developing pna vs loculated effusion--cont incentive spirometry--reviewed updated surgical note 'coughing with eating'--restarted ABX given failed VSE--repeat chest x-ray showing nonspecific interstitial markings bilaterally. Minuscule right-sided
pleural effusion. Patient finished his second round of 5-day antibiotic course.
Septic Shock due to bilateral lower lobe aspiration pneumonia (resolved)-- Pressor off since 08/08
Acute Kidney Injury (resolved)- UA unremarkable, eosinophils negative; rules out AIN due to abx- Consider pre-renal due to sepsis vs. CONCHIS- 0.8 baseline
Ulcerative colitis-- oral home meds continued
BPH- oral home meds continued
HLD - oral home meds continued
History of Tick Bite - Lyme screen negative
Renal Mass on CT - ?? Concern for renal neoplasm versus metastasis. will need outpatient urology follow up .
Trouble Sleeping (resolved)- Melatonin- family bringing chair from home that he sleeps in
Sore Throat due to hx of intubation- Continue PRN Cepocol
Elevated Alk-Phos- Isolated reading
DVT proph
Code Status-- Full code
Anticipated Discharge: > 48 hours
Subjective/Interval History
-
Date of Service: August 23, 2024
Resting comfortably in bed
Denies any abdominal pain nausea vomiting
no other reported problems
Objective Data
-
Vital Signs:
Vital Signs
Temp Pulse Resp BP Pulse Ox
99.1 F 69 20 137/59 94
08/23/24 07:20 08/23/24 07:20 08/23/24 07:20 08/23/24 07:20 08/23/24 07:20
I&O
08/22/24 08/23/24 08/24/24
06:59 06:59 06:59
Intake Total 898 / 898 1276 / 1276
Output Total 725 / 725 700 / 700
Balance 173 / 173 576 / 576
Review of Systems
-
Respiratory: Reports No Symptoms
Cardiac: Reports No Symptoms
Abdomen/GI: Reports No Symptoms
Physical Exam
-
General: Other (speech/voice seems stronger today)
HEENT: Negative Oxygen
GI: Soft, Nontender and Nondistended
Neuro: Awake and Alert
[2024-08-23 15:10] VITALS: BP 140/63
[2024-08-23] MEDS: TORADOL 15 MG IV (18:03)
[2024-08-23] MEDS: LOVENOX 40 MG SC (18:04)
[2024-08-23 18:05] LABS: Glucose - Point of Care 106 mg/dl (70-99)
[2024-08-23] MEDS: Parenteral Nutrition, Central 1180 IV (21:18)
[2024-08-23 23:20] VITALS: BP 128/62
[2024-08-23 23:58] LABS: Glucose - Point of Care 118 mg/dl (70-99)
[2024-08-24] MEDS: NOVOLOG FLEXPEN-MODERATE RESISTANCE SC ×5 (00:04→23:50)
[2024-08-24] MEDS: NOVOLOG FLEXPEN 6 UNITS SC ×5 (00:27→23:50)
[2024-08-24 06:00] VITALS: BMI 21.1
[2024-08-24 06:23] LABS: Glucose - Point of Care 125 mg/dl (70-99)
[2024-08-24 08:01] VITALS: BP 145/59
[2024-08-24] MEDS: RESTASIS 0.05% OPHTHALMIC EMULSION 2 DROPS BOTH EYES ×2 (08:49→21:04)
--- NOTE | 2024-08-24 10:39 | CM ---
Patient seen at bedside in [address] [place] [address]. Patient and niece also present. Patient with questions about next steps, surgery also in to see patient. Patient for testing with video swallow on Thursday. CM will continue to follow for discharge.
Plan; home with VN watch for Tube feeding need pending medical treatment plan
--- NOTE | 2024-08-24 10:50 | W.PN.GS2 ---
Today's Communication / Plan
-
TPN
rpt swallow eval 08/26
Assessment / Plan
-
Impression
Patient is an 83 yo male with a h/o ulcerative colitis s/p total abdominal colectomy with subsequent ileal J-pouch creation in 2009, who presented with complete small bowel obstruction, complicated by aspiration pneumonia with decompensation
prompting exploratory laparotomy, lysis of adhesions and small bowel resection.
POD # 16
S/p exploratory laparotomy, lysis of adhesion and small bowel resection
Incision is healing well, patient has normal bowel sounds, passed stool yesterday, passing gas
Recovering well
Patient currently n.p.o., as he failed his swallowing test
Doing swallowing exercises
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
Received 1 pint of blood on 08/21-hemoglobin increased appropriately
Mild hyperchloremia
On TPN, adjusted today for high Cl, high Mg, high phos, borderline high Na
Plan:
Keep n.p.o.
Continue TPN
Plan to repeat swallowing study 08/26 per [employer]
Continue PT/OT, speech therapy and swallowing exercises
Continue incentive spirometry
Monitor electrolytes and replete as needed, keep potassium greater than 4 and magnesium greater than 2
Patient to interested in potentially resuming Plaquenil for his osteoarthritis, will defer to primary/ENT.
--Optimize pain management
--PPI for GI ppx
--Lovenox and SCDs for VTE ppx
--Medical management as per primary team
Subjective Data
-
Date of Service: August 24, 2024
AFVSS, no complaints, passing BMs and flatus, denies abd pain
Objective Data
-
Intake and Output
08/23/24 08/24/24 08/25/24
06:59 06:59 06:59
Intake Total 1276 / 1276 1356 / 1356
Output Total 700 / 700 300 / 300
Balance 576 / 576 1056 / 1056
Intake:
Oral fluids 180 / 180
IV piggybacks 100 / 100
TPN/PPN 1176 / 1176 1176 / 1176
Output:
Urine, Voided 700 / 700 300 / 300
Other:
Number of approximated SMALL 1
amounts of urine
Number of approximated MODERATE 3 1
amounts of urine
Vital Signs
Temp Pulse Resp BP Pulse Ox
98.6 F 71 16 145/59 96
08/24/24 08:01 08/24/24 08:01 08/24/24 08:01 08/24/24 08:01 08/24/24 08:01
Lab Results
08/22/24 05:05
08/22/24 05:05
Calcium 8.4 mg/dl (8.4-10.2) 08/22/24 05:05
Phosphorus 3.2 mg/dl (2.5-4.5) 08/22/24 05:05
Magnesium 2.2 mg/dl (1.6-2.3) 08/22/24 05:05
Total Bilirubin 0.8 mg/dl (0.2-1.3) 08/22/24 05:05
Direct Bilirubin 1.0 mg/dl (0.0-0.4) H 08/11/24 04:05
AST 17 U/L (17-59) 08/22/24 05:05
ALT 14 U/L (0-50) 08/22/24 05:05
Alkaline Phosphatase 113 U/L (38-126) 08/22/24 05:05
Total Protein 5.0 g/dl (6.3-8.2) L 08/22/24 05:05
Albumin 2.3 g/dl (3.5-5.0) L 08/22/24 05:05
Physical Exam
-
Gen: NAD
Abd: soft, nd, nt, incision healing well
Patient has a quintero catheter: No
Patient has a central line: Yes
[2024-08-24 12:41] LABS: Glucose - Point of Care 146 mg/dl (70-99)
--- NOTE | 2024-08-24 13:20 | W.PN.HOSP.TC ---
Today's Communication/Plan
-
activity as tolerated
VSE on thursday
Assessment / Plan
Assessment / Plan
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
lysis of adhesions (total lysis not attempted) and SB resection with anastomotic of transition point--apprec gen surgery--was slowly advancing diet, now NPO--meanwhile was on TPN which stopped 08/14/24 and now restarted due to dysphagia issues
failed swallow exam/dysphagia--aspiration of all consistencies--agree with surgery that hope is transient from intubation--appreciate ENT--1 week TPN and re-evaluate swallowing--if passes, speech for diet, if not then choice between PEG vs
hospice--spoke with speech 08/21, NOT cleared for lozenges--patient concerned that he would not pass the swallow evaluation, appropriate to wait few more days. VSE is planned for Thursday at this point
Acute anemia with thrombocytosis--no reported luminal blood loss. Suspected combination of blood loss from surgery plus requiring daily labs-- transfuse for HGB < 7--iron studies low-- ferritin high but is acute phase reactant--transfuse 1 unit
pRBC today (total would be 2 for this admission)
Ventilator Dependent Respiratory Failure due to bilateral lower lobe aspiration pneumonia (intubated on 08/07 and extubated 08/09)--finished unasyn--blood cultures/resp cultures positive for E. coli---unable to wean O2--recheck CXR shows either
developing pna vs loculated effusion--cont incentive spirometry--reviewed updated surgical note 'coughing with eating'--restarted ABX given failed VSE--repeat chest x-ray showing nonspecific interstitial markings bilaterally. Minuscule right-sided
pleural effusion. Patient finished his second round of 5-day antibiotic course.
Septic Shock due to bilateral lower lobe aspiration pneumonia (resolved)-- Pressor off since 08/08
Acute Kidney Injury (resolved)- UA unremarkable, eosinophils negative; rules out AIN due to abx- Consider pre-renal due to sepsis vs. CONCHIS- 0.8 baseline
Ulcerative colitis-- oral home meds continued
BPH- oral home meds continued
HLD - oral home meds continued
History of Tick Bite - Lyme screen negative
Renal Mass on CT - ?? Concern for renal neoplasm versus metastasis. will need outpatient urology follow up .
Trouble Sleeping (resolved)- Melatonin- family bringing chair from home that he sleeps in
Sore Throat due to hx of intubation- Continue PRN Cepocol
Elevated Alk-Phos- Isolated reading
DVT proph
Code Status-- Full code
Anticipated Discharge: > 48 hours
Subjective/Interval History
-
Date of Service: August 24, 2024
No issues overnight
No abdominal pain/nausea/vomiting
Objective Data
-
Labs:
Laboratory Results
08/24/24
13:10
Sodium Pending
Potassium Pending
Chloride Pending
Carbon Dioxide Pending
BUN Pending
Creatinine Pending
Glucose Pending
Calcium Pending
Vital Signs:
Vital Signs
Temp Pulse Resp BP Pulse Ox
98.6 F 71 16 145/59 96
08/24/24 08:01 08/24/24 08:01 08/24/24 08:01 08/24/24 08:01 08/24/24 08:01
I&O
08/23/24 08/24/24 08/25/24
06:59 06:59 06:59
Intake Total 1276 / 1276 1356 / 1356
Output Total 700 / 700 300 / 300
Balance 576 / 576 1056 / 1056
Review of Systems
-
Respiratory: Reports No Symptoms
Cardiac: Reports No Symptoms
Abdomen/GI: Reports No Symptoms
Physical Exam
-
General: Other (speech/voice seems stronger today)
HEENT: Negative Oxygen
GI: Soft, Nontender and Nondistended
Neuro: Awake and Alert
[2024-08-24 13:48] LABS: Blood Urea Nitrogen 29 mg/dl (9-20); Calcium 8.8 mg/dl (8.4-10.2); Carbon Dioxide 23 mmol/L (22-30); Chloride 113 mmol/L (98-107); Estimated Creatinine Clearance 71 ml/min; Glucose 144 mg/dl (70-99); Magnesium 2.2 mg/dl (1.6-2.3); Phosphorus 3.3 mg/dl (2.5-4.5); Sodium 140 mmol/L (135-145); eGFR > 60.00
[2024-08-24 15:30] VITALS: BP 112/75
[2024-08-24 18:32] LABS: Glucose - Point of Care 127 mg/dl (70-99)
[2024-08-24] MEDS: LOVENOX 40 MG SC (18:34)
[2024-08-24] MEDS: Parenteral Nutrition, Central 1150 IV (21:04)
[2024-08-24 23:18] VITALS: BP 135/65
[2024-08-24 23:45] LABS: Glucose - Point of Care 120 mg/dl (70-99)
[2024-08-25 05:51] LABS: Glucose - Point of Care 117 mg/dl (70-99)
[2024-08-25 05:54] VITALS: BMI 20.7
[2024-08-25] MEDS: NOVOLOG FLEXPEN-MODERATE RESISTANCE SC ×3 (05:55→18:14)
[2024-08-25 06:02] LABS: Blood Urea Nitrogen 29 mg/dl (9-20); Calcium 8.5 mg/dl (8.4-10.2); Carbon Dioxide 23 mmol/L (22-30); Chloride 114 mmol/L (98-107); Estimated Creatinine Clearance 70 ml/min; Glucose 139 mg/dl (70-99); Magnesium 2.1 mg/dl (1.6-2.3); Phosphorus 3.2 mg/dl (2.5-4.5); Potassium 3.9 mmol/L (3.5-5.1); Sodium 140 mmol/L (135-145); eGFR > 60.00
[2024-08-25] MEDS: NOVOLOG FLEXPEN 6 UNITS SC ×3 (06:27→18:27)
--- NOTE | 2024-08-25 07:33 | W.PN.GS2 ---
Addendum entered and electronically signed by Carmine Dumont MD 08/25/24 08:54:
Patient seen and examined in follow-up with neurosurgical nurse. Agree with documented progress note with additions noted here.
Overall Mr. Bello feels like he is returning to his baseline GI function other than stool consistency.
Passing flatus, loose bowel movements throughout the day.
Denies abdominal bloating, distention. No abdominal pain
AFVSS
NAD AAO x 3
ABD soft, nondistended, no tenderness. Laparotomy incision healing well, no open wounds, Steri-Strips in place.
A/P: TPN renewed
Speech therapy follow-up swallow evaluation plan for tomorrow 08/26/2024; from a postoperative dietary standpoint he would be cleared to resume a low residue diet as tolerated
Original Note:
Today's Communication / Plan
-
Continue TPN
Swallowing study on 08/26
Assessment / Plan
-
Impression
Patient is an 83 yo male with a h/o ulcerative colitis s/p total abdominal colectomy with subsequent ileal J-pouch creation in 2009, who presented with complete small bowel obstruction, complicated by aspiration pneumonia with decompensation
prompting exploratory laparotomy, lysis of adhesions and small bowel resection.
POD # 17
S/p exploratory laparotomy, lysis of adhesion and small bowel resection
Incision is healing well, patient has normal bowel sounds, passed stool yesterday, passing gas
Recovering well
Patient currently n.p.o., as he failed his swallowing test
Doing swallowing exercises
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
Received 1 pint of blood on 08/21-hemoglobin increased appropriately
Mild hyperchloremia
On TPN
Plan:
Keep n.p.o.
Continue TPN
Plan to repeat swallowing study 08/26 per AIR INTERCEPT CONTROLLER SUPERVISOR
Continue PT/OT, speech therapy and swallowing exercises
Continue incentive spirometry
Monitor electrolytes and replete as needed, keep potassium greater than 4 and magnesium greater than 2
Patient to interested in potentially resuming Plaquenil for his osteoarthritis, will defer to primary/ENT.
Patient interested to pursue workup regarding the renal mass that was found on his CT scan, will defer to hospitalist
--Optimize pain management
--PPI for GI ppx
--Lovenox and SCDs for VTE ppx
--Medical management as per primary team
Subjective Data
-
Date of Service: August 25, 2024
Patient seen and examined on bedside
Sitting comfortably in the recliner
No active issues, feels fine
Passing flatus and stool
Denies any nausea, vomiting or abdominal pain
Breathing on room air
Objective Data
-
Intake and Output
08/24/24 08/25/24 08/26/24
06:59 06:59 06:59
Intake Total 1356 / 1356 936 / 936
Output Total 300 / 300 375 / 375
Balance 1056 / 1056 561 / 561
Intake:
Oral fluids 180 / 180 360 / 360
TPN/PPN 1176 / 1176 576 / 576
Output:
Urine, Voided 300 / 300 375 / 375
Other:
Number of approximated SMALL 1 3
amounts of urine
Number of approximated MODERATE 1 1
amounts of urine
Vital Signs
Temp Pulse Resp BP Pulse Ox
98.9 F 74 17 135/65 99
08/24/24 23:18 08/24/24 23:18 08/24/24 23:18 08/24/24 23:18 08/24/24 23:18
Lab Results
08/22/24 05:05
08/25/24 05:18
Calcium 8.5 mg/dl (8.4-10.2) 08/25/24 05:18
Phosphorus 3.2 mg/dl (2.5-4.5) 08/25/24 05:18
Magnesium 2.1 mg/dl (1.6-2.3) 08/25/24 05:18
Total Bilirubin 0.8 mg/dl (0.2-1.3) 08/22/24 05:05
Direct Bilirubin 1.0 mg/dl (0.0-0.4) H 08/11/24 04:05
AST 17 U/L (17-59) 08/22/24 05:05
ALT 14 U/L (0-50) 08/22/24 05:05
Alkaline Phosphatase 113 U/L (38-126) 08/22/24 05:05
Total Protein 5.0 g/dl (6.3-8.2) L 08/22/24 05:05
Albumin 2.3 g/dl (3.5-5.0) L 08/22/24 05:05
Physical Exam
-
No apparent distress
Breathing on room air
Abdomen soft, mildly distended, nontender, incision clean with Steri-Strips in place
Alert and oriented
Patient has a quintero catheter: No
Patient has a central line: No
[2024-08-25 07:55] VITALS: BP 143/57
[2024-08-25] MEDS: RESTASIS 0.05% OPHTHALMIC EMULSION 2 DROPS BOTH EYES ×2 (08:48→21:13)
--- NOTE | 2024-08-25 09:25 | PTOTSP ---
Speech Language Pathology
Pt seen for dysphagia tx. and niece at bedside. Niece reported that pt had already completed some swallowing exercises earlier in morning. With STEWARD/STEWARDESS TOURIST CLASS and with use of ice chips, pt completed 10 effortful swallows, 10 Saúl maneuvers, and
chin tuck against resistance (CTAR) x10 for 10 second hold. Also completed IS x8, achieving between 1250 and 1750.
Pt with many questions regarding plan if he 'fails' VSE. Some discussion regarding this, but stated that many of these questions will be better answered after VSE completed tomorrow, which will show whether progress has been made.
Recommend:
1. NPO
2. ARHP following oral care and with supervision. Allow ice chips for completion of exercises. Approximately 1/4 cup each hour at a maximum
3. Modifiable risk factors for aspiration pneumonia including encouraging frequent and thorough oral care, pulmonary hygiene measures, and increasing physical mobility as medically feasible
4. STEWARD/STEWARDESS TOURIST CLASS to follow for training in pharyngeal strengthening exercises
5. Plan repeat instrumental prior to diet initiation due to silent aspiration on 08/26
[2024-08-25] MEDS: BALMEX CREAM 1 APPLIC TOPICAL (11:03)
[2024-08-25 12:30] LABS: Glucose - Point of Care 141 mg/dl (70-99)
--- NOTE | 2024-08-25 14:46 | CM ---
Remains on TPN. Speech F/U swallow eval on 07/26/24. Discharge POC: Home with [facility] RN, PT/OT.
[2024-08-25 15:45] VITALS: BP 131/60
[2024-08-25 18:27] LABS: Glucose - Point of Care 110 mg/dl (70-99)
[2024-08-25] MEDS: LOVENOX 40 MG SC (18:27)
[2024-08-25] MEDS: Parenteral Nutrition, Central 1150 IV (21:07)
[2024-08-25 23:00] VITALS: BP 127/56
[2024-08-26 00:01] LABS: Glucose - Point of Care 155 mg/dl (70-99)
[2024-08-26] MEDS: NOVOLOG FLEXPEN-MODERATE RESISTANCE 1 UNITS SC ×5 (00:04→23:32)
[2024-08-26] MEDS: NOVOLOG FLEXPEN 6 UNITS SC ×5 (00:04→23:33)
[2024-08-26 05:15] LABS: Hematocrit 24.6 % (39.0-52.0); Hemoglobin 8.2 g/dL (13.0-18.0); Mean Corp Hgb Conc. 33.3 g/dL (33.0-37.0); Mean Corpuscular Hgb 30.9 pg (27.0-31.0); Mean Corpuscular Volume 92.8 fL (80.0-94.0); Mean Platelet Volume 10.7 fL (7.4-10.4); Platelet Count 264 10^3/uL (130-400); Red Blood Cell Count 2.65 10^6/uL (4.70-6.10); Red Cell Dist. Width 14.6 % (11.5-14.5); White Blood Cell Count 7.5 10^3/uL (4.8-10.8)
[2024-08-26 05:30] VITALS: BMI 20.1
[2024-08-26 06:03] LABS: Glucose - Point of Care 160 mg/dl (70-99)
--- NOTE | 2024-08-26 07:02 | W.PN.GS2 ---
Addendum entered and electronically signed by Chuck Martins MD 08/26/24 10:08:
I saw and examined the patient independently.
The resident's documentation was reviewed and I agree with the note, assessment and plan except where noted below.
Comment: 83-year-old male postoperative day 18 from a exploratory laparotomy, lysis of adhesions and small bowel resection with postop swallowing difficulties.
Swallow study showed improvement, cleared by speech for regular diet as well as thin liquid
We will start on clears given his persistent mild distention and belching.
TPN reordered, hopefully we can stop this over the weekend as we advance him to a regular diet.
Can begin dispo planning, anticipate this weekend.
Original Note:
Today's Communication / Plan
-
Swallowing study today
Assessment / Plan
-
Impression
Patient is an 83 yo male with a h/o ulcerative colitis s/p total abdominal colectomy with subsequent ileal J-pouch creation in 2009, who presented with complete small bowel obstruction, complicated by aspiration pneumonia with decompensation
prompting exploratory laparotomy, lysis of adhesions and small bowel resection.
POD # 18
S/p exploratory laparotomy, lysis of adhesion and small bowel resection
Incision is healing well, patient has normal bowel sounds, passed stool yesterday, passing gas
Recovering well
Patient currently n.p.o., as he failed his swallowing test
Doing swallowing exercises
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
Received 1 pint of blood on 08/21-hemoglobin increased appropriately
On labs review
No leukocytosis
Hemoglobin stable
Mild hyperchloremia
On TPN
Plan:
Keep n.p.o.
Continue TPN
Plan to repeat swallowing study today per EDITORIAL SPECIALIST
Continue PT/OT, speech therapy and swallowing exercises
Continue incentive spirometry
Monitor electrolytes and replete as needed, keep potassium greater than 4 and magnesium greater than 2
Patient to interested in potentially resuming Plaquenil for his osteoarthritis, will defer to primary/ENT.
Patient interested to pursue workup regarding the renal mass that was found on his CT scan, will defer to hospitalist
--Optimize pain management
--PPI for GI ppx
--Lovenox and SCDs for VTE ppx
--Medical management as per primary team
Subjective Data
-
Date of Service: August 26, 2024
Patient seen and examined on bedside
Feels fine, denies abdominal pain, nausea, vomiting
Moving his bowels, described consistency of stools as loose
Overnight, did not sleep well as he was anxious about a swallowing study today
Objective Data
-
Intake and Output
08/25/24 08/26/24 08/27/24
06:59 06:59 06:59
Intake Total 936 / 936 816 / 816
Output Total 375 / 375 300 / 300
Balance 561 / 561 516 / 516
Intake:
Oral fluids 360 / 360 240 / 240
TPN/PPN 576 / 576 576 / 576
Output:
Urine, Voided 375 / 375 300 / 300
Other:
Number of approximated SMALL 3 3
amounts of urine
Number of approximated MODERATE 1 2
amounts of urine
Vital Signs
Temp Pulse Resp BP Pulse Ox
98.8 F 71 16 127/56 94
08/25/24 23:00 08/25/24 23:00 08/25/24 23:00 08/25/24 23:00 08/25/24 23:00
Lab Results
08/26/24 04:36
08/25/24 05:18
Calcium 8.5 mg/dl (8.4-10.2) 08/25/24 05:18
Phosphorus 3.2 mg/dl (2.5-4.5) 08/25/24 05:18
Magnesium 2.1 mg/dl (1.6-2.3) 08/25/24 05:18
Total Bilirubin 0.8 mg/dl (0.2-1.3) 08/22/24 05:05
Direct Bilirubin 1.0 mg/dl (0.0-0.4) H 08/11/24 04:05
AST 17 U/L (17-59) 08/22/24 05:05
ALT 14 U/L (0-50) 08/22/24 05:05
Alkaline Phosphatase 113 U/L (38-126) 08/22/24 05:05
Total Protein 5.0 g/dl (6.3-8.2) L 08/22/24 05:05
Albumin 2.3 g/dl (3.5-5.0) L 08/22/24 05:05
Physical Exam
-
No apparent distress, breathing on room air
Abdomen soft, nontender, slightly distended, bowel sounds present, incisions healing well, Steri-Strips in place
chest bilaterally clear to auscultation
Patient has a quintero catheter: No
Patient has a central line: No
[2024-08-26 07:30] VITALS: BP 129/66
[2024-08-26] MEDS: RESTASIS 0.05% OPHTHALMIC EMULSION 2 DROPS BOTH EYES ×2 (08:08→21:04)
--- NOTE | 2024-08-26 10:17 | CM ---
Addendum entered by Kiarra Valerio 08/26/24 15:40:
Per chart review plan is for physicians to advance diet as tolerated. CM provided IMM for patient to review.
Plan; home with [facility] when medically appropriate
Original Note:
Patient seen at bedside on with niece present. Patient for video swallow testing today. CM will review discharge planning needs following medical treatment plan.
Plan; home with [facility] pending video swallow; home with tube feeding
--- NOTE | 2024-08-26 11:32 | PTOTSP ---
Speech Therapy VSE:
Patient presents with functional�oral and mild pharyngeal dysphagia. Patient demonstrated instances of posterior trace deep penetration with thin liquids after the swallow from pyriform sinus residue that did not increase or descend as trials
progressed. Patient cleared penetration with a cued throat clear + re-swallow. Upper transient penetration intermittently observed with thin and mildly thick liquids that spontaneously cleared from laryngeal vestibule (functional). No aspiration
observed across the study. Dry swallows were effective at clearing pharyngeal residuals. Performance on this date is an improvement from initial VSE completed 08/17, therefore suspect etiology of swallow dysfunction was related to post intubation
changes. Please see patient care note for full details of penetration/aspiration and swallowing physiology.
Recommend:
1. Initiate regular solids and thin liquids pending clearance from general surgery
2. Medications as tolerated
3. Aspiration precautions: Upright all meals, small bites/sips, slow rate, intermittent throat clear/cough + re-swallow to clear material from vestibule, intermittent dry swallows to clear pharyngeal residuals
4. Modifiable risk factors for aspiration pneumonia including encouraging frequent and thorough oral care, pulmonary hygiene measures, and increasing physical mobility as medically feasible
5. SHEAR TENDER to follow for further education and for dysphagia f/u to ensure tolerance of diet s/p initiation
[2024-08-26 12:02] LABS: Glucose - Point of Care 162 mg/dl (70-99)
--- NOTE | 2024-08-26 12:22 | W.PN.HOSP.TC ---
Today's Communication/Plan
-
diet advancement per GS
last bag TPN today
monitor off abx
resume home medications
Assessment / Plan
Assessment / Plan
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
lysis of adhesions (total lysis not attempted) and SB resection with anastomotic of transition point--apprec gen surgery--patient required repeat round of TPN for 1 week due to concern of dysphagia -- has been started back on diet advancement trial.
failed swallow exam/dysphagia--aspiration of all consistencies--agree with surgery that hope is transient from intubation--appreciate ENT--patient cleared VSE and has been cleared for regular diet. --General Surgery planning to slowly advance from
liquid to solid based on patient's tolerance.
Acute anemia with thrombocytosis--no reported luminal blood loss. Suspected combination of blood loss from surgery plus requiring daily labs--hemoglobin 8.2 after 2 unit of blood transfusion this admission.--Continue monitoring and further
transfusion if hemoglobin less than 7.
Ventilator Dependent Respiratory Failure due to bilateral lower lobe aspiration pneumonia (intubated on 08/07 and extubated 08/09)--patient finished a course of antibiotic. Initial was during the first intubation and postextubation patient was
restarted on 5 days of antibiotic course for concern of dysphagia related aspiration pneumonia. Currently no concern of any recurrence. Monitor off of antibiotics
Septic Shock due to bilateral lower lobe aspiration pneumonia (resolved)-- Pressor off since 08/08
Acute Kidney Injury (resolved)- UA unremarkable, eosinophils negative; rules out AIN due to abx- Consider pre-renal due to sepsis vs. CONCHIS- 0.8 baseline
Ulcerative colitis-- oral home meds continued
BPH-Home meds resumed
HLD - statin disease
History of Tick Bite - Lyme screen negative
Renal Mass on CT -discussed with primary urology off consult and have recommended for patient to follow-up in office
Sore Throat due to hx of intubation- Continue PRN Cepocol
Elevated Alk-Phos- Isolated reading
DVT proph
Code Status-- Full code
Anticipated Discharge: 24 - 48 hours
Subjective/Interval History
-
Date of Service: August 26, 2024
No issues overnight
Patient cleared VSE today
Objective Data
-
Labs:
Laboratory Results
08/26/24
04:36
WBC 7.5
Hgb 8.2 L
Hct 24.6 L
Plt Count 264 D
Vital Signs:
Vital Signs
Temp Pulse Resp BP Pulse Ox
98.8 F 66 18 129/66 95
08/26/24 07:30 08/26/24 07:30 08/26/24 07:30 08/26/24 07:30 08/26/24 07:30
I&O
08/25/24 08/26/24 08/27/24
06:59 06:59 06:59
Intake Total 936 / 936 816 / 816
Output Total 375 / 375 300 / 300
Balance 561 / 561 516 / 516
Review of Systems
-
Respiratory: Reports No Symptoms
Cardiac: Reports No Symptoms
Abdomen/GI: Reports No Symptoms
Physical Exam
-
General: Other (speech/voice seems stronger today)
HEENT: Negative Oxygen
GI: Soft, Nontender and Nondistended
Neuro: Awake and Alert
[2024-08-26] MEDS: PLAQUENIL 200 MG PO (13:33)
[2024-08-26 15:15] VITALS: BP 124/65
[2024-08-26] MEDS: QUESTRAN 4 GRAM PO (17:20)
[2024-08-26] MEDS: SINGULAIR 10 MG PO (17:21)
[2024-08-26] MEDS: LOVENOX 40 MG SC (17:21)
[2024-08-26] MEDS: CRESTOR 20 MG PO (17:21)
[2024-08-26 17:35] LABS: Glucose - Point of Care 161 mg/dl (70-99)
[2024-08-26] MEDS: Parenteral Nutrition, Central 1240 IV (21:01)
[2024-08-26 23:00] VITALS: BP 131/60
[2024-08-26 23:29] LABS: Glucose - Point of Care 160 mg/dl (70-99)
[2024-08-27 06:00] VITALS: BMI 19.8
[2024-08-27 06:19] LABS: Glucose - Point of Care 180 mg/dl (70-99)
[2024-08-27 06:22] LABS: Hematocrit 25.1 % (39.0-52.0); Hemoglobin 8.2 g/dL (13.0-18.0); Mean Corp Hgb Conc. 32.7 g/dL (33.0-37.0); Mean Corpuscular Hgb 30.6 pg (27.0-31.0); Mean Corpuscular Volume 93.7 fL (80.0-94.0); Mean Platelet Volume 10.6 fL (7.4-10.4); Platelet Count 242 10^3/uL (130-400); Red Blood Cell Count 2.68 10^6/uL (4.70-6.10); Red Cell Dist. Width 14.4 % (11.5-14.5); White Blood Cell Count 5.4 10^3/uL (4.8-10.8)
[2024-08-27] MEDS: NOVOLOG FLEXPEN 6 UNITS SC ×3 (06:24→18:16)
[2024-08-27] MEDS: NOVOLOG FLEXPEN-MODERATE RESISTANCE 1 UNITS SC (06:25)
[2024-08-27 06:45] LABS: Blood Urea Nitrogen 43 mg/dl (9-20); Calcium 8.6 mg/dl (8.4-10.2); Carbon Dioxide 23 mmol/L (22-30); Chloride 109 mmol/L (98-107); Estimated Creatinine Clearance 58 ml/min; Glucose 166 mg/dl (70-99); Magnesium 1.9 mg/dl (1.6-2.3); Potassium 3.5 mmol/L (3.5-5.1); Sodium 136 mmol/L (135-145); eGFR > 60.00
[2024-08-27 08:00] VITALS: BP 104/57
[2024-08-27] MEDS: PROSCAR 5 MG PO (08:34)
[2024-08-27] MEDS: PLAQUENIL 200 MG PO (08:34)
[2024-08-27] MEDS: VITAMIN D3 (cholecalciferol) 25 MCG PO (08:35)
[2024-08-27] MEDS: RESTASIS 0.05% OPHTHALMIC EMULSION 2 DROPS BOTH EYES ×2 (08:35→21:02)
[2024-08-27] MEDS: THERAGRAN 1 TABLET PO (08:35)
[2024-08-27] MEDS: PROTONIX 40 MG PO (08:35)
[2024-08-27] MEDS: OCUVITE SOFTGEL 1 CAP PO (08:35)
[2024-08-27] MEDS: VITAMIN B-12 1000 MCG PO (08:35)
[2024-08-27 10:02] LABS: Glucose - Point of Care 115 mg/dl (70-99)
--- NOTE | 2024-08-27 11:50 | W.PN.HOSP.TC ---
Today's Communication/Plan
-
d/c planning for tomorrow AM
monitor tolerance of reg diet
Assessment / Plan
Assessment / Plan
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
lysis of adhesions (total lysis not attempted) and SB resection with anastomotic of transition point--apprec gen surgery--patient required repeat round of TPN for 1 week due to concern of dysphagia -- has been started back on diet advancement trial.
failed swallow exam/dysphagia--aspiration of all consistencies--agree with surgery that hope is transient from intubation--appreciate ENT--patient has been started on regular diet. TPN to be discontinued.
Acute anemia with thrombocytosis--no reported luminal blood loss. Suspected combination of blood loss from surgery plus requiring daily labs--hemoglobin 8.2 after 2 unit of blood transfusion this admission.--Continue monitoring and further
transfusion if hemoglobin less than 7.
Ventilator Dependent Respiratory Failure due to bilateral lower lobe aspiration pneumonia (intubated on 08/07 and extubated 08/09)--patient finished a course of antibiotic. Initial was during the first intubation and postextubation patient was
restarted on 5 days of antibiotic course for concern of dysphagia related aspiration pneumonia. Currently no concern of any recurrence. Monitor off of antibiotics
Septic Shock due to bilateral lower lobe aspiration pneumonia (resolved)-- Pressor off since 08/08
Acute Kidney Injury (resolved)- UA unremarkable, eosinophils negative; rules out AIN due to abx- Consider pre-renal due to sepsis vs. CONCHIS- 0.8 baseline
Ulcerative colitis-- oral home meds continued
BPH-Home meds resumed
HLD - statin disease
History of Tick Bite - Lyme screen negative
Renal Mass on CT -discussed with primary urology off consult and have recommended for patient to follow-up in office
Sore Throat due to hx of intubation- Continue PRN Cepocol
Elevated Alk-Phos- Isolated reading
DVT proph
Code Status-- Full code
Anticipated Discharge: Within 24 hours
Subjective/Interval History
-
Date of Service: August 27, 2024
Patient has been started on regular diet today
No other issues reported
Objective Data
-
Labs:
Laboratory Results
08/27/24
06:04
WBC 5.4
Hgb 8.2 L
Hct 25.1 L
Plt Count 242
Sodium 136
Potassium 3.5
Chloride 109 H
Carbon Dioxide 23
BUN 43 H
Creatinine 0.8
Glucose 166 H
Calcium 8.6
Vital Signs:
Vital Signs
Temp Pulse Resp BP Pulse Ox
97.9 F 64 16 104/57 98
08/27/24 08:00 08/27/24 08:00 08/27/24 08:00 08/27/24 08:00 08/27/24 08:00
I&O
08/26/24 08/27/24 08/28/24
06:59 06:59 06:59
Intake Total 816 / 816
Output Total 300 / 300 300 / 300
Balance 516 / 516 -300 / -300
Review of Systems
-
Respiratory: Reports No Symptoms
Cardiac: Reports No Symptoms
Abdomen/GI: Reports No Symptoms
Physical Exam
-
General: Other (speech/voice seems stronger today)
HEENT: Negative Oxygen
GI: Soft, Nontender and Nondistended
Neuro: Awake and Alert
[2024-08-27] MEDS: NOVOLOG FLEXPEN-MODERATE RESISTANCE SC ×2 (11:59→18:16)
--- NOTE | 2024-08-27 12:50 | W.PN.GS2 ---
Addendum entered and electronically signed by Pavel Bejarano MD 08/27/24 16:30:
I saw and examined the patient.
The ONLINE PROGRAM COORDINATOR's note was reviewed and I agree with the note.
Comment:
No overnight events. Denies N/V. Having ostomy output. Ostomy prolapsed again, having pain near her ostomy.
AFVSS, ABD soft, nondistended, tender near her ostomy, no rebound or guarding; both limbs of the colostomy prolapsed with superior limb at ~5in and inferior limb ~2in; mucosa pink without signs of ischemia; completely reduced with gentle pressure
WBC 5.4, Hb 8.2
� Intermittent prolapsing of colostomy, but reducible; no acute surgery necessary
�Plan for elective colostomy repair tentatively for this ; if any changes in color of colostomy or colostomy becomes non-reducible, please call surgery RUTHANN
� Okay for regular diet
� Pain control
� DVT PPx
� Appreciate hospitalist
Dispo�due to lack of social support and risk of loss to follow-up, I would be inclined to keep this patient until planned surgery for ; currently, pain not well-controlled so not reasonable to discharge at this point anyways
Original Note:
Today's Communication / Plan
-
Advance diet
TPN until good PO intakes
Assessment / Plan
-
83 yo male with a h/o ulcerative colitis s/p total abdominal colectomy with subsequent ileal J-pouch creation in 2009, who presented with complete small bowel obstruction, complicated by aspiration pneumonia with decompensation prompting exploratory
laparotomy, lysis of adhesions and small bowel resection.
POD # 19 exploratory laparotomy, lysis of adhesion and small bowel resection, cindy have been removed
Swallowing difficulty s/p extubation maintained on TPN. Evaluated by ENT with eventual repeat VSE on 08/27 without further concern for aspiration
AFVSS
Labs remain stable
Still with some mild abdominal distention, but thus far tolerating clears
Plan:
Advance to regular diet
Continue TPN until assured he is tolerating diet
Continue PT/OT, speech therapy following
Medical management as per primary team
Tentative d/c in the next 24-48hours pending dietary tolerance
Subjective Data
-
Date of Service: August 27, 2024
Patient seen and examined at bedside with Dr Bejarano. Karlene n/v. Tolerating clears. Passing flatus. Multiple loose stools a day but at baseline. Does feel a little bloated.
Objective Data
-
Intake and Output
08/26/24 08/27/24 08/28/24
06:59 06:59 06:59
Intake Total 816 / 816
Output Total 300 / 300 300 / 300
Balance 516 / 516 -300 / -300
Intake:
Oral fluids 240 / 240
TPN/PPN 576 / 576
Output:
Urine, Voided 300 / 300 300 / 300
Other:
Number of approximated SMALL 3
amounts of urine
Number of approximated MODERATE 2 1
amounts of urine
Vital Signs
Temp Pulse Resp BP Pulse Ox
97.9 F 64 16 104/57 98
08/27/24 08:00 08/27/24 08:00 08/27/24 08:00 08/27/24 08:00 08/27/24 08:00
Lab Results
08/27/24 06:04
08/27/24 06:04
Calcium 8.6 mg/dl (8.4-10.2) 08/27/24 06:04
Phosphorus 3.2 mg/dl (2.5-4.5) 08/25/24 05:18
Magnesium 1.9 mg/dl (1.6-2.3) 08/27/24 06:04
Total Bilirubin 0.8 mg/dl (0.2-1.3) 08/22/24 05:05
Direct Bilirubin 1.0 mg/dl (0.0-0.4) H 08/11/24 04:05
AST 17 U/L (17-59) 08/22/24 05:05
ALT 14 U/L (0-50) 08/22/24 05:05
Alkaline Phosphatase 113 U/L (38-126) 08/22/24 05:05
Total Protein 5.0 g/dl (6.3-8.2) L 08/22/24 05:05
Albumin 2.3 g/dl (3.5-5.0) L 08/22/24 05:05
Physical Exam
-
No apparent distress, breathing on room air
Abdomen soft, nontender, slightly distended, bowel sounds present, incisions healing well, Steri-Strips in place
Patient has a quintero catheter: No
Patient has a central line: No
[2024-08-27 16:00] VITALS: BP 95/49
--- NOTE | 2024-08-27 16:56 | W.PN.GS2 ---
Today's Communication / Plan
-
Advance diet
TPN until good PO intakes
Assessment / Plan
-
83 yo male with a h/o ulcerative colitis s/p total abdominal colectomy with subsequent ileal J-pouch creation in 2009, who presented with complete small bowel obstruction, complicated by aspiration pneumonia with decompensation prompting exploratory
laparotomy, lysis of adhesions and small bowel resection.
POD # 19 exploratory laparotomy, lysis of adhesion and small bowel resection, cindy have been removed
Swallowing difficulty s/p extubation maintained on TPN. Evaluated by ENT with eventual repeat VSE on 08/27 without further concern for aspiration
AFVSS
Labs remain stable
Still with some mild abdominal distention, but thus far tolerating clears
Plan:
Advance to regular diet
Continue TPN until assured he is tolerating diet
Continue PT/OT, speech therapy following
Medical management as per primary team
Tentative d/c in the next 24-48hours pending dietary tolerance
Subjective Data
-
Date of Service: August 27, 2024
Patient seen and examined at bedside with Dr Bejarnao around 1015 am. Denies n/v. Tolerating clears. Passing flatus. Multiple loose stools a day but at baseline. Does feel a little bloated.
Objective Data
-
Intake and Output
08/26/24 08/27/24 08/28/24
06:59 06:59 06:59
Intake Total 816 / 816
Output Total 300 / 300 300 / 300
Balance 516 / 516 -300 / -300
Intake:
Oral fluids 240 / 240
TPN/PPN 576 / 576
Output:
Urine, Voided 300 / 300 300 / 300
Other:
Number of approximated SMALL 3
amounts of urine
Number of approximated MODERATE 2 1
amounts of urine
Vital Signs
Temp Pulse Resp BP Pulse Ox
98.6 F 72 16 95/49 95
08/27/24 16:00 08/27/24 16:00 08/27/24 16:00 08/27/24 16:00 08/27/24 16:00
Lab Results
08/27/24 06:04
08/27/24 06:04
Calcium 8.6 mg/dl (8.4-10.2) 08/27/24 06:04
Phosphorus 3.2 mg/dl (2.5-4.5) 08/25/24 05:18
Magnesium 1.9 mg/dl (1.6-2.3) 08/27/24 06:04
Total Bilirubin 0.8 mg/dl (0.2-1.3) 08/22/24 05:05
Direct Bilirubin 1.0 mg/dl (0.0-0.4) H 08/11/24 04:05
AST 17 U/L (17-59) 08/22/24 05:05
ALT 14 U/L (0-50) 08/22/24 05:05
Alkaline Phosphatase 113 U/L (38-126) 08/22/24 05:05
Total Protein 5.0 g/dl (6.3-8.2) L 08/22/24 05:05
Albumin 2.3 g/dl (3.5-5.0) L 08/22/24 05:05
Physical Exam
-
No apparent distress, breathing on room air
Abdomen soft, nontender, slightly distended, bowel sounds present, incisions healing well, Steri-Strips in place
Patient has a quintero catheter: No
Patient has a central line: Yes (PICC)
[2024-08-27] MEDS: QUESTRAN 4 GRAM PO (18:08)
[2024-08-27] MEDS: SINGULAIR 10 MG PO (18:08)
[2024-08-27] MEDS: LOVENOX 40 MG SC (18:08)
[2024-08-27] MEDS: CRESTOR 20 MG PO (18:14)
[2024-08-27 18:16] LABS: Glucose - Point of Care 134 mg/dl (70-99)
[2024-08-27] MEDS: Parenteral Nutrition, Central 1240 IV (20:59)
[2024-08-27 21:31] LABS: Glucose - Point of Care 161 mg/dl (70-99)
[2024-08-27 23:08] VITALS: BP 121/59
[2024-08-28] MEDS: NOVOLOG FLEXPEN-MODERATE RESISTANCE 1 UNITS SC (00:14)
[2024-08-28] MEDS: NOVOLOG FLEXPEN 6 UNITS SC ×2 (00:15→06:11)
[2024-08-28] MEDS: NOVOLOG FLEXPEN-MODERATE RESISTANCE SC ×2 (06:12→12:23)
[2024-08-28 06:13] LABS: Hematocrit 25.3 % (39.0-52.0); Hemoglobin 8.5 g/dL (13.0-18.0); Mean Corp Hgb Conc. 33.6 g/dL (33.0-37.0); Mean Corpuscular Hgb 31.1 pg (27.0-31.0); Mean Corpuscular Volume 92.7 fL (80.0-94.0); Platelet Count 232 10^3/uL (130-400); Red Blood Cell Count 2.73 10^6/uL (4.70-6.10); Red Cell Dist. Width 14.3 % (11.5-14.5); White Blood Cell Count 5.4 10^3/uL (4.8-10.8)
[2024-08-28 06:19] LABS: Glucose - Point of Care 142 mg/dl (70-99)
[2024-08-28 06:40] LABS: Blood Urea Nitrogen 48 mg/dl (9-20); Calcium 8.7 mg/dl (8.4-10.2); Carbon Dioxide 20 mmol/L (22-30); Chloride 109 mmol/L (98-107); Estimated Creatinine Clearance 52 ml/min; Glucose 133 mg/dl (70-99); Potassium 3.8 mmol/L (3.5-5.1); Sodium 135 mmol/L (135-145); eGFR > 60.00
[2024-08-28 07:25] VITALS: BP 104/58
[2024-08-28 07:51] LABS: Glucose - Point of Care 83 mg/dl (70-99)
[2024-08-28] MEDS: VITAMIN B-12 1000 MCG PO (07:58)
[2024-08-28] MEDS: VITAMIN D3 (cholecalciferol) 25 MCG PO (07:58)
[2024-08-28] MEDS: THERAGRAN 1 TABLET PO (07:58)
[2024-08-28] MEDS: PLAQUENIL 200 MG PO (07:58)
[2024-08-28] MEDS: PROTONIX 40 MG PO (07:58)
[2024-08-28] MEDS: OCUVITE SOFTGEL 1 CAP PO (07:59)
[2024-08-28] MEDS: PROSCAR 5 MG PO (07:59)
[2024-08-28] MEDS: RESTASIS 0.05% OPHTHALMIC EMULSION 2 DROPS BOTH EYES (07:59)
--- NOTE | 2024-08-28 08:41 | W.PN.HOSP.TC ---
Today's Communication/Plan
-
Discharge planning
Discussed with GS - family has questions regarding post op restrictions
TPN to be stopped at discharge and midline to be removed
No abx warranted
Not requiring any narcs, use OTC tylenol for pain control
CM to arrange VN care, family requesting details
Script for RW provided, if could be dispensed from [facility]
Family to transport home
F/u instructions in place for GS office.
Assessment / Plan
Assessment / Plan
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
lysis of adhesions (total lysis not attempted) and SB resection with anastomotic of transition point--apprec gen surgery--patient required repeat round of TPN for 1 week due to concern of dysphagia -- has been started back on diet advancement trial.
failed swallow exam/dysphagia--aspiration of all consistencies--agree with surgery that hope is transient from intubation--appreciate ENT--patient tolerated regular diet without any issues.
Acute anemia with thrombocytosis--no reported luminal blood loss. Suspected combination of blood loss from surgery plus requiring daily labs--hemoglobin 8.2 after 2 unit of blood transfusion this admission.--Continue monitoring and further
transfusion if hemoglobin less than 7.
Ventilator Dependent Respiratory Failure due to bilateral lower lobe aspiration pneumonia (intubated on 08/07 and extubated 08/09)--patient finished a course of antibiotic. Initial was during the first intubation and postextubation patient was
restarted on 5 days of antibiotic course for concern of dysphagia related aspiration pneumonia. Currently no concern of any recurrence. Monitor off of antibiotics
Septic Shock due to bilateral lower lobe aspiration pneumonia (resolved)-- Pressor off since 08/08
Acute Kidney Injury (resolved)- UA unremarkable, eosinophils negative; rules out AIN due to abx- Consider pre-renal due to sepsis vs. CONCHIS- 0.8 baseline
Ulcerative colitis-- oral home meds continued
BPH-Home meds resumed
HLD - statin disease
History of Tick Bite - Lyme screen negative
Renal Mass on CT -discussed with primary urology off consult and have recommended for patient to follow-up in office
Sore Throat due to hx of intubation- Continue PRN Cepocol
Elevated Alk-Phos- Isolated reading
DVT proph
Code Status-- Full code
More than 30 minutes spent in discharge including
Final examination of the patient
Summarizing hospital stay
Instructions for continuing care to all relevant caregivers
Preparation of discharge records, prescriptions, and referral forms
Total time spent (in minutes): 39 mins
Anticipated Discharge: Today
Subjective/Interval History
-
Date of Service: August 28, 2024
denies abd pain/nausea/vomiting
some liquid stool , which is not uncommon per patient
Objective Data
-
Labs:
Laboratory Results
08/28/24
05:48
WBC 5.4
Hgb 8.5 L
Hct 25.3 L
Plt Count 232
Sodium 135
Potassium 3.8
Chloride 109 H
Carbon Dioxide 20 L
BUN 48 H
Creatinine 0.9
Glucose 133 H
Calcium 8.7
Vital Signs:
Vital Signs
Temp Pulse Resp BP Pulse Ox
98.6 F 69 20 104/58 94
08/28/24 07:25 08/28/24 07:25 08/28/24 07:25 08/28/24 07:25 08/28/24 07:25
I&O
08/27/24 08/28/24 08/29/24
06:59 06:59 06:59
Intake Total 2324 / 2324 480 / 480
Output Total 300 / 300 125 / 125
Balance -300 / -300 2324 / 2324 355 / 355
Review of Systems
-
Respiratory: Reports No Symptoms
Cardiac: Reports No Symptoms
Abdomen/GI: Reports Diarrhea; Denies Abdominal Pain, Nausea or Vomiting
Physical Exam
-
General: Cachectic
HEENT: Negative Oxygen
GI: Soft, Nontender, Nondistended and Normal Bowel Sounds
Neuro: Awake, Alert, Oriented and No Motor Deficits
--- NOTE | 2024-08-28 08:46 | W.DCSUMMARY ---
Discharge Summary
Discharge Data
Date of Admission: 08/04/24
Date of Discharge: 08/28/24
-
Pending Results: No
Hospital Course
Discharging Physician : Dr Rick Jiménez
Disposition : To home with home care
Primary care physician : Dr Bernardo Cazares
Principal Discharge diagnosis :
Small bowel obstruction from adhesion
Dysphagia due to pharyngeal inflammation from need of endotracheal tube placement
Ventilator dependent respiratory failure
Acute blood loss anemia from surgery
Septic shock
Acute kidney injury
Chronic Discharge diagnosis :
Ulcerative colitis
Benign prostatic hyperplasia
Hyperlipidemia
History of tick bite
Renal mass
Hospital Course :
Patient is 83-year-old male with admission past medical history came to ER for having new onset abdominal pain. Patient has history of small bowel obstruction 10 years back and felt the pain to be similar in nature. Patient came to ER for further
evaluation. CT abdomen pelvis showing changes of distal small bowel obstruction. General surgery was involved in care and patient was planned to be managed conservatively. Patient was initially admitted to medical floor although patient started
developing worsening shortness of breath. Patient was having frequent vomiting and NG tube was placed. Due to worsening hypoxia patient required to be intubated and was transferred to ICU. Patient bowel obstruction symptoms did not improve and
patient was taken to the OR electively by general surgery. Patient had an exploratory laparotomy where patient was found to have dense adhesion which needed to be resected. Patient had a transition point identified intraoperatively and there was a
small segment of small bowel which was felt to be non viable. A small 5 cm segment of small bowel was resected and aside to side anastomosis was made. Postoperatively patient was transferred to ICU for continual monitoring. Patient was being
maintained on empiric antibiotics as there was concern of aspiration pneumonia ongoing. Respiratory culture from ET tube was growing E. coli and based on sensitivity antibiotics were adjusted. Patient was able to be extubated and continued to
require oxygen support. Patient was provided IV diuresis to volume optimized. With this patient oxygen requirement was slowly coming down. Patient was able to be started on diet after recovery of bowel function. Patient was improving fairly well
when patient was noted to having some difficulty with swallowing and speech therapy evaluation noticed patient being dysphagia. Patient was made n.p.o. and ENT evaluation was requested which showed evidence of intubations related trauma. Patient
was started on TPN with intention of giving time to pharyngeal tissues to heal. Patient was monitored in the hospital on TPN and after 7 days of follow-up VSE was done which patient was able to clear. Patient was slowly reinitiated on the diet and
after confirmation of tolerance to regular diet patient was discharged to home with home health care.
Beside this patient had developed acute anemia which was felt to be related to blood loss from surgery plus needing of daily blood draws over the lengthy hospital course. Patient required total 2 unit of blood transfusion this hospitalization.
Patient required a second course of antibiotic and failed swallow evaluation after extubation and this was done to cover patient possible second episode of aspiration pneumonia. Patient also had renal mass shown on CT abdomen pelvis at admission,
this was discussed with primary urologist who has recommended for patient to follow-up in office for further evaluation.
Postdischarge patient is planned to follow-up with general surgery in office.
Important imaging findings :
None
Procedure findings :
None
Discharge Plan
-
Patient Disposition: Home (Routine Discharge)
Discharge Diagnosis/Procedures: exploratory laparotomy, lysis of adhesion and small bowel resection, aspiration pneumonia, dysphagia, VDRF, Acute kidney injury
Condition: Fair
Diet: Low Fiber
Additional Diets: Eat small, low fiber meals at first
Activity: No strenuous activity
Additional Activity: do not lift over 15lbs for 4-6 weeks
Driving Restrictions: No driving
Bathing Restrictions: OK to Shower
Other Services: VN and PT
Wound Care: cover incision with gauze dressing if drainage noted, otherwise leave incision open to air. Osprey will be removed during your follow up appointment 2-3 weeks after surgery
Activity Restrictions/Additional Instructions:
Call your surgeon if you have nausea with vomiting or worsening abdominal pain
Referrals:
Bernardo Cazares MD [Family Provider, Internal Medicine] - in one week
Uli Hendrix MD [Active, Pulmonary Medicine] - in three to four weeks
Jose Rosas MD [Active, Surgical] - in two weeks
Prescriptions:
New
acetaminophen [Tylenol Extra Strength] 500 mg Tablet
1,000 mg PO Q6HPRN PRN (Reason: mod sev pain) Qty: 14 0RF
Continued
finasteride 5 MG tablet
5 mg PO DAILY
silodosin [Rapaflo] 8 MG capsule
8 mg PO DAILY
hydroxychloroquine 200 MG tablet
200 mg PO DAILY
cyanocobalamin (vitamin B-12) 1,000 mcg Tablet
1,000 mcg PO DAILY
montelukast [Singulair] 10 mg Tablet
10 mg PO QPM
albuterol sulfate 90 mcg/actuation Hfa Aerosol Inhaler
2 puff INHALATION R DAILY
cyclosporine [Restasis] 0.05 % Dropperette
2 drp BOTH EYES Q12H
rosuvastatin [Crestor] 20 mg Tablet
20 mg PO QPM
cholecalciferol (vitamin D3) [Vitamin D3] 25 mcg (1,000 unit) Tablet
25 mcg PO DAILY
coQ10 (ubiquinol) 100 mg Capsule
100 mg PO DAILY
PreserVision AREDS-2 250-90-40-1 mg Capsule
1 tab PO DAILY
Airborne (ascorbic acid) 250-8.875 mg Tablet,Chewable
1 tab PO DAILY
cholestyramine 4 gram Powder
4 g PO QPM
Discharge Orders:
Discharge Patient (As Directed); Ordered 08/28/24
Ordered By: Rick Jiménez
Discharge Date and Time
Discharge Date/Time: 08/28/24 12:21
Print Language: MACEDONIAN
--- NOTE | 2024-08-28 09:20 | CM ---
CM reviewed chart and noted dc order
Bedside meeting with pt and andra/Maricel
Plan for home today with [facility] and new [facility]
TPN has been discontinued and picc to be removed prior to dc
IMM verbally reviewed and copy provided
Script obtained for [facility] and PT will issue bedside
VN order on chart- Sara/[facility] aware of dc
Dicharge Disposition- home with [facility] and new [facility]/family transport
--- NOTE | 2024-08-28 09:49 | W.PN.GS2 ---
Addendum entered and electronically signed by Pavel Bejarano MD 08/29/24 00:06:
Delayed entry. I saw and examined the patient the morning of 08/28/2024.
The DEVELOPMENT ASSOCIATE's note was reviewed and I agree with the note.
Original Note:
Today's Communication / Plan
-
dispo planning
Assessment / Plan
-
83 yo male with a h/o ulcerative colitis s/p total abdominal colectomy with subsequent ileal J-pouch creation in 2009, who presented with complete small bowel obstruction, complicated by aspiration pneumonia with decompensation prompting exploratory
laparotomy, lysis of adhesions and small bowel resection.
POD # 20 exploratory laparotomy, lysis of adhesion and small bowel resection, cindy have been removed
Swallowing difficulty s/p extubation maintained on TPN. Evaluated by ENT with eventual repeat VSE on 08/27 without further concern for aspiration
AFVSS
Labs remain stable
Stable abdominal exam with dietary advancements
Plan:
Continue regular diet
D/C TPN, ok to D/C picc
PT/OT, speech therapy following
Medical management as per primary team, ok for d/c from surgical standpoint now that he is tolerating diet
Subjective Data
-
Date of Service: August 28, 2024
Patient seen and examined at bedside with Dr. Bejarano. Denies n/v. Tolerating diet passing flatus. Discussed activity restrictions post op.
Objective Data
-
Intake and Output
08/27/24 08/28/24 08/29/24
06:59 06:59 06:59
Intake Total 2324 / 2324 480 / 480
Output Total 300 / 300 125 / 125
Balance -300 / -300 2324 / 2324 355 / 355
Intake:
Oral fluids 1700 / 1700 480 / 480
IV fluids (Total) 624 / 624
Output:
Urine, Voided 300 / 300 125 / 125
Other:
Number of approximated MODERATE 1 2
amounts of urine
Vital Signs
Temp Pulse Resp BP Pulse Ox
98.6 F 69 20 104/58 94
08/28/24 07:25 08/28/24 07:25 08/28/24 07:25 08/28/24 07:25 08/28/24 07:25
Lab Results
08/28/24 05:48
08/28/24 05:48
Calcium 8.7 mg/dl (8.4-10.2) 08/28/24 05:48
Phosphorus 3.2 mg/dl (2.5-4.5) 08/25/24 05:18
Magnesium 1.9 mg/dl (1.6-2.3) 08/27/24 06:04
Total Bilirubin 0.8 mg/dl (0.2-1.3) 08/22/24 05:05
Direct Bilirubin 1.0 mg/dl (0.0-0.4) H 08/11/24 04:05
AST 17 U/L (17-59) 08/22/24 05:05
ALT 14 U/L (0-50) 08/22/24 05:05
Alkaline Phosphatase 113 U/L (38-126) 08/22/24 05:05
Total Protein 5.0 g/dl (6.3-8.2) L 08/22/24 05:05
Albumin 2.3 g/dl (3.5-5.0) L 08/22/24 05:05
Physical Exam
-
No apparent distress, breathing on room air
Abdomen soft, nontender, slightly distended, incisions healing well, Steri-Strips in place
Patient has a quintero catheter: No
Patient has a central line: Yes (PICC)
[2024-08-28 11:34] VITALS: BP 127/58
[2024-08-28] MEDS: NOVOLOG FLEXPEN SC (12:23)
== END 2024-08-28 12:21 | disposition home health service (06) | DRG 329 ==
LOC: 2 SOUTH 09:22
PROVIDERS: Internal Medicine Critical Care Medicine; Nurse Practitioner Family; Nurse Practitioner Primary Care; Radiology Vascular & Interventional Radiology; Registered Nurse; Surgery; ADMITTING PHYSICIAN Internal Medicine; ATTENDING PHYSICIAN Hospitalist; CONSULT PHYSICIAN Internal Medicine; CONSULT PHYSICIAN Otolaryngology Facial Plastic Surgery; CONSULT PHYSICIAN Surgery; EMERGENCY PHYSICIAN Emergency Medicine; FAMILY PHYSICIAN Internal Medicine
PROC: 0BH17EZ Insertion of Endotracheal Airway into Trachea, Via Natural or Artificial Opening (ICD-10-PCS; 2024-08-04)
PROC: 5A1945Z Respiratory Ventilation, 24-96 Consecutive Hours (ICD-10-PCS; 2024-08-07)
PROC: 30233R1 Transfusion of Nonautologous Platelets into Peripheral Vein, Percutaneous Approach (ICD-10-PCS; 2024-08-07)
PROC: 3E0436Z Introduction of Nutritional Substance into Central Vein, Percutaneous Approach (ICD-10-PCS; 2024-08-08)
PROC: 0DN80ZZ Release Small Intestine, Open Approach (ICD-10-PCS; 2024-08-12)
PROC: 0DB80ZZ Excision of Small Intestine, Open Approach (ICD-10-PCS; 2024-08-12)
PROC: 02HV33Z Insertion of Infusion Device into Superior Vena Cava, Percutaneous Approach (ICD-10-PCS; 2024-08-18)
PROC: 03PY3YZ Removal of Other Device from Upper Artery, Percutaneous Approach (ICD-10-PCS; 2024-08-18)
PROC: 0CJS8ZZ Inspection of Larynx, Via Natural or Artificial Opening Endoscopic (ICD-10-PCS; 2024-08-18)
PROC: 30233N1 Transfusion of Nonautologous Red Blood Cells into Peripheral Vein, Percutaneous Approach (ICD-10-PCS; 2024-08-21)
DX: K56.52 Intestinal adhesions [bands] with complete obstruction (principal); A41.9 Sepsis, unspecified organism; J96.01 Acute respiratory failure with hypoxia; R65.21 Severe sepsis with septic shock; J69.0 Pneumonitis due to inhalation of food and vomit; J15.5 Pneumonia due to Escherichia coli; K55.029 Acute infarction of small intestine, extent unspecified; D62 Acute posthemorrhagic anemia; N17.9 Acute kidney failure, unspecified; K51.90 Ulcerative colitis, unspecified, without complications; E87.0 Hyperosmolality and hypernatremia; J44.0 Chronic obstructive pulmonary disease with (acute) lower respiratory infection; T82.594A Other mechanical complication of infusion catheter, initial encounter; S19.83XA Other specified injuries of vocal cord, initial encounter; R13.10 Dysphagia, unspecified; I49.3 Ventricular premature depolarization; Y83.8 Other surgical procedures as the cause of abnormal reaction of the patient, or of later complication, without mention of misadventure at the time of the procedure; E87.8 Other disorders of electrolyte and fluid balance, not elsewhere classified; D69.6 Thrombocytopenia, unspecified; D72.819 Decreased white blood cell count, unspecified; Y82.8 Other medical devices associated with adverse incidents; E87.6 Hypokalemia; N28.89 Other specified disorders of kidney and ureter; E78.5 Hyperlipidemia, unspecified; N40.0 Benign prostatic hyperplasia without lower urinary tract symptoms; M19.90 Unspecified osteoarthritis, unspecified site; T14.8XXA Other injury of unspecified body region, initial encounter; W57.XXXA Bitten or stung by nonvenomous insect and other nonvenomous arthropods, initial encounter; F17.290 Nicotine dependence, other tobacco product, uncomplicated; Z90.49 Acquired absence of other specified parts of digestive tract
CPT/HCPCS: 88307; 36573; 36600; 37197; 71045; 71046; 74018; 74176; 74177; 74230; 76937; 80048; 80053; 81003; 81015; 81099; 82248; 82330; 82550; 82728; 82805; 82962; 83036; 83540; 83550; 83605; 83690; 83735; 83880; 84100; 84132; 84302; 84425; 84478; 85025; 85027; 85610; 85730; 86618; 86850; 86900; 86901; 86920; 87040; 87070; 87071; 87077; 87154; 87186; 87205; 92526; 92610; 92611; 93005; 94002; 94003; 94640; 96374; 96375; 96376; 97116; 97163; 97167; 97530; 97535; 99284; C1751; C1776; P9016; P9073; Q9967

== ENCOUNTER → 2024-10-14 14:40 | Outpatient (REF) | payer OTHER, SELFPAY | LOC: RAD 14:40 | PROVIDERS: ATTENDING PHYSICIAN Nurse Practitioner Family; FAMILY PHYSICIAN Internal Medicine | DX: R93.89 Abnormal findings on diagnostic imaging of other specified body structures (principal) | CPT/HCPCS: 71046 ==

== ENCOUNTER → 2024-10-18 08:30 | Outpatient (REF) | payer OTHER, SELFPAY | LOC: DHSLP 08:30 | PROVIDERS: ATTENDING PHYSICIAN Internal Medicine Critical Care Medicine; FAMILY PHYSICIAN Internal Medicine | DX: G47.30 Sleep apnea, unspecified (principal); R06.83 Snoring | CPT/HCPCS: 95800 ==

== ENCOUNTER → 2024-11-21 13:00 | Outpatient (REF) | payer OTHER, SELFPAY | LOC: PAVMRI 13:00 | PROVIDERS: ATTENDING PHYSICIAN Specialist; FAMILY PHYSICIAN Internal Medicine | DX: N28.89 Other specified disorders of kidney and ureter (principal) | CPT/HCPCS: 74183; A9575 ==